=== PATIENT | male | born 1945 | race Caucasian/White ===

== ENCOUNTER 2023-08-12 12:16 | Inpatient (IN) | payer OTHER, MEDICARE, SELFPAY ==
[2023-08-12] VITALS (8 sets, daily range): BP systolic 108–136; BP diastolic 66–84; BMI 25.6
--- NOTE | 2023-08-12 10:32 | ED.GENMED ---
History of Present Illness
General
Chief Complaint: Skin Problem
Source: patient and family
Exam Limitations: none
Time Seen by Provider: 08/12/23 10:15
Nursing documentation reviewed up to this point in time: agreed with
Travel History
Have you had any contact with someone who has COVID-19?: No
Do you have any symptoms of coronavirus? Fever > 100 degrees, chills, cough, shortness of breath, sore throat, loss of taste or smell, muscle aches, or headache?: No
History of Present Illness
History of Present Illness:
78-year-old male with past medical history of hypertension, hyperlipidemia, CAD status post CABG, A-fib, MDS, PVD status post stent (follows with Dr. Zelaya for vascular surgery) who presents to the emergency department for evaluation of redness and
pain in the right lower extremity. Patient was admitted to this hospital last month for cellulitis of the right lower extremity and was treated with antibiotics. He says he was discharged on oral antibiotic and his symptoms improved but never
completely resolved. He has had slow steady worsening of pain and redness, swelling of the right lower extremity since that time. Pain becoming quite severe and patient called vascular surgeon who recommended he come to the emergency room to be
assessed. He denies any fevers or chills. Denies any chest pain or shortness of breath. He denies any falls or trauma. He denies any other complaints.
Review of Systems
Review of Systems
All Other Systems: ROS reviewed and negative except as documented in HPI and ROS
Constitutional: Denies fever or chills
Respiratory: Denies trouble breathing
Cardiac: Denies chest pain or palpitations
ABD/GI: Denies abdominal pain, nausea or vomiting
: Denies flank pain
Musculoskeletal: Reports muscle pain (Redness, swelling, pain in the right lower leg) and edema; Denies neck pain
Neurological: Denies headache
Phy Exam
Physical Exam
Physical Exam:
General: Awake, alert, oriented x3; no acute distress
Head: Normocephalic, atraumatic
Eyes: Conjunctiva normal, EOMI
Throat: Airway intact, handling secretions
Neck: Trachea midline, supple without meningismus
Lungs: Breathing comfortably no distress
Heart: Regular rate; he has palpable pulses bilateral radial; pulses in the distal lower extremities not palpable but are present by Doppler bilaterally
Neuro: Cranial nerves grossly intact, speech fluid
Skin: no rash
Extremities: Patient has asymmetric pitting edema +3 right lower extremity with significant erythema of the right lower leg; he has significant tenderness of the right calf and anterior lower leg and induration of the skin circumferentially; he has
2 wounds on the right heel/distal calf both with necrotic center, no drainage, no fluctuance but significant tenderness
Scores
Heart Failure Risk
Heart Failure Risk Score: Not Applicable
Heart Score for Chest Pain Patients
STEMI patient?: Not applicable
Withdrawal Assessment of Alcohol
Withdrawal Assessment Completed?: Not applicable
Course
Orders/Labs/Results
Orders:
Orders
08/12/23 10:28
Vascular Surgery Consult Urgent
Consulting Provider: Adam Zelaya III
Was physician already notified: Yes
Lower Ext Arterial & GENE US [US Periph Art LOWER Ext w GENE] Urgent
Comment:
Reason For Exam: RLE pain and redness
US Periph Venous LOWER Ext RT Urgent
Comment:
Reason For Exam: RLE pain and redness
08/12/23 10:29
Cefepime HCl [Maxipime] 1,000 mg IV NOW STA
08/12/23 10:30
Blood Culture Q30M
DAMION Source: Blood/Venous
Specimen Description:
08/12/23 10:40
Complete Blood Count/With Diff Urgent
Comprehensive Metabolic Panel Urgent
08/12/23 11:00
Blood Culture Q30M
DAMION Source: Blood/Venous
Specimen Description:
Abnormal Lab Results
08/12/23
10:40
WBC 4.3 L 10^3/uL
(4.8-10.8)
RBC 3.33 L 10^6/uL
(4.70-6.10)
Hgb 12.0 L g/dL
(13.0-18.0)
Hct 34.7 L %
(39.0-52.0)
MCV 104.2 H fL
(80.0-94.0)
MCH 36.0 H pg
(27.0-31.0)
RDW 14.9 H %
(11.5-14.5)
Plt Count 109 L 10^3/uL
(130-400)
Abs Immat Gran (auto) 0.1 H 10^3/uL
(0-0.05)
Immature Gran % 2.8 H %
(0-0.5)
BUN 32 H mg/dl
(9-20)
Glucose 107 H mg/dl
(70-99)
08/12/23 10:40
08/12/23 10:40
Vital Signs
Initial and Last Documented VS:
Initial Vital Signs
Temp Pulse Resp BP Pulse Ox
36.9 C 98 18 136/84 99
08/12/23 10:11 08/12/23 10:11 08/12/23 10:11 08/12/23 10:11 08/12/23 10:11
Last Documented Vital Signs
Temp Pulse Resp BP Pulse Ox
36.9 C 98 18 136/84 99
08/12/23 10:11 08/12/23 10:11 08/12/23 10:11 08/12/23 10:11 08/12/23 10:11
MDM/Problems Addressed
Differential Diagnosis Includes:
Cellulitis, DVT, arterial insufficiency
MDM/Problems Addressed:
78-year-old male presents for evaluation of steadily increasing redness, swelling, pain in the right lower extremity; he has a history of significant vascular disease. Similar admission 1 month ago for cellulitis. Vital signs here within normal
limits. Physical exam as above. Exam is concerning for cellulitis with wounds on the lower leg likely representing portal of entry for bacteria. Plan to place an IV check labs including a CBC and a CMP; will check arterial and venous ultrasound
right lower extremity. Will plan to treat with antibiotics. Case discussed with vascular surgery who will evaluate, agreed with ultrasound imaging start. Given extent of redness and swelling plan likely for admission pending initial workup here.
Labs reviewed: CBC shows no significant changes from baseline labs. CMP unremarkable. Vascular surgery evaluated bedside requesting admission to medicine service for treatment of acute cellulitis and management of other chronic medical issues,
from their perspective we will plan for likely arteriogram while admitted. Case discussed with hospitalist for admission.
Chronic conditions affecting care:
Peripheral vascular disease
*Radiology
Radiology exam reviewed: radiology read reviewed
*Pulse Oximetry
Patient hypoxic: no
*Critical Care Note
Total Time (30-74mins, 75-104mins- exclusive of procedures): Not Applicable
Data Reviewed
Review of Other/Old Records Reveals: Labs and Records
Source: patient, records and family
Patient Management
Discussion with other providers: Hospitalist (Discussed with hospitalist) and Instant Print Operator (Discussed with vascular surgery)
Escalation/DeEscalation of care consider admission/obs:
Admission indicated
ED Attending Note
-
Portions of this chart may have been created with voice recognition software.� Occasional wrong word or��sound alike� substitutions may have occurred due to the inherent limitations of voice recognition software.
Discharge Plan
Departure
Patient Disposition: Admit
Date of Disposition: 08/12/23
Time of Disposition: 11:12
Admit to doctor: Ramiro
Presentation/result/management discussed w/ accepting MD/DO: Hospitalist
Discharge Problem:
Cellulitis of right lower leg
Prescriptions:
No Action
rosuvastatin 40 mg Tablet
40 mg PO QPM
fenofibrate 160 mg Tablet
160 mg PO HS
glucosamine HCl 1,500 mg Tablet
3,000 mg PO DAILY
omega 5-ybl-qav-fish oil [Fish Oil] 1,000 mg (120 mg-180 mg) Capsule
2 cap PO DAILY
Eliquis 5 mg Tablet
5 mg PO BID
acetaminophen 325 mg Tablet
650 mg PO Q4HPRN PRN (Reason: CALIXTO/mild pain/temp > 100.4 F) Qty: 14 0RF
alprazolam 0.25 mg Tablet
0.25 mg PO TIDPRN PRN (Reason: anxiety) Qty: 10 0RF
prednisone 10 mg Tablet
15 mg PO DAILY
Entresto 24-26 mg Tablet
1 tab PO BID
cephalexin 500 mg capsule
500 mg PO QID Qty: 20 0RF
carvedilol 3.125 mg Tablet
3.125 mg PO BID Qty: 60 0RF
Jardiance 10 mg Tablet
10 mg PO DAILY Qty: 0 0RF
Interventions
Interventions:
*Risk Screen - Suicide Last Done: 08/12/23 10:11
*General Assessment Last Done: 08/12/23 10:11
*Neglect/Abuse Screening Last Done: 08/12/23 10:11
ED- Fall Risk Assessment Last Done: 08/12/23 10:18
*ED COVID-19 Vaccine History Last Done: 08/12/23 10:11
ED-Skin Assessment Last Done: 08/12/23 10:18
[2023-08-12 10:50] LABS: % Basophils 0.2 % (0-2); % Eosinophils 0.7 % (0-6); % Immature Granulocytes 2.8 % (0-0.5); % Lymphocytes 27.2 % (20.5-51.1); % Monocytes 2.8 % (1.7-9.3); % Neutrophils 66.3 % (42.2-75.2); Absolute Immature Granulocytes 0.1 10^3/uL (0-0.05); Absolute Lymphocytes 1.2 10^3/uL (1.2-3.4); Absolute Monocytes 0.1 10^3/uL (0.1-0.6); Absolute Neutrophils 2.8 10^3/uL (1.4-6.5); Hematocrit 34.7 % (39.0-52.0); Mean Corp Hgb Conc. 34.6 g/dL (33.0-37.0); Mean Corpuscular Volume 104.2 fL (80.0-94.0); Nucleated Red Blood Cells % 0 % (-); Platelet Count 109 10^3/uL (130-400); Red Blood Cell Count 3.33 10^6/uL (4.70-6.10); Red Cell Dist. Width 14.9 % (11.5-14.5); White Blood Cell Count 4.3 10^3/uL (4.8-10.8)
--- NOTE | 2023-08-12 10:59 | CON.VAS ---
Addendum entered and electronically signed by Adam Zelaya III, MD 08/13/23 08:36:
This patient was seen and examined with ROXY Mcclellan. I agree with the history and physical exam as well as the assessment and plan. I have the following additions:
Known to me from recent inpatient consultation at [facility]
Known peripheral arterial disease; prior vascular surgery/endovascular interventions at outside hospital
Recurrent admissions for cellulitis and nonhealing wounds of his right lower extremity
Nonpalpable pedal pulses on the right
I personally reviewed his lower extremity arterial studies from this admission and last. He has a right SFA occlusion. Multiphasic arterial duplex waveforms in the right common femoral artery are identified.
I am recommending a right lower extremity arteriogram with possible endovascular intervention. The technical aspects of this procedure were discussed with him, his daughter (bedside). The benefits and rationale for this approach were discussed
with them in detail. Operative risks were discussed with them in detail including but not limited to arterial access site injury, bleeding, infection, contrast nephropathy, distal embolization, failure to successfully perform endovascular
intervention, open revascularization and limb loss.
They expressed a clear understanding of our conversation and agreed to proceed with surgery as detailed above. I also discussed this plan with his son-in-law who is a hand surgeon at [facility]. He also agrees with this approach.
Signed:
Adam Zelaya III, MD
[facility] Vascular Surgery
[phone] (ozet)
Original Note:
Consultation
Consultation Request
Date/Time Consultation Performed: 08/12/23 1130
Requesting Provider: Victor Manuel Cohen Jr
Performing Provider: Nora Mims NP-Terese for Adam Zelaya III, MD
Reason for Consultation: Right lower extremity cellulitis and nonhealing superficial calf wounds
Medical History
-
Chief Complaint: Right lower extremity pain, erythema, edema, and nonhealing wounds
History of Present Illness:
This is a 78-year-old male patient with significant past medical history of hypertension, hyperlipidemia, CAD, permanent A-fib, MDS, PAD who presents to the emergency department for evaluation of continued erythema, edema, and pain to right lower
extremity. Patient was recently admitted from 07/17/23 to 07/20/23 for treatment of right lower extremity cellulitis he completed a course of IV antibiotics with transition to p.o. upon discharge. At time of last admission patient was seen by our
vascular surgery group for concerns of peripheral artery disease contributing to cellulitis/wound non-healing; however, at that time patient showed progression with conservative management of antibiotics and family desired to seek continued care
with the [facility] where he was previously treated by their vascular surgery team. Of note he did have an established outpatient office visit this week with Dr. Zelaya but was canceled by patient. Patient notes following discharge he had slow
steady improvement of erythema and pain but never complete resolution. He then notes roughly a week ago he noticed worsening in pain and erythema. He was seen by [facility] on Wednesday (08/09) and was restarted on oral antibiotic
doxycycline. He also underwent office debridement by wound care physician and notes this exponentially worsened his pain. He denies nausea, vomiting, fever, chills, SOB, chest pain, and trauma or falls. He and family report to ED today as they
are now agreeable to peripheral artery disease management by our vascular surgery team, and desire urgent evaluation given his continued discomfort and nonhealing wounds. Does endorse symptomatology concerning for claudication, denies rest pain. He
is on oral anticoagulation for atrial fibrillation, last dose this morning.
Past Medical History
Past Medical History: Arrhythmias (atrial fibrillation), CAD, CHF, Psychiatric (Anxiety) and Other (peripheral arterial disease, myelodysplastic syndrome, polymyalgia rheumatica, hyperlipidemia, diverticulosis, gallstones, enlarged prostate, gout,
right carotid stenosis, )
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 Callahan (right common iliac artery stent 9x37 mm & external iliac stent 8x38
mm icast covered stent), BL femoral endarterectomy by Dr. Callahan)
Social History
Tobacco: Former Smoker (quit 1992)
Personal:
Living: With Family
Allergies / Home Medications
Allergy/AdvReac Type Severity Reaction Status Date / Time
Penicillins Allergy Mild Hives Verified 08/12/23 10:13
Medication Instructions Recorded Confirmed Type
apixaban 5 mg tablet (Eliquis) 5 mg PO BID Blood Clot 11/28/22 07/17/23 History
Prevention/Tx
fenofibrate 160 mg tablet 160 mg PO HS High Cholesterol 11/28/22 07/17/23 History
glucosamine HCl 1,500 mg tablet 3,000 mg PO DAILY Supplement 11/28/22 07/17/23 History
omega 9-che-lrt-fish oil 1,000 mg 2 cap PO DAILY Supplement 11/28/22 07/17/23 History
(120 mg-180 mg) capsule (Fish Oil)
rosuvastatin 40 mg tablet 40 mg PO QPM High Cholesterol 11/28/22 07/17/23 History
acetaminophen 325 mg tablet 650 mg PO Q4HPRN PRN CALIXTO/mild 12/04/22 07/17/23 Rx
pain/temp > 100.4 F #14 tabs
alprazolam 0.25 mg tablet 0.25 mg PO TIDPRN PRN anxiety #10 12/04/22 07/17/23 Rx
tabs
prednisone 10 mg tablet 15 mg PO DAILY INFLAMMATION 07/17/23 07/17/23 History
sacubitril 24 mg-valsartan 26 mg 1 tab PO BID Heart Failure 07/17/23 07/17/23 History
tablet (Entresto)
carvedilol 3.125 mg tablet 3.125 mg PO BID Heart Failure #60 07/20/23 07/17/23 Rx
tabs
cephalexin 500 mg capsule 500 mg PO QID Infection #20 caps 07/20/23 Rx
empagliflozin 10 mg tablet 10 mg PO DAILY Heart Failure #0 07/20/23 07/17/23 Rx
(Jardiance) tabs
Review of Systems
-
History Source: Patient
Constitutional: Reports No Symptoms
EENT: Reports No Symptoms
Respiratory: Reports No Symptoms
Cardiac: Reports No Symptoms
Vascular: Reports Leg Pain / Claudication and Other (Pain at right lower extremity, mostly at posterior upper calf and location of superficial wounds )
Abdomen/GI: Reports No Symptoms
: Reports No Symptoms
Musculoskeletal: Reports Edema (BL LE right worse than left )
Skin: Reports Other (erythema, pain, and swelling to RLE )
Neurological: Reports No Symptoms
Endocrine: Reports No Symptoms
Physical Exam
Vital Signs
Temp Pulse Resp BP Pulse Ox
98.4 F 98 18 136/84 99
08/12/23 10:11 08/12/23 10:11 08/12/23 10:11 08/12/23 10:11 08/12/23 10:11
Physical Exam
General: No Apparent Distress and Comfortable
HEENT: Normocephalic and Anicteric
Respiratory: Non Labored Respirations
Cardiac: Negative JVD
GI: Soft, Non Tender and Non Distended
Musculoskeletal: Edema (Right lower extremity +2 pitting edema, left lower extremity +1 pitting edema)
Skin: Warm, Dry and Other (Erythema at right lower extremity calf to foot, with superficial wounds at medial calf and heel)
Neuro: AO x 3
Pulses: Left Femoral: +2, Right Femoral: +1 (Challenging to palpate with amount of scar tissue present, confirmed by Doppler), Bilateral Dorsalis Pedis: Doppler and Left Posterior Tibial: Doppler
Assessment / Plan
-
Assessment: 78-year-old male significant past medical history for peripheral artery disease, bilateral lower extremity edema, cellulitis, and nonhealing wounds
Plan:
Given failure of conservative management, abnormal GENE and toe pressure of 0 at right lower extremity would recommend right lower extremity arteriogram with possible intervention to further evaluate extent of peripheral artery disease and hopefully
optimize wound healing if arterial disease is amenable to endovascular intervention
N.p.o. at midnight
Hold oral anticoagulation in preparation for procedure tomorrow
Discussed at bedside with patient, spouse, and daughter
I performed this shared service with the attending. I evaluated the patient [id number] and have entered clinical documentation as shown in the encounter note. I performed the following component(s):�history and physical exam. Note that medical
decision making is not final until attested by vascular attending.
Data Reviewed
-
Ultrasound: Report Reviewed by me, Discussed with Physician and Discussed with Patient
Labs: Labs Reviewed by me, Discussed with Physician, Discussed with Patient and Discussed with Family
[2023-08-12 11:07] LABS: ALT (SGPT) 14 U/L (0-50); AST (SGOT) 20 U/L (17-59); Alkaline Phosphatase 51 U/L (38-126); Blood Urea Nitrogen 32 mg/dl (9-20); Calcium 9.6 mg/dl (8.4-10.2); Carbon Dioxide 25 mmol/L (22-30); Chloride 102 mmol/L (98-107); Estimated Creatinine Clearance 74 ml/min; Glucose 107 mg/dl (70-99); Potassium 3.8 mmol/L (3.5-5.1); Sodium 139 mmol/L (135-145); Total Bilirubin 1.2 mg/dl (0.2-1.3); Total Protein 7.2 g/dl (6.3-8.2); eGFR > 60.00
[2023-08-12 11:30] LABS: Albumin 3.9 g/dl (3.5-5.0)
--- NOTE | 2023-08-12 12:04 | HPS.HSE ---
Family Physician
-
Family Physician: Olman Fritz
Chief Complaint
-
Increasing pain and swelling of right lower extremity
History of Present Illness
78-year-old male with past medical history of hypertension, hyperlipidemia, CAD status post CABG, permanent A-fib, MDS, PVD status post stent (follows with Dr. Zelaya for vascular surgery) who presents to the emergency department for evaluation of
redness and pain in the right lower extremity.� Patient was admitted to this hospital last month for cellulitis of the right lower extremity and was treated with antibiotics. Completed course of cephalexin. he says he was discharged on oral
antibiotic and his symptoms improved but never completely resolved.� He has had slow steady worsening of pain and redness, swelling of the right lower extremity since that time.� Pain becoming quite severe and patient called vascular surgeon who
recommended he come to the emergency room to be assessed.� He denies any fevers or chills.� Denies any chest pain or shortness of breath.� He denies any falls or trauma.� He denies any other complaints. At that admission he was found to have
significant peripheral vascular disease. Was to try conservative management with antibiotic and have further follow-up with vascular either at near where they live up in [place] or locally here. They have decided to pursue any vascular
management locally while hospitalized. He follows with Dr. Amaya in [place] for his cardiology follow-up that has been stable.) His last dose of Eliquis was this morning.
Medical History
Past Medical History
Past Medical History: Reports Arrhythmia (Permanent atrial fibrillation), CAD (5 vessel bypass), Fibromyalgia (PMR) and Hypercholesterolemia
Additional Past Medical History:
MDS follows with hematology
Past Surgical History: Reports Cardiac
Social History
Tobacco: Former Smoker
Alcohol: None
Drug: None
Personal:
Living: With Family
Employment: Retired
Family History
Family History: Not pertinent
Allergies / Home Medications
Allergies reflects when Allergies were last updated in [facility].
Home Medications with original date entered in [facility]
Allergy/Medication List:
Allergies
Allergy/AdvReac Type Severity Reaction Status Date / Time
Penicillins Allergy Mild Hives Verified 08/12/23 10:13
Home Medications
apixaban 5 mg tablet (Eliquis) 5 mg PO BID Blood Clot Prevention/Tx 11/28/22
fenofibrate 160 mg tablet 160 mg PO HS High Cholesterol 11/28/22
glucosamine HCl 1,500 mg tablet 3,000 mg PO DAILY Supplement 11/28/22
omega 5-okp-qtz-fish oil 1,000 mg (120 mg-180 mg) capsule (Fish Oil) 2 cap PO DAILY Supplement 11/28/22
rosuvastatin 40 mg tablet 40 mg PO QPM High Cholesterol 11/28/22
acetaminophen 325 mg tablet 650 mg PO Q4HPRN PRN CALIXTO/mild pain/temp > 100.4 F #14 tabs 12/04/22
alprazolam 0.25 mg tablet 0.25 mg PO TIDPRN PRN anxiety #10 tabs 12/04/22
prednisone 10 mg tablet 15 mg PO DAILY INFLAMMATION 07/17/23
sacubitril 24 mg-valsartan 26 mg tablet (Entresto) 1 tab PO BID Heart Failure 07/17/23
carvedilol 3.125 mg tablet 3.125 mg PO BID Heart Failure #60 tabs 07/20/23
cephalexin 500 mg capsule 500 mg PO QID Infection #20 caps 07/20/23
empagliflozin 10 mg tablet (Jardiance) 10 mg PO DAILY Heart Failure #0 tabs 07/20/23
Review of Systems
-
History Source: Patient and Family
A 12 point ROS was completed and negative except as noted: Yes
Constitutional: Reports See HPI
EENT: Reports See HPI
Respiratory: Reports See HPI
Cardiac: Reports See HPI
Abdomen/GI: Reports See HPI
: Reports See HPI
Musculoskeletal: Reports See HPI
Skin: Reports See HPI
Neurological: Reports See HPI
Endocrine: Reports See HPI
Hematologic/Lymphatic: Reports See HPI
Psych: Reports See HPI
Physical Exam
Vital Signs
Vital Signs
Temp Pulse Resp BP Pulse Ox
98.4 F 98 18 136/84 99
08/12/23 10:11 08/12/23 10:11 08/12/23 10:11 08/12/23 10:11 08/12/23 10:11
Physical Exam
General: Well Developed and Comfortable
HEENT: NormoCephalic and Moist mucous membranes
Cardiac: Irregular Rhythm
GI: Soft, Non Tender and Non Distended
Musculoskeletal: Edema, Right Lower Extremity (Tender right calf with surrounding erythema and edema induration of the skin 2 wounds to the right heel and distal calf with necrotic center no apparent drainage no fluctuance)
Skin: Warm and Rash
Neuro: Awake, Alert, Oriented, AO x 3, No Motor Deficits and Nonfocal/grossly intact
Psych: Calm and Intact Judgment/Insight
Laboratory Results
-
08/12/23 10:40
08/12/23 10:40
Laboratory Results
Total Bilirubin 1.2 mg/dl (0.2-1.3) 08/12/23 10:40
AST 20 U/L (17-59) 08/12/23 10:40
ALT 14 U/L (0-50) 08/12/23 10:40
Alkaline Phosphatase 51 U/L (38-126) 08/12/23 10:40
Data Reviewed
-
Critical Care Time (in minutes): 56
Lab Data: Labs Reviewed by me (4.3 white count/hemoglobin 12.0/platelets 109/blood sugar 107 creatinine 0.8 BUN 32 out of proportion of previous levels/)
Impression/Plan
-
IMPRESSION:
78-year-old male with past medical history of hypertension, hyperlipidemia, CAD status post CABG, permanent A-fib, MDS, PVD status post stent (follows with Dr. Zelaya for vascular surgery) who presents to the emergency department for evaluation of
redness and pain in the right lower extremity.� Patient was admitted to this hospital last month for cellulitis of the right lower extremity and was treated with antibiotics. Completed course of cephalexin. he says he was discharged on oral
antibiotic and his symptoms improved but never completely resolved.� He has had slow steady worsening of pain and redness, swelling of the right lower extremity since that time.� Pain becoming quite severe and patient called vascular surgeon who
recommended he come to the emergency room to be assessed.� He denies any fevers or chills.� Denies any chest pain or shortness of breath.� He denies any falls or trauma.� He denies any other complaints. At that admission he was found to have
significant peripheral vascular disease. Was to try conservative management with antibiotic and have further follow-up with vascular either at near where they live up in [place] or locally here. They have decided to pursue any vascular
management locally while hospitalized. He follows with Dr. Amaya in [place] for his cardiology follow-up that has been stable.) His last dose of Eliquis was this morning.
Assessment and plan:
Right lower extremity cellulitis
-Ongoing nonhealing wound to medial calf with increasing suspected ischemic pain from known PAD
-Prior documented peripheral vascular disease seen on GENE in June
-Nonhealing wound after antibiotic treatment in late June
-Obtain repeat arterial Doppler and vascular consultation/will make n.p.o. after midnight in preparation for arteriography
-No prior culture results from wound infection in June/completed course of cephalexin
-Hold dose of Eliquis
-Will continue on course of antibiotics started in ED but consult infectious disease
Peripheral arterial disease
-Documented on previous GENE arterial Doppler pending today
-Prior history of endovascular intervention to right lower extremity at another facility
-Rule out ischemic burden as cause of recurrent wound
-For arteriogram in a.m./n.p.o. after midnight
-Hold anticoagulant last taken this morning
Coronary artery disease/prior CABG/ischemic cardiomyopathy?/Prior history of HFrEF
-Continue statin
- most recent echo reviewed showing an EF of 25% in November of last year with global hypokinesis moderate to severe tricuspid regurg and pulmonary artery pressures of 44 mmHg/moderate mitral regurg
-Continue Entresto
-Carvedilol
-Jardiance
-Stable functional status
-If vascular intervention entertained we will need to get cardiology clearance/update 2D echocardiogram
Permanent atrial fibrillation
-Rate control with carvedilol
-Hold anticoagulation in preparation for vascular intervention with arteriography
Other comorbidities:
Polymyalgia rheumatica/continue prednisone 50 mg
Myelodysplastic syndrome/presently stable
Hypercholesterolemia/continue fenofibrate and rosuvastatin/hold omega-3
DVT prophylaxis Eliquis will be held/Lovenox tonight subcu/not candidate for mechanical
Limited CODE STATUS /DNI
Plan of care discussed at length with patient's family and patient in ED and agreed upon
[2023-08-12] MEDS: MAXIPIME 1000 MG IV (12:20)
--- NOTE | 2023-08-12 12:51 | CM ---
Patient seen at bedside with and daughter present. Patient states that he lives with in a 2 story home. Patient has a walker and a cane at home. Patient states that he has 7 children and 17 grands. Patient stated that he has been having
[facility] Vn at home prior to admission since last admission recently. Patient uses [facility] at [place]. CM will continue to follow for discharge planing needs.
Plan; home with VN vs SNF pending medical treatment plan
--- NOTE | 2023-08-12 13:35 | PHA.VAN.IN ---
Assessment
- Assessment
Renal Function: Appears similar to baseline (SCR similar to baseline, BUN slightly elevated)
Concomitant Antimicrobials: cefepime
AUC Dosing Plan
- Dosing Variables
Dosing Weight (kg): 76
Dosing CrCl (ml/min): 74
Vd coefficient (L/kg): 0.7
- Empiric Dosing
Initial / Loading Dose: 2000mg - administration pending
Maintenance Regimen: Vanc 750mg Q12H starting at 08/13 0600
Estimated AUC (mcg*h/mL): 442
Estimated Peak (mcg*h/mL): 25.8
Estimated Trough (mcg/ml): 12.5
Estimated Half Life (H): 10.5
- Monitoring
No levels ordered at this time: consider levels in next few days
Pharmacokinetics Vancomycin I
- -
Patient Age: 78
Patient Sex: Male
Vancomycin Day #: 1
Indication: Skin And Soft Tissue
Requesting Provider: Dr. Ibarra
Pertinent Antimicrobial Allergies:
penicillins - hives
Height / Weight:
Height 5 ft 8 in
Actual Weight 75.5 kg
Pertinent Past Medical History: PAD, MDS
- Vital Signs / Lab Results
Temp Pulse Resp BP Pulse Ox
98.4 F 98 18 108/66 99
08/12/23 10:11 08/12/23 10:11 08/12/23 10:11 08/12/23 13:00 08/12/23 13:15
Lab Results - Hematology
08/12/23
10:40
WBC 4.3 L
Lab Results - Chemistry
08/12/23
10:40
BUN 32 H
Creatinine 0.8
Estimated Creat Clear 74
Albumin 3.9
[2023-08-12] MEDS: NSS 1000 IV (14:39)
[2023-08-12] MEDS: VANCOCIN 540 MG IV (14:39)
[2023-08-12] MEDS: FLUSH (NSS) 1 FLUSH IV (14:40)
--- NOTE | 2023-08-12 15:15 | WOUNDNOTE ---
[facility] RN note: Patient admitted with RLE cellulitis. For angiogram tomorrow. Patient being followed by vascular and ID.
See H&P for complete history.
PMH: HTN, CABG, a fib (Eliquis), myelodysplasia syndrome (prednisone), non healing RLE wounds, PAD, RLE vascular bypass with stent 2013, fibromyalgia, former smoker.
Wound Location and type/assessment: Patient admitted with: R medial posterior calf full thickness wound with moist eschar and dermal pink ulceration, R posterior upper heel/Achilles necrotic ulcers. +diffuse edema and erythema RLE. RLE venous
ultrasound negative for DVT. Arterial Doppler R toe pressure: 0. Toes slightly cool on R. Patient c/o intermittent pain RLE. L heel blanchable red, R elbow and LUE with small bruises, persistent blanchable red sacrum.
Appetite: fair-good.
Pressure redistribution devices in place: [employer] Accum[employer]. Patient is able to turn self in bed. Heels off bed with pillow and air chair cushion.
Plan: Wound culture taken RLE as ordered. BIRD Mcarthur to send to lab. Dressing changed R calf and R heel/Achilles. Heel elevation maintained. Instructed patient pressure injury prevention measures. Protective foam dressing applied to R heel.
Will confirm orders with hospitalist and discussed with BIRD Mcarthur.
Care plan to be updated and will follow as needed. Patient stated he will request VN again if goes home when discharged.
Recommend follow up at wound care center upon discharge.
--- NOTE | 2023-08-12 15:21 | WOUNDNOTE ---
R CALF (POSTERIOR MEDIAL)
--- NOTE | 2023-08-12 16:20 | CON.ID ---
Consultation
-
Date/Time Consultation Requested: 08/12/23 12:38
Date/Time Consultation Performed: 07/23/23 16:20
Requesting Provider: Dr Ibarra
Performing Provider: Dr Avila
Reason for Consultation: cellulitis
Chief Complaint / Past History
Chief Complaint
Increasing pain and swelling of right lower extremity
History of Present Illness
Mr Carson is a 78 year old male with history of PVD s/p stenting with a chronic lower extremity wound, MDS , penicillin allergy who presented here today for right lower extremity redness, swelling, + claudication. No rest pain. Of note had a similar
presentation 1 month ago discharged on keflex patient reports that symptoms improved but never fully resolved. Of note GENE at last visit 'Chronic long segment occlusion of the right SFA with reconstitution of monophasic continuous flow within the
popliteal artery. Posterior tibial artery not visualized, likely occluded,' US of stents showed patent right lower extremity veins without thrombosis, he completed 5 further days of keflex. Then about 1 week ago symptoms began progressing, saw
wound care started on doxycycline, also had debridement in the office and subsequently with markedly increased pain. No: nausea, vomiting, fever, chills, SOB, chest pain, and trauma or falls.
Since arrival here this visit he is afebrile, bp stable, wbc 4.3, pancytopenia noted and is chronic, no left shift, cr 0.8, a1c last month 5.7, MRSA screen negative last month, in progress this month, blood cultures x2 in progress, a wound culture
is also in progress. Patient is currently on vancomycin and cefepime, ID is consulted for assistance with management.
Past History
Additional Past Medical History:
Arrhythmias (atrial fibrillation), CAD, CHF, Psychiatric (Anxiety) and Other (peripheral arterial disease, myelodysplastic syndrome, polymyalgia rheumatica, hyperlipidemia, diverticulosis, gallstones, enlarged prostate, gout, right carotid stenosis,
Additional Past Surgical History:
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 Callahan (right common iliac artery stent 9x37 mm & external iliac stent 8x38 mm icast covered
stent), BL femoral endarterectomy by Dr. Callahan)
Allergy History:
Penicillins Allergy (Mild, Verified 08/12/23 10:13)
Hives
Medications Reviewed: Yes
Social History
Tobacco: Former Smoker
Personal:
Living: With Family
Family History
Family History: Not Pertinent
Review of Systems
Review of Systems
General: Negative Fever or Chills
All systems: All other systems were reviewed and were negative
Vital Signs
Temp Pulse Resp BP Pulse Ox
98.6 F 98 18 120/70 95
08/12/23 15:32 08/12/23 15:32 08/12/23 15:32 08/12/23 15:32 08/12/23 15:32
Physical Exam
Physical Exam
Constitutional: No Acute Distress
Cardiovascular: Regular Rate and S1/S2; Negative Murmur or Rub
Pulmonary: Clear and Symmetric; Negative Wheezes, Rales or Rhonchi
Gastrointestinal: Soft, Non Tender, Non Distended and Normal Bowel Sounds
Skin: Warm and Dry; Negative Rash or Jaundice
Lab / Diagnostic Study Results
08/12/23 10:40
08/12/23 10:40
Abs Immat Gran (auto) 0.1 10^3/uL (0-0.05) H 08/12/23 10:40
Absolute Neuts (auto) 2.8 10^3/uL (1.4-6.5) 08/12/23 10:40
Absolute Lymphs (auto) 1.2 10^3/uL (1.2-3.4) 08/12/23 10:40
Absolute Monos (auto) 0.1 10^3/uL (0.1-0.6) 08/12/23 10:40
Absolute Basos (auto) 0.0 10^3/uL (0-0.2) 08/12/23 10:40
Immature Gran % 2.8 % (0-0.5) H 08/12/23 10:40
Neutrophils % 66.3 % (42.2-75.2) 08/12/23 10:40
Lymphocytes % 27.2 % (20.5-51.1) 08/12/23 10:40
Monocytes % 2.8 % (1.7-9.3) 08/12/23 10:40
Eosinophils % 0.7 % (0-6) 08/12/23 10:40
Basophils % 0.2 % (0-2) 08/12/23 10:40
Microbiology Results
Micro:
08/12/23 14:56 Wound Culture - Pending
Leg - Right Gram Stain - Pending
08/12/23 14:56 MRSA Screen - Pending
Nose
08/12/23 10:40 Blood Culture - Pending
Blood/Venous
08/12/23 10:40 Blood Culture - Pending
Blood/Venous
Assessment / Plan
Nonpurulent Right lower extremity cellulitis
Lower extremity wounds
- Possible portal of entry of bacteria
Myelodysplastic syndrome
Immunosuppression
PAD/CAD
- poor tissue perfusion may have contributed to relapse, pleased to hear patient now agreeable to intervention (if feasible); MDS and immunosuppression also likely contributed
- without purulence most likely driven by streptococcus - will have faster response with targeted agents - switched to cefazolin
- too tender for compression, leg is elevated - managing edema also important to decrease risk of relapse
- not diabetic
- blood cultures x2 in progress
- wound culture in progress
- known to outpatient wound care center
- follow clinically
[2023-08-12 16:29] LABS: Vitamin B12 465 pg/ml (239-931)
[2023-08-12] MEDS: ANCEF 10 IV (17:48)
[2023-08-12] MEDS: CRESTOR 40 MG PO (17:49)
[2023-08-12] MEDS: LOVENOX 40 MG SC (17:49)
[2023-08-12] MEDS: MORPHINE SULFATE 2 MG IV (18:35)
[2023-08-12] MEDS: COREG 3.125 MG PO (20:13)
[2023-08-12] MEDS: ENTRESTO 24 MG/26 MG 1 TAB PO (20:13)
--- NOTE | 2023-08-12 22:52 | PTCARENOTE ---
At 22:52 pt became restless and confused oriented to only self. VS: 104.3 rectal temp, 144/112bp, 150-160's hr, 84% on room air, resp 26. RN put pt on 4L NC sating 96% and notified DIRECTOR ADVERTISING- ordered [employer].
@2300: pt AAOx3, VS: hr 110-120's, 99.6 temp, 113/69bp, 97% 4L NC, resp 20. Pt is resting comfortably with call rothman within reach.
[2023-08-12] MEDS: OFIRMEV 100 IV (23:03)
[2023-08-13] VITALS (51 sets, daily range): BP systolic 77–134; BP diastolic 44–80; BMI 26.0
[2023-08-13 00:26] LABS: Lactic Acid 2.6 mmol/L (0.7-2.0)
[2023-08-13 00:30] LABS: % Basophils 0.3 % (0-2); % Eosinophils 0.4 % (0-6); % Immature Granulocytes 1.9 % (0-0.5); % Lymphocytes 6.6 % (20.5-51.1); % Monocytes 1.8 % (1.7-9.3); Absolute Immature Granulocytes 0.1 10^3/uL (0-0.05); Absolute Lymphocytes 0.5 10^3/uL (1.2-3.4); Absolute Monocytes 0.1 10^3/uL (0.1-0.6); Hematocrit 30.7 % (39.0-52.0); Hemoglobin 10.7 g/dL (13.0-18.0); Mean Corp Hgb Conc. 34.9 g/dL (33.0-37.0); Mean Corpuscular Hgb 36.4 pg (27.0-31.0); Mean Corpuscular Volume 104.4 fL (80.0-94.0); Mean Platelet Volume 9.3 fL (7.4-10.4); Nucleated Red Blood Cells % 0 % (-); Platelet Count 98 10^3/uL (130-400); Red Blood Cell Count 2.94 10^6/uL (4.70-6.10); Red Cell Dist. Width 15.1 % (11.5-14.5); White Blood Cell Count 6.8 10^3/uL (4.8-10.8)
[2023-08-13 00:32] LABS: Blood Urea Nitrogen 20 mg/dl (9-20); Calcium 8.4 mg/dl (8.4-10.2); Carbon Dioxide 22 mmol/L (22-30); Chloride 106 mmol/L (98-107); Estimated Creatinine Clearance 74 ml/min; Glucose 148 mg/dl (70-99); Potassium 3.7 mmol/L (3.5-5.1); Sodium 134 mmol/L (135-145); eGFR > 60.00
[2023-08-13 00:42] LABS: COVID-19 Antigen Negative (Negative)
[2023-08-13] MEDS: XANAX 0.25 MG PO ×2 (00:43→07:34)
[2023-08-13] MEDS: TRICOR 145 MG PO ×2 (00:44→20:27)
[2023-08-13 00:52] LABS: Procalcitonin 0.58 ng/ml (0.0-0.25)
[2023-08-13] MEDS: ANCEF 10 IV (03:51)
[2023-08-13 07:37] LABS: Hematocrit 30.6 % (39.0-52.0); Hemoglobin 10.5 g/dL (13.0-18.0); Mean Corp Hgb Conc. 34.3 g/dL (33.0-37.0); Mean Corpuscular Hgb 36.3 pg (27.0-31.0); Mean Corpuscular Volume 105.9 fL (80.0-94.0); Mean Platelet Volume 9.2 fL (7.4-10.4); Platelet Count 91 10^3/uL (130-400); Red Blood Cell Count 2.89 10^6/uL (4.70-6.10); Red Cell Dist. Width 15.3 % (11.5-14.5); White Blood Cell Count 8.5 10^3/uL (4.8-10.8)
--- NOTE | 2023-08-13 08:15 | PTCARENOTE ---
Provided update to Nora Mims NP from vascular surgery from events overnight and that pt is febrile currently. Nora will update Dr. Zelaya.
[2023-08-13 08:20] LABS: Blood Urea Nitrogen 21 mg/dl (9-20); Calcium 8.9 mg/dl (8.4-10.2); Carbon Dioxide 23 mmol/L (22-30); Chloride 103 mmol/L (98-107); Estimated Creatinine Clearance 74 ml/min; Glucose 89 mg/dl (70-99); Potassium 3.9 mmol/L (3.5-5.1); Sodium 137 mmol/L (135-145); eGFR > 60.00
[2023-08-13] MEDS: TYLENOL 650 MG PO ×2 (08:23→13:39)
[2023-08-13] MEDS: COREG 3.125 MG PO (08:24)
[2023-08-13] MEDS: ENTRESTO 24 MG/26 MG 1 TAB PO (08:25)
[2023-08-13 08:50] LABS: Lactic Acid 1.4 mmol/L (0.7-2.0)
[2023-08-13] MEDS: NSS 1000 IV (09:56)
--- NOTE | 2023-08-13 09:58 | W.PN.HOSP.TC ---
Addendum entered and electronically signed by Campos Ibarra MD 08/13/23 11:08:
In preparation for arteriography the patient developed hypotension and did not respond to fluid bolus with BP still in the 70s and 80 and will be transferred to ICU for pressors/given his history of reduced EF heart failure and cardiomyopathy we
will consult cardiology. Arteriography will be postponed till further stabilization.
Original Note:
Today's Communication/Plan
-
For arteriography today
Continue IV cefazolin as per ID/monitor cultures including blood
Monitor renal status
Anticoagulation on hold and defer to vascular
Assessment / Plan
Assessment / Plan
78-year-old male with past medical history of hypertension, hyperlipidemia, CAD status post CABG, permanent A-fib, MDS, PVD status post stent (follows with Dr. Zelaya for vascular surgery) who presents to the emergency department for evaluation of
redness and pain in the right lower extremity.� Patient was admitted to this hospital last month for cellulitis of the right lower extremity and was treated with antibiotics.� Completed course of cephalexin. he says he was discharged on oral
antibiotic and his symptoms improved but never completely resolved.� He has had slow steady worsening of pain and redness, swelling of the right lower extremity since that time.� Pain becoming quite severe and patient called vascular surgeon who
recommended he come to the emergency room to be assessed.� He denies any fevers or chills.� Denies any chest pain or shortness of breath.� He denies any falls or trauma.� He denies any other complaints.� At that admission he was found to have
significant peripheral vascular disease.� Was to try conservative management with antibiotic and have further follow-up with vascular either at near where they live up in [place] or locally here.� They have decided to pursue any vascular
management locally while hospitalized.� He follows with Dr. Amaya in [place] for his cardiology follow-up that has been stable.)� His last dose of Eliquis was this morning.
Assessment and plan:
Right lower extremity cellulitis
-Ongoing nonhealing wound to medial calf with increasing suspected ischemic pain from known PAD
-Prior documented peripheral vascular disease seen on GENE in June
-Nonhealing wound after antibiotic treatment in late June
-Obtain repeat arterial Doppler / vascular consultation/will make n.p.o. after midnight in preparation for arteriography
-GENE was not able to be obtained absent TBI chronic long segment occlusion of the right SFA with reconstitution of within the popliteal. Posterior tibial artery not visualized
-No prior culture results from wound infection in June/completed course of cephalexin
-Hold dose of Eliquis
-ID consultation reviewed/placed on cefazolin 2 g every 8
Peripheral arterial disease
-Documented on previous GENE arterial Doppler pending today
-Prior history of endovascular intervention to right lower extremity at another facility
-Rule out ischemic burden as cause of recurrent wound
-For arteriogram in a.m./n.p.o. after midnight
-Hold anticoagulant last taken 08/12 AM
Coronary artery disease/prior CABG/ischemic cardiomyopathy?/Prior history of HFrEF
-Continue statin
- most recent echo reviewed showing an EF of 25% in November of last year with global hypokinesis moderate to severe tricuspid regurg and pulmonary artery pressures of 44 mmHg/moderate mitral regurg
-Continue Entresto
-Carvedilol
-Jardiance
-Stable functional status
-If vascular intervention entertained we will need to get cardiology clearance/update 2D echocardiogram
Permanent atrial fibrillation
-Rate control with carvedilol
-Hold anticoagulation in preparation for vascular intervention with arteriography
Other comorbidities:
Polymyalgia rheumatica/continue prednisone 50 mg
Myelodysplastic syndrome/presently stable
Hypercholesterolemia/continue fenofibrate and rosuvastatin/hold omega-3
DVT prophylaxis Eliquis will be held/Lovenox tonight subcu/not candidate for mechanical
Limited CODE STATUS /DNI
Plan of care discussed at length with patient's family and patient in ED and agreed upon
Anticipated Discharge: 24 - 48 hours
Subjective/Interval History
-
Date of Service: August 13, 2023
Patient presently awake and alert no acute distress had restless night and has had recurrent fever at that time rate was 160s presently 100 for arteriogram later today
Objective Data
-
Labs:
Laboratory Results
08/13/23 08/13/23
00:00 07:02
WBC 6.8 8.5
Hgb 10.7 L 10.5 L
Hct 30.7 L 30.6 L
Plt Count 98 L 91 L
Sodium 134 L 137
Potassium 3.7 3.9
Chloride 106 103
Carbon Dioxide 22 23
BUN 20 21 H
Creatinine 0.8 0.8
Glucose 148 H 89
Calcium 8.4 8.9
Vital Signs:
Vital Signs
Temp Pulse Resp BP Pulse Ox
103.1 F H 100 20 108/80 95
08/13/23 07:30 08/13/23 08:24 08/13/23 07:30 08/13/23 08:24 08/13/23 08:45
I&O
08/12/23 08/13/23 08/14/23
06:59 06:59 06:59
Intake Total 1320 / 1320
Output Total 950 / 950
Balance 370 / 370
Review of Systems
-
History Source: Patient
All other systems: Reviewed and negative
Constitutional: Reports Fever (103 last night)
EENT: Reports No Symptoms Reported
Respiratory: Reports No Symptoms
Cardiac: Reports No Symptoms
Abdomen/GI: Reports No Symptoms
Genitourinary: Reports No Symptoms
Skin: Reports Rash, Sores and Nail Changes
Neuro: Reports No Symptoms
Endocrine: Reports No Symptoms
Physical Exam
-
General: Well Developed
HEENT: Normocephalic
Respiratory: Clear to Auscultation
Cardiac: Irregular Rhythm and Tachycardic
GI: Soft, Nontender and Nondistended
Musculoskeletal: Edema, Right Lower Extrem (Ulcer medial calf/tender to palpation)
Skin: Rash and Ulcers
Psych: Calm
Data Reviewed
-
Diagnostic Radiology: Report Reviewed by me (Chest x-ray clear)
Labs: Labs Reviewed by me (White count remained stable at 8.5 hemoglobin 10.5/creatinine baseline of 0.8 prior to arteriogram/lactic acid was only 1.4)
--- NOTE | 2023-08-13 10:30 | PTCARENOTE ---
Provided report to paint laboratory technician and provided update from last night. Pt transported at this time to the [facility] for arteriogram.
[2023-08-13] MEDS: NSS 500 IV (11:16)
--- NOTE | 2023-08-13 11:27 | CON.CAR ---
Addendum entered and electronically signed by Humberto Sewell MD 08/13/23 12:13:
78-year-old man with history of CABG in 2008, ischemic cardiomyopathy with EF of 25% permanent atrial fibrillation, MDS and recent admission to [facility] for cellulitis in June 2023. He was discharged, potentially with follow-up for PAD
at [facility] but admitted to [place] yesterday with increasing right lower extremity pain. He presented to the vascular surgery lab for an arteriogram today, was confused, had a blood pressure in the mid 70s with atrial fibrillation and a
slightly rapid ventricular response. Procedure canceled and norepinephrine started. Cardiology consultation requested.
Allergies: Penicillin
Outpatient medications: Carvedilol 3.125 twice daily, doxycycline, Eliquis 5 mg twice daily, currently on hold, Entresto twice daily, fenofibrate, Jardiance 10 mg a day, prednisone 15 mg a day, rosuvastatin 40 mg daily
Current meds: Reviewed
PMH: CAD, ischemic cardiomyopathy, EF 25%, non-ST segment elevation [place] November 2022, permanent atrial fibrillation, hypertension, hypercholesterolemia, MDS on Procrit
PSH: CABG at [facility], ORTA to LAD, radial to PDA, sequential SVG to OM 2 and OM 3, traumatic amputation of right second finger
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
FH: Noncontributory
ROS: Not readily obtainable
88/52, pulse 90, febrile to 39.5, respirate 24, saturations 97%
Conversant at present having received IV fluid, offers no complaints
Head neck: Poor dentition
Lungs clear
Irregular rate and rhythm very soft systolic apical murmur, JVD okay, no bruits
Abdomen benign
Distal pulses not readily palpable, Elio dressing on right lower extremity
Hemoglobin 10.5, white count 8.5, platelets are 91, BUN and creatinine 21 and 0.8, lactic acid level 1.4, procalcitonin 0.58
Chest x-ray cardiomegaly, ECG pending
Primary Rn Charge: Dr. Preston
Assessment:
RLE cellulitis/sepsis with hypotension
TME
Recent admission for RLE cellulitis 06/2023 with abnormal GENE
PAD
Chronic HFrEF
Ischemic cardiomyopathy
History of abnormal stress test
NSTEMI 11/2022, managed conservatively as was confused and without cardiac symptoms
History of permanent A-fib on chronic Eliquis
CABG 2008 [facility] (ORTA to LAD, radial graft to RPDA, SVG from LCx-OM2 to OM3)
Hypertension
Hypercholesterolemia
stage III renal insufficiency, current GFR greater than 60
MDS/Chronic Anemia s/p Procrit shots
ECHO 11/30/22: EF 25%, global hypokinesis with anterior, anteroseptal, apical akinesis, MAC, at least mild to moderate MR, underestimated due to MAC, AAC, peak/mean gradients 23/30 mmHg, at least mild , moderate to severe TR, PAP 44 mmHg
Plan:
His hypotension and confusion likely related to sepsis and fever. There is no evidence of heart failure presents although he is tachypneic, could be a sign of sepsis.
Agree with IV fluid, though need to watch for acute HFrEF.
Check proBNP and troponin. Recheck echocardiogram.
Restart carvedilol, Entresto as blood pressure permits. Continue norepinephrine for now.
Resume Eliquis if okay with vascular surgery, and discontinue prior to arteriogram.
Original Note:
Consultation
Consultation Request
Date/Time Consultation Performed: 08/13/23
Requesting Provider: Marquita RAMSEY
Performing Provider: Kenzie Tavarez PA-C for Dr. BENEDICT Sewell
Reason for Consultation: hypotension
Medical History
-
Chief Complaint: RLE erythema/pain
History of Present Illness:
Patient is a 78-year-old male with past medical history of CABG x 4 in 2008 at outside hospital, permanent atrial fibrillation on chronic Eliquis, hypertension, hyperlipidemia, stage III renal insufficiency, MDS who had recent admission to
[facility] for right lower extremity cellulitis in June 2023. He had ABIs during that admission which were abnormal, however patient and family were attempting to decide if patient would have intervention at [place] versus at [place] where his son-in-law is a hand surgeon. He presented back to the emergency room yesterday due to increasing pain and redness of his right lower extremity. He is being treated with antibiotics. Plan was were for peripheral angiogram of
right lower extremity today, however when he got to [facility] Cutter Machine [employer], blood pressure was noted to be low in the 70s. Heart rates were noted to be in the 110s. Procedure was cancelled. Cardiology consulted for evaluation. When we had last seen patient in [facility] 11/2022, he had presented with sepsis and ruled in for NSTEMI. He has a known cardiomyopathy with EF 25%. Due to him being confused and not having any active cardiac complaints, cath was postponed, and he was to be reevaluated as an
outpatient. He is presently asymptomatic without chest discomfort, shortness of breath, lightheadedness dizziness.
PMH:
Recent admission for RLE cellulitis 06/2023 with abnormal GENE
Chronic HFrEF
Ischemic cardiomyopathy
History of abnormal stress test
NSTEMI 11/2022, managed conservatively as was confused and without cardiac symptoms
History of permanent A-fib on chronic Eliquis
CABG 2008 [facility] (ORTA to LAD, radial graft to RPDA, SVG from LCx-OM2 to OM3)
Hypertension
Hypercholesterolemia
stage III renal insufficiency
MDS/Chronic Anemia s/p Procrit shots
Past Medical History
Past Medical History: Other (in HPI)
Social History
Tobacco: Former Smoker
Personal:
Living: With Family
Employment: Retired
Allergies / Home Medications
Allergy/AdvReac Type Severity Reaction Status Date / Time
Penicillins Allergy Mild Hives Verified 08/12/23 10:13
Medication Instructions Recorded Confirmed Type
apixaban 5 mg tablet (Eliquis) 5 mg PO BID Blood Clot 11/28/22 08/12/23 History
Prevention/Tx
fenofibrate 160 mg tablet 160 mg PO DAILY@2100 High 11/28/22 08/12/23 History
Cholesterol
glucosamine HCl 1,500 mg tablet 3,000 mg PO DAILYPRN PRN supplement 11/28/22 08/12/23 History
omega 1-ohi-qxh-fish oil 1,000 mg 2 cap PO DAILY PRN Supplement 11/28/22 08/12/23 History
(120 mg-180 mg) capsule (Fish Oil)
rosuvastatin 40 mg tablet 40 mg PO DAILY@2100 High 11/28/22 08/12/23 History
Cholesterol
prednisone 10 mg tablet 15 mg PO DAILY INFLAMMATION 07/17/23 08/12/23 History
sacubitril 24 mg-valsartan 26 mg 1 tab PO BID Heart Failure 07/17/23 08/12/23 History
tablet (Entresto)
carvedilol 3.125 mg tablet 3.125 mg PO BID Heart Failure #60 07/20/23 08/12/23 Rx
tabs
empagliflozin 10 mg tablet 10 mg PO DAILY Heart Failure #0 07/20/23 08/12/23 Rx
(Jardiance) tabs
Medical Marijuana 2 drp sublingual HSPRN PRN mild 08/12/23 08/12/23 History
pain
acetaminophen 300 mg-codeine 30 mg 1 tab PO Q4HPRN PRN severe pain 08/12/23 08/12/23 History
tablet
acetaminophen 325 mg tablet 650 mg PO Q4HPRN PRN CALIXTO/mild 08/12/23 08/12/23 History
pain/temp>100.4 F
doxycycline monohydrate 100 mg 100 mg PO .SEE BELOW 08/12/23 08/12/23 History
capsule
Review of Systems
-
History Source: Patient
All other systems: Negative unless noted
Physical Exam
Vital Signs
Temp Pulse Resp BP Pulse Ox
103.1 F H 104 20 80/54 97
08/13/23 07:30 08/13/23 10:59 08/13/23 07:30 08/13/23 10:59 08/13/23 10:59
Lab Results
08/13/23 07:02
08/13/23 07:02
Physical Exam
General: No Apparent Distress, Comfortable and Other (on supp O2)
HEENT: Normocephalic, Anicteric and Moist Mucous Membranes
Respiratory: Clear and Non Labored Respirations
Cardiac: S1/S2 and Irregular Rhythm
GI: Soft, Non Tender, Non Distended and Normal Bowel Sounds
Musculoskeletal: No Clubbing, No Cyanosis and Edema (1+ of RLE. dressings in place)
Skin: Warm and Dry
Neuro: Awake and Alert
Impression / Plan
-
Primary Rn Charge: Dr. Preston
Assessment:
Presentation with RLE pain/erythema
RLE cellulitis/sepsis
Recent admission for RLE cellulitis 06/2023 with abnormal GENE
Hypotension
Chronic HFrEF
Ischemic cardiomyopathy
History of abnormal stress test
NSTEMI 11/2022, managed conservatively as was confused and without cardiac symptoms
History of permanent A-fib on chronic Eliquis
CABG 2008 [facility] (ORTA to LAD, radial graft to RPDA, SVG from LCx-OM2 to OM3)
Hypertension
Hypercholesterolemia
stage III renal insufficiency
MDS/Chronic Anemia s/p Procrit shots
ECHO 11/30/22: EF 25%, global hypokinesis with anterior, anteroseptal, apical akinesis, MAC, at least mild to moderate MR, underestimated due to MAC, AAC, peak/mean gradients 23/30 mmHg, at least mild , moderate to severe TR, PAP 44 mmHg
Plan:
-Patient presented to [place] hospital due to complaints of right lower extremity pain and erythema after being recently discharged for similar admission 06/2023. During prior admission he was noted to have abnormal right lower extremity GENE. He
was planned for peripheral angiogram today, however preprocedure and Corner Cutter Machine Operator was noted to have hypotension. Procedure was canceled until patient stable. He is receiving a fluid bolus at present. He will be transferred to ICU/IMU. May need
addition of pressor support (levophed ordered but not yet started). He continues with fevers. wound and blood cultures are pending. Continue antibiotics per primary service and infectious disease
-check EKG
-Will need to follow volume status closely in the setting of fluid administration with history of LV dysfunction and EF approximately 25%. Chest x-ray 08/13 without evidence of pneumonia or CHF.
-follow BPs. Hold outpatient cardiomyopathy medications including Coreg and Entresto
-Outpatient Eliquis remains on hold at this time. No history of stroke noted. Hopefully angiogram can be completed soon, and would resume postprocedure as soon as okay per vascular
-Could consider repeating echocardiogram
-Discussed with vascular, Corner Cutter Machine Operator nursing
Data Reviewed
-
EKG: Tracing Personally Visualized and interpreted
Radiology: Report Reviewed by me
Medical Tests (Nuc Med, Echo etc): Report Reviewed by me
Labs: Labs Reviewed by me
Old Records: Reviewed
--- NOTE | 2023-08-13 11:39 | PTCARENOTE ---
Received report from [employer]E BIRD Ruiz. Patient and interviewd at bedside. Patient noted to be lethargic but arousable, on telemetry and 3L nasal cannula. 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 Upon arrival to the holding area
patient found to be hypotensive of 77/51. Both right and left arms checked with noninvasive blood pressure cuff as well as left arm checked with manual blood pressure cuff. All sites correlate. Vascular SHOT LIGHTER Prasanna and MD Zelaya notified. Procedure
cancelled. 1L NSS bolus given. Cardiology consult placed and patient seen by MD Sewell. and daughter updated by MD Zelaya. Report called to STREET [facility] DRIVER[employer] Mcarthur. BP upon transfer to ICU is 88/52, afib 101 heart rate, 96% O2 sat on 3L NC, with RR 25. Pt
is comfortably resting in bed with no complaints of pain at this time. Patient transferred to ICU monitored and on oxygen.
--- NOTE | 2023-08-13 11:40 | W.PN.UPDATE ---
Addendum entered and electronically signed by Adam Zelaya III, MD 08/13/23 12:07:
This patient was seen and examined with ROXY Mcclellan and ROXY Barajas. I agree with the history and physical exam as well as the assessment and plan.
Angio cancelled
Updated patient's and daughter.
Signed:
Adam Zelaya III, MD
[facility] Vascular Surgery
[phone] (cell)
Original Note:
Update Note
Progress Note Update
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 1L NSS
bolus administered, with minimal response initiated on Levophed titratable infusion for MAP greater than 65. Notified hospitalist Dr. Ibarra who agrees with transfer to ICU, will initiate. HR and POX WNL. Permanent A-fib on monitor, HR 90s.
Remans on 3L NC. At request of hospitalist cardiology also consulted. Arteriogram case canceled, Dr. Zelaya aware of plan.
--- NOTE | 2023-08-13 11:45 | PTCARENOTE ---
Provided report to Lyubov in ICU. Pt's meds sent to ICU and belongings taken to rm [id number].
--- NOTE | 2023-08-13 12:07 | CON.INTV ---
Consultation
Consultation Request
Date/Time Consultation Requested: 08/13
Date/Time Consultation Performed: 08/13
Reason for Consultation: Critical care
Medical History
-
History of Present Illness:
History obtained from the patient, family members at bedside, reviewing medical records. 78-year-old male with history of peripheral vascular disease, prior right lower extremity stent, coronary disease with bypass surgery 2008 at [facility], who was recently discharged 07/20/2023 for right lower extremity cellulitis. Patient had improvement with IV antibiotics, abnormal vascular workup. Patient was discharged and plan to follow-up with vascular as outpatient, discharged on
cephalexin. Patient return to the ED because of worsening right lower extremity redness, increased pain and swelling. Patient gets around the house with a walker, has not been able to bear weight on the right leg consistently according to family.
He had a fall about 6 weeks ago but none recently. Upon arrival to [facility], afebrile, pulse 98, breathing 18, blood pressure 136/84, 99%. Blood cultures obtained, patient was given IV antibiotics, seen by vascular surgery. Hospital
course was reviewed and plan was for right lower extremity arteriogram with possible endovascular intervention for 08/13. However preoperatively he was found to be hypotensive with systolic pressure 70s to 80s. Case was canceled, patient was given
IV fluids and transferred to ICU requiring norepinephrine therapy.
Presently, he denies chest pain, nausea, abdominal pain, lightheadedness, dizziness, palpitations. He has some mild right leg pain. Family is present to corroborate
.
PMH: Atrial fibrillation on Eliquis, coronary disease with bypass surgery 2008 at [facility], recent catheterization at [facility] 2022 normal, prediabetes, recently diagnosed mild dysplastic syndrome 2022, polymyalgia rheumatica on steroids since
December 2022, hyperlipidemia, BPH, gout, history of peripheral arterial disease. History of bypass surgery 2008, left first digit amputation from saw injury, right common iliac started restent and bilateral femoral endarterectomy ([facility]).
Past Medical History
Past Medical History: None (See above)
Past Surgical History: None (See above)
Social History
Tobacco: Former Smoker ([id number], quit )
Alcohol: Occasional
Drug: None
Personal:
Living: With Family
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
Family History
Family History: Other (Negative for blood clots, lung cancer)
Allergies / Home Medications
Allergies
Allergy/AdvReac Type Severity Reaction Status Date / Time
Penicillins Allergy Mild Hives Verified 08/12/23 10:13
Home Medications
Medication Instructions Recorded Confirmed Last Taken Type
apixaban 5 mg tablet (Eliquis) 5 mg PO BID Blood Clot 11/28/22 08/12/23 08/12/23 History
Prevention/Tx
fenofibrate 160 mg tablet 160 mg PO DAILY@2100 High 11/28/22 08/12/23 08/11/23 History
Cholesterol
glucosamine HCl 1,500 mg tablet 3,000 mg PO DAILYPRN PRN supplement 11/28/22 08/12/23 4 Days Ago History
~08/08/23
omega 4-umo-tum-fish oil 1,000 mg 2 cap PO DAILY PRN Supplement 11/28/22 08/12/23 4 Days Ago History
(120 mg-180 mg) capsule (Fish Oil) ~08/08/23
rosuvastatin 40 mg tablet 40 mg PO DAILY@2100 High 11/28/22 08/12/23 08/11/23 History
Cholesterol
prednisone 10 mg tablet 15 mg PO DAILY INFLAMMATION 07/17/23 08/12/23 08/12/23 History
sacubitril 24 mg-valsartan 26 mg 1 tab PO BID Heart Failure 07/17/23 08/12/23 08/12/23 History
tablet (Entresto)
carvedilol 3.125 mg tablet 3.125 mg PO BID Heart Failure #60 07/20/23 08/12/23 08/12/23 Rx
tabs
empagliflozin 10 mg tablet 10 mg PO DAILY Heart Failure #0 07/20/23 08/12/23 08/12/23 Rx
(Jardiance) tabs
Medical Marijuana 2 drp sublingual HSPRN PRN mild 08/12/23 08/12/23 08/11/23 History
pain
acetaminophen 300 mg-codeine 30 mg 1 tab PO Q4HPRN PRN severe pain 08/12/23 08/12/23 08/12/23 History
tablet
acetaminophen 325 mg tablet 650 mg PO Q4HPRN PRN CALIXTO/mild 08/12/23 08/12/23 08/11/23 History
pain/temp>100.4 F
doxycycline monohydrate 100 mg 100 mg PO .SEE BELOW 08/12/23 08/12/23 08/12/23 History
capsule
Review of Systems
-
History Source: Family
All other systems: Negative unless noted
Vitals / Labs / Diagnostic Testing
Vital Signs
Temp Pulse Resp BP Pulse Ox
101.3 F H 90 24 88/52 97
08/13/23 09:30 08/13/23 11:45 08/13/23 11:45 08/13/23 11:44 08/13/23 11:45
Lab Data
08/13/23 07:02
08/13/23 07:02
Microbiology
08/12/23 14:56 Leg - Right Wound Culture - Preliminary
Pseudomonas aeruginosa
08/12/23 14:56 Leg - Right Gram Stain - Preliminary
Diagnostic Testing:
Physical Exam
-
HEENT: Normocephalic, Anicteric and Other (Narrow posterior oropharynx, missing teeth, poor dentition)
Cardiovascular: S1/S2, Irregular Rhythm, Murmur (n), Rub (n), Peripheral Edema (Trace), Other (Right lower extremity bandage, mild erythema, no warmth, missing first digit left hand) and Other (Cap refill > 3 sec)
Respiratory: Wheeze (n), Rales (n), Rhonchi (n) and Non-Labored Respirations
GI: Soft, Non Distended and Non Tender
Neurology: Awake, Alert, Oriented and No Motor Deficits (Generally weak, moves all extremities, nonfocal)
General: Comfortable
Assessment
-
78-year-old male with complex medical history including peripheral vascular disease with right lower extremity stent in the past, coronary disease with bypass surgery, MDS, PMR on chronic steroid therapy, recent hospital stay for right lower
extremity cellulitis discharged on cephalexin. Patient described worsening redness, swelling, pain, found to have right lower extremity cellulitis admitted 08/12. Planned arteriogram with possible vascular intervention canceled 08/13 due to
hypotension. Patient transferred to ICU for further management 08/13/2023
Hypotension, likely sepsis
Right lower extremity cellulitis
Lower extremity wounds
MDS
PMR on chronic steroids since December 2022
Ischemic cardiomyopathy, EF 25%
Per echo November 2022
Moderate mitral regurgitation/mild aortic stenosis
PA pressure 44
Reduced RV function, normal size
Coronary disease/bypass surgery 2008
Unremarkable catheterization 2022 ([facility])
Peripheral vascular disease
right lower extremity iliac artery stent/external iliac stent ([facility]: [place])
Right carotid disease
History of heart failure
Hypertension/hyperlipidemia
Atrial fibrillation on anticoagulation
BPH
Poor dentition
[id number] history of smoking quit 1980s limited DNR
Plan/recommendations
At this time, patient is critically ill but appears to be comfortable. Mild right lower extremity pain. Per family, erythema and swelling have improved significantly since prior 24 hours.
Presently systolic pressure 80s to 90s
Echocardiogram November 2022 noted
Patient apparently had cardiac catheterization 2022 and he was told coronaries were clear
Capillary refill greater than 3 seconds, extremities cool
No murmurs on exam
Moving forward
Hypotension likely multifactorial
Additional 500 cc bolus with LR, maintenance fluids
Stress dose steroids, 100 mg x 1 now. Hold prednisone
Norepinephrine, maintain maps greater than 65
Echocardiogram from November 2022 concerning with EF 25%, valvular disease, reduced RV function with normal size
Consider repeat echocardiogram if hypotension persists
Cardiology has been consulted, echocardiogram has been ordered
Capillary refill greater than 3 seconds. Follow clinically
Lactate is normal, encouraging that clinical cellulitis findings have improved
Troponin, BNP pending
Per my review, chest x-ray is unremarkable, no acute findings
EKG with atrial fibrillation, occasional PVCs
Follow electrolytes
Patient with history of prediabetes
Insulin sliding scale with stress dose steroids
Patient is sensitive to morphine. Family is concerned
Transition pain medication to Dilaudid
Reviewed at length with patient, family at bedside, critical care nursing
We will follow
TCCT 35 min
--- NOTE | 2023-08-13 12:40 | PTCARENOTE ---
Rec'd pt from [facility]-Pt was for angiography but procedure held off due to hypotension. Rec'd pt via bed. groggy but easily wakeful. Does c/o R lower leg pain when awake. Oriented to person/place and answers questions appropriately. MATHEUS- does have
pain when he moves his R leg. R lower leg dressing is D+I. Skin otherwise is pale wm and dry. Sacral foam dressing and L heel dressings are D+I. Rectal probe placed for temp - temp on arrival 100.8. Respirs are shallow but non-labored on 3l nc with
sats of 99%. BS are decreased about 1/3 up. Monitor Afib with PVC's rates 90-100's. Bp on arrival 79/54- Levophed initiated as ordered at 2 mcg via R forearm IV site- currently at 4 mcg and MAP's improving with goal MAP >65. + pulses. PT and DP
pulses with the doppler. Edema as noted. Denies chest pain. ECG done as ordered. Abd is soft with + BS. #30 condom cath placed on pt. Capped int intact L forearm site wnl. Complete CHG bath given. Repositioned. Family in to see pt. Updated. Plan of
care reviewed.
--- NOTE | 2023-08-13 12:40 | PTCARENOTE ---
Additional assessement. Skin overall is pale but R lower leg is warm and reddened
--- NOTE | 2023-08-13 13:08 | W.PN.ID1 ---
Date of Service
Date of Service: August 13, 2023
Today's Communication
- start meropenem, stopped cefazolin
Assessment / Plan
Shock, Fever
Nonpurulent Right lower extremity cellulitis
Lower extremity wounds
- Possible portal of entry of bacteria
Myelodysplastic syndrome
Immunosuppression
PAD/CAD
- repeat blood cultures x2
- covid ag neg, influenza pending, cxr no infiltrates
- wound culture moderate pseudomonas; markedly improved erythema on exam, still with edema
- start meropenem, stopped cefazolin
- known to outpatient wound care center
- follow clinically
Chief Complaint
-: Fever and Other
Subjective / Review of Systems
has become febrile
hypotensive
leukopenia resolved
cr stable
covid ag neg, influenza pending
CXR no infilrates
wound culture moderate pseudomonas
Vital Signs / Physical Exam
Vital Signs
Vital Signs
Temp Pulse Resp BP Pulse Ox
101.3 F H 90 24 88/52 97
08/13/23 09:30 08/13/23 11:45 08/13/23 11:45 08/13/23 11:44 08/13/23 11:45
Physical Exam
Constitutional: No Acute Distress
Cardiovascular: Regular Rate and S1/S2; Negative Murmur or Rub
Pulmonary: Clear and Symmetric; Negative Wheezes or Rales
Gastrointestinal: Soft, Non Tender, Non Distended and Normal Bowel Sounds
Extremities: Other (markedly improved erythema, 1+ edema)
Skin: Warm and Dry; Negative Rash or Jaundice
Objective Data
Lab Data
Lab Results
08/13/23 07:02
08/13/23 07:02
Estimated Creat Clear 74 ml/min 08/13/23 07:02
Lactic Acid 1.4 mmol/L (0.7-2.0) 08/13/23 08:25
Total Bilirubin 1.2 mg/dl (0.2-1.3) 08/12/23 10:40
AST 20 U/L (17-59) 08/12/23 10:40
ALT 14 U/L (0-50) 08/12/23 10:40
Alkaline Phosphatase 51 U/L (38-126) 08/12/23 10:40
Most recent labs reviewed.
Micro Results:
08/12/23 10:40 Blood Culture - Preliminary
Blood/Venous No Growth in 24 hours- Final report to follow
08/12/23 10:40 Blood Culture - Preliminary
Blood/Venous No Growth in 24 hours- Final report to follow
08/12/23 14:56 Wound Culture - Preliminary
Leg - Right Pseudomonas aeruginosa
Gram Stain - Preliminary
08/12/23 14:56 MRSA Screen - Pending
Nose
[2023-08-13 13:16] LABS: Magnesium 1.8 mg/dl (1.6-2.3)
[2023-08-13] MEDS: JARDIANCE PO (13:17)
[2023-08-13] MEDS: ANCEF IV (13:17)
[2023-08-13] MEDS: LR 500 IV (13:18)
[2023-08-13 13:35] LABS: INR 1.56; PT 18.5 Sec (11.4-14.6)
[2023-08-13 13:36] LABS: APTT 27.5 Sec (23.4-35.0)
[2023-08-13] MEDS: SOLU-CORTEF 100 MG IV (13:39)
[2023-08-13] MEDS: FLUSH (NSS) 1 FLUSH IV ×4 (13:39→18:30)
[2023-08-13] MEDS: DILAUDID 0.25 MG IV ×2 (13:40→17:18)
--- NOTE | 2023-08-13 13:45 | PTCARENOTE ---
Additional assessment- Solucortef 100 mg IV given per orders. LR 500 ml bolus hung per md order
--- NOTE | 2023-08-13 13:45 | PTCARENOTE ---
Labs sent as ordered. Temp climbing again - 101.4 Tylenol 650 mg Po given. Dilaudid 0.25 mg IV given for R leg pain then R leg dressing change done. Area of blackened tissue on the medial R calf and posterior calf near ankle/posterior ankle.
Dressing change to medial calf -cleansed with saline. Adaptic, alginate and 4x4's. Posterior ankle- cleansed with saline. 4x4's applied. All wrapped with Kerlex. + PT and DP pulses bilaterally with the doppler. Nailbeds are pale pink with refill <2
seconds. Feet are warm. Repositioned. Family at the bedside and updated.
[2023-08-13 13:49] LABS: NT-proBNP 8480 pg/ml; Troponin I 0.947 ng/ml
--- NOTE | 2023-08-13 14:15 | PTCARENOTE ---
Dozing post Dilaudid. First set of blood cultures obtained- only able to get the Aerobic culture- sent. Currently on Levophed at 4 mcg and MAP's >65. LR infusing as ordered.
--- NOTE | 2023-08-13 15:00 | PN.CDI ---
CDI
- -
CDI:
Physician Documentation Request
Admit Date: 08/12/23 12:16
Dear Doctor Stacey,
Please review the following and provide your response in the progress notes.
Clinical Indicators:
Pt admitted with RLE cellulitis/PVD/ Pt is immunocompromised with HX of MDS
Cardiology consult,' RLE cellulitis/sepsis with hypotension...'
Regulatory Compliance Director consult, ' Hypotension, likely sepsis Right lower extremity cellulitis...'
On admit Tmax 104.3,HR 138, RR 26, WBC 4.3
Please clarify the following:
_Sepsis __ was present on admission
_Sepsis __ was not present on admission
Unable to determine
Use of terms such as suspected, likely, concern for, or probable (associated with a specific diagnosis that is being evaluated, monitored, or treated as if it exists) are acceptable and can be coded in the inpatient setting, when documented at the
time of discharge.
Thank you,
Laurie Maldonado RN
CDI Specialist
[place] [facility]
Please use your independent medical judgment in providing your response.
--- NOTE | 2023-08-13 15:06 | PN.CDI ---
CDI
- -
CDI:
Physician Documentation Request
Admit Date: 08/12/23 12:16
Dear Doctor Stacey,
Please review the following and provide your response in the progress notes.
Current documentation includes a diagnosis of hypotension.
Clinical Indicators:
Pt admitted with RLE cellulitis/PVD/ Pt is immunocompromised with HX of MDS
Addendum to progress note 08/13 ,' In preparation for arteriography the patient developed hypotension and did not respond to fluid bolus with BP still in the 70s and 80 and will be transferred to ICU for pressors...'
Vascular consult,' His hypotension and confusion likely related to sepsis and fever....'
Ground Service Equipment Mechanic consult, ' Hypotension likely multifactorial Additional 500 cc bolus with LR, maintenance fluids...Norepinephrine, maintain maps greater than 65...'
Please clarify which of the following is the most likely etiology of the above symptoms and treatment rendered:
Septic shock
Hypotension - only
Other
Use of terms such as suspected, likely, concern for, or probable (associated with a specific diagnosis that is being evaluated, monitored, or treated as if it exists) are acceptable and can be coded in the inpatient setting, when documented at the
time of discharge.
Thank you,
Laurie Maldonado RN
CDI Specialist
[place] [facility]
Please use your independent medical judgment in providing your response.
--- NOTE | 2023-08-13 15:10 | PN.CDI ---
CDI
- -
CDI:
Physician Documentation Request
Admit Date: 08/12/23 12:16
Dear Doctor Stacey,
Please review the following and provide your response in the progress notes.
Clinical Indicators:
Pt admitted with RLE cellulitis/PVD/ Pt is immunocompromised with HX of MDS
Vascular consult,' RLE cellulitis/sepsis with hypotension...'
Planning Manager consult, ' Hypotension, likely sepsis Right lower extremity cellulitis...'
On admit Tmax 104.3,HR 138, RR 26, WBC 4.3
Please clarify the following:
_Sepsis __ was present on admission
_Sepsis __ was not present on admission
Unable to determine
Use of terms such as suspected, likely, concern for, or probable (associated with a specific diagnosis that is being evaluated, monitored, or treated as if it exists) are acceptable and can be coded in the inpatient setting, when documented at the
time of discharge.
Thank you,
Laurie Maldonado RN
CDI Specialist
[place] [facility]
Please use your independent medical judgment in providing your response.
[2023-08-13] MEDS: MERREM 500 MG IV ×2 (15:20→20:25)
[2023-08-13] MEDS: STERILE WATER FOR INJECTION 10 ML IV ×2 (15:21→20:24)
--- NOTE | 2023-08-13 15:30 | PTCARENOTE ---
LR bolus completed. 2nd set of blood cultures obtained. Merrem given. ECHO being done and then pt will be taken to CT scan. Dozing at intervals. When R leg is moved does c/o pain but seems to be able to doze in between. Temp 101.1 Rectal post tylenol
--- NOTE | 2023-08-13 16:20 | PTCARENOTE ---
ECHO completed. Awaiting CT scan. Pt has not voided. Bladder scanned for 283 mls. Repositioned.
--- NOTE | 2023-08-13 16:45 | PTCARENOTE ---
Taken to CT scan for CT angio abd aorta with run off. No other changes
--- NOTE | 2023-08-13 17:31 | PTCARENOTE ---
Returned from CT angio- VS as documented. C/o R lower leg discomfort. Remedicated with Dilaudid 0.25 mg IV. Family at the bedside. Currently remains on 2l nc. Call rothman in reach. Diet reordered. Taking sips of water without difficultly
[2023-08-13] MEDS: CRESTOR 40 MG PO (18:30)
[2023-08-13] MEDS: SOLU-CORTEF 50 MG IV (18:30)
--- NOTE | 2023-08-13 18:30 | PTCARENOTE ---
Dozed after Dilaudid but was able to wake up enough to eat dinner. No difficulty noted with swallowing. No other changes
[2023-08-13] MEDS: ELIQUIS 5 MG PO (20:25)
[2023-08-13 20:31] LABS: Troponin I 0.508 ng/ml
--- NOTE | 2023-08-13 21:36 | PTCARENOTE ---
Assumed care of pt at 1900. Pt is drowsy but arouses to tactile stimuli or loudly saying his name, seems to be INAJA when talking to him. Oriented x2-3, needs to be reoriented to time and situation at times. No c/o pain. AFib on monitor with HR mostly
in 70s. SpO2 97-98% on 2LNC. Has been afebrile so far this shift. Received pt on Levophed at 4mcg/min, now at 6mcg/min, goal MAP >65. Physical assessment completed, see nursing shift assessment flowsheet for full details. Call rothman and personal
items within reach, bed alarm activated.
[2023-08-13 22:01] LABS: Urine Albumin Trace (Neg - Trace); Urine Bilirubin Negative (Negative); Urine Character Clear (Clear); Urine Color Yellow; Urine Glucose 3+ (Negative); Urine Ketone Trace (Negative); Urine Leukocyte Negative (Negative); Urine Nitrite Negative (Negative); Urine Occult Blood 1+ (Negative); Urine Urobilinogen Negative (Neg - 1+)
[2023-08-13 22:10] LABS: Urine Red Blood Cell 0-2 /HPF (0-2); Urine Squamous Cell 0-2 /LPF (Few); Urine White Cell 0-2 /HPF (0-5)
[2023-08-13 22:11] LABS: Urine Bacteria Few (Negative)
[2023-08-13 22:12] LABS: Urine Granular Cast 0-2 /LPF (0)
[2023-08-14] VITALS (45 sets, daily range): BP systolic 86–132; BP diastolic 49–110; BMI 26.4
[2023-08-14] MEDS: DILAUDID 0.25 MG IV ×2 (00:21→20:07)
[2023-08-14] MEDS: SOLU-CORTEF 50 MG IV ×4 (00:21→17:08)
[2023-08-14] MEDS: LEVOPHED 250 IV (01:00)
--- NOTE | 2023-08-14 01:29 | PTCARENOTE ---
Addendum entered by Erica Wagner RN 08/14/23 01:31:
Remains on Levo, now back down to 4mcg/min (goal MAP >65).
Original Note:
Midnight assessment unchanged, has been asleep most of the shift but easily awakens. CHG cloth bath done around 0015 when pt c/o feeling wet. Condom cath was found to be loose/leaking. This was replaced (#25). Linens and gown changed. Afterwards pt
reporting 7/10 pain to RLE. Neurovascular assessment unchanged. Medicated with PRN Dilaudid, see EMAR. Remains AFib 70s on monitor, SpO2 98% on 2LNC.
[2023-08-14] MEDS: STERILE WATER FOR INJECTION 10 ML IV ×4 (01:50→20:07)
[2023-08-14] MEDS: MERREM 500 MG IV ×4 (01:50→20:07)
[2023-08-14 05:13] LABS: Hematocrit 28.7 % (39.0-52.0); Hemoglobin 10.1 g/dL (13.0-18.0); Mean Corp Hgb Conc. 35.2 g/dL (33.0-37.0); Mean Corpuscular Hgb 36.2 pg (27.0-31.0); Mean Corpuscular Volume 102.9 fL (80.0-94.0); Mean Platelet Volume 9.8 fL (7.4-10.4); Platelet Count 95 10^3/uL (130-400); Red Blood Cell Count 2.79 10^6/uL (4.70-6.10); White Blood Cell Count 6.1 10^3/uL (4.8-10.8)
--- NOTE | 2023-08-14 05:13 | PTCARENOTE ---
Assessment unchanged. Remains on Levo, now down to 2mcg/min. Pt requesting for condom cath to be removed and use the urinal instead--able to urinate 650mL in urinal. AFib 70s on monitor. Pt has slept most of the shift.
[2023-08-14 05:34] LABS: Blood Urea Nitrogen 18 mg/dl (9-20); Calcium 8.6 mg/dl (8.4-10.2); Carbon Dioxide 22 mmol/L (22-30); Chloride 111 mmol/L (98-107); Estimated Creatinine Clearance 98 ml/min; Glucose 132 mg/dl (70-99); Potassium 3.8 mmol/L (3.5-5.1); Sodium 138 mmol/L (135-145); eGFR > 60.00
--- NOTE | 2023-08-14 06:55 | W.PN.HOSP.TC ---
Today's Communication/Plan
-
Some stabilization of BP has been afebrile overnight
Hope to get off Levophed later today
Stress dose steroids
Wound growing Pseudomonas now on meropenem ID following
Appreciate cardiology input 2D echocardiogram reviewed/defer resumption of carvedilol and Entresto to them
Once BP stabilized and afebrile okay for angiography
Assessment / Plan
Assessment / Plan
78-year-old male with past medical history of hypertension, hyperlipidemia, CAD status post CABG, permanent A-fib, MDS, PVD status post stent (follows with Dr. Zelaya for vascular surgery) who presents to the emergency department for evaluation of
redness and pain in the right lower extremity.� Patient was admitted to this hospital last month for cellulitis of the right lower extremity and was treated with antibiotics.� Completed course of cephalexin. he says he was discharged on oral
antibiotic and his symptoms improved but never completely resolved.� He has had slow steady worsening of pain and redness, swelling of the right lower extremity since that time.� Pain becoming quite severe and patient called vascular surgeon who
recommended he come to the emergency room to be assessed.� He denies any fevers or chills.� Denies any chest pain or shortness of breath.� He denies any falls or trauma.� He denies any other complaints.� At that admission he was found to have
significant peripheral vascular disease.� Was to try conservative management with antibiotic and have further follow-up with vascular either at near where they live up in [place] or locally here.� They have decided to pursue any vascular
management locally while hospitalized.� He follows with Dr. Amaya in [place] for his cardiology follow-up that has been stable.)� His last dose of Eliquis was this morning.
Assessment and plan:
Prior to attempted arteriography yesterday patient developed protracted hypotension unresponsive to fluid boluses and had to be transferred to ICU for pressor support
-Levophed now. Tapered
-Presumed source of hypotension is presentation of sepsis
-Placed on stress dose steroids/on 15 mg prednisone maintenance for PMR
Right lower extremity cellulitis
-Ongoing nonhealing wound to medial calf with increasing suspected ischemic pain from known PAD
-Wound culture with growth of Pseudomonas/
-Prior documented peripheral vascular disease seen on GENE in June
-Nonhealing wound after antibiotic treatment in late June
-Obtain repeat arterial Doppler was abnormal/ vascular consultation/for eventual angiography once stabilization of BP
-GENE was not able to be obtained absent TBI chronic long segment occlusion of the right SFA with reconstitution of within the popliteal. Posterior tibial artery not visualized
-No prior culture results from wound infection in June/completed course of cephalexin
-ID consultation reviewed/cefazolin changed to meropenem
Peripheral arterial disease
-Documented on previous GENE arterial Doppler pending today
-Prior history of endovascular intervention to right lower extremity at another facility
-Rule out ischemic burden as cause of recurrent wound
-For arteriogram once further stabilized
-Hold anticoagulant last taken 08/12 AM
Coronary artery disease/prior CABG/ischemic cardiomyopathy?/Prior history of HFrEF
-Continue statin
- most recent echo reviewed showing an EF of 25% in November of last year with global hypokinesis moderate to severe tricuspid regurg and pulmonary artery pressures of 44 mmHg/moderate mitral regurg
-2D echocardiogram from August 13 now shows EF of 35 to 40% with global hypokinesis and moderate to severe TR and moderate MR
- Entresto on hold with hypotension
-Carvedilol on hold
-Jardiance
-Troponin peaked at 0.94 now trending down
-Stable functional status
-If vascular intervention entertained we will need to get cardiology clearance/update 2D echocardiogram
Permanent atrial fibrillation
-Rate control with carvedilol
-Hold anticoagulation in preparation for vascular intervention with arteriography
Other comorbidities:
Polymyalgia rheumatica/continue prednisone 50 mg
Myelodysplastic syndrome/presently stable
Hypercholesterolemia/continue fenofibrate and rosuvastatin/hold omega-3
DVT prophylaxis Eliquis will be held/Lovenox tonight subcu/not candidate for mechanical
Limited CODE STATUS /DNI
Plan of care discussed at length with patient's family and patient in ED and agreed upon
Anticipated Discharge: 24 - 48 hours
Subjective/Interval History
-
Date of Service: August 14, 2023
In good spirits and had restful night denies any shortness of breath denies any chest pain may have less pain in his right leg
Objective Data
-
Labs:
Laboratory Results
08/14/23
04:53
WBC 6.1
Hgb 10.1 L
Hct 28.7 L
Plt Count 95 L
Sodium 138
Potassium 3.8
Chloride 111 H
Carbon Dioxide 22
BUN 18
Creatinine 0.6 L
Glucose 132 H
Calcium 8.6
Vital Signs:
Vital Signs
Temp Pulse Resp BP Pulse Ox
97.4 F 72 21 97/58 96
08/14/23 03:28 08/14/23 06:00 08/14/23 06:00 08/14/23 06:00 08/14/23 06:00
I&O
08/12/23 08/13/23 08/14/23
06:59 06:59 06:59
Intake Total 1320 / 1320 1220.0 / 1220.0
Output Total 950 / 950 1000 / 1000
Balance 370 / 370 220.0 / 220.0
Review of Systems
-
History Source: Patient and Family
EENT: Reports No Symptoms Reported
Respiratory: Reports No Symptoms
Cardiac: Reports No Symptoms
Abdomen/GI: Reports No Symptoms
Musculoskeletal: Reports Edema and Myalgias
Physical Exam
-
General: Well Developed
HEENT: Normocephalic
Respiratory: Clear to Auscultation
Cardiac: Irregular Rhythm and Murmur
GI: Soft
Musculoskeletal: Edema, Right Lower Extrem (Gauze wrap seems to have less pain in the calf)
Neuro: Awake, Alert, Oriented, AO x 3 and No Motor Deficits
Data Reviewed
-
Total Time Spent with Patient (in minutes): 57
Medical Tests (Nuc Med, Echo etc): Report Reviewed by me (Wound culture now growing Pseudomonas/GV echocardiogram showed a 35-45 EF with moderate MR and moderate to severe TR and elevated pulmonary pressures)
Labs: Labs Reviewed by me (White count 6.1 hemoglobin 10.1 and stable/)
--- NOTE | 2023-08-14 07:10 | W.PN.INTV ---
Today's Communication / Plan
Recommendations
Continue antibiotics
Wean pressors
Continue stress dose steroids
Follow blood sugars
Assessment
-
78-year-old male with complex medical history including peripheral vascular disease with right lower extremity stent in the past, coronary disease with bypass surgery, MDS, PMR on chronic steroid therapy, recent hospital stay for right lower
extremity cellulitis discharged on cephalexin. Patient described worsening redness, swelling, pain, found to have right lower extremity cellulitis admitted 08/12. Planned arteriogram with possible vascular intervention canceled 08/13 due to
hypotension. Patient transferred to ICU for further management 08/13/2023
Hypotension, likely sepsis
Right lower extremity cellulitis
Lower extremity wounds
MDS
PMR on chronic steroids since December 2022
Ischemic cardiomyopathy, EF 25%
Per echo November 2022
Moderate mitral regurgitation/mild aortic stenosis
PA pressure 44
Reduced RV function, normal size
Coronary disease/bypass surgery 2008
Unremarkable catheterization 2022 ([facility])
Peripheral vascular disease
right lower extremity iliac artery stent/external iliac stent ([facility]: [facility])
Right carotid disease
History of heart failure
Hypertension/hyperlipidemia
Atrial fibrillation on anticoagulation
BPH
Poor dentition
[id number] history of smoking quit 1980s limited DNR
Plan/recommendations
At this time, patient is critically ill, but stable on low-dose norepinephrine
Right foot pain appears to be controlled with Dilaudid as needed
Positive culture noted, on meropenem
Echocardiogram November 2022 noted
Patient apparently had cardiac catheterization 2022 and he was told coronaries were clear
Capillary refill improved
No murmurs on exam
Moving forward
Hypotension likely multifactorial
Continue stress dose steroids, wean off pressors
Norepinephrine, maintain maps greater than 65
Echocardiogram from November 2022 concerning with EF 25%, valvular disease, reduced RV function with normal size
Repeat echocardiogram 08/13/2023 shows EF 35%, mild aortic stenosis, PA pressure 45.
Cardiology following
Troponin trending down, proBNP 8480
Per my review, chest x-ray is unremarkable, no acute findings
EKG with atrial fibrillation, occasional PVCs
Follow electrolytes
Patient with history of prediabetes
Insulin sliding scale with stress dose steroids
Patient is sensitive to morphine.
Transition pain medication to Dilaudid
Of note, has tolerated tramadol in the past
Reviewed at length with patient, family at bedside, critical care nursing
TCCT 31 min
Subjective Dataa
Subjective Data
Date of Service:
Date of Service: August 14, 2023
Subjective:
Patient is feeling well, denies chest pain, significant cough, abdominal pain. Primary complaint is right foot pain, improved with Dilaudid. Currently rated 5/10. Family at bedside. Remains on low-dose norepinephrine
Objective Data
Data Reviewed
Vital Signs / I&O / Oxygen:
Vital Signs
Temp Pulse Resp BP Pulse Ox
97.4 F 72 21 97/58 96
08/14/23 03:28 08/14/23 06:00 08/14/23 06:00 08/14/23 06:00 08/14/23 06:00
Intake and Output
08/13/23 08/14/23 08/15/23
06:59 06:59 06:59
Intake Total 1320 / 1320 1220.0 / 1220.0
Output Total 950 / 950 1000 / 1000
Balance 370 / 370 220.0 / 220.0
SaO2 96
Nasal Cannula flow liters per 2
minute
Physical Exam
General: Comfortable
HEENT: Normocephalic, Anicteric and Other (Poor dentition)
Cardiovascular: S1-S2, Irregular Rhythm, Murmur (n), Rub (n), Peripheral Edema (n), Calf Tenderness (n), Other (Right lower extremity dressing, minimal erythema, no warmth) and Other (Missing first digit left hand)
Respiratory: Wheeze (n), Crackles (n), Rhonchi (n) and Non-Labored Respirations
GI: Soft, Non Distended and Non Tender
Neurology: Awake, Alert and No Motor Deficits
Skin: Cyanosis (n), Jaundice (n) and Rash (Mild lower extremity erythema)
Labs/Micro/Reports
Lab Data
08/14/23 04:53
08/14/23 04:53
Laboratory Results
08/13/23
13:10
PT 18.5 H
INR 1.56
APTT 27.5
Microbiology
08/12/23 14:56 Leg - Right Wound Culture - Preliminary
Pseudomonas aeruginosa
08/12/23 14:56 Leg - Right Gram Stain - Preliminary
08/13/23 13:10 Nasal Swab Influenza Types A & B (SUZANNA) - Final
Negative for Influenza A & B, NAAT
Negative results must be combined with clinical observations
and patient history.
Nucleic Acid Amplification test (NAAT)performed on the
[employer] platform.
08/12/23 14:56 Nose MRSA Screen - Final
No Methicillin Resistant Staphylococcus aureus isolated.
08/12/23 10:40 Blood/Venous Blood Culture - Preliminary
No Growth in 24 hours- Final report to follow
08/12/23 10:40 Blood/Venous Blood Culture - Preliminary
No Growth in 24 hours- Final report to follow
--- NOTE | 2023-08-14 07:41 | W.PN.CARDCBS ---
Today's Communication / Plan
-
Continue to wean IV pressor as able.
Resume carvedilol then Entresto as BP will allow. Would not resumed yet until off pressors.
He appears euvolemic.
Watch volume status closely given cardiomyopathy.
His echo was reviewed and his EF is improved to 35 to 40% from 25% last year. He appears euvolemic.
Troponin is improving likely non-AZ troponin, medical therapy with initial and peak 0.9.
Pt on Eliquis and this would need to be held likely prior to arteriogram.
Wound culture Pseudomonas, moderate Enterococcus, remains on meropenem and ID added levofloxacin. Monitor QTc
Impression / Plan
-
Primary Character Actress: Dr. Preston
Impression:
Presentation with RLE pain/erythema
RLE cellulitis/sepsis
Septic shock with hypotension
recent admission for RLE cellulitis 06/2023 with abnormal GENE
Chronic HFrEF
Ischemic cardiomyopathy
History of abnormal stress test
NSTEMI 11/2022, managed conservatively as was confused and without cardiac symptoms
History of permanent A-fib on chronic Eliquis
CABG 2008 [facility] (ORTA to LAD, radial graft to RPDA, SVG from LCx-OM2 to OM3)
Hypertension
Hypercholesterolemia
stage III renal insufficiency
MDS/Chronic Anemia s/p Procrit shots
ECHO 11/30/22: EF 25%, global hypokinesis with anterior, anteroseptal, apical akinesis, MAC, at least mild to moderate MR, underestimated due to MAC, AAC, peak/mean gradients 23/30 mmHg, at least mild , moderate to severe TR, PAP 44 mmHg
�
Echo Aug 13 2023: EF 35 to 40%, global hypokinesis, mild to moderate MR, mild aortic stenosis, peak/mean gradients 21/13 mmHg respectively, aortic valve area 1.3 cm2, moderate severe tricuspid regurgitation, pulmonary artery systolic pressure 45
mmHg. IVC is dilated and does not collapse. No evidence of vegetation. Compared to prior echo EF is improved.
Plan:
HPI: Patient presented to [facility] due to complaints of right lower extremity pain and erythema after being recently discharged for similar admission 06/2023. During prior admission he was noted to have abnormal right lower extremity GENE.
He was planned for peripheral angiogram today, however preprocedure and [employer] Delivery Driver was noted to have hypotension. Procedure was canceled until patient stable. He is receiving a fluid bolus at present. He will be transferred to ICU/IMU. May need
addition of pressor support (levophed ordered but not yet started). He continues with fevers. wound and blood cultures are pending. Continue antibiotics per primary service and infectious disease
Continue to wean IV pressor as able.
Resume carvedilol then Entresto as BP will allow. Would not resumed yet until off pressors.
He appears euvolemic.
Watch volume status closely given cardiomyopathy.
His echo was reviewed and his EF is improved to 35 to 40% from 25% last year. He appears euvolemic.
Troponin is improving likely non-AZ troponin, medical therapy with initial and peak 0.9.
Pt on Eliquis and this would need to be held likely prior to a reattempt at arteriogram.
Wound culture Pseudomonas, moderate Enterococcus, remains on meropenem and ID added levofloxacin. Monitor QTc
Discussed with nursing.
Critical care time 31 minutes
Progress Note - Character Actress
Subjective
Date of Service: August 14, 2023
Patient seen and examined. No chest pain or shortness of breath.
Objective
Labs:
08/14/23 04:53
08/14/23 04:53
Labs
Hgb 10.1 g/dL (13.0-18.0) L 08/14/23 04:53
Hct 28.7 % (39.0-52.0) L 08/14/23 04:53
Plt Count 95 10^3/uL (130-400) L 08/14/23 04:53
PT 18.5 Sec (11.4-14.6) H 08/13/23 13:10
INR 1.56 08/13/23 13:10
APTT 27.5 Sec (23.4-35.0) 08/13/23 13:10
Sodium 138 mmol/L (135-145) 08/14/23 04:53
Potassium 3.8 mmol/L (3.5-5.1) 08/14/23 04:53
BUN 18 mg/dl (9-20) 08/14/23 04:53
Creatinine 0.6 mg/dL (0.7-1.3) L 08/14/23 04:53
Glucose 132 mg/dl (70-99) H 08/14/23 04:53
Troponins
08/13/23 08/13/23
13:10 19:56
Troponin I 0.947 H* 0.508 H* D
Vital Signs and I&O:
Vital Signs
Temp Pulse Resp BP Pulse Ox
97.8 F 72 21 97/58 96
08/14/23 07:35 08/14/23 06:00 08/14/23 06:00 08/14/23 06:00 08/14/23 06:00
Vital Signs
Temp Pulse Resp BP Pulse Ox
97.8 F 72 21 97/58 96
08/14/23 07:35 08/14/23 06:00 08/14/23 06:00 08/14/23 06:00 08/14/23 06:00
Intake & Output
08/12/23 08/13/23 08/14/23 08/15/23
06:59 06:59 06:59 06:59
Intake Total 1320 / 1320 1220.0 / 1220.0
Output Total 950 / 950 1000 / 1000
Balance 370 / 370 220.0 / 220.0
Physical Exam
Physical Exam
General: No acute distress, AAOX3
Neck: Negative JVD
Heart: Irregular irregular, Negative S3 positive S1/S2, Negative S4, No murmur
Lungs: CTA b/l, negative wheezes/rales/rhonchi
Abd: Positive BS, NT/ND, neg rebound/rigidity/guarding
Ext: Right lower extremity erythema. Negative cyanosis/clubbing/edema
Neuro: nonfocal
[2023-08-14] MEDS: ELIQUIS 5 MG PO ×2 (08:51→20:07)
[2023-08-14] MEDS: JARDIANCE 10 MG PO (08:52)
--- NOTE | 2023-08-14 09:07 | W.PN.ID1 ---
Date of Service
Date of Service: August 14, 2023
Today's Communication
- continue meropenem, add levofloxacin (enterococcus typically sensitive to levofloxacin at this institution, meropenem also with coverage)
Assessment / Plan
Shock -resolving, Fever - resolved
Nonpurulent Right lower extremity cellulitis
Lower extremity wounds
Myelodysplastic syndrome
Immunosuppression
PAD/CAD
- repeat blood cultures x2 no growth to date
- wound culture many pseudomonas; moderate enterococcus
- QTc acceptable
- continue meropenem, add levofloxacin (enterococcus typically sensitive to levofloxacin at this institution, meropenem also with coverage)
- follow repeat QTc
- known to outpatient wound care center
- follow clinically
Chief Complaint
-: Fever and Other
Subjective / Review of Systems
No further fevers
now on 2 mcg/min norepi down from peak of 6 mcg/min
wbc 6.1
hgb 10.1
plt 95
cr 0.6
lactic acid normalized
CXR: no pneumonia - my read no infiltrates
CTA: no collections, severe PAD noted
blood cultures no growth to date
on stress dose steroids
Vital Signs / Physical Exam
Vital Signs
Vital Signs
Temp Pulse Resp BP Pulse Ox
97.8 F 72 21 97/58 96
08/14/23 07:35 08/14/23 06:00 08/14/23 06:00 08/14/23 06:00 08/14/23 06:00
Physical Exam
Constitutional: No Acute Distress
Cardiovascular: Regular Rate and S1/S2; Negative Murmur or Rub
Pulmonary: Clear and Symmetric; Negative Wheezes or Rales
Gastrointestinal: Soft, Non Tender, Non Distended and Normal Bowel Sounds
Skin: Warm and Dry; Negative Rash or Jaundice
Wound: Other (resolution of erythema, eschar now a bit loose with some slough surrounding - remains adherent at this time)
Objective Data
Lab Data
Lab Results
08/14/23 04:53
08/14/23 04:53
PT 18.5 Sec (11.4-14.6) H 08/13/23 13:10
INR 1.56 08/13/23 13:10
APTT 27.5 Sec (23.4-35.0) 08/13/23 13:10
Estimated Creat Clear 98 ml/min 08/14/23 04:53
Lactic Acid 1.4 mmol/L (0.7-2.0) 08/13/23 08:25
Total Bilirubin 1.2 mg/dl (0.2-1.3) 08/12/23 10:40
AST 20 U/L (17-59) 08/12/23 10:40
ALT 14 U/L (0-50) 08/12/23 10:40
Alkaline Phosphatase 51 U/L (38-126) 08/12/23 10:40
Most recent labs reviewed.
Micro Results:
08/12/23 14:56 Wound Culture - Preliminary
Leg - Right Pseudomonas aeruginosa
Enterococcus species
Gram Stain - Preliminary
08/13/23 15:17 Blood Culture - Pending
Blood/Venous
08/13/23 14:16 Blood Culture - Pending
Blood/Venous
08/13/23 13:10 Influenza Types A & B (SUZANNA) - Final
Nasal Swab Negative for Influenza A & B, NAAT
Negative results must be combined with clinical observations
and patient history.
Nucleic Acid Amplification test (NAAT)performed on the
[employer] platform.
08/12/23 14:56 MRSA Screen - Final
Nose No Methicillin Resistant Staphylococcus aureus isolated.
08/12/23 10:40 Blood Culture - Preliminary
Blood/Venous No Growth in 24 hours- Final report to follow
02/22/24 10:40 Blood Culture - Preliminary
Blood/Venous No Growth in 24 hours- Final report to follow
[2023-08-14] MEDS: TYLENOL 650 MG PO ×2 (11:50→22:27)
[2023-08-14] MEDS: LEVAQUIN 750 MG PO (11:52)
--- NOTE | 2023-08-14 13:08 | PTCARENOTE ---
pt awake and alert, forgetful at times , Afib on monitor, BP 105/63 , map goal 65 , he was on Levophed at 2mcg in am and weaned off by 0930 , 2L NC with sats of 97% , labs noted, pt afebrile , R lower leg redness, R Leg wound with black eschar ,
redressed as ordered, lower ext pulses by Doppler signal , tolerating diet , CO pain with movement of R leg burning sensation
--- NOTE | 2023-08-14 15:10 | PTCARENOTE ---
no changes in assessments , off vasopressor since 929
[2023-08-14] MEDS: CRESTOR 40 MG PO (17:08)
[2023-08-14] MEDS: TRICOR 145 MG PO (20:07)
--- NOTE | 2023-08-14 20:49 | PTCARENOTE ---
Assumed care of pt at 1900. Pt OOB to chair at start of shift, assisted back to bed with x2 assist and rolling walker, chair moved very close to bed, pt did not bear weight to RLE and was hopping on left foot to get back to bed. Reporting 8/10 pain
to RLE despite repositioning leg on pillows/air cushion. Medicated with PRN Dilaudid along with 2000 meds. Pt is A/O x4, pleasant and cooperative with care. Physical assessment completed, see nursing shift assessment flowsheet for full details. AFib
on monitor, HR in 80s, occasional PVCs. SpO2 99% on 2LNC. Pt sitting up in bed watching TV, call rothman and personal belongings within reach.
[2023-08-15] VITALS (18 sets, daily range): BP systolic 104–149; BP diastolic 63–93; BMI 26.2
[2023-08-15] MEDS: DILAUDID 0.25 MG IV (00:08)
[2023-08-15] MEDS: SOLU-CORTEF 50 MG IV ×5 (00:08→23:45)
--- NOTE | 2023-08-15 00:24 | PTCARENOTE ---
Assessment unchanged. Pt experiencing more pain this evening to his RLE, especially the right foot/heel. Continuing to reposition leg and offload heel. Medicated with PRN Tylenol and Dilaudid, see EMAR. Neurovascular assessment unchanged. Remains
AFib on monitor, with HR in 80s.
[2023-08-15] MEDS: STERILE WATER FOR INJECTION 10 ML IV ×2 (01:48→07:55)
[2023-08-15] MEDS: MERREM 500 MG IV ×2 (01:48→07:56)
[2023-08-15 05:13] LABS: Hematocrit 25.3 % (39.0-52.0); Hemoglobin 8.7 g/dL (13.0-18.0); Mean Corp Hgb Conc. 34.4 g/dL (33.0-37.0); Mean Corpuscular Volume 104.5 fL (80.0-94.0); Mean Platelet Volume 9.9 fL (7.4-10.4); Platelet Count 71 10^3/uL (130-400); Red Blood Cell Count 2.42 10^6/uL (4.70-6.10); Red Cell Dist. Width 14.7 % (11.5-14.5)
[2023-08-15 05:17] LABS: White Blood Cell Count 2.3 10^3/uL (4.8-10.8)
[2023-08-15 05:36] LABS: Blood Urea Nitrogen 33 mg/dl (9-20); Calcium 9.4 mg/dl (8.4-10.2); Carbon Dioxide 24 mmol/L (22-30); Chloride 109 mmol/L (98-107); Estimated Creatinine Clearance 84 ml/min; Glucose 138 mg/dl (70-99); Potassium 4.2 mmol/L (3.5-5.1); Sodium 141 mmol/L (135-145); eGFR > 60.00
--- NOTE | 2023-08-15 06:50 | W.PN.HOSP.TC ---
Today's Communication/Plan
-
Continue present course of meropenem and Levaquin as started by ID
BP is stabilized
Need to monitor leukopenia
Okay for transfer to telemetry but would need private room
Assessment / Plan
Assessment / Plan
78-year-old male with past medical history of hypertension, hyperlipidemia, CAD status post CABG, permanent A-fib, MDS, PVD status post stent (follows with Dr. Zelaya for vascular surgery) who presents to the emergency department for evaluation of
redness and pain in the right lower extremity.� Patient was admitted to this hospital last month for cellulitis of the right lower extremity and was treated with antibiotics.� Completed course of cephalexin. he says he was discharged on oral
antibiotic and his symptoms improved but never completely resolved.� He has had slow steady worsening of pain and redness, swelling of the right lower extremity since that time.� Pain becoming quite severe and patient called vascular surgeon who
recommended he come to the emergency room to be assessed.� He denies any fevers or chills.� Denies any chest pain or shortness of breath.� He denies any falls or trauma.� He denies any other complaints.� At that admission he was found to have
significant peripheral vascular disease.� Was to try conservative management with antibiotic and have further follow-up with vascular either at near where they live up in [place] or locally here.� They have decided to pursue any vascular
management locally while hospitalized.� He follows with Dr. Amaya in [place] for his cardiology follow-up that has been stable.)� His last dose of Eliquis was this morning.
Assessment and plan:
Sepsis present on admission developed septic shock following day
Prior to attempted arteriography y patient developed protracted hypotension unresponsive to fluid boluses and had to be transferred to ICU for pressor support
-Levophed now. Tapered off
-Presumed source of hypotension is presentation of sepsis
-Placed on stress dose steroids/on 15 mg prednisone maintenance for PMR
Right lower extremity cellulitis
-Ongoing nonhealing wound to medial calf with increasing suspected ischemic pain from known PAD
-Wound culture with growth of Pseudomonas/Enterococcus
-Prior documented peripheral vascular disease seen on GENE in June
-Nonhealing wound after antibiotic treatment in late June
-Obtain repeat arterial Doppler was abnormal/ vascular consultation/for eventual angiography once stabilization of BP
-GENE was not able to be obtained absent TBI chronic long segment occlusion of the right SFA with reconstitution of within the popliteal. Posterior tibial artery not visualized
-No prior culture results from wound infection in June/completed course of cephalexin
-ID consultation reviewed/cefazolin changed to meropenem/added Levaquin
Leukopenia
-Dropped from 6.1-2 0.3-9
-Possibly in relation to combination of MDS and antibiotic course
-Continue to monitor
-Platelets and hemoglobin relatively stable
Peripheral arterial disease
-Documented on previous GENE arterial Doppler pending today
-Prior history of endovascular intervention to right lower extremity at another facility
-Rule out ischemic burden as cause of recurrent wound
-For arteriogram once further stabilized
-Hold anticoagulant last taken 08/12 AM in preparation for angiography
Coronary artery disease/prior CABG/ischemic cardiomyopathy?/Prior history of HFrEF
-Continue statin
- most recent echo reviewed showing an EF of 25% in November of last year with global hypokinesis moderate to severe tricuspid regurg and pulmonary artery pressures of 44 mmHg/moderate mitral regurg
-2D echocardiogram from August 13 now shows EF of 35 to 40% with global hypokinesis and moderate to severe TR and moderate MR
- Entresto on hold with hypotension
-Carvedilol on hold
-Jardiance
-Troponin peaked at 0.94 now trending down
-Stable functional status
-If vascular intervention entertained we will need to get cardiology clearance/updated 2D echocardiogram noted
Permanent atrial fibrillation
-Rate control with carvedilol
-Hold anticoagulation in preparation for vascular intervention with arteriography
Other comorbidities:
Polymyalgia rheumatica/continue prednisone 50 mg
Myelodysplastic syndrome/presently stable
Hypercholesterolemia/continue fenofibrate and rosuvastatin/hold omega-3
DVT prophylaxis Eliquis will be held/Lovenox tonight subcu/not candidate for mechanical
Limited CODE STATUS /DNI
Plan of care discussed at length with patient's family and patient in ED and agreed upon
Anticipated Discharge: > 48 hours
Subjective/Interval History
-
Date of Service: August 15, 2023
'Once I got the sleep I had a very good night.' Off pressors since yesterday morning good urine output BP improved main complaint continues to be right leg and calf pain.
Objective Data
-
Labs:
Laboratory Results
08/15/23
04:44
WBC 2.3 L*
Hgb 8.7 L
Hct 25.3 L
Plt Count 71 L D
Sodium 141
Potassium 4.2
Chloride 109 H
Carbon Dioxide 24
BUN 33 H
Creatinine 0.7
Glucose 138 H
Calcium 9.4
Vital Signs:
Vital Signs
Temp Pulse Resp BP Pulse Ox
97.8 F 100 25 130/63 92
08/15/23 03:19 08/15/23 06:00 08/15/23 06:00 08/15/23 05:00 08/15/23 05:00
I&O
08/13/23 08/14/23 08/15/23
06:59 06:59 06:59
Intake Total 1320 / 1320 1220.0 / 1227.5 1252.5 / 1252.5
Output Total 950 / 950 1000 / 1000 1275 / 1275
Balance 370 / 370 220.0 / 227.5 -22.5 / -22.5
Review of Systems
-
History Source: Patient
Constitutional: Reports No Symptoms
EENT: Reports No Symptoms Reported
Respiratory: Reports No Symptoms
Cardiac: Reports No Symptoms
Abdomen/GI: Reports No Symptoms
Musculoskeletal: Reports Myalgias
Skin: Reports Sores
Physical Exam
-
General: Well Developed
HEENT: Normocephalic
Respiratory: Clear to Auscultation
Cardiac: Irregular Rhythm
GI: Soft
Musculoskeletal: Edema, Right Lower Extrem (Calf remains tender gauze dressing over wound)
Neuro: Awake, Alert and Oriented
Psych: Calm
Data Reviewed
-
Total Time Spent with Patient (in minutes): 56
Labs: Labs Reviewed by me (White count 2.3 had been 6.1 yesterday/hemoglobin and platelets stable)
--- NOTE | 2023-08-15 07:17 | W.PN.INTV ---
Today's Communication / Plan
Recommendations
Continue pain control
Bowel regimen
Antibiotics per ID
Follow leukopenia, MDS history noted
For transfer out of ICU. We will sign off. Please call with questions
Assessment
-
78-year-old male with complex medical history including peripheral vascular disease with right lower extremity stent in the past, coronary disease with bypass surgery, MDS, PMR on chronic steroid therapy, recent hospital stay for right lower
extremity cellulitis discharged on cephalexin. Patient described worsening redness, swelling, pain, found to have right lower extremity cellulitis admitted 08/12. Planned arteriogram with possible vascular intervention canceled 08/13 due to
hypotension. Patient transferred to ICU for further management 08/13/2023
Hypotension, likely sepsis
Right lower extremity cellulitis
Lower extremity wounds
MDS
Leukopenia, anemia
PMR on chronic steroids since December 2022
Ischemic cardiomyopathy, EF 25%
Per echo November 2022
Moderate mitral regurgitation/mild aortic stenosis
PA pressure 44
Reduced RV function, normal size
Coronary disease/bypass surgery 2008
Unremarkable catheterization 2022 ([facility])
Peripheral vascular disease
right lower extremity iliac artery stent/external iliac stent (V: [facility])
Right carotid disease
History of heart failure
Hypertension/hyperlipidemia
Atrial fibrillation on anticoagulation
BPH
Poor dentition
[id number] history of smoking quit 1980s limited DNR
Plan/recommendations
At this time, patient appears to be improved clinically. Afebrile for 24 hours, now off pressors
Right foot pain appears to be controlled with Dilaudid as needed, currently rates 5/10
Positive culture noted, on meropenem
Patient apparently had cardiac catheterization 2022 and he was told coronaries were clear
No murmurs on exam
Moving forward
Hypotension likely multifactorial, improved
Will decrease stress dose steroids, currently normotensive
Echocardiogram from November 2022 concerning with EF 25%, valvular disease, reduced RV function with normal size
Repeat echocardiogram 08/13/2023 shows EF 35%, mild aortic stenosis, PA pressure 45.
Cardiology following
Antibiotics continue, currently on Levaquin therapy. Ampicillin being added, penicillin rash noted/hives
ID following closely
Follow-up leukopenia
History of MDS noted
Troponin trending down, proBNP 8480
Per my review, chest x-ray is unremarkable, no acute findings
EKG with atrial fibrillation, occasional PVCs
Follow electrolytes
Patient with history of prediabetes
Insulin sliding scale with stress dose steroids
Patient is sensitive to morphine.
Transition pain medication to Dilaudid
Of note, has tolerated tramadol in the past
Reviewed at length with patient, critical care nursing
Patient being transferred out of ICU. We will sign off. Please call with questions
Subjective Dataa
Subjective Data
Date of Service:
Date of Service: August 15, 2023
Subjective:
Primary complaint continues to be right foot pain otherwise denies shortness of breath, chest pain, nausea, abdominal pain. Passing gas. Appears comfortable
Objective Data
Data Reviewed
Vital Signs / I&O / Oxygen:
Vital Signs
Temp Pulse Resp BP Pulse Ox
97.8 F 100 25 130/63 92
08/15/23 03:19 08/15/23 06:00 08/15/23 06:00 08/15/23 05:00 08/15/23 05:00
Intake and Output
08/14/23 08/15/23 08/16/23
06:59 06:59 06:59
Intake Total 1220.0 / 1227.5 1252.5 / 1252.5
Output Total 1000 / 1000 1275 / 1275
Balance 220.0 / 227.5 -22.5 / -22.5
SaO2 92
Nasal Cannula flow liters per 2
minute
Physical Exam
General: Comfortable
HEENT: Normocephalic, Anicteric and Other (Poor dentition)
Cardiovascular: S1-S2, Irregular Rhythm, Murmur (n), Rub (n), Peripheral Edema (n), Calf Tenderness (n), Other (Right lower extremity dressing, minimal erythema, no warmth) and Other (Missing first digit left hand)
Respiratory: Wheeze (n), Crackles (n), Rhonchi (n) and Non-Labored Respirations
GI: Soft, Non Distended and Non Tender
Neurology: Awake, Alert and No Motor Deficits
Skin: Cyanosis (n), Jaundice (n) and Rash (Mild lower extremity erythema)
Labs/Micro/Reports
Lab Data
08/15/23 04:44
08/15/23 04:44
Microbiology
08/13/23 15:17 Blood/Venous Blood Culture - Preliminary
No Growth in 24 hours- Final report to follow
08/13/23 14:16 Blood/Venous Blood Culture - Preliminary
No Growth in 24 hours- Final report to follow
08/12/23 10:40 Blood/Venous Blood Culture - Preliminary
No Growth in 48 hours- Final report to follow
08/12/23 10:40 Blood/Venous Blood Culture - Preliminary
No Growth in 48 hours- Final report to follow
08/12/23 14:56 Leg - Right Wound Culture - Preliminary
Pseudomonas aeruginosa
Enterococcus species
08/12/23 14:56 Leg - Right Gram Stain - Preliminary
08/13/23 13:10 Nasal Swab Influenza Types A & B (SUZANNA) - Final
Negative for Influenza A & B, NAAT
Negative results must be combined with clinical observations
and patient history.
Nucleic Acid Amplification test (NAAT)performed on the
[employer] platform.
08/12/23 14:56 Nose MRSA Screen - Final
No Methicillin Resistant Staphylococcus aureus isolated.
[2023-08-15] MEDS: JARDIANCE 10 MG PO (07:55)
[2023-08-15] MEDS: ELIQUIS 5 MG PO (07:55)
[2023-08-15] MEDS: TYLENOL 650 MG PO ×2 (08:02→18:00)
[2023-08-15] MEDS: LEVAQUIN 750 MG PO (08:03)
--- NOTE | 2023-08-15 08:27 | W.PN.ID1 ---
Addendum entered and electronically signed by Kanchan Avila MD 08/15/23 12:56:
enterococcus amp sensitive, lab to release quinolone sensi as well
Original Note:
Date of Service
Date of Service: August 15, 2023
Today's Communication
- continue levofloxacin
- await enterococcus ID/sensi (discussed with lab) - add amoxicillin for now - note steroids, would not fully remove allergy yet even if no reaction
Assessment / Plan
Shock -resolving, Fever - resolved
Nonpurulent Right lower extremity cellulitis
Lower extremity wounds
Myelodysplastic syndrome
Immunosuppression
PAD/CAD
- repeat blood cultures x2 no growth to date
- wound culture many pseudomonas; moderate enterococcus
- QTc remains acceptable
- continue levofloxacin
- await enterococcus ID/sensi (discussed with lab) - add amoxicillin for now - note steroids, would not fully remove allergy yet even if no reaction
- known to outpatient wound care center
- follow clinically
Chief Complaint
-: Fever and Other (wound infection)
Subjective / Review of Systems
afebrile
bp stable off of norepi almost 24 hrs
leukopenia
cr stable
blood cultures no growth to date
EF is improved to 35 to 40% from 25% last year.�
Report penicillin allergy was decades ago, never tried again, open to trial while in hospital of amoxicillin given enterococcus
Vital Signs / Physical Exam
Vital Signs
Vital Signs
Temp Pulse Resp BP Pulse Ox
97.8 F 100 25 130/63 92
08/15/23 07:54 08/15/23 06:00 08/15/23 06:00 08/15/23 05:00 08/15/23 05:00
Physical Exam
Constitutional: No Acute Distress
Cardiovascular: Regular Rate and S1/S2; Negative Murmur or Rub
Pulmonary: Clear and Symmetric; Negative Wheezes or Rales
Gastrointestinal: Soft, Non Tender, Non Distended and Normal Bowel Sounds
Skin: Warm and Dry; Negative Rash or Jaundice
Wound: Other (small with eschar - no drainage, minimal erythema of the leg)
Objective Data
Lab Data
Lab Results
08/15/23 04:44
08/15/23 04:44
PT 18.5 Sec (11.4-14.6) H 08/13/23 13:10
INR 1.56 08/13/23 13:10
APTT 27.5 Sec (23.4-35.0) 08/13/23 13:10
Estimated Creat Clear 84 ml/min 08/15/23 04:44
Lactic Acid 1.4 mmol/L (0.7-2.0) 08/13/23 08:25
Total Bilirubin 1.2 mg/dl (0.2-1.3) 08/12/23 10:40
AST 20 U/L (17-59) 08/12/23 10:40
ALT 14 U/L (0-50) 08/12/23 10:40
Alkaline Phosphatase 51 U/L (38-126) 08/12/23 10:40
Most recent labs reviewed.
Micro Results:
08/13/23 15:17 Blood Culture - Preliminary
Blood/Venous No Growth in 24 hours- Final report to follow
08/13/23 14:16 Blood Culture - Preliminary
Blood/Venous No Growth in 24 hours- Final report to follow
08/12/23 10:40 Blood Culture - Preliminary
Blood/Venous No Growth in 48 hours- Final report to follow
08/12/23 10:40 Blood Culture - Preliminary
Blood/Venous No Growth in 48 hours- Final report to follow
08/12/23 14:56 Wound Culture - Preliminary
Leg - Right Pseudomonas aeruginosa
Enterococcus species
Gram Stain - Preliminary
08/13/23 13:10 Influenza Types A & B (SUZANNA) - Final
Nasal Swab Negative for Influenza A & B, NAAT
Negative results must be combined with clinical observations
and patient history.
Nucleic Acid Amplification test (NAAT)performed on the
[employer] platform.
08/12/23 14:56 MRSA Screen - Final
Nose No Methicillin Resistant Staphylococcus aureus isolated.
--- NOTE | 2023-08-15 09:00 | W.PN.CARDCBS ---
Today's Communication / Plan
-
HR and bp stable off IV pressor which has been off over 24 hrs
Given prior hypotension was refractory canceling his last procedure we will hold off on resuming carvedilol then Entresto for now.
Would start with resuming carvedilol after the procedure.
Tentative vascular procedure August 16, 2023.
He remains euvolemic.
Watch volume status closely given cardiomyopathy.
His echo showed his EF is improved to 35 to 40% from 25% last year.
Continue medical therapy non-MD troponin, with initial and peak 0.9.
Pt on Eliquis and this will be held likely prior to a reattempt at arteriogram. Order for future hold later today August 15, 2023
Wound culture Pseudomonas, moderate Enterococcus, remains on meropenem and ID added levofloxacin. Monitor QTc. QTc stable by EKG August 15, 2023.
Impression / Plan
-
Primary Quality Assurance Group Leader: Dr. Preston
Impression:
Presentation with RLE pain/erythema
RLE cellulitis/sepsis
Septic shock with hypotension
recent admission for RLE cellulitis 06/2023 with abnormal GENE
Chronic HFrEF
Ischemic cardiomyopathy
History of abnormal stress test
NSTEMI 11/2022, managed conservatively as was confused and without cardiac symptoms
History of permanent A-fib on chronic Eliquis
CABG 2008 [facility] (ORTA to LAD, radial graft to RPDA, SVG from LCx-OM2 to OM3)
Hypertension
Hypercholesterolemia
stage III renal insufficiency
MDS/Chronic Anemia s/p Procrit shots
ECHO 11/30/22: EF 25%, global hypokinesis with anterior, anteroseptal, apical akinesis, MAC, at least mild to moderate MR, underestimated due to MAC, AAC, peak/mean gradients 23/30 mmHg, at least mild , moderate to severe TR, PAP 44 mmHg
�
Echo Aug 13 2023: EF 35 to 40%, global hypokinesis, mild to moderate MR, mild aortic stenosis, peak/mean gradients 21/13 mmHg respectively, aortic valve area 1.3 cm2, moderate severe tricuspid regurgitation, pulmonary artery systolic pressure 45
mmHg. IVC is dilated and does not collapse. No evidence of vegetation. Compared to prior echo EF is improved.
Plan:
HPI: Patient presented to [facility] due to complaints of right lower extremity pain and erythema after being recently discharged for similar admission 06/2023. During prior admission he was noted to have abnormal right lower extremity GENE.
He was planned for peripheral angiogram today, however preprocedure and Retail Center Receptionist was noted to have hypotension. Procedure was canceled until patient stable. He is receiving a fluid bolus at present. He will be transferred to ICU/IMU. May need
addition of pressor support (levophed ordered but not yet started). He continues with fevers. wound and blood cultures are pending. Continue antibiotics per primary service and infectious disease
HR and bp stable off IV pressor which has been off over 24 hrs
Given prior hypotension was refractory canceling his last procedure we will hold off on resuming carvedilol then Entresto for now.
Would start with resuming carvedilol after the procedure.
Tentative vascular procedure August 16, 2023.
He remains euvolemic.
Watch volume status closely given cardiomyopathy.
His echo showed his EF is improved to 35 to 40% from 25% last year.
Continue medical therapy non-MD troponin, with initial and peak 0.9.
Pt on Eliquis and this will be held likely prior to a reattempt at arteriogram. Order for future hold later today August 15, 2023
Wound culture Pseudomonas, moderate Enterococcus, remains on meropenem and ID added levofloxacin. Monitor QTc. QTc stable by EKG August 15, 2023.
Discussed with nursing.
Progress Note - Quality Assurance Group Leader
Subjective
Date of Service: August 15, 2023
Pt seen and examined. No complaints. No chest pain or shortness of breath.
Objective
Labs:
08/15/23 04:44
08/15/23 04:44
Labs
Hgb 8.7 g/dL (13.0-18.0) L 08/15/23 04:44
Hct 25.3 % (39.0-52.0) L 08/15/23 04:44
Plt Count 71 10^3/uL (130-400) L D 08/15/23 04:44
PT 18.5 Sec (11.4-14.6) H 08/13/23 13:10
INR 1.56 08/13/23 13:10
APTT 27.5 Sec (23.4-35.0) 08/13/23 13:10
Sodium 141 mmol/L (135-145) 08/15/23 04:44
Potassium 4.2 mmol/L (3.5-5.1) 08/15/23 04:44
BUN 33 mg/dl (9-20) H 08/15/23 04:44
Creatinine 0.7 mg/dL (0.7-1.3) 08/15/23 04:44
Glucose 138 mg/dl (70-99) H 08/15/23 04:44
Troponins
08/13/23 08/13/23
13:10 19:56
Troponin I 0.947 H* 0.508 H* D
Vital Signs and I&O:
Vital Signs
Temp Pulse Resp BP Pulse Ox
97.8 F 92 26 119/93 95
08/15/23 07:54 08/15/23 08:00 08/15/23 08:00 08/15/23 08:00 08/15/23 08:00
Vital Signs
Temp Pulse Resp BP Pulse Ox
97.8 F 92 26 119/93 95
08/15/23 07:54 08/15/23 08:00 08/15/23 08:00 08/15/23 08:00 08/15/23 08:00
Intake & Output
02/23/08/14/23 08/15/23 08/16/23
06:59 06:59 06:59 06:59
Intake Total 1320 / 1320 1220.0 / 1227.5 1252.5 / 1252.5 250 / 250
Output Total 950 / 950 1000 / 1000 1275 / 1275
Balance 370 / 370 220.0 / 227.5 -22.5 / -22.5 250 / 250
Physical Exam
Physical Exam
General: No acute distress, AAOX3
Neck: Negative JVD
Heart: Irregularly irregular, Negative S3 positive S1/S2, Negative S4, No murmur
Lungs: CTA b/l, negative wheezes/rales/rhonchi
Abd: Positive BS, NT/ND, neg rebound/rigidity/guarding
Ext: Negative cyanosis/clubbing/edema
Neuro: nonfocal
[2023-08-15] MEDS: ZYVOX 600 MG PO ×2 (09:24→19:59)
--- NOTE | 2023-08-15 09:29 | PTCARENOTE ---
pt awake and alert , oriented, off of Norepinephrine since 0900 yesterday , Afib on monitor , BP 134/77 , tolerating diet , co pain in R foot Tylenol given , labs noted
[2023-08-15] MEDS: AMOXIL 500 MG PO ×2 (10:08→18:00)
--- NOTE | 2023-08-15 15:07 | PTCARENOTE ---
pt is written for telemetry status , pt oob in chair for 6 hours tolerating well , using a walker to pivot , pt aware of transfer
--- NOTE | 2023-08-15 15:37 | CHAP ---
Asked by the nurse to visit Mr. Carson. He said things were getting better; he and his family were in good spirits. They welcomed prayer - we said Yazdanism prayers together, and I asked blessings for Mr. Carson, his family and the med staff.
[2023-08-15] MEDS: CRESTOR 40 MG PO (18:00)
--- NOTE | 2023-08-15 21:00 | PTCARENOTE ---
Report received from previous shift RN [id number]. Pt in bed, AAO3, no complaints offered. Lung sounds clear throughout, decre b/l base, pox 98% on room air, denies cough/SOB. Telemetry rhythm reveals A-fib w oc PVCs, HR 80's, trace edema noted RLE,
peripheral pulses present via doppler. +BS, abdomen soft nontender, tolerating cholesterol lowering diet, aware of being NPO after midnight for vascular procedure Wednesday. Urinal at bedside. Skin as documented. Complete CHG bath provided, denture
care performed. Call rothman within reach, safe environment maintained. Will monitor closely.
[2023-08-15] MEDS: TRICOR 145 MG PO (21:51)
[2023-08-15] MEDS: FLUSH (NSS) 2 FLUSH IV (23:45)
[2023-08-16] VITALS (20 sets, daily range): BP systolic 103–167; BP diastolic 53–107; BMI 25.9
[2023-08-16] MEDS: AMOXIL 500 MG PO (02:14)
[2023-08-16] MEDS: XANAX 0.25 MG PO (04:31)
[2023-08-16 04:38] LABS: Hematocrit 26.6 % (39.0-52.0); Hemoglobin 9.2 g/dL (13.0-18.0); Mean Corp Hgb Conc. 34.6 g/dL (33.0-37.0); Mean Corpuscular Hgb 36.2 pg (27.0-31.0); Mean Corpuscular Volume 104.7 fL (80.0-94.0); Mean Platelet Volume 10.1 fL (7.4-10.4); Platelet Count 75 10^3/uL (130-400); Red Blood Cell Count 2.54 10^6/uL (4.70-6.10); Red Cell Dist. Width 14.6 % (11.5-14.5)
[2023-08-16 04:49] LABS: White Blood Cell Count 2.4 10^3/uL (4.8-10.8)
[2023-08-16 04:55] LABS: Blood Urea Nitrogen 32 mg/dl (9-20); Calcium 9.4 mg/dl (8.4-10.2); Carbon Dioxide 24 mmol/L (22-30); Chloride 108 mmol/L (98-107); Estimated Creatinine Clearance 84 ml/min; Glucose 132 mg/dl (70-99); Potassium 3.9 mmol/L (3.5-5.1); Sodium 140 mmol/L (135-145); eGFR > 60.00
[2023-08-16] MEDS: SOLU-CORTEF 50 MG IV ×3 (05:36→20:49)
[2023-08-16] MEDS: FLUSH (NSS) 2 FLUSH IV (05:37)
[2023-08-16] MEDS: JARDIANCE PO (07:25)
[2023-08-16] MEDS: LEVAQUIN 750 MG PO (07:39)
[2023-08-16] MEDS: ZYVOX 600 MG PO (07:39)
--- NOTE | 2023-08-16 08:00 | PTCARENOTE ---
Pt AAOx3, A fib with PVCs on monitor, on RA saturation 98%. RLE cellulitis with dressing CDI, extremity elevated on pillow with air cushion. see worklist
--- NOTE | 2023-08-16 08:12 | W.PN.HOSP.TC ---
Today's Communication/Plan
-
x-rays today
angiography today
will need PT/OT post surgery
cont abx
d/c planning
Assessment / Plan
Assessment / Plan
pt is a 78 year old male
Sepsis present on admission developed septic shock following day due to right lower extremity cellulitis compounded by PAD--was unresponsive to fluid boluses, moved to ICU and now off pressors--significant vascular disease--going for angiography
with vascular surgery this AM--(pt c/o pain and can't bear weight, s/p fall, check x-ray to r/o fracture)--on stress dose steroids (still on 50 mg IV Q6H)--outpt prednisone 15mg--ongoing nonhealing wound--culture positive for
Pseudomonas/Enterococcus--apprec ID--on amoxicillin, levaquin, zyvox--repeat arterial Doppler was abnormal--apprec vascular--GENE shows absent TBI chronic long segment occlusion of the right SFA with reconstitution of within the popliteal. Posterior
tibial artery not visualized
Leukopenia--Dropped from 6.1 to 2.4--likely from MDS and possible antibiotic--Platelets and hemoglobin relatively stable
Peripheral arterial disease--Prior history of endovascular intervention to right lower extremity at another facility--angiogram today--Hold anticoagulant last taken 08/12 AM in preparation for angiography
Coronary artery disease/prior CABG/ischemic cardiomyopathy?/Prior history of HFrEF--Continue statin--2D echocardiogram from August 13 now shows EF of 35 to 40% with global hypokinesis and moderate to severe TR and moderate MR=- Entresto on hold
with hypotension--Carvedilol on hold--cont Jardiance--Troponin peaked at 0.94 now trending down--Stable functional status--apprec cards
Permanent atrial fibrillation--Rate control with carvedilol--Hold anticoagulation in preparation for vascular intervention with arteriography
Polymyalgia rheumatica/continue hydrocortisone 50 mg--on stress dose steroids
Myelodysplastic syndrome--WBC counts dropped
Hypercholesterolemia/continue fenofibrate and rosuvastatin/hold omega-3
DVT prophylaxis Eliquis will be held/Lovenox tonight subcu/not candidate for mechanical
Limited CODE STATUS /DNI
Anticipated Discharge: > 48 hours
Subjective/Interval History
-
Date of Service: August 16, 2023
pt c/o of inability to bear weight on right leg/foot
Objective Data
-
Labs:
Laboratory Results
08/16/23
04:28
WBC 2.4 L*
Hgb 9.2 L
Hct 26.6 L
Plt Count 75 L
Sodium 140
Potassium 3.9
Chloride 108 H
Carbon Dioxide 24
BUN 32 H
Creatinine 0.7
Glucose 132 H
Calcium 9.4
Vital Signs:
max temp for 24 hours
08/15/23
19:35
Temp 98.2 F
Vital Signs
Temp Pulse Resp BP Pulse Ox
97.9 F 64 20 148/75 98
08/16/23 07:20 08/16/23 07:00 08/15/23 15:11 08/16/23 06:00 08/15/23 20:00
I&O
08/15/23 08/16/23 08/17/23
06:59 06:59 06:59
Intake Total 1252.5 / 1252.5 740 / 740
Output Total 1275 / 1275 650 / 650
Balance -22.5 / -22.5 90 / 90
Review of Systems
-
All other systems: Reviewed and negative
Musculoskeletal: Reports Other (right leg/foot pain)
Physical Exam
-
General: Well Developed, Well Nourished and No Apparent Distress
HEENT: Normocephalic and Atraumatic
Respiratory: Clear to Auscultation; Negative Wheezes or Rhonchi
Cardiac: Irregular Rhythm and Murmur
GI: Soft, Nontender, Nondistended and Normal Bowel Sounds
Musculoskeletal: No Clubbing, No Cyanosis, No Edema and Other (right leg wrapped--leg warm to touch)
Neuro: Awake and Alert
Psych: Calm
--- NOTE | 2023-08-16 08:16 | CM ---
Patient seen at bedside. Patient states that since I last saw him on 08/12 things have worsened. Patient has fallen with 3 fractured ribs. Patient family had stepped up and is cleaning and caring for . Patient states plan for discharge
remains the same, home with [facility]. CM will continue to follow for discharge planning needs.
Plan; home with [facility]; will need [facility] referral
--- NOTE | 2023-08-16 09:04 | W.PN.ID1 ---
Date of Service
Date of Service: August 16, 2023
Today's Communication
- continue levofloxacin x 14 days total - through 08/25
Assessment / Plan
Shock -resolving, Fever - resolved
Nonpurulent Right lower extremity cellulitis
Lower extremity wounds
Myelodysplastic syndrome
Immunosuppression
PAD/CAD
- repeat blood cultures x2 no growth to date
- wound culture many pseudomonas; moderate enterococcus
- QTc remains acceptable
- continue levofloxacin x 14 days total - through 08/25
- agree with angiogram
- known to outpatient wound care center
- follow clinically
Chief Complaint
-: Fever and Other (wound infection)
Subjective / Review of Systems
afebrile
bp stable
improved leukopenia
cr stable
sensi back on the e faecalis
tolerated amoxicillin but was on steroids
scheduled for angiogram
no rash
Vital Signs / Physical Exam
Vital Signs
Vital Signs
Temp Pulse Resp BP Pulse Ox
97.9 F 64 20 148/75 98
08/16/23 07:20 08/16/23 07:00 08/15/23 15:11 08/16/23 06:00 08/15/23 20:00
Physical Exam
Constitutional: No Acute Distress
Cardiovascular: Regular Rate and S1/S2; Negative Murmur or Rub
Pulmonary: Clear and Symmetric; Negative Wheezes or Rales
Gastrointestinal: Soft, Non Tender, Non Distended and Normal Bowel Sounds
Skin: Warm and Dry; Negative Rash or Jaundice
Wound: Other (dressing clean, dry, intact)
Objective Data
Lab Data
Lab Results
08/16/23 04:28
08/16/23 04:28
PT 18.5 Sec (11.4-14.6) H 08/13/23 13:10
INR 1.56 08/13/23 13:10
APTT 27.5 Sec (23.4-35.0) 08/13/23 13:10
Estimated Creat Clear 84 ml/min 08/16/23 04:28
Lactic Acid 1.4 mmol/L (0.7-2.0) 08/13/23 08:25
Total Bilirubin 1.2 mg/dl (0.2-1.3) 08/12/23 10:40
AST 20 U/L (17-59) 08/12/23 10:40
ALT 14 U/L (0-50) 08/12/23 10:40
Alkaline Phosphatase 51 U/L (38-126) 08/12/23 10:40
Most recent labs reviewed.
Micro Results:
08/13/23 15:17 Blood Culture - Preliminary
Blood/Venous No Growth in 48 hours- Final report to follow
08/13/23 14:16 Blood Culture - Preliminary
Blood/Venous No Growth in 48 hours- Final report to follow
08/12/23 14:56 Wound Culture - Final
Leg - Right Pseudomonas aeruginosa
Enterococcus faecalis
Gram Stain - Final
08/12/23 10:40 Blood Culture - Preliminary
Blood/Venous No Growth in 72 hours- Final report to follow
08/12/23 10:40 Blood Culture - Preliminary
Blood/Venous No Growth in 72 hours- Final report to follow
08/13/23 13:10 Influenza Types A & B (SUZANNA) - Final
Nasal Swab Negative for Influenza A & B, NAAT
Negative results must be combined with clinical observations
and patient history.
Nucleic Acid Amplification test (NAAT)performed on the
[email or web address] platform.
08/12/23 14:56 MRSA Screen - Final
Nose No Methicillin Resistant Staphylococcus aureus isolated.
--- NOTE | 2023-08-16 09:34 | W.PN.CARDCBS ---
Addendum entered and electronically signed by Jose Francisco Hill DO 08/16/23 10:13:
I saw and examined the patient.
The Cable Tool Driller's note was reviewed and I agree with the note.
Comment:
Plan:
Resume Coreg after angiogram today LE
Permissive hypertension currently given recent attempt at procedure was aborted due to hypotension
Eliquis on hold for procedure.
Cont abx and wound care
monitor QTc.
Original Note:
Today's Communication / Plan
-
LE Angiography today
Resume Coreg today after vascular procedure
Eliquis on hold, resume once no additional vascular procedures schedule
Continue antibiotics and monitoring of QTc on tele
Impression / Plan
-
Primary Investigation Specialist: Dr. Preston
Impression:
Presentation 08/12/2023 with RLE pain/erythema
RLE cellulitis/sepsis
Septic shock with hypotension
recent admission for RLE cellulitis 06/2023 with abnormal GENE
non-ischemic myocardial injury, peak trop 0.9
Chronic HFrEF
Ischemic cardiomyopathy
History of abnormal stress test
NSTEMI 11/2022, managed conservatively as was confused and without cardiac symptoms
History of permanent A-fib on chronic Eliquis
CABG 2008 [facility] (ORTA to LAD, radial graft to RPDA, SVG from LCx-OM2 to OM3)
Hypertension
Hypercholesterolemia
stage III renal insufficiency
MDS/Chronic Anemia s/p Procrit shots
ECHO 11/30/22: EF 25%, global hypokinesis with anterior, anteroseptal, apical akinesis, MAC, at least mild to moderate MR, underestimated due to MAC, AAC, peak/mean gradients 23/30 mmHg, at least mild , moderate to severe TR, PAP 44 mmHg
�
Echo Aug 13 2023: EF 35 to 40%, global hypokinesis, mild to moderate MR, mild aortic stenosis, peak/mean gradients 21/13 mmHg respectively, aortic valve area 1.3 cm2, moderate severe tricuspid regurgitation, pulmonary artery systolic pressure 45
mmHg. IVC is dilated and does not collapse. No evidence of vegetation. Compared to prior echo EF is improved.
Plan:
HPI 08/12/2023: Patient presented to [facility] due to complaints of right lower extremity pain and erythema after being recently discharged for similar admission 06/2023. During prior admission he was noted to have abnormal right lower
extremity GENE. He was planned for peripheral angiogram today, however preprocedure and Miner Helper was noted to have hypotension. Procedure was canceled until patient stable. He is receiving a fluid bolus at present. He will be transferred to
ICU/IMU. May need addition of pressor support (levophed ordered but not yet started). He continues with fevers. wound and blood cultures are pending. Continue antibiotics per primary service and infectious disease
HR and bp stable off IV pressor
Remains off Coreg and Entresto
Will restart carvedilol later today after vascular procedure.
RLE cellulitis, for angiography this am August 16, 2023.
Known cardiomyopathy. He remains euvolemic.
Watch volume status closely
Continue Jardiance
Resume Coreg following vascular procedure 08/16/2023. If he tolerates Coreg then consider resuming Entresto thereafter
His echo this admission showed his EF is improved to 35 to 40% from 25% last year. Goal is to resume GDMT following vascular procedure
Continue medical therapy non-ischemic myocardial injury, with initial and peak 0.9. Chest pain free. Continue to monitor on tele
Permanent Afib. Pt on Eliquis currently on hold pending non-ischemic angiogram 08/16/2023. Will need resumed after vascular procedure
Wound culture Pseudomonas, moderate Enterococcus, remains on meropenem and ID added levofloxacin. Monitor QTc. QTc stable by EKG August 15, 2023.
Discussed with patient and daughter whom is at bedside.
Progress Note - Investigation Specialist
Subjective
Date of Service: August 16, 2023
Patient seen and examined. Resting comfortably in bed.
Objective
Labs:
08/16/23 04:28
08/16/23 04:28
Labs
Hgb 9.2 g/dL (13.0-18.0) L 08/16/23 04:28
Hct 26.6 % (39.0-52.0) L 08/16/23 04:28
Plt Count 75 10^3/uL (130-400) L 08/16/23 04:28
PT 18.5 Sec (11.4-14.6) H 08/13/23 13:10
INR 1.56 08/13/23 13:10
APTT 27.5 Sec (23.4-35.0) 08/13/23 13:10
Sodium 140 mmol/L (135-145) 08/16/23 04:28
Potassium 3.9 mmol/L (3.5-5.1) 08/16/23 04:28
BUN 32 mg/dl (9-20) H 08/16/23 04:28
Creatinine 0.7 mg/dL (0.7-1.3) 08/16/23 04:28
Glucose 132 mg/dl (70-99) H 08/16/23 04:28
Troponins
08/13/23 08/13/23
13:10 19:56
Troponin I 0.947 H* 0.508 H* D
Vital Signs and I&O:
Vital Signs
Temp Pulse Resp BP Pulse Ox
97.9 F 64 20 148/75 98
08/16/23 07:20 08/16/23 07:00 08/15/23 15:11 08/16/23 06:00 08/15/23 20:00
Vital Signs
Temp Pulse Resp BP Pulse Ox
97.9 F 64 20 148/75 98
08/16/23 07:20 08/16/23 07:00 08/15/23 15:11 08/16/23 06:00 08/15/23 20:00
Intake & Output
08/14/23 08/15/23 08/16/23 08/17/23
06:59 06:59 06:59 06:59
Intake Total 1220.0 / 1227.5 1252.5 / 1252.5 740 / 740
Output Total 1000 / 1000 1275 / 1275 650 / 650
Balance 220.0 / 227.5 -22.5 / -22.5 90 / 90
Physical Exam
Physical Exam
GEN: No distress, awake, Ox3, lying in bed
HEENT: supple, anicteric, mmm
LUNGS: CTA bilaterally, no wheezes/rales
CV: Reg, S1/S2, 1/6 syst LSB, no murmur
ABD: soft, BS+, NT/ND
EXT: No edema, clubbing or cyanosis; right leg wrapped
NEURO: Gross non-focal
SKIN: No rash, warm, dry
--- NOTE | 2023-08-16 12:25 | W.SUR.PREOP ---
Pre-Operative Surgical Note
-
I have examined this patient prior to the performance of the scheduled procedure.
The patient's condition is unchanged from the time of the current History and
Physical and the patient is able to undergo the scheduled procedure.
--- NOTE | 2023-08-16 13:00 | PTCARENOTE ---
Pt transported to labor economics professor ~1200. pt currently off unit. RLE wound care performed and dressing changed prior to pt transport
--- NOTE | 2023-08-16 13:36 | PTCARENOTE ---
Report given to BIRD Tilley. Pt still in laborer pullet farm for angiogram
[2023-08-16 14:23] LABS: Glucose - Point of Care 134 mg/dl (70-99)
--- NOTE | 2023-08-16 14:58 | OR.RPT ---
Operative Report
Operative Report
Date of Operation: 08/16/2023
Pre Op Diagnosis: Critical limb threatening ischemia, right lower extremity
Post Op Diagnosis: Critical limb threatening ischemia, right lower extremity
Procedure:
1.) Intravascular lithotripsy to right common femoral artery stenosis (8 mm x 60 mm M5+ Shockwave balloon)
2.) Intravascular lithotripsy to right external iliac artery stenosis (8 mm x 60 mm M5+ Shockwave balloon)
3.) Intravascular lithotripsy to right distal common iliac artery and iliac bifurcation stenosis (8 mm x 60 mm M5+ Shockwave balloon)
4.) Balloon angioplasty and stenting of right external iliac artery stenosis (7 mm x 39 mm [place] VBX stent)
5.) Balloon angioplasty and stenting of right distal common iliac artery and iliac bifurcation stenosis (8 mm x 37 mm Express LD stent)
6.) Diagnostic aortobiiliac arteriogram
7.) Diagnostic right lower extremity arteriogram
8.) Ultrasound-guided percutaneous access to the left common femoral artery
Surgeon: Adam Zelaya III, MD
Cloth Roll Winder: Regan Kebede MD PGY-1
Anesthesia: Sedation with local
Fluoroscopy:
24.5 min
692 mGy
113.12 Gy.cm2
Complications: None
Estimated Blood Loss: Minimal
History and Indications for Procedure: 78-year-old male with critical limb threatening ischemia of his right lower extremity.
Procedure in Detail: Chucho Carson was correctly identified and placed supine on the operating table. After adequate induction of anesthesia the bilateral groins were prepped and draped in the usual sterile fashion. A timeout was performed with the
nursing and anesthesia staff confirming the patient's identity as well as the nature and laterality of the procedure.
The left common femoral artery was identified under ultrasound guidance. The artery was patent. The superior and inferior aspects of the femoral head were identified with radiographic guidance and marked at the skin level. The proposed puncture site
was infiltrated with local anesthesia. We saved a copy of the ultrasound image to the medical record. Under ultrasound guidance we accessed the left common femoral artery with a micropuncture needle and upsized to a 5 Fr sheath over a Bentson wire.
The wire and a Shepherds hook flush catheter were advanced into the distal abdominal aorta and a diagnostic aorto-biiliac arteriogram was performed:
AORTO-ILIAC ARTERIOGRAM:
Aorta: Diffusely and heavily calcified. Luminal calcified plaque identified in the infrarenal abdominal aorta. No significant stenosis was identified
Right common iliac artery: Patent stent. Heavily calcified plaque identified at the distal aspect of the common iliac artery extending across the iliac bifurcation contributing to moderate to high-grade stenosis
Right external iliac artery: Patent stent proximally. Bulky calcified plaque identified in the mid to distal external iliac artery contributing to high-grade stenosis
Left common iliac artery: Patent. Heavily calcified. Moderate degree of stenosis identified
Left external iliac artery: Patent. Calcified. No significant stenosis identified.
Under roadmap guidance using a Glidewire and the Shepherds hook catheter we selected the right common iliac artery and then the external iliac artery. A catheter was tracked up and over the aortic bifurcation and placed in the distal external iliac
artery. A diagnostic right lower extremity arteriogram was then performed which demonstrated the following:
RIGHT LOWER EXTREMITY:
Common femoral artery: Patent. Stenosis identified distally near the femoral bifurcation
Profunda femoral artery: Widely patent. Scattered focal areas of calcified plaque identified distally. No significant stenosis identified. Robust collateral network in the thigh and around the knee.
Superficial femoral artery: Patent proximally. High-grade stenosis proximally with sluggish flow. Diffusely heavily calcified. Occluded in the midsegment.
Popliteal artery: Heavily calcified. Focal segmental reconstitution of the above-knee popliteal artery and behind the knee. Below the knee popliteal artery occluded entirely.
Anterior tibial artery: Reconstituted through profunda femoral collaterals in the proximal aspect. Diffusely diseased throughout its length with areas of high-grade stenosis seen in the mid and distal AT.
Tibioperoneal trunk: Reconstitutes via collaterals but is heavily calcified with diffuse high-grade stenosis
Peroneal artery: Patent but diffusely small along its entire length
Posterior tibial artery: Occluded proximally. Limited reconstitution behind the ankle. Heavily diseased. Very limited plantar branch flow identified
In addition to the extensive tibial artery disease, significant small vessel disease is identified in the foot.
ENDOVASCULAR INTERVENTION: Systemic heparin was administered. Exchanged out for a 7 Fr 45 cm sheath over a Storq wire. Selected the profunda femoral artery under roadmap guidance with [place] catheter and glidewire. The wire and catheter were
advanced into the distal profunda femoral artery. Exchanged out for a 0.014 wire. Due to the heavily calcified nature of the arterial disease and in an effort to modify the calcium to achieve maximum luminal gain with endovascular intervention I
elected to proceed with intravascular lithotripsy. A 8 mm x 60 mm M5+ Shockwave balloon was placed across the areas of stenosis under roadmap guidance. The balloon was first positioned with the tip in the proximal profunda femoral artery, extending
proximally across the common femoral. Alternating rounds of lithotripsy pulse delivery at sub-nominal pressure and angioplasty at nominal pressure was performed across the length of the stenoses which involved the common femoral artery, external
iliac artery, iliac bifurcation and distal common iliac artery. In between rounds of pulse delivery and angioplasty the balloon was deflated and repositioned under roadmap guidance. All 300 pulses were delivered. Subsequent arteriogram demonstrated
an improved but suboptimal result. Significant improvement was identified in the distal common femoral artery and distalmost external iliac artery at the inguinal ligament with no residual stenosis or dissection. Residual stenosis was identified
in the mid segment of the barrow external iliac artery as well as the distal right common iliac artery and iliac bifurcation. Under roadmap guidance a 7 mm x 39 mm [place] VBX stent was positioned and deployed in the mid/external iliac artery distal,
overlapping slightly with the distal end of the existing stent. Under roadmap guidance a 8 mm x 37 mm Express LD stent was positioned and deployed across the iliac bifurcation, bridging the length between the 2 existing stents in the common iliac
artery and proximal external iliac artery.
COMPLETION ARTERIOGRAM: Excellent technical result. Widely patent right iliac artery stents with no significant residual stenosis identified. Brisk flow through the right iliac system. Brisk outflow through the common femoral artery and profunda
femoral artery.
Satisfied with this result we concluded the procedure. The sheath tip was pulled back into the left external iliac artery. Protamine was administered. The sheath was pulled and direct manual pressure was held over the puncture site. Hemostasis
was achieved. A sterile dressing was applied.
The patient tolerated the procedure well and was taken to the recovery area in stable condition.
Attestation: I was present and responsible for the entire procedure.
Signed:
Adam Zelaya III, MD
[facility]
[phone] (cell)
[2023-08-16] MEDS: NSS 1000 IV (15:12)
--- NOTE | 2023-08-16 16:00 | PTCARENOTE ---
Pt received from the PACU via bed. Transport was w/o incident. Pt is AAOx3, HR irreg (Pt w/afib hx). Pt is Afib on the Shampoo Person. Lungs are clear, resp. easy. Pulse ox 100%RA. Unable to palpate pedal pulses consistent w/ previous RN report. DP
pulses on Both left and right feet keenly audible with Doppler. Posterior Tibial pulses positive b/l feet as well. Pt reports normal sensation to b/l feet. Pt instructed on plan of care. Pt and Pt's daughters verbalized understanding of
instructions. Call rothman is within reach.
--- NOTE | 2023-08-16 16:27 | W.IMMPOSTOP ---
Surgical Immed Post Op Note
-
Primary Surgeon: Adam Zelaya III, MD
Assisting Surgeon: Regan Kebede MD
Pre-op Diagnosis: RLE Cellulitis
Post-op Diagnosis: RLE Cellulitis
Procedure Performed: Diagnostic RLE A-gram, IV Lithotripsy, Stenting, Balloon Angioplasty
Anesthesia Type: Light Sedation
Specimen / Cultures: None
Estimated Blood Loss: 2cc
Complications: None
Operative Findings: Diffuse iliac disease noted surrounding region of previous stenting. Profunda patent but diffuse SFA and tibial disease. No good targets for possible bypass. Decision was made to maximize inflow to region by treating existing
iliac disease. Shock wave lithotripsy and balloon angioplasty of the RAG CUTTING MACHINE TENDER, external iliac, iliac bifurcation, and distal common iliac was performed. A [place] CBX stent was placed in the mid-external iliac. An additional LD stent was deployed at the
iliac bifurcation.
[2023-08-16] MEDS: CRESTOR 40 MG PO (18:08)
[2023-08-16] MEDS: COREG 3.125 MG PO (20:48)
[2023-08-16] MEDS: TRICOR 145 MG PO (23:48)
[2023-08-17] MEDS: SOLU-CORTEF 50 MG IV ×3 (01:35→13:46)
[2023-08-17 03:50] VITALS: BP 144/92
[2023-08-17 06:00] VITALS: BMI 26.1
[2023-08-17 06:45] LABS: Hematocrit 27.5 % (39.0-52.0); Hemoglobin 9.3 g/dL (13.0-18.0); INR 1.32; Mean Corp Hgb Conc. 33.8 g/dL (33.0-37.0); Mean Corpuscular Hgb 35.4 pg (27.0-31.0); Mean Corpuscular Volume 104.6 fL (80.0-94.0); Mean Platelet Volume 10.3 fL (7.4-10.4); PT 16.2 Sec (11.4-14.6); Platelet Count 85 10^3/uL (130-400); Red Blood Cell Count 2.63 10^6/uL (4.70-6.10); Red Cell Dist. Width 14.6 % (11.5-14.5)
[2023-08-17 06:46] LABS: APTT 30.6 Sec (23.4-35.0); White Blood Cell Count 1.8 10^3/uL (4.8-10.8)
[2023-08-17 07:12] LABS: Blood Urea Nitrogen 31 mg/dl (9-20); Carbon Dioxide 24 mmol/L (22-30); Chloride 107 mmol/L (98-107); Estimated Creatinine Clearance 74 ml/min; Glucose 130 mg/dl (70-99); Magnesium 2.2 mg/dl (1.6-2.3); Potassium 3.8 mmol/L (3.5-5.1); Sodium 140 mmol/L (135-145); eGFR > 60.00
[2023-08-17 07:33] VITALS: BP 143/68
--- NOTE | 2023-08-17 07:37 | W.PN.VS ---
Addendum entered and electronically signed by Adam Zelaya III, MD 08/17/23 08:18:
This patient was seen and examined with ROXY Barajas. I agree with the history and physical exam as well as the assessment and plan.
Robust Doppler signal in the right DP
Right foot is warm
Left groin access site soft, no hematoma
Continue antibiotics and aggressive local wound care
Follow-up with me in the office after discharge
Signed:
Adam Zelaya III, MD
[facility] Surgery
[phone] (uxrz)
Original Note:
Today's Communication / Plan
-
Seen and assessed with Dr Zelaya
Assessment/Plan
-
POD 1 Angiogram, IVL/DIRECTOR GEOPHYSICAL LABORATORY/stenting
Plan:
-Looks great from vascular standpoint
-ok to follow up in office, will put f/u in chart
-Cont ASA and eliquis at home
Subjective Data
-
Date of Service: August 17, 2023
Pt seen at bedside this am with Dr Zelaya. Pt offers no complaints at this time. No events overnight.
Objective Data
-
Vital Signs
Temp Pulse Resp BP Pulse Ox
97.5 F 72 16 143/68 98
08/17/23 07:33 08/17/23 07:33 08/17/23 07:33 08/17/23 07:33 08/17/23 07:33
Intake and Output
08/16/23 08/17/23 08/18/23
06:59 06:59 06:59
Intake Total 740 / 740 1420 / 1420 240 / 240
Output Total 650 / 650 675 / 675
Balance 90 / 90 1420 / 1420 -435 / -435
Intake:
Oral fluids 740 / 740 600 / 600 240 / 240
IV fluids (Total) 820 / 820
NSS 100 / 100
Output:
Urine, Voided 650 / 650 675 / 675
Other:
Number of approximated MODERATE 1 1
amounts of urine
Number of approximated LARGE 1
amounts of urine
Lab Results
08/17/23 05:18
08/17/23 05:18
Calcium 9.0 mg/dl (8.4-10.2) 08/17/23 05:18
Magnesium 2.2 mg/dl (1.6-2.3) 08/17/23 05:18
Total Bilirubin 1.2 mg/dl (0.2-1.3) 08/12/23 10:40
AST 20 U/L (17-59) 08/12/23 10:40
ALT 14 U/L (0-50) 08/12/23 10:40
Alkaline Phosphatase 51 U/L (38-126) 08/12/23 10:40
Total Protein 7.2 g/dl (6.3-8.2) 08/12/23 10:40
Albumin 3.9 g/dl (3.5-5.0) 08/12/23 10:40
Physical Exam
-
AAOx3
No tachypnea
No tachycardia
Abd soft
groin site c/d/i, no hematoma or drainage, soft
BL feet warm
Doppler signals present
--- NOTE | 2023-08-17 07:57 | W.PV.INTER ---
VPI Note
Pre Admission Note
Functional Status: Light Work
Ambulation: Ambulate Independently
Pre Op Medications
Pre Op ASA: No
Pre Op Statin: Yes
Pre Op MARCO Inhibitor/ARB: No
Pre Op P2y12 Antagonist: None
Pre Op Beta Blockers: Chronic > 30 Days
Pre Op Chronic Anticoagulant: Apixaban
Pre Op Cilostazol: No
Post Op Medications
Post Op ASA: Yes
Post Op Statin: Yes
Post Op MARCO Inhibitor/ARB: No
Post Op P2y12 Antagonist: None
Post Op Beta Blockers: Chronic > 30 Days
Post Op Chronic Anticoagulant: Apixaban
Post Op Cilostazol: No
[2023-08-17] MEDS: JARDIANCE 10 MG PO (09:47)
[2023-08-17] MEDS: COREG 3.125 MG PO ×2 (09:47→20:41)
[2023-08-17] MEDS: LOW STRENGTH ASPIRIN 81 MG PO (09:47)
[2023-08-17] MEDS: LEVAQUIN 750 MG PO (09:47)
[2023-08-17] MEDS: ELIQUIS 5 MG PO ×2 (09:47→20:41)
[2023-08-17 10:56] VITALS: BP 115/61
--- NOTE | 2023-08-17 11:27 | W.PN.ID1 ---
Date of Service
Date of Service: August 17, 2023
Today's Communication
continue levofloxacin x 14 days total - through 08/25
- known to outpatient wound care center
Assessment / Plan
Right lower extremity cellulitis
Lower extremity wound
Myelodysplastic syndrome
Immunosuppression
PAD/CAD
- repeat blood cultures x2 no growth to date
- continue levofloxacin x 14 days total - through 08/25
- known to outpatient wound care center
- follow up with pcp
Chief Complaint
-: Fever and Other (wound infection)
Subjective / Review of Systems
afebrile
bp stable
more leukopenic today
cr stable
blood cultures remain no growth
s/p shock wave lithotripsy and balloon angioplasty, mid external iliac stent, iliac bifurcation stent
Vital Signs / Physical Exam
Vital Signs
Vital Signs
Temp Pulse Resp BP Pulse Ox
97.4 F 63 16 115/61 99
08/17/23 10:56 08/17/23 10:56 08/17/23 10:56 08/17/23 10:56 08/17/23 10:56
Physical Exam
Constitutional: No Acute Distress
Cardiovascular: Regular Rate and S1/S2; Negative Murmur or Rub
Pulmonary: Clear and Symmetric; Negative Wheezes or Rales
Gastrointestinal: Soft, Non Tender, Non Distended and Normal Bowel Sounds
Skin: Warm and Dry; Negative Rash or Jaundice
Wound: Other (right lower extremity with minimal erythema, no warmth, no tenderness)
Objective Data
Lab Data
Lab Results
08/17/23 05:18
08/17/23 05:18
PT 16.2 Sec (11.4-14.6) H 08/17/23 05:18
INR 1.32 08/17/23 05:18
APTT 30.6 Sec (23.4-35.0) 08/17/23 05:18
Estimated Creat Clear 74 ml/min 08/17/23 05:18
Lactic Acid 1.4 mmol/L (0.7-2.0) 08/13/23 08:25
Total Bilirubin 1.2 mg/dl (0.2-1.3) 08/12/23 10:40
AST 20 U/L (17-59) 08/12/23 10:40
ALT 14 U/L (0-50) 08/12/23 10:40
Alkaline Phosphatase 51 U/L (38-126) 08/12/23 10:40
Most recent labs reviewed.
Micro Results:
08/13/23 15:17 Blood Culture - Preliminary
Blood/Venous No Growth in 72 hours- Final report to follow
08/13/23 14:16 Blood Culture - Preliminary
Blood/Venous No Growth in 72 hours- Final report to follow
08/12/23 10:40 Blood Culture - Preliminary
Blood/Venous No Growth in 4 days- Final report to follow
08/12/23 10:40 Blood Culture - Preliminary
Blood/Venous No Growth in 4 days- Final report to follow
08/12/23 14:56 Wound Culture - Final
Leg - Right Pseudomonas aeruginosa
Enterococcus faecalis
Gram Stain - Final
08/13/23 13:10 Influenza Types A & B (SUZANNA) - Final
Nasal Swab Negative for Influenza A & B, NAAT
Negative results must be combined with clinical observations
and patient history.
Nucleic Acid Amplification test (NAAT)performed on the
DoubleBeam platform.
08/12/23 14:56 MRSA Screen - Final
Nose No Methicillin Resistant Staphylococcus aureus isolated.
--- NOTE | 2023-08-17 13:41 | W.PN.CARDCBS ---
Addendum entered and electronically signed by Jeison Zapata MD 08/17/23 14:09:
I saw and examined the patient.
The Oil Burner Mechanic's note was reviewed and I agree with the note.
Comment: Briefly, 78-year-old male with PMHx ICM and PAD who presents for right lower extremity angiogram and subsequent intervention
Cardiology was consulted for hypotension
Transthoracic echocardiogram here with moderately reduced LV function somewhat improved from prior
Cardiomyopathy meds were held and are being added back stepwise -continues on beta-abdon and SGLT2
Consider adding back Entresto as an outpatient
We will sign off, please recall as needed�patient should follow-up with his primary auto design checker Dr. Preston
Original Note:
Today's Communication / Plan
-
continue asa, coreg, eliquis
given hypotension preprocedure, continue to hold entresto, consider resuming as OP
EF improving by echo
repeat EKG to assess QTc on abx for cellulitis
OP follow up with Dr. Preston
Impression / Plan
-
Primary Beehive Kiln Supervisor: Dr. Preston
Impression:
Presentation 08/12/2023 with RLE pain/erythema
RLE cellulitis/sepsis
Septic shock with hypotension
recent admission for RLE cellulitis 06/2023 with abnormal GENE
non-ischemic myocardial injury, peak trop 0.9
Chronic HFrEF
Ischemic cardiomyopathy
History of abnormal stress test
NSTEMI 11/2022, managed conservatively as was confused and without cardiac symptoms
History of permanent A-fib on chronic Eliquis
CABG 2008 [facility] (ORTA to LAD, radial graft to RPDA, SVG from LCx-OM2 to OM3)
Hypertension
Hypercholesterolemia
stage III renal insufficiency
MDS/Chronic Anemia s/p Procrit shots
ECHO 11/30/22: EF 25%, global hypokinesis with anterior, anteroseptal, apical akinesis, MAC, at least mild to moderate MR, underestimated due to MAC, AAC, peak/mean gradients 23/30 mmHg, at least mild , moderate to severe TR, PAP 44 mmHg
�
Echo Aug 13 2023: EF 35 to 40%, global hypokinesis, mild to moderate MR, mild aortic stenosis, peak/mean gradients 21/13 mmHg respectively, aortic valve area 1.3 cm2, moderate severe tricuspid regurgitation, pulmonary artery systolic pressure 45
mmHg. IVC is dilated and does not collapse. No evidence of vegetation. Compared to prior echo EF is improved.
Plan:
-patient feeling well s/p RLE intervention/stenting 08/16.
-no CP/SOB. trop peaked at 0.9, felt to be nonMI trop elevation
-EF improved from 20% 11/2022 to 35-40% this admission.
-BP/HRs stable. OP coreg has been resumed. entresto remains on hold, consider resuming as OP pending BP trends.
-continue jardiance
-volume status appears stable
-in permanent afib. eliquis has been resumed post procedure. continue asa
-continue PT/OT/wound care
-continue treatment of cellulitis. follow QTc on abx
-OP follow up with Dr. Preston
-d/w patient and daughter at bedside
HPI 08/12/2023: Patient presented to [facility] due to complaints of right lower extremity pain and erythema after being recently discharged for similar admission 06/2023. During prior admission he was noted to have abnormal right lower
extremity GENE. He was planned for peripheral angiogram today, however preprocedure and Wreath Inspector was noted to have hypotension. Procedure was canceled until patient stable. He is receiving a fluid bolus at present. He will be transferred to
ICU/IMU. May need addition of pressor support (levophed ordered but not yet started). He continues with fevers. wound and blood cultures are pending. Continue antibiotics per primary service and infectious disease
Progress Note - Beehive Kiln Supervisor
Subjective
Date of Service: August 17, 2023
Patient reports feeling well. Denies chest pain, shortness of breath, palpitations, lightheadedness
Objective
Labs:
08/17/23 05:18
08/17/23 05:18
Labs
Hgb 9.3 g/dL (13.0-18.0) L 08/17/23 05:18
Hct 27.5 % (39.0-52.0) L 08/17/23 05:18
Plt Count 85 10^3/uL (130-400) L 08/17/23 05:18
PT 16.2 Sec (11.4-14.6) H 08/17/23 05:18
INR 1.32 08/17/23 05:18
APTT 30.6 Sec (23.4-35.0) 08/17/23 05:18
Sodium 140 mmol/L (135-145) 08/17/23 05:18
Potassium 3.8 mmol/L (3.5-5.1) 08/17/23 05:18
BUN 31 mg/dl (9-20) H 08/17/23 05:18
Creatinine 0.8 mg/dL (0.7-1.3) 08/17/23 05:18
Glucose 130 mg/dl (70-99) H 08/17/23 05:18
Vital Signs and I&O:
Vital Signs
Temp Pulse Resp BP Pulse Ox
97.4 F 63 16 115/61 99
08/17/23 10:56 08/17/23 10:56 08/17/23 10:56 08/17/23 10:56 08/17/23 10:56
Vital Signs
Temp Pulse Resp BP Pulse Ox
97.4 F 63 16 115/61 99
08/17/23 10:56 08/17/23 10:56 08/17/23 10:56 08/17/23 10:56 08/17/23 10:56
Intake & Output
08/15/23 08/16/23 08/17/23 08/18/23
07:59 07:59 07:59 07:59
Intake Total 1245.0 / 1495.0 740 / 740 1660 / 1660
Output Total 1275 / 1275 650 / 650 675 / 675
Balance -30.0 / 220.0 90 / 90 985 / 985
Physical Exam
Physical Exam
GEN: No distress, awake, alert, oriented x3
HEENT: supple, anicteric, mmm, eomi
LUNGS: CTA B/L, no wheezes/rales
CV: Irreg, S1/S2, 1/6 syst LSB
ABD: soft, BS+, NT/ND
EXT: No cyanosis, clubbing. Trace edema of RLE
NEURO: Gross non-focal
SKIN: Warm, pink, dry. No rash. RLE dressing c/d/i
--- NOTE | 2023-08-17 15:39 | W.PN.HOSP.TC ---
Today's Communication/Plan
-
PT/OT
wean stress dose steroids
d/c planning
Assessment / Plan
Assessment / Plan
pt is a 78 year old male
Sepsis (present on admission) developed septic shock following day due to right lower extremity cellulitis compounded by PAD--was unresponsive to fluid boluses, moved to ICU and now off pressors--significant vascular disease--s/p angiography with
vascular surgery (pt c/o pain and can't bear weight, s/p fall, x-ray neg for fracture)--on stress dose steroids (still on 50 mg IV Q6H) wean--outpt prednisone is 15mg--ongoing nonhealing wound--culture positive for Pseudomonas/Enterococcus--apprec
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 Posterior tibial artery not visualized
Leukopenia--Dropped from 6.1 to 2.4 to 1.8--likely from MDS and possible antibiotic--Platelets and hemoglobin relatively stable
Peripheral arterial disease--Prior history of endovascular intervention to right lower extremity at another facility--s/p angiogram--restarted anticoagulant
Coronary artery disease/prior CABG/ischemic cardiomyopathy?/Prior history of HFrEF--Continue statin--2D echocardiogram from August 13 now shows EF of 35 to 40% with global hypokinesis and moderate to severe TR and moderate MR=- Entresto on hold
with hypotension--Carvedilol on hold--cont Jardiance--Troponin peaked at 0.94 now trending down--Stable functional status--apprec cards
Permanent atrial fibrillation--Rate control with carvedilol--restarted Eliquis
Polymyalgia rheumatica/continue hydrocortisone 50 mg--on stress dose steroids--wean
Myelodysplastic syndrome--WBC counts dropped
Hypercholesterolemia/continue fenofibrate and rosuvastatin/hold omega-3
DVT prophylaxis Eliquis will be held/Lovenox tonight subcu/not candidate for mechanical
Limited CODE STATUS /DNI
Anticipated Discharge: 24 - 48 hours
Subjective/Interval History
-
Date of Service: August 17, 2023
pt without c/o--discussing d/c options
Objective Data
-
Labs:
Laboratory Results
08/17/23
05:18
WBC 1.8 L*
Hgb 9.3 L
Hct 27.5 L
Plt Count 85 L
PT 16.2 H
INR 1.32
APTT 30.6
Sodium 140
Potassium 3.8
Chloride 107
Carbon Dioxide 24
BUN 31 H
Creatinine 0.8
Glucose 130 H
Calcium 9.0
Vital Signs:
max temp for 24 hours
08/17/23
03:50
Temp 98 F
Vital Signs
Temp Pulse Resp BP Pulse Ox
97.4 F 63 16 115/61 99
08/17/23 10:56 08/17/23 10:56 08/17/23 10:56 08/17/23 10:56 08/17/23 10:56
I&O
08/16/23 08/17/23 08/18/23
06:59 06:59 06:59
Intake Total 740 / 740 1420 / 1420 240 / 240
Output Total 650 / 650 675 / 675
Balance 90 / 90 1420 / 1420 -435 / -435
Review of Systems
-
All other systems: Reviewed and negative
Physical Exam
-
General: Well Developed, Well Nourished and No Apparent Distress
HEENT: Normocephalic and Atraumatic; Negative Oxygen
Respiratory: Clear to Auscultation; Negative Wheezes or Rhonchi
Cardiac: Regular Rhythm and S1/S2; Negative Murmur
GI: Soft, Nontender, Nondistended and Normal Bowel Sounds
Musculoskeletal: No Clubbing, No Cyanosis and No Edema
Neuro: Awake and Alert
[2023-08-17 15:52] VITALS: BP 130/73
[2023-08-17] MEDS: CRESTOR 40 MG PO (17:02)
[2023-08-17] MEDS: SOLU-CORTEF 25 MG IV ×2 (17:03→23:20)
[2023-08-17 19:15] VITALS: BP 145/72
[2023-08-17] MEDS: TRICOR 145 MG PO (21:10)
[2023-08-17] MEDS: XANAX 0.25 MG PO (23:21)
[2023-08-17 23:52] VITALS: BP 149/87
[2023-08-18] VITALS (7 sets, daily range): BP systolic 125–149; BP diastolic 79–85; PULSE 79; O2SAT 100; BMI 25.9
[2023-08-18 05:02] LABS: Hematocrit 25.5 % (39.0-52.0); Hemoglobin 8.9 g/dL (13.0-18.0); Mean Corp Hgb Conc. 34.9 g/dL (33.0-37.0); Mean Corpuscular Hgb 35.7 pg (27.0-31.0); Mean Corpuscular Volume 102.4 fL (80.0-94.0); Mean Platelet Volume 9.7 fL (7.4-10.4); Platelet Count 82 10^3/uL (130-400); Red Blood Cell Count 2.49 10^6/uL (4.70-6.10); Red Cell Dist. Width 14.3 % (11.5-14.5)
[2023-08-18 05:06] LABS: White Blood Cell Count 1.9 10^3/uL (4.8-10.8)
[2023-08-18 05:26] LABS: Blood Urea Nitrogen 28 mg/dl (9-20); Calcium 8.7 mg/dl (8.4-10.2); Carbon Dioxide 27 mmol/L (22-30); Chloride 110 mmol/L (98-107); Estimated Creatinine Clearance 84 ml/min; Glucose 105 mg/dl (70-99); Magnesium 2.2 mg/dl (1.6-2.3); Potassium 3.6 mmol/L (3.5-5.1); Sodium 139 mmol/L (135-145); eGFR > 60.00
[2023-08-18] MEDS: TYLENOL 650 MG PO ×2 (10:18→19:37)
[2023-08-18] MEDS: LOW STRENGTH ASPIRIN 81 MG PO (10:19)
[2023-08-18] MEDS: ELIQUIS 5 MG PO ×2 (10:19→19:36)
[2023-08-18] MEDS: LEVAQUIN 750 MG PO (10:19)
[2023-08-18] MEDS: JARDIANCE 10 MG PO (10:19)
[2023-08-18] MEDS: COREG 3.125 MG PO ×2 (10:19→19:36)
[2023-08-18] MEDS: SOLU-CORTEF 25 MG IV ×2 (10:20→18:04)
--- NOTE | 2023-08-18 12:14 | WOUNDNOTE ---
[facility] RN note: Patient for possible transfer to SNF rehab today. R heel eschar stable, R calf small black necrotic area detached medially with small pink/yellow fibrin at wound edge, scant serous drainage. RLE and R heel dressing maintained which were
just changed by ID. Skin on L heel intact, L Achilles blanchable red. Foam dressing applied to L heel/Achilles area. Coccyx/buttocks red and intact. Patient transfers from chair to commode with walker and assist. BIRD Kyle with patient. Air chair
cushion placed in patient's recliner chair and at foot of bed. BIRD Kyle plans to obtain an air bed if patient not discharged today. t/c Spoke with Nora Mims vascular PA with RLE, R heel wound update. Nora stated they did all they could to RLE
endovascularly however, they do not expect run off to pedal area. Patient to follow up at [facility].
--- NOTE | 2023-08-18 13:02 | W.PN.ID1 ---
Date of Service
Date of Service: August 18, 2023
Today's Communication
- WBC chronically in the 2-3 range, it was in the 'normal' range 6s last week while he was septic, which I would interpret as elevated for him. Current wbc count slightly improved. Alternatives would be stopping or conversion to IV therapy
outpatient. Would observe at this time
- repeat blood cultures x2 no growth to date
- continue levofloxacin x 14 days total - through 08/25
- known to outpatient wound care center
- follow up with pcp
Assessment / Plan
Right lower extremity cellulitis
Lower extremity wound
Myelodysplastic syndrome
Immunosuppression
PAD/CAD
- WBC chronically in the 2-3 range, it was in the 'normal' range 6s last week while he was septic, which I would interpret as elevated for him. Current wbc count slightly improved. Alternatives would be stopping or conversion to IV therapy
outpatient. Would observe at this time
- repeat blood cultures x2 no growth to date
- continue levofloxacin x 14 days total - through 08/25
- known to outpatient wound care center
- follow up with pcp
Chief Complaint
-: Fever and Other (wound infection)
Subjective / Review of Systems
afebrile
bp stable
WBC chronically in the 2-3 range, it was in the 'normal' range 6s last week while he was septic, which I would interpret as elevated for him. Current wbc count slightly improved. Alternatives would be stopping or conversion to IV therapy
outpatient. Would observe at this time
Vital Signs / Physical Exam
Vital Signs
Vital Signs
Temp Pulse Resp BP Pulse Ox
98.0 F 73 18 144/80 96
08/18/23 11:10 08/18/23 11:10 08/18/23 11:10 08/18/23 11:10 08/18/23 11:10
Physical Exam
Constitutional: No Acute Distress
Cardiovascular: Regular Rate and S1/S2; Negative Murmur or Rub
Pulmonary: Clear and Symmetric; Negative Wheezes or Rales
Gastrointestinal: Soft, Non Tender, Non Distended and Normal Bowel Sounds
Skin: Warm and Dry; Negative Rash or Jaundice
Wound: Other (no surrounding erythema, warmth, tenderness or drainage)
Objective Data
Lab Data
Lab Results
08/18/23 04:47
08/18/23 04:47
PT 16.2 Sec (11.4-14.6) H 08/17/23 05:18
INR 1.32 08/17/23 05:18
APTT 30.6 Sec (23.4-35.0) 08/17/23 05:18
Estimated Creat Clear 84 ml/min 08/18/23 04:47
Lactic Acid 1.4 mmol/L (0.7-2.0) 08/13/23 08:25
Total Bilirubin 1.2 mg/dl (0.2-1.3) 08/12/23 10:40
AST 20 U/L (17-59) 08/12/23 10:40
ALT 14 U/L (0-50) 08/12/23 10:40
Alkaline Phosphatase 51 U/L (38-126) 08/12/23 10:40
Most recent labs reviewed.
Micro Results:
08/13/23 15:17 Blood Culture - Preliminary
Blood/Venous No Growth in 4 days- Final report to follow
08/13/23 14:16 Blood Culture - Preliminary
Blood/Venous No Growth in 4 days- Final report to follow
08/12/23 10:40 Blood Culture - Final
Blood/Venous No Growth - Final Report
08/12/23 10:40 Blood Culture - Final
Blood/Venous No Growth - Final Report
08/12/23 14:56 Wound Culture - Final
Leg - Right Pseudomonas aeruginosa
Enterococcus faecalis
Gram Stain - Final
08/13/23 13:10 Influenza Types A & B (SUZANNA) - Final
Nasal Swab Negative for Influenza A & B, NAAT
Negative results must be combined with clinical observations
and patient history.
Nucleic Acid Amplification test (NAAT)performed on the
[employer] platform.
08/12/23 14:56 MRSA Screen - Final
Nose No Methicillin Resistant Staphylococcus aureus isolated.
--- NOTE | 2023-08-18 16:20 | CM ---
Patient seen at bedside with daughters and . Patient now asking for SNF referral for [facility]. CM will sent referrals to [facility]. CM will continue to follow for discharge planning needs.
Plan: SNF
[2023-08-18] MEDS: CRESTOR 40 MG PO (18:03)
--- NOTE | 2023-08-18 18:13 | W.PN.HOSP.TC ---
Today's Communication/Plan
-
wean steroids
d/c planning
Assessment / Plan
Assessment / Plan
pt is a 78 year old male
Sepsis (present on admission) developed septic shock following day due to right lower extremity cellulitis compounded by PAD--was unresponsive to fluid boluses, moved to ICU and now off pressors--significant vascular disease--s/p angiography with
vascular surgery (pt c/o pain and can't bear weight, s/p fall, x-ray neg for fracture)--on stress dose steroids (still on 25 mg IV Q8H) wean--outpt prednisone is 15mg--ongoing nonhealing wound--culture positive for Pseudomonas/Enterococcus--apprec
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 Posterior tibial artery not visualized
Leukopenia--Dropped from 6.1 to 2.4 to 1.8--likely from MDS and possible antibiotic--Platelets and hemoglobin relatively stable
Peripheral arterial disease--Prior history of endovascular intervention to right lower extremity at another facility--s/p angiogram--restarted anticoagulant
Coronary artery disease/prior CABG/ischemic cardiomyopathy?/Prior history of HFrEF--Continue statin--2D echocardiogram from August 13 now shows EF of 35 to 40% with global hypokinesis and moderate to severe TR and moderate MR=- Entresto on hold
with hypotension--Carvedilol on hold--cont Jardiance--Troponin peaked at 0.94 now trending down--Stable functional status--apprec cards
Permanent atrial fibrillation--Rate control with carvedilol--restarted Eliquis
Polymyalgia rheumatica/continue hydrocortisone 50 mg--on stress dose steroids--wean
Myelodysplastic syndrome--WBC counts dropped
Hypercholesterolemia/continue fenofibrate and rosuvastatin/hold omega-3
DVT prophylaxis Eliquis will be held/Lovenox tonight subcu/not candidate for mechanical
Limited CODE STATUS /DNI
Anticipated Discharge: 24 - 48 hours
Subjective/Interval History
-
Date of Service: August 18, 2023
had long discussion with pt, and 3 daughters re: d/c plan
Objective Data
-
Vital Signs:
max temp for 24 hours
08/18/23
11:10
Temp 98.0 F
Vital Signs
Temp Pulse Resp BP Pulse Ox
97.9 F 76 18 142/82 96
08/18/23 15:50 08/18/23 15:50 08/18/23 15:50 08/18/23 15:50 08/18/23 15:50
I&O
08/17/23 08/18/23 08/19/23
06:59 06:59 06:59
Intake Total 1420 / 1420 960 / 960
Output Total 2250 / 2250
Balance 1420 / 1420 -1290 / -1290
Review of Systems
-
All other systems: Reviewed and negative
Musculoskeletal: Reports Other (leg pains)
Physical Exam
-
General: Well Developed, Well Nourished and No Apparent Distress
HEENT: Normocephalic and Atraumatic
Respiratory: Clear to Auscultation; Negative Wheezes or Rhonchi
Cardiac: Regular Rhythm and S1/S2; Negative Murmur
GI: Soft, Nontender, Nondistended and Normal Bowel Sounds
Musculoskeletal: No Clubbing, No Cyanosis and No Edema
Skin: Ulcers (chronic wounds on right leg--reviewed pictures in chart)
Neuro: Awake
Psych: Calm
[2023-08-18] MEDS: TRICOR 145 MG PO (21:09)
[2023-08-18] MEDS: XANAX 0.25 MG PO (23:05)
[2023-08-19] MEDS: SOLU-CORTEF 12.5 MG IV ×2 (05:14→18:01)
[2023-08-19 06:00] VITALS: BMI 25.9
[2023-08-19 06:10] LABS: Hematocrit 25.9 % (39.0-52.0); Hemoglobin 8.8 g/dL (13.0-18.0); Mean Corpuscular Hgb 35.5 pg (27.0-31.0); Mean Corpuscular Volume 104.4 fL (80.0-94.0); Mean Platelet Volume 10.2 fL (7.4-10.4); Platelet Count 95 10^3/uL (130-400); Red Blood Cell Count 2.48 10^6/uL (4.70-6.10); Red Cell Dist. Width 14.1 % (11.5-14.5)
[2023-08-19 06:37] LABS: Blood Urea Nitrogen 25 mg/dl (9-20); Calcium 8.7 mg/dl (8.4-10.2); Carbon Dioxide 29 mmol/L (22-30); Chloride 104 mmol/L (98-107); Estimated Creatinine Clearance 84 ml/min; Glucose 84 mg/dl (70-99); Potassium 3.3 mmol/L (3.5-5.1); Sodium 138 mmol/L (135-145); eGFR > 60.00
[2023-08-19 07:20] VITALS: BP 138/73
[2023-08-19] MEDS: KCL 40 MEQ PO (07:46)
[2023-08-19] MEDS: COREG 3.125 MG PO ×2 (07:59→20:51)
[2023-08-19] MEDS: ELIQUIS 5 MG PO ×2 (07:59→20:52)
[2023-08-19] MEDS: LOW STRENGTH ASPIRIN 81 MG PO (08:00)
[2023-08-19] MEDS: LEVAQUIN 750 MG PO (08:00)
[2023-08-19] MEDS: JARDIANCE 10 MG PO (08:00)
[2023-08-19 08:11] VITALS: BP 138/73
--- NOTE | 2023-08-19 10:28 | W.PN.HOSP.TC ---
Today's Communication/Plan
-
consult podiatry and wound care request
d/c planning to SNF
Had long talk with patient and his and 3 daughters on August 18, 2023. Talking about discharge planning and they have agreed that the patient will go to a senior care facility to attempt to get stronger. Also explained that the vascular
surgery that he had to improve blood flow to the leg was limited and that vascular stated that this is as good as it is going to get. Family was asking whether or not amputation is in his future if pain not controlled. I did explain that there is
a vascular surgery discussion; however, if he has continued pain, nonhealing wounds and/or worsening wounds then amputation would be an option.
Assessment / Plan
Assessment / Plan
pt is a 78 year old male
Sepsis (present on admission) developed septic shock following day due to right lower extremity cellulitis compounded by PAD--was unresponsive to fluid boluses, moved to ICU and now off pressors--significant vascular disease--on stress dose steroids
(still on 25 mg IV Q8H) weaning--outpt prednisone is 15mg--ongoing nonhealing wound--culture positive for Pseudomonas/Enterococcus--apprec ID--on levaquin--repeat arterial Doppler was abnormal--apprec vascular--GENE shows absent TBI chronic long
segment occlusion of the right SFA with reconstitution of within the popliteal. Posterior tibial artery not visualized--s/p angiography with vascular surgery (best it is going to get)--consult podiatry at wound care's request
Leukopenia--Dropped from 6.1 (thought 'high for him' from sepsis, baseline WBC mid 2s--likely from MDS and possible antibiotic--Platelets and hemoglobin relatively stable
Peripheral arterial disease--Prior history of endovascular intervention to right lower extremity at another facility--s/p angiogram--restarted anticoagulant
Coronary artery disease/prior CABG/ischemic cardiomyopathy?/Prior history of HFrEF--Continue statin--2D echocardiogram from August 13 now shows EF of 35 to 40% with global hypokinesis and moderate to severe TR and moderate MR=- Entresto on hold
with hypotension--Carvedilol on hold--cont Jardiance--Troponin peaked at 0.94 now trending down--Stable functional status--apprec cards
Permanent atrial fibrillation--Rate control with carvedilol--restarted Eliquis
Polymyalgia rheumatica/continue hydrocortisone 50 mg--on stress dose steroids--wean
Myelodysplastic syndrome--WBC counts dropped
Hypercholesterolemia/continue fenofibrate and rosuvastatin/hold omega-3
DVT prophylaxis Eliquis will be held/Lovenox tonight subcu/not candidate for mechanical
Limited CODE STATUS /DNI
Had long talk with patient and his and 3 daughters on August 18, 2023. Talking about discharge planning and they have agreed that the patient will go to a senior care facility to attempt to get stronger. Also explained that the vascular
surgery that he had to improve blood flow to the leg was limited and that vascular stated that this is as good as it is going to get. Family was asking whether or not amputation is in his future if pain not controlled. I did explain that there is
a vascular surgery discussion; however, if he has continued pain, nonhealing wounds and/or worsening wounds then amputation would be an option.
Anticipated Discharge: 24 - 48 hours
Subjective/Interval History
-
Date of Service: August 19, 2023
pt without c/o
Objective Data
-
Labs:
Laboratory Results
08/19/23
04:30
WBC 2.0 L*
Hgb 8.8 L
Hct 25.9 L
Plt Count 95 L
Sodium 138
Potassium 3.3 L
Chloride 104
Carbon Dioxide 29
BUN 25 H
Creatinine 0.7
Glucose 84
Calcium 8.7
Vital Signs:
max temp for 24 hours
08/18/23
23:05
Temp 98.1 F
Vital Signs
Temp Pulse Resp BP Pulse Ox
97.8 F 85 18 138/73 99
08/19/23 07:20 08/19/23 07:59 08/19/23 07:20 08/19/23 07:59 08/19/23 08:00
I&O
08/18/23 08/19/23 08/20/23
06:59 06:59 06:59
Intake Total 960 / 960 480 / 480
Output Total 2250 / 2250 975 / 975
Balance -1290 / -1290 -495 / -495
Review of Systems
-
All other systems: Reviewed and negative
Physical Exam
-
General: Well Developed, Well Nourished and No Apparent Distress
HEENT: Normocephalic and Atraumatic
Respiratory: Clear to Auscultation; Negative Wheezes or Rhonchi
Cardiac: Regular Rhythm and S1/S2; Negative Murmur
GI: Soft, Nontender, Nondistended and Normal Bowel Sounds
Musculoskeletal: No Clubbing, No Cyanosis and No Edema
Skin: Ulcers (on medial right lower leg--right heel with eschar)
Neuro: Awake and Alert
Psych: Calm
--- NOTE | 2023-08-19 11:03 | W.PN.ID1 ---
Date of Service
Date of Service: August 19, 2023
Today's Communication
- continue levofloxacin x 14 days total - through 08/25
Assessment / Plan
Right lower extremity cellulitis - resolving
Chronic Right lower extremity calf wound, new eschar on right heel
Lower extremity wound
Myelodysplastic syndrome
Immunosuppression
PAD/CAD
- Current wbc count slightly improved - would continue levaquin as planned particularly given poor blood flow
- repeat blood cultures x2 no growth to date
- continue levofloxacin x 14 days total - through 08/25
- known to outpatient wound care center; for podiatry evaluation
- agree with comments that if claudication cannot be controlled or progression of wound that eventually amputation could be considered
- follow up with pcp, wound care center
anemia
- management per IM service
Chief Complaint
-: Fever and Other (wound infection)
Subjective / Review of Systems
afebrile
bp stable
wbc improving slowly
cr stable
podiatry to evaluate the heel
claudication ongoing - not too bad per patient at this time
Vital Signs / Physical Exam
Vital Signs
Vital Signs
Temp Pulse Resp BP Pulse Ox
97.8 F 85 18 138/73 99
08/19/23 07:20 08/19/23 07:59 08/19/23 07:20 08/19/23 07:59 08/19/23 08:00
Physical Exam
Constitutional: No Acute Distress
Cardiovascular: Regular Rate and S1/S2; Negative Murmur or Rub
Pulmonary: Clear and Symmetric; Negative Wheezes or Rales
Gastrointestinal: Soft, Non Tender, Non Distended and Normal Bowel Sounds
Skin: Warm and Dry; Negative Rash or Jaundice
Wound: Other (wounds on the RLE improving - some slough in the calf wound, superficial ulceration with eschar on the heel - no surounding erythema)
Objective Data
Lab Data
Lab Results
08/19/23 04:30
08/19/23 04:30
PT 16.2 Sec (11.4-14.6) H 08/17/23 05:18
INR 1.32 08/17/23 05:18
APTT 30.6 Sec (23.4-35.0) 08/17/23 05:18
Estimated Creat Clear 84 ml/min 08/19/23 04:30
Lactic Acid 1.4 mmol/L (0.7-2.0) 08/13/23 08:25
Total Bilirubin 1.2 mg/dl (0.2-1.3) 08/12/23 10:40
AST 20 U/L (17-59) 08/12/23 10:40
ALT 14 U/L (0-50) 08/12/23 10:40
Alkaline Phosphatase 51 U/L (38-126) 08/12/23 10:40
Most recent labs reviewed.
Micro Results:
08/13/23 15:17 Blood Culture - Final
Blood/Venous No Growth - Final Report
08/13/23 14:16 Blood Culture - Final
Blood/Venous No Growth - Final Report
08/12/23 10:40 Blood Culture - Final
Blood/Venous No Growth - Final Report
08/12/23 10:40 Blood Culture - Final
Blood/Venous No Growth - Final Report
08/12/23 14:56 Wound Culture - Final
Leg - Right Pseudomonas aeruginosa
Enterococcus faecalis
Gram Stain - Final
08/13/23 13:10 Influenza Types A & B (SUZANNA) - Final
Nasal Swab Negative for Influenza A & B, NAAT
Negative results must be combined with clinical observations
and patient history.
Nucleic Acid Amplification test (NAAT)performed on the
[employer] platform.
08/12/23 14:56 MRSA Screen - Final
Nose No Methicillin Resistant Staphylococcus aureus isolated.
Care Review
Plan reviewed with: Physician (Dr Antony - heel wound)
[2023-08-19 15:50] VITALS: BP 113/59
--- NOTE | 2023-08-19 16:30 | CM ---
CM spoke with daughter who indicated that they wanted to look at other options as well and would email CM requested options before applying for authorization. CM will continue to follow for discharge planning needs.
Plan; SNF
[2023-08-19] MEDS: XANAX 0.25 MG PO (18:00)
[2023-08-19] MEDS: CRESTOR 40 MG PO (18:00)
[2023-08-19] MEDS: FLUSH (NSS) 2 FLUSH IV (18:01)
[2023-08-19] MEDS: TRICOR 145 MG PO (20:51)
[2023-08-19 23:30] VITALS: BP 123/71
[2023-08-20] MEDS: SOLU-CORTEF 12.5 MG IV (05:44)
[2023-08-20 06:00] VITALS: BMI 25.3
[2023-08-20 07:10] VITALS: BP 137/76
--- NOTE | 2023-08-20 08:04 | CON.MD ---
Consultation - Medical
-
Podiatry Consulted for right heel eschar.
History of Present Illness:
Mr Carson is a 78 year old male admitted for Right LE cellulitis and claudication. He has a history of PVD s/p stenting with a chronic lower extremity wound, MDS , No rest pain.� He was previously treated outpatient with oral antibiotics prior to
admission. Following this admission, he developed septic shock due to right lower extremity cellulitis compounded by PAD. He is also -s/p angiography, IV Lithotripsy, Stenting, Balloon Angioplasty with vascular surgery. He has a chronic wound on
the right posterior calf and a right heel eschar.
Past History:
Additional Past Medical History:
Arrhythmias (atrial fibrillation), CAD, CHF, Psychiatric (Anxiety) and Other (peripheral arterial disease, myelodysplastic syndrome, polymyalgia rheumatica, hyperlipidemia, diverticulosis, gallstones, enlarged prostate, gout, right carotid stenosis,
Additional Past Surgical History:
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 Callahan (right common iliac artery stent 9x37 mm & external iliac stent 8x38 mm icast covered
stent), BL femoral endarterectomy by Dr. Callahan)
Allergy:
Penicillins Allergy (Mild, Verified 08/12/23 10:13)
Hives
Medications:
Reviewed in chart
Social History:
Tobacco: Former Smoker
Personal:
Living: With Family
Family History:
Family History: Not Pertinent
Review of Systems:
General: Negative Fever or Chills
All systems: All other systems were reviewed and were negative
Skin: Right heel ad leg wounds, resolving cellulitis
Vital Signs & Labs:
reviewed
Physical Exam:
Right lower extremity warm to touch, ojhn appearance to skin but no calor or ascending cellulitis, skin is dry and atrophic, pulses non palpable. The posterior calf has a wound measuring approximately 1 cm in diameter - superficial fibrogranular
wound bed, serous drainage, no undermining, probing, tunneling or sinus tract formation. The right heel has a dry stable eschar presents measuring approximately 2.8 cm x 1 cm, it does no probe and there is no fluctuance. There is s some erythema
secondary to pressure on the right lateral 5th met styloid process, no break in the skin
Assessment:
PAD
Resolved Right LE cellulitis
Stable right heel eschar - unstageable
Right posterior calf wound - stage 1
Plan:
I recommend strict offloading in padded heel boots.
Recommend alginate to posterior calf wound with bordered foam
continue Levaquin as per ID through 08/25
Recommend foam heel pads.
No need for heel debridement - eschar is stable
[2023-08-20 08:25] LABS: Hematocrit 28.7 % (39.0-52.0); Mean Corp Hgb Conc. 34.8 g/dL (33.0-37.0); Mean Corpuscular Hgb 35.2 pg (27.0-31.0); Mean Corpuscular Volume 101.1 fL (80.0-94.0); Mean Platelet Volume 9.1 fL (7.4-10.4); Platelet Count 112 10^3/uL (130-400); Red Blood Cell Count 2.84 10^6/uL (4.70-6.10); Red Cell Dist. Width 14.2 % (11.5-14.5); White Blood Cell Count 3.2 10^3/uL (4.8-10.8)
[2023-08-20 08:51] LABS: Blood Urea Nitrogen 18 mg/dl (9-20); Calcium 8.7 mg/dl (8.4-10.2); Carbon Dioxide 28 mmol/L (22-30); Chloride 105 mmol/L (98-107); Estimated Creatinine Clearance 98 ml/min; Glucose 76 mg/dl (70-99); Potassium 3.4 mmol/L (3.5-5.1); Sodium 139 mmol/L (135-145); eGFR > 60.00
[2023-08-20] MEDS: ELIQUIS 5 MG PO ×2 (08:56→20:54)
[2023-08-20] MEDS: LEVAQUIN 750 MG PO (08:57)
[2023-08-20] MEDS: COREG 3.125 MG PO ×2 (08:57→20:54)
[2023-08-20] MEDS: JARDIANCE 10 MG PO (08:57)
[2023-08-20] MEDS: LOW STRENGTH ASPIRIN 81 MG PO (08:57)
--- NOTE | 2023-08-20 08:59 | W.PN.ID1 ---
Date of Service
Date of Service: August 20, 2023
Today's Communication
- continue levofloxacin x 14 days total - through 08/25
ID service will no longer actively follow this patient please recall for further questions
Assessment / Plan
Right lower extremity cellulitis - resolving
Chronic Right lower extremity calf wound, new eschar on right heel
Lower extremity wound
Myelodysplastic syndrome
Immunosuppression
PAD/CAD
- leukopenia further improved
- repeat blood cultures x2 no growth to date
- continue levofloxacin x 14 days total - through 08/25
- known to outpatient wound care center; for podiatry evaluation
- agree with comments that if claudication cannot be controlled or progression of wound that eventually amputation could be considered
- follow up with pcp, wound care center
ID service will no longer actively follow this patient please recall for further questions
Chief Complaint
-: Fever and Other (wound infection)
Subjective / Review of Systems
afebrile
bp stable
leukopenia continues to resolve
cr stable
seen by podiatry
no complaints
Vital Signs / Physical Exam
Vital Signs
Vital Signs
Temp Pulse Resp BP Pulse Ox
97.9 F 74 18 137/76 96
08/20/23 07:10 08/20/23 07:10 08/20/23 07:10 08/20/23 07:10 08/20/23 07:10
Physical Exam
Constitutional: No Acute Distress
Cardiovascular: Regular Rate and S1/S2; Negative Murmur or Rub
Pulmonary: Clear and Symmetric; Negative Wheezes or Rales
Gastrointestinal: Soft, Non Tender, Non Distended and Normal Bowel Sounds
Skin: Warm and Dry; Negative Rash or Jaundice
Wound: Other (dressings clean, dry, intact - deferred take down)
Objective Data
Lab Data
Lab Results
08/20/23 08:00
08/20/23 08:00
PT 16.2 Sec (11.4-14.6) H 08/17/23 05:18
INR 1.32 08/17/23 05:18
APTT 30.6 Sec (23.4-35.0) 08/17/23 05:18
Estimated Creat Clear 98 ml/min 08/20/23 08:00
Lactic Acid 1.4 mmol/L (0.7-2.0) 08/13/23 08:25
Total Bilirubin 1.2 mg/dl (0.2-1.3) 08/12/23 10:40
AST 20 U/L (17-59) 08/12/23 10:40
ALT 14 U/L (0-50) 08/12/23 10:40
Alkaline Phosphatase 51 U/L (38-126) 08/12/23 10:40
Most recent labs reviewed.
Micro Results:
08/13/23 15:17 Blood Culture - Final
Blood/Venous No Growth - Final Report
08/13/23 14:16 Blood Culture - Final
Blood/Venous No Growth - Final Report
08/12/23 10:40 Blood Culture - Final
Blood/Venous No Growth - Final Report
08/12/23 10:40 Blood Culture - Final
Blood/Venous No Growth - Final Report
08/12/23 14:56 Wound Culture - Final
Leg - Right Pseudomonas aeruginosa
Enterococcus faecalis
Gram Stain - Final
08/13/23 13:10 Influenza Types A & B (SUZANNA) - Final
Nasal Swab Negative for Influenza A & B, NAAT
Negative results must be combined with clinical observations
and patient history.
Nucleic Acid Amplification test (NAAT)performed on the
[employer] platform.
08/12/23 14:56 MRSA Screen - Final
Nose No Methicillin Resistant Staphylococcus aureus isolated.
Care Review
Plan reviewed with: Physician (Dr Cassia shaw)
--- NOTE | 2023-08-20 09:33 | CM ---
Addendum entered by Eula Al RN 08/23/23 12:33:
Contacted [facility] again as directed from main [facility] line. Number is ([phone]). CM updated the patient and his daughter at the bedside. CM updated Vanessa at [place] [facility] regarding approval per virtual attendant, but unable to confirm dates of
coverage or when NRD would be. CM to call center back at a later time due to their system being down.
Addendum entered by Soledad Tidwell 08/20/23 13:29:
transportation forms on chart
Addendum entered by Soledad Tidwell 08/20/23 12:29:
Patient family decided on [facility] and signed paperwork with Radha. Radha is available over the weekend, her cell phone is [phone]. CM sent clinical information to [facility] Pending reference number is:[id number]. Fax number is
[phone]
Original Note:
Patient seen at bedside, CM spoke with daughter Ana and await responses to SNF referrals. [facility] accepted, [facility] and [facility] is reviewing currently. CM will continue to follow for SNF placement/auth.
--- NOTE | 2023-08-20 09:47 | W.PN.HOSP.TC ---
Today's Communication/Plan
-
d/c planning
Assessment / Plan
Assessment / Plan
pt is a 78 year old male
Sepsis (present on admission) developed septic shock following day due to right lower extremity cellulitis compounded by PAD--was unresponsive to fluid boluses, moved to ICU and now off pressors--significant vascular disease--on stress dose steroids
(down to 40 mg prednisone) weaning--outpt prednisone is 15mg--ongoing nonhealing wound--culture positive for Pseudomonas/Enterococcus--apprec ID--on levaquin--repeat arterial Doppler was abnormal--apprec vascular--GENE shows absent TBI chronic long
segment occlusion of the right SFA with reconstitution of within the popliteal. Posterior tibial artery not visualized--s/p angiography with vascular surgery (best it is going to get)--apprec podiatry no surgical intervention
Leukopenia--Dropped from 6.1 (thought 'high for him' from sepsis, baseline WBC mid 2s--likely from MDS and possible antibiotic--Platelets and hemoglobin relatively stable
Peripheral arterial disease--Prior history of endovascular intervention to right lower extremity at another facility--s/p angiogram--restarted anticoagulant
Coronary artery disease/prior CABG/ischemic cardiomyopathy?/Prior history of HFrEF--Continue statin--2D echocardiogram from August 13 now shows EF of 35 to 40% with global hypokinesis and moderate to severe TR and moderate MR=- Entresto on hold
with hypotension--Carvedilol on hold--cont Jardiance--Troponin peaked at 0.94 now trending down--Stable functional status--apprec cards
Permanent atrial fibrillation--Rate control with carvedilol--restarted Eliquis
Polymyalgia rheumatica/continue hydrocortisone 50 mg--on stress dose steroids--wean
Myelodysplastic syndrome--WBC counts dropped
Hypercholesterolemia/continue fenofibrate and rosuvastatin/hold omega-3
DVT prophylaxis Eliquis will be held/Lovenox tonight subcu/not candidate for mechanical
Limited CODE STATUS /DNI
Had long talk with patient and his and 3 daughters on August 18, 2023. Talking about discharge planning and they have agreed that the patient will go to a [facility] facility to attempt to get stronger. Also explained that the vascular
surgery that he had to improve blood flow to the leg was limited and that vascular stated that this is as good as it is going to get. Family was asking whether or not amputation is in his future if pain not controlled. I did explain that there is
a vascular surgery discussion; however, if he has continued pain, nonhealing wounds and/or worsening wounds then amputation would be an option.
Anticipated Discharge: Within 24 hours
Subjective/Interval History
-
Date of Service: August 20, 2023
pt c/o scratch in back of throat
Objective Data
-
Labs:
Laboratory Results
08/20/23
08:00
WBC 3.2 L
Hgb 10.0 L
Hct 28.7 L
Plt Count 112 L
Sodium 139
Potassium 3.4 L
Chloride 105
Carbon Dioxide 28
BUN 18
Creatinine 0.6 L
Glucose 76
Calcium 8.7
Vital Signs:
max temp for 24 hours
08/19/23
23:30
Temp 97.9 F
Vital Signs
Temp Pulse Resp BP Pulse Ox
97.9 F 74 18 137/76 96
08/20/23 07:10 08/20/23 07:10 08/20/23 07:10 08/20/23 07:10 08/20/23 07:10
I&O
08/19/23 08/20/23 08/21/23
06:59 06:59 06:59
Intake Total 480 / 480 420 / 420
Output Total 975 / 975 1625 / 1625
Balance -495 / -495 -1205 / -1205
Review of Systems
-
All other systems: Reviewed and negative
Physical Exam
-
General: Well Developed, Well Nourished and No Apparent Distress
HEENT: Normocephalic and Atraumatic
Respiratory: Clear to Auscultation; Negative Wheezes or Rhonchi
Cardiac: Regular Rhythm and S1/S2; Negative Murmur
GI: Soft, Nontender, Nondistended and Normal Bowel Sounds
Musculoskeletal: No Clubbing, No Cyanosis, No Edema and Other (right LE wound and heel eschar)
Neuro: Awake
Psych: Calm
[2023-08-20] MEDS: DELTASONE 40 MG PO (12:14)
[2023-08-20 12:43] VITALS: BP 106/66; PULSE 105; O2SAT 94
[2023-08-20 12:46] VITALS: BP 106/66; PULSE 105; O2SAT 94
[2023-08-20 16:00] VITALS: BP 118/64
[2023-08-20] MEDS: CRESTOR 40 MG PO (17:54)
[2023-08-20] MEDS: TRICOR 145 MG PO (20:55)
[2023-08-20 23:05] VITALS: BP 111/65
[2023-08-21] MEDS: XANAX 0.25 MG PO ×2 (01:31→11:53)
[2023-08-21 06:00] VITALS: BMI 25.2
[2023-08-21 07:42] LABS: Hematocrit 27.1 % (39.0-52.0); Hemoglobin 9.2 g/dL (13.0-18.0); Mean Corp Hgb Conc. 33.9 g/dL (33.0-37.0); Mean Corpuscular Hgb 35.8 pg (27.0-31.0); Mean Corpuscular Volume 105.4 fL (80.0-94.0); Mean Platelet Volume 9.6 fL (7.4-10.4); Platelet Count 126 10^3/uL (130-400); Red Blood Cell Count 2.57 10^6/uL (4.70-6.10); Red Cell Dist. Width 14.4 % (11.5-14.5); White Blood Cell Count 2.8 10^3/uL (4.8-10.8)
[2023-08-21 07:54] LABS: Blood Urea Nitrogen 19 mg/dl (9-20); Calcium 8.7 mg/dl (8.4-10.2); Carbon Dioxide 30 mmol/L (22-30); Chloride 104 mmol/L (98-107); Estimated Creatinine Clearance 98 ml/min; Glucose 93 mg/dl (70-99); Magnesium 2.3 mg/dl (1.6-2.3); Potassium 3.8 mmol/L (3.5-5.1); Sodium 138 mmol/L (135-145); eGFR > 60.00
[2023-08-21 08:00] VITALS: BP 129/76
[2023-08-21] MEDS: COREG 3.125 MG PO ×2 (08:27→20:27)
[2023-08-21] MEDS: LEVAQUIN 750 MG PO (08:27)
[2023-08-21] MEDS: ELIQUIS 5 MG PO ×2 (08:27→20:27)
[2023-08-21] MEDS: LOW STRENGTH ASPIRIN 81 MG PO (08:28)
[2023-08-21] MEDS: JARDIANCE 10 MG PO (08:28)
[2023-08-21] MEDS: DELTASONE 40 MG PO (09:00)
--- NOTE | 2023-08-21 10:00 | W.PN.HOSP.TC ---
Today's Communication/Plan
-
d/c when insurance auth obtained
Assessment / Plan
Assessment / Plan
pt is a 78 year old male
Sepsis (present on admission) developed septic shock following day due to right lower extremity cellulitis compounded by PAD--was unresponsive to fluid boluses, moved to ICU and now off pressors--significant vascular disease--on stress dose steroids
(down to 40 mg prednisone) weaning--outpt prednisone is 15mg--ongoing nonhealing wound--culture positive for Pseudomonas/Enterococcus--apprec ID--on levaquin--repeat arterial Doppler was abnormal--apprec vascular--GEEN shows absent TBI chronic long
segment occlusion of the right SFA with reconstitution of within the popliteal. Posterior tibial artery not visualized--s/p angiography with vascular surgery (best it is going to get)--apprec podiatry no surgical intervention
Leukopenia--Dropped from 6.1 (thought 'high for him' from sepsis, baseline WBC mid 2s--likely from MDS and possible antibiotic--Platelets and hemoglobin relatively stable
Peripheral arterial disease--Prior history of endovascular intervention to right lower extremity at another facility--s/p angiogram--restarted anticoagulant
Coronary artery disease/prior CABG/ischemic cardiomyopathy?/Prior history of HFrEF--Continue statin--2D echocardiogram from August 13 now shows EF of 35 to 40% with global hypokinesis and moderate to severe TR and moderate MR=- Entresto on hold
with hypotension--Carvedilol on hold--cont Jardiance--Troponin peaked at 0.94 now trending down--Stable functional status--apprec cards
Permanent atrial fibrillation--Rate control with carvedilol--restarted Eliquis
Polymyalgia rheumatica/continue hydrocortisone 50 mg--on stress dose steroids--wean
Myelodysplastic syndrome--WBC counts dropped
Hypercholesterolemia/continue fenofibrate and rosuvastatin/hold omega-3
DVT prophylaxis Eliquis will be held/Lovenox tonight subcu/not candidate for mechanical
Limited CODE STATUS /DNI
Had long talk with patient and his and 3 daughters on August 18, 2023. Talking about discharge planning and they have agreed that the patient will go to a alf facility to attempt to get stronger. Also explained that the vascular
surgery that he had to improve blood flow to the leg was limited and that vascular stated that this is as good as it is going to get. Family was asking whether or not amputation is in his future if pain not controlled. I did explain that there is
a vascular surgery discussion; however, if he has continued pain, nonhealing wounds and/or worsening wounds then amputation would be an option.
waiting for d/c
Anticipated Discharge: Within 24 hours
Subjective/Interval History
-
Date of Service: August 21, 2023
pt having steak!
Objective Data
-
Labs:
Laboratory Results
08/21/23
06:31
WBC 2.8 L
Hgb 9.2 L
Hct 27.1 L
Plt Count 126 L
Sodium 138
Potassium 3.8
Chloride 104
Carbon Dioxide 30
BUN 19
Creatinine 0.6 L
Glucose 93
Calcium 8.7
Vital Signs:
max temp for 24 hours
08/20/23
16:00
Temp 98.4 F
Vital Signs
Temp Pulse Resp BP Pulse Ox
97.6 F 82 20 132/71 100
08/21/23 08:00 08/21/23 08:27 08/21/23 08:00 08/21/23 08:27 08/21/23 08:00
I&O
08/20/23 08/21/23 08/22/23
06:59 06:59 06:59
Intake Total 420 / 420 1110 / 1110
Output Total 1625 / 1625 550 / 550
Balance -1205 / -1205 560 / 560
Review of Systems
-
All other systems: Reviewed and negative
Physical Exam
-
General: Well Developed, Well Nourished and No Apparent Distress
HEENT: Normocephalic and Atraumatic; Negative Oxygen
Respiratory: Clear to Auscultation; Negative Wheezes or Rhonchi
Cardiac: Regular Rhythm and S1/S2; Negative Murmur
GI: Soft, Nontender, Nondistended and Normal Bowel Sounds
Musculoskeletal: No Clubbing, No Cyanosis and Other (no changes to right leg--still with wounds)
Neuro: Awake
Psych: Calm
[2023-08-21 16:40] VITALS: BP 121/63
[2023-08-21] MEDS: CRESTOR 40 MG PO (17:24)
[2023-08-21 20:32] VITALS: BP 102/57
[2023-08-21] MEDS: TRICOR 145 MG PO (21:59)
[2023-08-21 23:46] VITALS: BP 119/71
[2023-08-22 06:00] VITALS: BMI 26.0
[2023-08-22 07:00] VITALS: BP 135/70
[2023-08-22 07:19] LABS: Hemoglobin 9.5 g/dL (13.0-18.0); Mean Corp Hgb Conc. 33.9 g/dL (33.0-37.0); Mean Corpuscular Hgb 36.4 pg (27.0-31.0); Mean Corpuscular Volume 107.3 fL (80.0-94.0); Mean Platelet Volume 9.7 fL (7.4-10.4); Platelet Count 122 10^3/uL (130-400); Red Blood Cell Count 2.61 10^6/uL (4.70-6.10); Red Cell Dist. Width 14.6 % (11.5-14.5)
[2023-08-22 07:34] LABS: White Blood Cell Count 2.3 10^3/uL (4.8-10.8)
[2023-08-22 08:04] LABS: Blood Urea Nitrogen 20 mg/dl (9-20); Calcium 8.4 mg/dl (8.4-10.2); Carbon Dioxide 27 mmol/L (22-30); Chloride 112 mmol/L (98-107); Estimated Creatinine Clearance 84 ml/min; Glucose 89 mg/dl (70-99); Potassium 3.8 mmol/L (3.5-5.1); Sodium 142 mmol/L (135-145); eGFR > 60.00
[2023-08-22] MEDS: LEVAQUIN 750 MG PO (09:03)
[2023-08-22] MEDS: ELIQUIS 5 MG PO ×2 (09:03→20:19)
[2023-08-22] MEDS: JARDIANCE 10 MG PO (09:04)
[2023-08-22] MEDS: DELTASONE 40 MG PO (09:04)
[2023-08-22] MEDS: COREG 3.125 MG PO ×2 (09:04→20:20)
[2023-08-22] MEDS: LOW STRENGTH ASPIRIN 81 MG PO (09:04)
--- NOTE | 2023-08-22 09:25 | W.PN.HOSP.TC ---
Today's Communication/Plan
-
waiting for insurance auth--clear for d/c
Assessment / Plan
Assessment / Plan
pt is a 78 year old male
waiting for insurance auth
Sepsis (present on admission) developed septic shock following day due to right lower extremity cellulitis compounded by PAD--was unresponsive to fluid boluses, moved to ICU and now off pressors--significant vascular disease--on stress dose steroids
(down to 40 mg prednisone) weaning--outpt prednisone is 15mg--ongoing nonhealing wound--culture positive for Pseudomonas/Enterococcus--apprec ID--on levaquin--repeat arterial Doppler was abnormal--apprec vascular--GENE shows absent TBI chronic long
segment occlusion of the right SFA with reconstitution of within the popliteal. Posterior tibial artery not visualized--s/p angiography with vascular surgery (best it is going to get)--apprec podiatry no surgical intervention
Leukopenia--Dropped from 6.1 (thought 'high for him' from sepsis, baseline WBC mid 2s--likely from MDS and possible antibiotic--Platelets and hemoglobin relatively stable
Peripheral arterial disease--Prior history of endovascular intervention to right lower extremity at another facility--s/p angiogram--restarted anticoagulant
Coronary artery disease/prior CABG/ischemic cardiomyopathy?/Prior history of HFrEF--Continue statin--2D echocardiogram from August 13 now shows EF of 35 to 40% with global hypokinesis and moderate to severe TR and moderate MR=- Entresto on hold
with hypotension--Carvedilol on hold--cont Jardiance--Troponin peaked at 0.94 now trending down--Stable functional status--apprec cards
Permanent atrial fibrillation--Rate control with carvedilol--restarted Eliquis
Polymyalgia rheumatica/continue hydrocortisone 50 mg--on stress dose steroids--wean
Myelodysplastic syndrome--WBC counts dropped
Hypercholesterolemia/continue fenofibrate and rosuvastatin/hold omega-3
DVT prophylaxis Eliquis will be held/Lovenox tonight subcu/not candidate for mechanical
Limited CODE STATUS /DNI
Had long talk with patient and his and 3 daughters on August 18, 2023. Talking about discharge planning and they have agreed that the patient [place] go [place] [facility] to attempt to get stronger. Also explained that the vascular
surgery that he had to improve blood flow to the leg was limited and that vascular stated that this is as good as it is going to get. Family was asking whether or not amputation is in his future if pain not controlled. I did explain that there is
a vascular surgery discussion; however, if he has continued pain, nonhealing wounds and/or worsening wounds then amputation would be an option.
Anticipated Discharge: Within 24 hours
Subjective/Interval History
-
Date of Service: August 22, 2023
no c/o
Objective Data
-
Labs:
Laboratory Results
08/22/23
05:54
WBC 2.3 L*
Hgb 9.5 L
Hct 28.0 L
Plt Count 122 L
Sodium 142
Potassium 3.8
Chloride 112 H
Carbon Dioxide 27
BUN 20
Creatinine 0.7
Glucose 89
Calcium 8.4
Vital Signs:
max temp for 24 hours
08/21/23
20:32
Temp 98.5 F
Vital Signs
Temp Pulse Resp BP Pulse Ox
98.4 F 65 14 135/70 98
08/22/23 07:00 08/22/23 07:00 08/22/23 07:00 08/22/23 07:00 08/22/23 07:00
I&O
08/21/23 08/22/23 08/23/23
06:59 06:59 06:59
Intake Total 1110 / 1110 720 / 720
Output Total 550 / 550 1650 / 1650
Balance 560 / 560 -930 / -930
Review of Systems
-
All other systems: Reviewed and negative
Physical Exam
-
General: Well Developed, Well Nourished and No Apparent Distress
HEENT: Normocephalic and Atraumatic
Respiratory: Clear to Auscultation; Negative Wheezes or Rhonchi
Cardiac: Regular Rhythm and S1/S2; Negative Murmur
[2023-08-22] MEDS: TYLENOL 650 MG PO (11:38)
--- NOTE | 2023-08-22 13:19 | W.DCSUMMARY ---
Discharge Summary
Discharge Data
Date of Admission: 08/12/23
Date of Discharge: 08/22/23
-
Pending Results: No
Hospital Course
Primary care physician : Olman Fritz
Principal Discharge diagnosis : Sepsis followed by developed septic shock for right lower extremity cellulitis compounded by peripheral arterial disease, leukopenia
Chronic Discharge diagnosis : Coronary artery disease/prior CABG/ischemic cardiomyopathy, permanent atrial fibrillation, polymyalgia rheumatica, myelodysplastic syndrome, hyperlipidemia
Hospital Course : Patient is a 78-year-old male with a history of essential hypertension, hyperlipidemia among others including permanent atrial fibrillation and peripheral arterial disease who presented for redness and pain in the right lower
extremity. Patient had hospital admission the month prior to this admission for cellulitis of the right lower extremity and was treated with antibiotics. He finished his course of cephalexin. He stated that the symptoms never completely resolved.
He continued with worsening pain and redness, swelling of the right lower extremity since that time. His pain became quite severe and the patient called the vascular surgeon who recommended coming to the emergency department. He denied fevers,
chills, chest pain, or shortness of breath. He denied falls or trauma. He was found to have significant peripheral vascular disease and was admitted.
Problem #1: Sepsis followed by developed septic shock for right lower extremity cellulitis compounded by peripheral arterial disease. Patient was admitted and then transferred to the intensive care unit for developing septic shock as mentioned.
Patient was seen in consultation by infectious disease, manager energy. He was actually in the vascular surgery lab waiting for an arteriogram when he was found to be confused with a blood pressure in the mid 70s along with atrial fibrillation with
rapid ventricular response. Cardiology was also consulted. Patient was started on pressors. Echocardiogram was done which showed left ventricular ejection fraction of 35 to 40% but diastolic function was indeterminate due to atrial fibrillation.
Infectious disease was managing antibiotics. He was started on broad spectrum and eventually transitioned to oral Levaquin which will be continued through August 26, 2023. He was also placed on stress dose steroids and they are being weaned to his
outpatient dose of 15 mg of prednisone daily along with coming off of the pressors. Wound cultures were positive for Pseudomonas and Enterococcus. The angiography with vascular surgery as mentioned is the best outcome that is going to happen. If
the patient continues have pain and nonhealing wounds, the patient will be in for an amputation moving forward. Podiatry was also consulted to discuss the eschar on his right heel. They felt that no surgical intervention is needed at this time.
Problem #2: Leukopenia. Due to the patient's myelodysplastic syndrome the patient's white count is normally in the mid twos. He had been upwards of 6 but that was felt to be due to his 'sepsis' and was high for him. His white count did drop to
1.6 and 1.8 but has settled back in his normal range.
Problem #3: All other medical issues. These include Coronary artery disease/prior CABG/ischemic cardiomyopathy, permanent atrial fibrillation, polymyalgia rheumatica, myelodysplastic syndrome, hyperlipidemia. These medical issues were stable
during his hospitalization. Medications were continued as able.
Patient was seen in consultation by physical therapy and Occupational Therapy who are recommending skilled therapy prior to discharge home. He and his family are in agreement with this plan. Patient has been accepted to [facility]. Patient
is stable for discharge to his [facility] facility at this time. If there are any questions regarding his hospital course or this dictation, please not hesitate to call. Our office number is [phone].
Time for discharge 34 minutes.
Procedure findings :
ECHOCARDIOGRAM CONCLUSIONS:
�Normal left ventricular chamber size.
�Normal left ventricular wall thickness.
�Moderately reduced left ventricular systolic function.
�Global hypokinesis.
�Left ventricular ejection fraction is 35-40%.
�Diastolic function indeterminate due to atrial fibrillation.
�Normal right ventricular size and function.
�Moderately dilated left atrium.
�Thickened mitral valve leaflets.
�Mild to moderate mitral regurgitation.
�Thickened aortic valve with restricted leaflet motion.
�Peak/mean gradients across the valve ae 21/13 mmHg.
�Using an LVOT of 2.0 cm the calculated valve area is 1.3 cm2.
�Mild aortic stenosis.
�Moderate to severe tricuspid regurgitation.
�Estimated pulmonary artery pressure of 45 mmHg, assuming a right atrial
�pressure of 15 mmHg.
�Pulmonic valve is grossly normal but poorly visualized.
�Normal pericardium and pleura without evidence of effusion.
�The IVC is dilated and does not collapse.
�NO evidence for valvular endocarditis and compared to prior echocardiogram
�ejection fraction appears slightly improved
ARTERIOGRAM Primary Surgeon:��Adam Zelaya III, MD
Assisting Surgeon:� Regan Kebede MD
Pre-op Diagnosis:� RLE Cellulitis
Post-op Diagnosis: � RLE Cellulitis
Procedure Performed:� Diagnostic RLE A-gram, IV Lithotripsy, Stenting, Balloon Angioplasty
Anesthesia Type:� Light Sedation
Specimen / Cultures:� None
Estimated Blood Loss:� 2cc
Complications:� None
Operative Findings:� Diffuse iliac disease noted surrounding region of previous stenting. Profunda patent but diffuse SFA and tibial disease. No good targets for possible bypass. Decision was made to maximize inflow to region by treating existing
iliac disease. Shock wave lithotripsy and balloon angioplasty of the COMPUT[employer] SECUR[employer]NA[employer], external iliac, iliac bifurcation, and distal common iliac was performed. A Fallentimber CBX stent was placed in the mid-external iliac. An additional LD stent was deployed at the
iliac bifurcation.
�
Discharge Plan
-
Patient Disposition: Correction/SNF
Discharge Diagnosis/Procedures: Sepsis on admission followed by septic shock due to right lower extremity cellulitis, acute on chronic leukopenia, peripheral arterial disease, coronary artery disease with prior CABG and ischemic cardiomyopathy,
permanent atrial fibrillation, polymyalgia rheumatica, mild dysplastic syndrome, hyperlipidemia
Condition: Good
Diet: As tolerated
Activity: No strenuous activity
Driving Restrictions: As prior to admission
Bathing Restrictions: OK to Shower
Others Tests: Ultrasound: 09/19 at 2pm and 3pm
Activity Restrictions/Additional Instructions:
Wound Care Instructions
R medial calf wound-clean with saline or Vashe wound cleanser, honey gel, adaptic, alginate, cover with silicone border foam, change daily and prn drainage.
R Achilles/heel ulcer-clean with saline or Vashe wound cleanser, adaptic, alginate, silicone border foam, change daily and prn drainage.
Elevate heels off bed with pillow/s with air chair cushion on top
Pressure redistributing chair cushion (i.e. air chair cushion).
Follow up with Dr. Zelaya.
Follow up at wound care center call for an appointment.
Stand Alone Forms: DC Instr - Vascular OR
Referrals:
Justina Bridges PA-C [Specified Professional Personl] - 09/22/23 9:30 am (Vascular follow up)
Olman Fritz DO [Family Provider] - in less than 1 week
Adam Preston MD [Non-Admitting Privileges] - in two to three weeks
Prescriptions:
New
levofloxacin 750 mg Tablet
750 mg PO DAILY Qty: 20 0RF
Rx Instructions:
take through 08/26/23
alprazolam 0.25 mg Tablet
0.25 mg PO TIDPRN PRN (Reason: anxiety) Qty: 7 0RF
prednisone 20 mg Tablet
40 mg PO DAILY Qty: 20 0RF
Rx Instructions:
wean by 10 mg every 2 days until outpt dose of 15mg daily
aspirin [Children's Aspirin] 81 mg Tablet,Chewable
81 mg PO DAILY Qty: 0 0RF
Continued
rosuvastatin 40 mg Tablet
40 mg PO DAILY@2099
fenofibrate 160 mg Tablet
160 mg PO DAILY@2099
glucosamine HCl 1,500 mg Tablet
3,000 mg PO DAILYPRN PRN (Reason: supplement)
omega 4-fle-xqc-fish oil [Fish Oil] 1,000 mg (120 mg-180 mg) Capsule
2 cap PO DAILY PRN (Reason: Supplement)
Eliquis 5 mg Tablet
5 mg PO BID
Entresto 24-26 mg Tablet
1 tab PO BID
carvedilol 3.125 mg Tablet
3.125 mg PO BID Qty: 60 0RF
Jardiance 10 mg Tablet
10 mg PO DAILY Qty: 0 0RF
acetaminophen 325 mg tablet
650 mg PO Q4HPRN PRN (Reason: [place]/mild pain/temp>100.4 F)
Held
acetaminophen-codeine 300-30 mg Tablet
1 tab PO Q4HPRN PRN (Reason: severe pain)
Hold Instructions: resume if needed
Patient Comments:
08/12/2023, pt. filled this med. on 08/10/2023 for 12 tablets according to PDMP.
Medical Marijuana
2 drp sublingual HSPRN PRN (Reason: mild pain)
Hold Instructions: resume after rehab
Patient Comments:
08/12/2023, pt. uses a tincture and applies 2 drops sublingually HSPRN for mild pain.
Discontinued
prednisone 10 mg Tablet
15 mg PO DAILY
doxycycline monohydrate 100 mg Capsule
100 mg PO .SEE BELOW
Patient Comments:
08/12/2023, pt. filled this med. on 08/09/2023 and is instructed to take one capsule Q12H for 10 days. Per family, pt. has been taking one capsule daily in the morning.
[2023-08-22 15:00] VITALS: BP 112/62
[2023-08-22 17:44] VITALS: BP 106/66; PULSE 105; O2SAT 94
[2023-08-22] MEDS: CRESTOR 40 MG PO (18:01)
[2023-08-22] MEDS: XANAX 0.25 MG PO ×2 (18:02→23:34)
[2023-08-22] MEDS: TRICOR 145 MG PO (20:19)
[2023-08-22 23:39] VITALS: BP 121/64
[2023-08-23 06:00] VITALS: BMI 25.9
[2023-08-23 08:00] VITALS: BP 127/70
[2023-08-23] MEDS: DELTASONE 40 MG PO (08:11)
[2023-08-23] MEDS: LOW STRENGTH ASPIRIN 81 MG PO (08:12)
[2023-08-23] MEDS: COREG 3.125 MG PO ×2 (08:12→20:02)
[2023-08-23] MEDS: ELIQUIS 5 MG PO ×2 (08:12→20:02)
[2023-08-23] MEDS: JARDIANCE 10 MG PO (08:12)
[2023-08-23] MEDS: LEVAQUIN 750 MG PO (08:12)
--- NOTE | 2023-08-23 08:40 | W.PN.UPDATE ---
Update Note
Progress Note Update
Patient seen and examined/discharge was postponed yesterday due to insurance issues apparently.
Uneventful night
No complaints
Stable vitals
General: Well Developed, Well Nourished and No Apparent Distress
HEENT: Normocephalic and Atraumatic
Respiratory: Clear to Auscultation; Negative Wheezes or Rhonchi
Cardiac: Regular Rhythm and S1/S2; Negative Murmur
Stable for discharge after diagnosis of sepsis and septic shock now weaning on a prednisone taper back to his maintenance prednisone to 15 mg treating wound infection with of Pseudomonas and Enterococcus with Levaquin to completion
Will need further vascular surgery follow-up as outpatient and family aware should he continue with nonhealing wounds may need further vascular intervention
--- NOTE | 2023-08-23 11:27 | CM ---
Addendum entered by Eula Al RN 08/23/23 16:16:
CM called [employer] to obtain authorization information. Per health and safety representative Asiya, system is down and they are unable to assist. Recommended to call back at a later time. Patient, family, RN and attending updated.
Addendum entered by Eula Al RN 08/23/23 15:00:
Have attempted a total of four times to obtain Auth information. Per health and safety representative, system is down and they are the only ones who can provide that information. Per health and safety representative, the migrated one system into another and it is a company wide
problem. Call placed to Admissions Direction of [facility] Nishant. She is unable to accept the patient without the complete auth information. Family updated.
Addendum entered by Eula Al RN 08/23/23 12:15:
IMM signed and placed on the chart.
Original Note:
Reviewed the chart notes. Call placed to t. The system is down and health and safety representative recommends calling back in an hour.
[2023-08-23 11:46] VITALS: BP 108/56
[2023-08-23 15:55] VITALS: BP 110/54
[2023-08-23] MEDS: CRESTOR 40 MG PO (17:35)
[2023-08-23] MEDS: TRICOR 145 MG PO (20:01)
[2023-08-23 23:00] VITALS: BP 118/63
[2023-08-23] MEDS: XANAX 0.25 MG PO (23:50)
[2023-08-23] MEDS: TYLENOL 650 MG PO (23:50)
[2023-08-24 05:48] VITALS: BMI 26.0
[2023-08-24 07:26] VITALS: BP 126/75
--- NOTE | 2023-08-24 07:53 | W.PN.HOSP.TC ---
Today's Communication/Plan
-
Has been stable for discharge last 3 days
Case management will again call at now who is not answering phone yesterday
Assessment / Plan
Assessment / Plan
pt is a 78 year old male
waiting for insurance auth/several calls to at night yesterday went unanswered and system was down per case management
Sepsis (present on admission) developed septic shock following day due to right lower extremity cellulitis compounded by PAD--was unresponsive to fluid boluses, moved to ICU and now off pressors--significant vascular disease--on stress dose steroids
(down to 40 mg prednisone) weaning--outpt prednisone is 15mg--ongoing nonhealing wound--culture positive for Pseudomonas/Enterococcus--apprec ID--on levaquin--repeat arterial Doppler was abnormal--apprec vascular--GENE shows absent TBI chronic long
segment occlusion of the right SFA with reconstitution of within the popliteal. Posterior tibial artery not visualized--s/p angiography with vascular surgery (best it is going to get)--apprec podiatry no surgical intervention/still has read some
retained sutures in his left groin call into vascular
Leukopenia--Dropped from 6.1 (thought 'high for him' from sepsis, baseline WBC mid 2s--likely from MDS and possible antibiotic--Platelets and hemoglobin relatively stable
Peripheral arterial disease--Prior history of endovascular intervention to right lower extremity at another facility--s/p angiogram--restarted anticoagulant
Coronary artery disease/prior CABG/ischemic cardiomyopathy?/Prior history of HFrEF--Continue statin--2D echocardiogram from August 13 now shows EF of 35 to 40% with global hypokinesis and moderate to severe TR and moderate MR=- Entresto on hold
with hypotension--Carvedilol on hold--cont Jardiance--Troponin peaked at 0.94 now trending down--Stable functional status--apprec cards
Permanent atrial fibrillation--Rate control with carvedilol--restarted Eliquis
Polymyalgia rheumatica/continue hydrocortisone 50 mg--on stress dose steroids--wean
Myelodysplastic syndrome--WBC counts dropped
Hypercholesterolemia/continue fenofibrate and rosuvastatin/hold omega-3
DVT prophylaxis Eliquis will be held/Lovenox tonight subcu/not candidate for mechanical
Limited CODE STATUS /DNI
Had long talk with patient and his and 3 daughters on August 18, 2023. Talking about discharge planning and they have agreed that the patient will go to a snf facility to attempt to get stronger. Also explained that the vascular
surgery that he had to improve blood flow to the leg was limited and that vascular stated that this is as good as it is going to get. Family was asking whether or not amputation is in his future if pain not controlled. I did explain that there is
a vascular surgery discussion; however, if he has continued pain, nonhealing wounds and/or worsening wounds then amputation would be an option.
Anticipated Discharge: Today
Subjective/Interval History
-
Date of Service: August 24, 2023
I complaint is that he has some retained sutures in his left groin and wonders if these have come out more swelling in his right foot than his left.
Objective Data
-
Vital Signs:
Vital Signs
Temp Pulse Resp BP Pulse Ox
97.5 F 77 16 126/75 97
08/24/23 07:26 08/24/23 07:26 08/24/23 07:26 08/24/23 07:26 08/24/23 07:26
I&O
08/23/23 08/24/23 08/25/23
06:59 06:59 06:59
Intake Total 780 / 780 540 / 540
Output Total 1350 / 1350 250 / 250
Balance -570 / -570 290 / 290
Review of Systems
-
All other systems: Not reviewed unless documented
Physical Exam
-
General: Well Developed
HEENT: Normocephalic
Respiratory: Clear to Auscultation
Cardiac: Regular Rhythm
GI: Soft and Other (Left groin site with some sutures)
Musculoskeletal: Edema, Right Lower Extrem (Wounds dressed swollen)
Psych: Calm
Data Reviewed
-
Total Time Spent with Patient (in minutes): 45
Labs: Labs Reviewed by me
[2023-08-24] MEDS: LEVAQUIN 750 MG PO (08:02)
[2023-08-24] MEDS: LOW STRENGTH ASPIRIN 81 MG PO (08:02)
[2023-08-24] MEDS: JARDIANCE 10 MG PO (08:02)
[2023-08-24] MEDS: DELTASONE 40 MG PO (08:02)
[2023-08-24] MEDS: ELIQUIS 5 MG PO (08:02)
[2023-08-24] MEDS: COREG 3.125 MG PO (08:03)
--- NOTE | 2023-08-24 09:01 | CM ---
Addendum entered by Eula Al RN 08/24/23 11:27:
Call report to: [phone] ext [phone]
Fax report to: [phone]
Addendum entered by Eula Al RN 08/24/23 11:25:
Received call from [facility], [facility] has approved patient for 08/23-08/26; NRD 08/26; Auth [id number]; [place] ([phone]). Patient's family to transport. RN and attending updated.
Original Note:
Reviewed the chart notes and placed call to [facility] ([phone]). After 35 minutes on phone received information regarding requested auth. Sujatha Pending reference number [id number]. Fax for clinical number is [phone]. Auth was approved
for 08/19-08/21; NRD 08/22. Explained to [employer] Tr[employer] Jeffrey that [employer]'s system was down all day yesterday and I need to see if this auth can be updated or does it need to be restarted. Per Jeffrey, he will forward to [facility] CM this CM information and they
will reach out to discuss. Message left on Vanessa Plant Culture Manager at [facility]. CM continues to be available to patient/family and is monitoring medical plan for needs at discharge.
Plan: Discharge to SNF once auth obtained. May need to restart auth. PT evaluation will be required, last seen 08/22/23.
== END 2023-08-24 13:34 | DRG 853 ==
LOC: 2 SOUTH 12:16
PROVIDERS: Internal Medicine; Nurse Practitioner; Nurse Practitioner Family; ADMITTING PHYSICIAN Internal Medicine; CONSULT PHYSICIAN Internal Medicine Cardiovascular Disease; CONSULT PHYSICIAN Internal Medicine Critical Care Medicine; CONSULT PHYSICIAN Podiatrist; CONSULT PHYSICIAN Surgery Vascular Surgery; EMERGENCY PHYSICIAN Emergency Medicine; FAMILY PHYSICIAN Family Medicine; OTHER PHYSICIAN Student in an Organized Health Care Education/Training Program
PROC: 04FH3ZZ Fragmentation of Right External Iliac Artery, Percutaneous Approach (ICD-10-PCS; 2023-08-16)
PROC: B4101ZZ Fluoroscopy of Abdominal Aorta using Low Osmolar Contrast (ICD-10-PCS; 2023-08-16)
PROC: 047C3DZ Dilation of Right Common Iliac Artery with Intraluminal Device, Percutaneous Approach (ICD-10-PCS; 2023-08-16)
PROC: B41F1ZZ Fluoroscopy of Right Lower Extremity Arteries using Low Osmolar Contrast (ICD-10-PCS; 2023-08-16)
PROC: 047H34Z Dilation of Right External Iliac Artery with Drug-eluting Intraluminal Device, Percutaneous Approach (ICD-10-PCS; 2023-08-16)
PROC: 04FC3ZZ Fragmentation of Right Common Iliac Artery, Percutaneous Approach (ICD-10-PCS; 2023-08-16)
PROC: 04FK3ZZ Fragmentation of Right Femoral Artery, Percutaneous Approach (ICD-10-PCS; 2023-08-16)
PROC: B41C1ZZ Fluoroscopy of Pelvic Arteries using Low Osmolar Contrast (ICD-10-PCS; 2023-08-16)
DX: A41.9 Sepsis, unspecified organism (principal); G92.8 Other toxic encephalopathy; R65.21 Severe sepsis with septic shock; L03.115 Cellulitis of right lower limb; I50.22 Chronic systolic (congestive) heart failure; I48.21 Permanent atrial fibrillation; D84.9 Immunodeficiency, unspecified; I5A Non-ischemic myocardial injury (non-traumatic); I13.0 Hypertensive heart and chronic kidney disease with heart failure and stage 1 through stage 4 chronic kidney disease, or unspecified chronic kidney disease; I25.10 Atherosclerotic heart disease of native coronary artery without angina pectoris; I70.221 Atherosclerosis of native arteries of extremities with rest pain, right leg; E78.00 Pure hypercholesterolemia, unspecified; M79.7 Fibromyalgia; I25.5 Ischemic cardiomyopathy; M35.3 Polymyalgia rheumatica; F41.9 Anxiety disorder, unspecified; B96.5 Pseudomonas (aeruginosa) (mallei) (pseudomallei) as the cause of diseases classified elsewhere; M10.9 Gout, unspecified; I08.3 Combined rheumatic disorders of mitral, aortic and tricuspid valves; D64.9 Anemia, unspecified; D72.819 Decreased white blood cell count, unspecified; N18.30 Chronic kidney disease, stage 3 unspecified; B95.2 Enterococcus as the cause of diseases classified elsewhere; R73.03 Prediabetes; D46.9 Myelodysplastic syndrome, unspecified; N40.0 Benign prostatic hyperplasia without lower urinary tract symptoms; Z95.1 Presence of aortocoronary bypass graft; Z79.01 Long term (current) use of anticoagulants; Z79.52 Long term (current) use of systemic steroids; Z79.84 Long term (current) use of oral hypoglycemic drugs; Z87.891 Personal history of nicotine dependence; Z88.0 Allergy status to penicillin; Z11.52 Encounter for screening for COVID-19; I25.2 Old myocardial infarction
CPT/HCPCS: 71045; 73610; 73620; 75625; 75635; 75716; 76937; 80048; 80053; 81003; 81015; 82607; 82962; 83605; 83735; 83880; 84145; 84484; 85025; 85027; 85610; 85730; 86850; 86900; 86901; 87040; 87070; 87077; 87186; 87205; 87502; 87811; 93005; 93306; 93922; 93925; 93971; 97116; 97163; 97167; 97530; 97535; 99285; C1769; C1874; C1876; C1894; C9765; Q9967

== ENCOUNTER 2023-09-17 08:00 | Emergency (ER) | payer OTHER, SELFPAY ==
[2023-09-17 08:02] VITALS: BP 115/76
--- NOTE | 2023-09-17 08:28 | ED.SKININJ ---
HPI-Injury
General
Chief Complaint: Skin Surface Trauma
Source: patient and spouse
Exam Limitations: none
Time Seen by Provider: 09/17/23 08:18
Nursing documentation reviewed up to this point in time: agreed with
Travel History
Have you had any contact with someone who has COVID-19?: No
Do you have any symptoms of coronavirus? Fever > 100 degrees, chills, cough, shortness of breath, sore throat, loss of taste or smell, muscle aches, or headache?: No
History of Present Illness-Injury
Initial Injury comments:
78-year-old male with history of A-fib on Eliquis, CHF, CAD, HTN, HLD, [place], cardiac bypass, vascular bypass with stent 2013, chronic wound right lower extremity with poor circulation history, presents stating his walker toppled over at 6:15 PM today
fell backwards and landed on his buttocks. He denies spinal pain, was able to get up and ambulate to the couch. He did not hit his head. The only injury he has is a laceration to the anterior surface of his left ankle which his daughter and
wrapped to control the bleeding.
Past History
Past History
ED Past Medical History: Arrthythmia (A-fib on Eliquis), CHF, GERD, HTN, Hypercholesterolemia, [place] and Other (Myelodysplastic syndrome)
ED Past Surgical History: Appendectomy, Cardiac and Orthopedic
Social History
Tobacco: Non-smoker
Personal:
Living: with family
Employment: Retired
Review of Systems
Review of Systems
Allergies reviewed?: Yes
All Other Systems: ROS reviewed and negative except as documented in HPI and ROS
Respiratory: Denies trouble breathing
Cardiac: Denies chest pain
ABD/GI: Denies abdominal pain
Musculoskeletal: Reports edema (chronic)
Skin: Reports other (Laceration anterior aspect of left ankle. Chronic wound right foot followed by wound care and vascular)
Neurological: Reports no symptoms
Skin Exam
Laceration
left anterior ankle:
Length in cm: 1.5
Orientation: horizontal
Type of Laceration: simple
Any active bleeding?: no active bleeding
Distal skin color and temperature: normal-warm & good color
Normal distal neurovascular exam: Yes
Range of motion: full
Phy Exam
Physical Exam
Physical Exam:
GENERAL: No acute distress. A&Ox3.
CONSTITUTIONAL: Afebrile.
EYES: PERRL, conjunctivae normal
ENMT: moist mucus membranes, Pharynx nl
RESPIRATORY: Regular respirations, nonlabored, lungs clear.
CARDIOVASCULAR: Regular rate and rhythm, no murmurs, no rubs.
GI: Soft, nontender, normal BS
MUSCULOSKELETAL: No spinal bony tenderness. Moves with ease. Well perfused.
SKIN: Warm, dry, pink
PSYCH: Normal mood and affect. Well kept, interactive and appropriate
NEUROLOGIC: Awake, alert and oriented. No focal neurological deficits
Course
Orders/Labs/Results
Orders:
Orders
09/17/23 08:24
Lidocaine/Epinephrine/Tetracai [Let Topical Anesthetic Gel] 3 ml TOPICAL NOW STA
Vital Signs
Initial and Last Documented VS:
Initial Vital Signs
Temp Pulse Resp BP Pulse Ox
97.6 F 77 18 115/76 100
09/17/23 08:02 09/17/23 08:02 09/17/23 08:02 09/17/23 08:02 09/17/23 08:02
Last Documented Vital Signs
Temp Pulse Resp BP Pulse Ox
97.6 F 77 18 115/76 100
09/17/23 08:02 09/17/23 08:02 09/17/23 08:02 09/17/23 08:02 09/17/23 08:02
Procedures
Laceration Closure
left anterior ankle:
Status of Wound: clean
Size of Wound in cm: 1.5
Description of Wound Edges: sharp
Preparation: cleaned with saline
Anesthesia: Topical-LET
Revision/Debridement: routine- no revision
Type of Closure: Dermabond-skin glue (reinforced with sin adhesive and steri strips)
MDM/Problems Addressed
MDM/Problems Addressed:
78-year-old male with history of A-fib on Eliquis, CHF, CAD, HTN, HLD, [place], cardiac bypass, vascular bypass with stent 2013, chronic wound right lower extremity with poor circulation history, presents stating his walker toppled over at 6:15 PM today
fell backwards and landed on his buttocks. He denies spinal pain, was able to get up and ambulate to the couch. He did not hit his head. The only injury he has is a laceration to the anterior surface of his left ankle which his daughter and
wrapped to control the bleeding.
He states his tetanus immunization is up-to-date.
Dressing removed, there is no active bleeding, there is a 1-1/2 cm horizontal skin tear with edges 5 mm apart.
Wound edges well approximated with wound glue
Steri strips and Dressing applied
*Critical Care Note
Total Time (30-74mins, 75-104mins- exclusive of procedures): Not Applicable
ED Attending Note
-
Portions of this chart may have been created with voice recognition software.� Occasional wrong word or��sound alike� substitutions may have occurred due to the inherent limitations of voice recognition software.
Discharge Plan
Departure
Patient Disposition: Home (Routine Discharge)
Date of Disposition: 09/17/23
Time of Disposition: 09:13
Patient with high blood pressure during this ER visit?: No
Condition: Good
Discharge Problem:
Laceration of left ankle
Instructions: Laceration Repair With Glue (DC)
Prescriptions:
No Action
rosuvastatin 40 mg Tablet
40 mg PO DAILY@2100
fenofibrate 160 mg Tablet
160 mg PO DAILY@2100
glucosamine HCl 1,500 mg Tablet
3,000 mg PO DAILYPRN PRN (Reason: supplement)
omega 2-oxo-zxm-fish oil [Fish Oil] 1,000 mg (120 mg-180 mg) Capsule
2 cap PO DAILY PRN (Reason: Supplement)
Eliquis 5 mg Tablet
5 mg PO BID
Entresto 24-26 mg Tablet
1 tab PO BID
carvedilol 3.125 mg Tablet
3.125 mg PO BID Qty: 60 0RF
Jardiance 10 mg Tablet
10 mg PO DAILY Qty: 0 0RF
acetaminophen-codeine 300-30 mg Tablet
1 tab PO Q4HPRN PRN (Reason: severe pain)
Hold Instructions: resume if needed
Patient Comments:
08/12/2023, pt. filled this med. on 08/10/2023 for 12 tablets according to PDMP.
Medical Marijuana
2 drp sublingual HSPRN PRN (Reason: mild pain)
Hold Instructions: resume after rehab
Patient Comments:
08/12/2023, pt. uses a tincture and applies 2 drops sublingually HSPRN for mild pain.
acetaminophen 325 mg tablet
650 mg PO Q4HPRN PRN (Reason: CALIXTO/mild pain/temp>100.4 F)
levofloxacin 750 mg Tablet
750 mg PO DAILY Qty: 20 0RF
Rx Instructions:
take through 08/26/23
alprazolam 0.25 mg Tablet
0.25 mg PO TIDPRN PRN (Reason: anxiety) Qty: 7 0RF
prednisone 20 mg Tablet
40 mg PO DAILY Qty: 20 0RF
Rx Instructions:
wean by 10 mg every 2 days until outpt dose of 15mg daily
aspirin [Children's Aspirin] 81 mg Tablet,Chewable
81 mg PO DAILY Qty: 0 0RF
Referrals:
Olman Fritz, DO [Family Provider] - As needed
Activity Restrictions/Additional Instructions:
As we discussed, it takes about 2 weeks for this area to heal
You may wet the area briefly in the shower, pat dry or air dry strips and replace dressing
If the strips fall off before 2 weeks, it's ok, simply keep the area clean, dry and covered until well healed
Seek medica care immediately for increasing redness, swelling, pain, fever, pus drainage.
Interventions
Interventions:
*Risk Screen - Suicide Last Done: 09/17/23 08:02
*General Assessment Last Done: 09/17/23 08:02
*Neglect/Abuse Screening Last Done: 09/17/23 08:02
ED- Fall Risk Assessment Last Done: 09/17/23 09:33
*ED COVID-19 Vaccine History Last Done: 09/17/23 09:33
*Nursing Disposition Last Done: 09/17/23 09:33
ED-Skin Assessment Last Done: 09/17/23 09:33
Discharge Date and Time
Discharge Date/Time: 09/17/23 09:34
Print Language: WOLOF
[2023-09-17] MEDS: LET TOPICAL ANESTHETIC GEL 3 ML TOPICAL (08:59)
== END 2023-09-17 09:34 | disposition home or self-care (01) ==
LOC: EMR 08:00
PROVIDERS: EMERGENCY PHYSICIAN Emergency Medicine; FAMILY PHYSICIAN Family Medicine
DX: S91.012A Laceration without foreign body, left ankle, initial encounter (principal); W19.XXXA Unspecified fall, initial encounter; I48.91 Unspecified atrial fibrillation; I50.9 Heart failure, unspecified; I11.0 Hypertensive heart disease with heart failure; E78.5 Hyperlipidemia, unspecified; Z79.01 Long term (current) use of anticoagulants
CPT/HCPCS: 99282; 12001

== ENCOUNTER 2023-09-21 10:34 | Emergency (ER) | payer OTHER, SELFPAY ==
[2023-09-21 10:35] VITALS: BP 121/64
--- NOTE | 2023-09-21 10:54 | ED.GENMED ---
History of Present Illness
General
Chief Complaint: Fever
Time Seen by Provider: 09/21/23 10:54
Travel History
Have you had any contact with someone who has COVID-19?: No
Do you have any symptoms of coronavirus? Fever > 100 degrees, chills, cough, shortness of breath, sore throat, loss of taste or smell, muscle aches, or headache?: No
History of Present Illness
History of Present Illness:
HPI: Daughter was concerned because patient was somewhat agitated and confused today. He was here with septic shock related to right lower extremity infection about a month ago. He was walking while in rehab but over the last couple days at home
he has not been able to walk. He reports some ongoing pain to the right lower extremity. Daughter felt that he has been having fevers but there was no definite temperature elevation at home. He has been seen by wound care.
EXAM:
GENERAL: The patient appears generally weak
HEENT: Moist oral mucosa, poor dentition
CARDIOVASCULAR: No murmurs, tachycardia heart rate, irregular rhythm, No chest wall tenderness
PULMONARY: No respiratory distress, breath sounds are clear and equal
ABDOMEN: Soft with no peritoneal signs, no tenderness
NEUROLOGIC: Excellent strength all extremities, no coordination deficits
PSYCHIATRIC: The patient has fair insight and judgment but there does appear to be some cognitive deficits, there was delay with answering month and place
EXTREMITIES: Distal lower extremities are cool to touch, there is tenderness to the right lower extremity
SKIN: Ulcerative lesion noted to the right lower extremity which is chronic.
TIME OF INITIAL ENCOUNTER: 11:10 AM
NUMBER AND COMPLEXITY OF PROBLEMS ADDRESSED AT THE ENCOUNTER
� Chronic conditions affecting care: A-fib, CHF, CAD status post coronary bypass and stent, high blood pressure, hyperlipidemia, diverticulitis, myelodysplastic syndrome, polymyalgia rheumatica on 15 mg of prednisone
� Acute Exacerbation and/or Progression of Chronic Illness: This is an acute problem
� Differential Diagnosis includes: Sepsis, progression of myelodysplastic syndrome, cellulitis, UTI
AMOUNT AND/OR COMPLEXITY OF DATA TO BE REVIEWED AND ANALYZED
� I performed an independent evaluation of and my interpretation is:
EKG:
CT:
X-rays: Chest x-ray shows no sign of infection
Laboratory Studies: White count 2.7, hemoglobin 9.5, platelets normal, sodium slightly low at 130, lactic acid is 1.5 COVID and influenza are both negative, 3+ glucose in urine but no sign of UTI
Other:
� Review of other/old records: The patient was admitted here with sepsis/septic shock related to right lower extremity cellulitis compounded by peripheral artery disease, leukopenia. When the patient was admitted here last time
his lactic was elevated.
� Clinical information was obtained by an independent historian: I spoke to the daughter at bedside
� Prescriptions/Medications Considered but not given:
� Further testing considered but not performed:
RISK OF COMPLICATIONS AND/OR MORBIDITY OR MORTALITY OF PATIENT MANAGEMENT
� Social determinants of health affecting care: Lives at home
� Discussion with other providers:
� Escalation of care including admission/observation vs risk of discharge considered: The patient appears somewhat chronically ill. He is borderline tachycardic here but afebrile. Daughter was concerned of feeling warm at home
with some increased agitation but currently he is at his baseline mental status. No clear concerning abnormality from an infectious standpoint found on ED workup. Although he was borderline tachycardic, his heart rate has improved with IV fluids.
Blood cultures pending.
Past History
Past History
ED Past Medical History: Arrthythmia (A-fib on Eliquis), CHF, GERD, HTN, Hypercholesterolemia, [place] and Other (Myelodysplastic syndrome)
ED Past Surgical History: Appendectomy, Cardiac and Orthopedic
Social History
Tobacco: Non-smoker
Personal:
Living: with family
Employment: Retired
Phy Exam
Physical Exam
Physical Exam:
See HPI
Course
Orders/Labs/Results
Orders:
Orders
09/21/23 10:59
0.9% Sodium Chloride 500 ml [Nss] 500 ml IV BOLUS
09/21/23 11:09
CR Chest - 2 Views Urgent
Comment:
Reason For Exam: fever
09/21/23 11:16
Tramadol HCl [Ultram] 25 mg PO NOW STA
09/21/23 11:26
Complete Blood Count/With Diff Urgent
Comprehensive Metabolic Panel Urgent
Lactic Acid Q4H
Comment: CANCEL 2nd LACTIC ACID IF 1st LACTIC ACID IS LESS THAN 2
Blood Culture Q30M
DAMION Source: Blood/Venous
Specimen Description:
09/21/23 11:33
COVID-19 Antigen Urgent
Source: Nasal Swab
Influenza A+B Rapid Molecular Urgent
DAMION Source: Nasal Swab
Specimen Description:
09/21/23 11:46
Urinalysis Reflex To Culture Urgent
Date Specimen was Collected: 09/21/23
Time Specimen was Collected: 11:46
09/21/23 12:01
Blood Culture Q30M
DAMION Source: Blood/Venous
Specimen Description:
09/21/23 15:00
Lactic Acid Q4H
Comment: CANCEL 2nd LACTIC ACID IF 1st LACTIC ACID IS LESS THAN 2
Abnormal Lab Results
09/21/23 09/21/23
11:26 11:46
WBC 2.7 L 10^3/uL
(4.8-10.8)
RBC 2.66 L 10^6/uL
(4.70-6.10)
Hgb 9.5 L g/dL
(13.0-18.0)
Hct 28.2 L %
(39.0-52.0)
MCV 106.0 H fL
(80.0-94.0)
MCH 35.7 H pg
(27.0-31.0)
RDW 15.4 H %
(11.5-14.5)
Abs Immat Gran (auto) 0.2 H 10^3/uL
(0-0.05)
Absolute Lymphs (auto) 0.6 L 10^3/uL
(1.2-3.4)
Immature Gran % 8.2 H %
(0-0.5)
Sodium 130 L mmol/L
(135-145)
BUN 28 H mg/dl
(9-20)
Glucose 106 H mg/dl
(70-99)
Urine Glucose 3+ A
(Negative)
09/21/23 11:26
09/21/23 11:26
Vital Signs
Initial and Last Documented VS:
Initial Vital Signs
Temp Pulse Resp BP Pulse Ox
98.9 F 104 16 121/64 97
09/21/23 10:35 09/21/23 10:35 09/21/23 10:35 09/21/23 10:35 09/21/23 10:35
Last Documented Vital Signs
Temp Pulse Resp BP Pulse Ox
98.9 F 95 24 98/60 98
09/21/23 10:35 09/21/23 12:37 09/21/23 12:37 09/21/23 12:00 09/21/23 12:15
*Critical Care Note
Total Time (30-74mins, 75-104mins- exclusive of procedures): Not Applicable
ED Attending Note
-
Portions of this chart may have been created with voice recognition software.� Occasional wrong word or��sound alike� substitutions may have occurred due to the inherent limitations of voice recognition software.
Discharge Plan
Departure
Patient Disposition: Home (Routine Discharge)
Date of Disposition: 09/21/23
Time of Disposition: 12:56
Patient with high blood pressure during this ER visit?: Yes
Discharge Problem:
Fever
Instructions: Fever, Adult (DC), Viral Syndrome (DC)
Prescriptions:
No Action
rosuvastatin 40 mg Tablet
40 mg PO DAILY@1999
fenofibrate 160 mg Tablet
160 mg PO DAILY@1999
Eliquis 5 mg Tablet
5 mg PO BID
Entresto 24-26 mg Tablet
1 tab PO BID
carvedilol 3.125 mg Tablet
3.125 mg PO BID Qty: 60 0RF
Jardiance 10 mg Tablet
10 mg PO DAILY Qty: 0 0RF
acetaminophen 325 mg tablet
650 mg PO Q4HPRN PRN (Reason: CALIXTO/mild pain/temp>100.4 F)
prednisone 10 mg Tablet
15 mg PO DAILY
tramadol 50 mg Tablet
25 mg PO DAILY@1999
tramadol 50 mg Tablet
25 mg PO DAILYPRN PRN (Reason: severe pain)
acetaminophen [Tylenol Extra Strength] 500 mg Tablet
500 mg PO BIDPRN PRN (Reason: mild pain)
furosemide 20 mg Tablet
20 mg PO DAILY
gabapentin 100 mg Capsule
100 mg PO BID
Dakin's Solution 0.125 % Solution
1 applic TOPICAL DAILY
alprazolam 0.25 mg tablet
0.25 mg PO DAILYPRN PRN (Reason: anxiety)
Referrals:
Olman Fritz DO [Family Provider] -
Activity Restrictions/Additional Instructions:
Symptoms may be related to a viral illness. The white blood cell count is similar to prior 2.7. The hemoglobin is 9.5 and was 9.5 one month ago. Last time he was here his lactic acid was elevated but today it is normal at 1.5. Urinalysis shows
no sign of infection. Kidney function is normal. Blood cultures are pending. Chest x-ray showed no sign of infection. Flu testing and COVID testing are both negative. Return here if worse.
Interventions
Interventions:
*General Assessment Last Done: 09/21/23 10:42
*Neglect/Abuse Screening Last Done: 09/21/23 10:42
ED- Fall Risk Assessment Last Done: 09/21/23 11:49
*ED COVID-19 Vaccine History Last Done: 09/21/23 11:48
ED- Neurological Assessment Last Done: 09/21/23 11:49
ED-Skin Assessment Last Done: 09/21/23 11:49
Discharge Date and Time
Print Language: SLOVAK
[2023-09-21 11:15] VITALS: BP 94/60
[2023-09-21] MEDS: ULTRAM 25 MG PO (11:22)
[2023-09-21] MEDS: NSS 500 IV (11:24)
[2023-09-21 11:34] LABS: % Basophils 0.7 % (0-2); % Eosinophils 0.7 % (0-6); % Immature Granulocytes 8.2 % (0-0.5); % Lymphocytes 21.6 % (20.5-51.1); % Monocytes 4.8 % (1.7-9.3); Absolute Immature Granulocytes 0.2 10^3/uL (0-0.05); Absolute Lymphocytes 0.6 10^3/uL (1.2-3.4); Absolute Monocytes 0.1 10^3/uL (0.1-0.6); Absolute Neutrophils 1.7 10^3/uL (1.4-6.5); Hematocrit 28.2 % (39.0-52.0); Hemoglobin 9.5 g/dL (13.0-18.0); Mean Corp Hgb Conc. 33.7 g/dL (33.0-37.0); Mean Corpuscular Hgb 35.7 pg (27.0-31.0); Mean Platelet Volume 9.3 fL (7.4-10.4); Nucleated Red Blood Cells % 0 % (-); Platelet Count 147 10^3/uL (130-400); Red Blood Cell Count 2.66 10^6/uL (4.70-6.10); Red Cell Dist. Width 15.4 % (11.5-14.5); White Blood Cell Count 2.7 10^3/uL (4.8-10.8)
[2023-09-21 11:48] VITALS: BMI 26.9
[2023-09-21 11:54] LABS: Lactic Acid 1.5 mmol/L (0.7-2.0)
[2023-09-21 11:54] LABS: Urine Albumin Negative (Neg - Trace); Urine Bilirubin Negative (Negative); Urine Character Clear (Clear); Urine Color Yellow; Urine Glucose 3+ (Negative); Urine Ketone Negative (Negative); Urine Leukocyte Negative (Negative); Urine Nitrite Negative (Negative); Urine Occult Blood Negative (Negative); Urine Urobilinogen Negative (Neg - 1+)
[2023-09-21 11:58] LABS: COVID-19 Antigen Negative (Negative)
[2023-09-21 12:00] VITALS: BP 98/60
[2023-09-21 12:05] LABS: ALT (SGPT) 41 U/L (0-50); AST (SGOT) 57 U/L (17-59); Albumin 3.5 g/dl (3.5-5.0); Alkaline Phosphatase 52 U/L (38-126); Blood Urea Nitrogen 28 mg/dl (9-20); Calcium 8.7 mg/dl (8.4-10.2); Carbon Dioxide 23 mmol/L (22-30); Chloride 101 mmol/L (98-107); Estimated Creatinine Clearance 74 ml/min; Glucose 106 mg/dl (70-99); Potassium 4.2 mmol/L (3.5-5.1); Sodium 130 mmol/L (135-145); Total Bilirubin 0.7 mg/dl (0.2-1.3); Total Protein 6.4 g/dl (6.3-8.2); eGFR > 60.00
[2023-09-21 13:11] VITALS: BP 96/58
== END 2023-09-21 13:30 | disposition home or self-care (01) ==
LOC: EMR 10:34
PROVIDERS: EMERGENCY PHYSICIAN Emergency Medicine; FAMILY PHYSICIAN Family Medicine
DX: R50.9 Fever, unspecified (principal); R45.1 Restlessness and agitation; D46.9 Myelodysplastic syndrome, unspecified; E78.00 Pure hypercholesterolemia, unspecified; I11.0 Hypertensive heart disease with heart failure; I50.9 Heart failure, unspecified; I48.91 Unspecified atrial fibrillation; K21.9 Gastro-esophageal reflux disease without esophagitis; Z79.01 Long term (current) use of anticoagulants; Z90.49 Acquired absence of other specified parts of digestive tract
CPT/HCPCS: 99283; 96360; 71046; 80053; 81003; 83605; 85025; 87040; 87502; 87811

== ENCOUNTER 2023-09-27 13:19 | Inpatient (IN) | payer OTHER, SELFPAY ==
[2023-09-27] VITALS (27 sets, daily range): BP systolic 77–130; BP diastolic 45–89; BMI 27.5
--- NOTE | 2023-09-27 09:22 | ED.GENMED ---
History of Present Illness
General
Chief Complaint: Change in Mental Status
Source: patient
Exam Limitations: none
Time Seen by Provider: 09/27/23 08:53
Nursing documentation reviewed up to this point in time: agreed with
Travel History
Have you had any contact with someone who has COVID-19?: No
Do you have any symptoms of coronavirus? Fever > 100 degrees, chills, cough, shortness of breath, sore throat, loss of taste or smell, muscle aches, or headache?: No
History of Present Illness
History of Present Illness:
Patient with history of peripheral vascular disease and nonhealing wounds on his right lower leg, presents to ED secondary to increased confusion along with chills, as well as continual leg pain over the past 24 hours. Patient has had history of
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 Denies vomiting or diarrhea. Denies chest pain. Denies coughing. Denies headache. Denies
dizziness. Denies recent change in medications or diet. Patient does have an appointment with his vascular surgeon, Dr. Zelaya, in 2 days, to discuss potential amputation of his right lower leg, secondary to nonhealing wound as well as ongoing pain.
Past History
Past History
ED Past Medical History: Arrthythmia (A-fib on Eliquis), CHF, GERD, HTN, Hypercholesterolemia, SD and Other (Myelodysplastic syndrome)
ED Past Surgical History: Appendectomy, Cardiac and Orthopedic
Social History
Tobacco: Non-smoker
Personal:
Living: with family
Employment: Retired
Review of Systems
Review of Systems
Allergies reviewed?: Yes
All Other Systems: ROS reviewed and negative except as documented in HPI and ROS
Constitutional: Reports chills
EENT: Reports no symptoms
Respiratory: Reports no symptoms
Cardiac: Reports no symptoms
ABD/GI: Reports no symptoms
: Reports no symptoms
Musculoskeletal: Reports other (leg pain)
Skin: Reports other (nonhealing ulcer)
Neurological: Reports no symptoms; Denies dizzy or headache
Phy Exam
Physical Exam
Physical Exam:
Physical Exam
General: mild painful distress, not acutely ill. afebrile
Head: nc/at. eomi
Neck: supple. no meningeal signs.
Heart: irregularly irregular, tachycardic, no murmur. equal radial pulses.
Lungs: no acute respiratory distress. clear bilaterally
Abdomen: normal bowel sounds. not tender.
Neuro: alert and oriented. no focal neurological deficits
Skin: no rash. RLE: ulcer x 2 (wilson/below medial malleolus), an approx 1mm in diameter with minimal purulent drainage.
Psychiatric: well kept. interactive and cooperative
Extremities: b/l LE edema, pitting.
Course
Orders/Labs/Results
Orders:
Orders
09/27/23 09:22
Acetaminophen [Tylenol] 1,000 mg PO NOW STA
Morphine Sulfate 2 mg IV NOW STA
09/27/23 09:39
Diltiazem HCl [Cardizem] 10 mg IV NOW STA
09/27/23 09:45
Diltiazem 125 mg/125 ml Nss [Cardizem] 125 mg in 125 ml IV PER PROTOCOL
Initial dose in mg/hr, then titrate:: 5
Titrate to keep:: Heart rate 80-100 bpm
Titrate by mg/hr:: 5 mg/hr
Frequency of titrations (minutes):: 15
Maximum dose in mg/hr:: 15
09/27/23 10:17
0.9% Sodium Chloride 250 ml [Nss] 250 ml IV BOLUS
09/27/23 10:21
CBC/With Reticulocyte Count Urgent
Comprehensive Metabolic Panel Urgent
Ferritin Urgent
Lactic Acid Q4H
Comment: CANCEL 2nd LACTIC ACID IF 1st LACTIC ACID IS LESS THAN 2
Magnesium Urgent
TSH Urgent
Blood Culture Q30M
DAMION Source: Blood/Venous
Specimen Description:
09/27/23 10:48
Blood Culture Q30M
DAMION Source: Blood/Venous
Specimen Description:
09/27/23 11:02
Vancomycin [Vancocin] 1,500 mg 0.9% Sodium Chloride [Nss] 20 ml 0.9% Sodium Chloride 250 ml [Nss] 250 ml IV NOW
09/27/23 12:17
ECG [Electrocardiogram (*1)] Urgent
Reason for Study: Tachycardia
09/27/23 12:50
CR Chest Portable - 1 View Urgent
Comment:
Reason For Exam: confusion
Reason Study Needs to be Portable: Patient Unstable
09/27/23 12:52
Admit/Transfer Patient As Directed
Co-Sign Provider:
Level of Care: Inpatient admission
Assign to:: IMU- Intermediate Care
Physician / Group: Jarrett
Diagnosis: Sepsis, A-fib
Reason for Hospitalization: IV abx, Cardizem drip
Expected length of stay greater than two midnights?: Yes
ELOS- Estimated Length of Stay in days: 3
I certify the patient meets the requirements for IP care: Yes
09/27/23 12:53
CT Head W/o Iv Contrast Urgent
Comment:
Reason For Exam: confusion
09/27/23 12:55
0.9% Sodium Chloride 250 ml [Nss] 250 ml IV BOLUS
09/27/23 13:00
Code Status As Directed
Resuscitation Status: Full Code
09/27/23 13:10
INFECTIOUS DISEASE CONSULT Routine
Consulting Provider: Kanchan Avila
Was physician already notified: Yes
Vascular Surgery Consult Routine
Consulting Provider: Adam Zelaya III
Was physician already notified: Yes
09/27/23 Dinner
Sodium, 2 Gram
At Your Request: Limited, Meat Hostess Required
09/27/23 15:26
COVID-19 Antigen Urgent
Source: Nasal Swab
PTT Urgent
Troponin I Urgent
Urinalysis Reflex To Culture Urgent
Date Specimen was Collected: 09/27/23
Time Specimen was Collected: 14:23
Influenza A+B Rapid Molecular Urgent
DAMION Source: Nasal Swab
Specimen Description:
09/27/23 17:05
Acetaminophen [Tylenol] 650 mg PO Q4HPRN PRN
VANCOMYCIN Pharmacy to Dose [VANCOCIN Pharmacy to Dose] 1 each Pharmacy To Prepare [Call Pharmacy To Prepare] 0 ml IV PER PROTOCOL
09/27/23 17:05
WOUND/OSTOMY CONSULT Routine
Reason for Consult: RLE Wound
Heparin Protocol- PTT Orders As Directed
PTT per Heparin protocol: -Obtain CBC and baseline PTT - if not already collected.
-Obtain PTT 6 hours from start of infusion. Then, every 6 hours until 2 consecutive
PTT's are therapeutic. Then, PTT Daily.
-With each rate change, obtain PTT every 6 hours until 2 consecutive PTT's are
therapeutic. Then, PTT Daily.
Activity As Directed
Activity Level: Out of Bed- Chair
I&O [Intake/ Output] As Directed
Frequency: q12h
Notify MD As Directed
Notify physician if: PTT is greater than or equal to 200.
Vital Signs As Directed
Frequency: Per unit guidelines
Weight As Directed
Frequency: Daily
09/27/23 20:00
Carvedilol [Coreg] 3.125 mg PO BID
09/27/23 22:00
Fenofibrate 145 [Tricor] 145 mg PO HS
Rosuvastatin Calcium [Crestor] 40 mg PO HS
09/28/23 05:54
Basic Metabolic Panel IN AM
Complete Blood Count/No Diff IN AM
Troponin I Q6H
09/28/23 08:00
Prednisone [Deltasone] 15 mg PO DAILY
09/29/23 06:00
Complete Blood Count/No Diff Q2D
Comment: Notify MD if platelet count is <130,000 or decreases by 50% from baseline
10/01/23 06:00
Complete Blood Count/No Diff Q2D
Comment: Notify MD if platelet count is <130,000 or decreases by 50% from baseline
10/03/23 06:00
Complete Blood Count/No Diff Q2D
Comment: Notify MD if platelet count is <130,000 or decreases by 50% from baseline
10/05/23 06:00
Complete Blood Count/No Diff Q2D
Comment: Notify MD if platelet count is <130,000 or decreases by 50% from baseline
10/07/23 06:00
Complete Blood Count/No Diff Q2D
Comment: Notify MD if platelet count is <130,000 or decreases by 50% from baseline
10/09/23 06:00
Complete Blood Count/No Diff Q2D
Comment: Notify MD if platelet count is <130,000 or decreases by 50% from baseline
10/11/23 06:00
Complete Blood Count/No Diff Q2D
Comment: Notify MD if platelet count is <130,000 or decreases by 50% from baseline
10/13/23 06:00
Complete Blood Count/No Diff Q2D
Comment: Notify MD if platelet count is <130,000 or decreases by 50% from baseline
Abnormal Lab Results
09/27/23
10:21
RBC 2.90 L 10^6/uL
(4.70-6.10)
Hgb 10.3 L g/dL
(13.0-18.0)
Hct 31.1 L %
(39.0-52.0)
MCV 107.2 H fL
(80.0-94.0)
MCH 35.5 H pg
(27.0-31.0)
RDW 15.6 H %
(11.5-14.5)
Plt Count 127 L 10^3/uL
(130-400)
Abs Immat Gran (auto) 0.5 H 10^3/uL
(0-0.05)
Absolute Lymphs (auto) 0.6 L 10^3/uL
(1.2-3.4)
Immature Gran % 6.6 H %
(0-0.5)
Neutrophils % 83.6 H %
(42.2-75.2)
Lymphocytes % 7.9 L %
(20.5-51.1)
Sodium 133 L mmol/L
(135-145)
BUN 25 H mg/dl
(9-20)
Ferritin 773.0 H ng/ml
(17.9-464.0)
09/27/23 10:21
09/27/23 10:21
Vital Signs
Initial and Last Documented VS:
Initial Vital Signs
Temp Pulse Resp BP Pulse Ox
98.2 F 124 20 96/62 100
09/27/23 08:45 09/27/23 08:45 09/27/23 08:45 09/27/23 08:45 09/27/23 08:45
Last Documented Vital Signs
Temp Pulse Resp BP Pulse Ox
100.9 F H 101 26 121/72 100
09/28/23 07:00 09/28/23 07:46 09/28/23 06:00 09/28/23 07:46 09/28/23 05:14
MDM/Problems Addressed
MDM/Problems Addressed:
Patient found to be in rapid atrial fibrillation, likely multifactorial, with chronic history of atrial fibrillation. Patient is on Eliquis, including AM dose taken prior to arrival. Patient started on Cardizem infusion with improvement in heart
rate.
Patient with nonhealing leg ulcer, with mild purulent drainage. As such, patient will be started on IV vancomycin along with blood culture pending.
Dr. Zelaya, vascular surgery, notified, who will come and evaluate patient in ED.
Critical care statement: A total of 40 minutes of critical care time was provided for this patient. This includes management of unstable vital signs, evaluation of the patient at bedside, reviewing the patient's pertinent medical records, discussion
with consultants, review of old EKGs and review of pertinent medical records. This time with separate from time utilized to perform the aforementioned documented procedures
*Critical Care Note
Total Time (30-74mins, 75-104mins- exclusive of procedures): 40 min
ED Attending Note
-
Portions of this chart may have been created with voice recognition software.� Occasional wrong word or��sound alike� substitutions may have occurred due to the inherent limitations of voice recognition software.
Discharge Plan
Departure
Patient Disposition: Admit
Date of Disposition: 09/27/23
Time of Disposition: 11:37
Admit to: Telemetry
Presentation/result/management discussed w/ accepting MD/DO: Hospitalist
Discharge Problem:
Atrial fibrillation, rapid, Peripheral vascular disease, Non-healing ulcer
Interventions
Interventions:
*Risk Screen - Suicide Last Done: 09/27/23 16:29
*Neglect/Abuse Screening Last Done: 09/27/23 16:29
ED- Fall Risk Assessment Last Done: 09/27/23 15:00
*ED COVID-19 Vaccine History Last Done: 09/27/23 08:45
*Nursing Disposition Last Done: 09/27/23 17:16
ED- Pulmonary Assessment Last Done: 09/27/23 15:00
ED- Neurological Assessment Last Done: 09/27/23 15:00
ED- Cardiac Assessment Last Done: 09/27/23 15:00
ED Swallowing Screen Last Done: 09/27/23 15:00
Discharge Date and Time
Discharge Date/Time: 09/27/23 17:16
[2023-09-27] MEDS: TYLENOL 1000 MG PO ×2 (10:26→15:23)
[2023-09-27] MEDS: MORPHINE SULFATE 2 MG IV ×2 (10:27→23:42)
[2023-09-27] MEDS: CARDIZEM 10 MG IV (10:28)
[2023-09-27] MEDS: NSS 250 IV ×3 (10:37→15:25)
[2023-09-27] MEDS: CARDIZEM 125 IV (10:38)
[2023-09-27 10:45] LABS: % Basophils 0.1 % (0-2); % Immature Granulocytes 6.6 % (0-0.5); % Lymphocytes 7.9 % (20.5-51.1); % Monocytes 1.8 % (1.7-9.3); % Neutrophils 83.6 % (42.2-75.2); Absolute Immature Granulocytes 0.5 10^3/uL (0-0.05); Absolute Lymphocytes 0.6 10^3/uL (1.2-3.4); Absolute Monocytes 0.1 10^3/uL (0.1-0.6); Absolute Neutrophils 6.3 10^3/uL (1.4-6.5); Hematocrit 31.1 % (39.0-52.0); Hemoglobin 10.3 g/dL (13.0-18.0); Mean Corp Hgb Conc. 33.1 g/dL (33.0-37.0); Mean Corpuscular Hgb 35.5 pg (27.0-31.0); Mean Corpuscular Volume 107.2 fL (80.0-94.0); Mean Platelet Volume 9.2 fL (7.4-10.4); Nucleated Red Blood Cells % 0 % (-); Platelet Count 127 10^3/uL (130-400); Red Cell Dist. Width 15.6 % (11.5-14.5); Reticulocyte Count 2.3 % (0.4-2.8); White Blood Cell Count 7.6 10^3/uL (4.8-10.8)
[2023-09-27 10:58] LABS: ALT (SGPT) 44 U/L (0-50); AST (SGOT) 31 U/L (17-59); Alkaline Phosphatase 71 U/L (38-126); Blood Urea Nitrogen 25 mg/dl (9-20); Calcium 9.3 mg/dl (8.4-10.2); Carbon Dioxide 23 mmol/L (22-30); Chloride 98 mmol/L (98-107); Glucose 97 mg/dl (70-99); Magnesium 1.9 mg/dl (1.6-2.3); Potassium 4.4 mmol/L (3.5-5.1); Sodium 133 mmol/L (135-145); Total Bilirubin 1.2 mg/dl (0.2-1.3); Total Protein 7.3 g/dl (6.3-8.2); eGFR > 60.00
[2023-09-27] MEDS: VANCOCIN 300 MG IV (11:12)
[2023-09-27] MEDS: VANCOCIN 300 ML IV (11:12)
[2023-09-27 11:32] LABS: TSH 0.81 uIU/ml (0.47-4.68)
--- NOTE | 2023-09-27 11:59 | CON.VAS ---
Consultation
Consultation Request
Date/Time Consultation Performed: 09/27/2023 1300
Requesting Provider: Hospitalist
Performing Provider: Nora Mims NP-C for Adam Zelaya III, MD
Reason for Consultation: RLE ongoing chronic wound/cellulitis
Medical History
-
Chief Complaint: Altered mental status
History of Present Illness:
This is a 78-year-old male patient with significant past medical history of hypertension, hyperlipidemia, CAD, permanent A-fib, MDS, and PAD who presents to the emergency department for altered mental status, and continued
erythema, edema, and pain to right lower extremity. Patient was recently admitted from 08/12/23 to 08/22/23 for ongoing/chronic right lower extremity cellulitis. Of note he was admitted from 07/17/23 to 07/20/23 for same ongoing problem of right lower
extremity cellulitis and nonhealing wound. Patient is known to our service as during prior admission he underwent diagnostic right lower extremity arteriogram with Intravascular lithotripsy to right common femoral, external iliac, and common iliac
artery and iliac bifurcation stenosis with balloon angioplasty and stenting of right external iliac artery stenosis and balloon angioplasty and stenting of right distal common iliac artery and iliac bifurcation stenosis. He is currently arousable
but lethargic, he does note continued rest pain at right foot/leg.
Past Medical History
Past Medical History: Arrhythmias (Atrial fibrillation), CAD, CHF, Psychiatric (Anxiety) and Other (peripheral arterial disease, myelodysplastic syndrome, polymyalgia rheumatica, hyperlipidemia, diverticulosis, gallstones, enlarged prostate, gout,
right carotid stenosis)
Past Surgical History: Appendectomy, Cardiac (CABG x4 left GSV and radial artery ), Orthopedic (left hand 2nd digit amputation) and Other (RLE endo procedure in [address] Callahan (right common iliac artery stent 9x37 mm & external iliac stent 8x38
mm icast covered stent), BL femoral endarterectomy by Dr. Callahan)
Social History
Tobacco: Former Smoker (Quit 1982)
Allergies / Home Medications
Allergy/AdvReac Type Severity Reaction Status Date / Time
Penicillins Allergy Hives Verified 09/27/23 08:46
�Medication �Instructions �Recorded �Confirmed �Type
apixaban 5 mg tablet (Eliquis) 5 mg PO BID Blood Clot 11/28/22 09/27/23 History
Prevention/Tx
fenofibrate 160 mg tablet 160 mg PO HS High Cholesterol 11/28/22 09/27/23 History
rosuvastatin 40 mg tablet 40 mg PO HS High Cholesterol 11/28/22 09/27/23 History
sacubitril 24 mg-valsartan 26 mg 1 tab PO BID Heart Failure 07/17/23 09/27/23 History
tablet (Entresto)
carvedilol 3.125 mg tablet 3.125 mg PO BID Heart Failure #60 07/20/23 09/27/23 Rx
tabs
empagliflozin 10 mg tablet 10 mg PO DAILY Heart Failure #0 07/20/23 09/27/23 Rx
(Jardiance) tabs
alprazolam 0.25 mg tablet 0.25 mg PO DAILYPRN PRN anxiety 09/21/23 09/27/23 History
furosemide 20 mg tablet 20 mg PO DAILY 09/21/23 09/27/23 History
prednisone 10 mg tablet 15 mg PO DAILY 09/21/23 09/27/23 History
sodium hypochlorite 0.125 % 1 applic topical DAILY apply to 09/21/23 09/27/23 History
solution (Dakin's Solution) right foot
tramadol 50 mg tablet 25 mg PO BID@0200,2000 09/21/23 09/27/23 History
tramadol 50 mg tablet 25 mg PO DAILYPRN PRN moderate 09/21/23 09/27/23 History
pains
acetaminophen 650 mg 1,300 mg PO [id number] PRN mild pain 09/27/23 09/27/23 History
tablet,extended release
docusate sodium 100 mg capsule 100 mg PO DAILYPRN PRN constipation 09/27/23 09/27/23 History
(Colace)
gabapentin 300 mg capsule 300 mg PO BID 09/27/23 09/27/23 History
Review of Systems
-
History Source: Patient
Constitutional: Reports Chills
EENT: Reports No Symptoms
Respiratory: Reports No Symptoms
Cardiac: Reports No Symptoms
Vascular: Reports Leg Pain / Claudication and Other (Right foot rest pain)
Abdomen/GI: Reports No Symptoms
: Reports No Symptoms
Musculoskeletal: Reports Edema and Other (Right lower extremity pain)
Skin: Reports Other (Ongoing chronic nonhealing right medial calf and heel wound)
Neurological: Reports Other (Lethargic)
Physical Exam
Vital Signs
Temp Pulse Resp BP Pulse Ox
98.2 F 111 24 95/69 97
09/27/23 08:45 09/27/23 11:45 09/27/23 11:45 09/27/23 11:30 09/27/23 11:45
Lab Results
09/27/23 10:21
09/27/23 10:21
Physical Exam
General: Comfortable
HEENT: Normocephalic, Anicteric and Atraumatic
Respiratory: Non Labored Respirations
Cardiac: Negative JVD
GI: Soft, Non Tender and Non Distended
Musculoskeletal: Edema (+1 right lower extremity edema)
Skin: Other (Ongoing chronic right calf medial and heel wound)
Neuro: Awake
Pulses: Left Dorsalis Pedis: Doppler (Nonpalpable) and Bilateral Posterior Tibial: Doppler (Nonpalpable)
Assessment / Plan
-
Assessment: 78-year-old male with severe peripheral arterial occlusive disease along with multiple medical comorbidities and no options for revascularization.
Plan:
Recommend [id number] amputation as patient continues with severe ischemic rest pain and ischemic right distal calf and heel wounds
Will plan for [id number] amputation, can proceed with the OR tomorrow if medically optimized
Dr. Zelaya reviewed plan with daughter Ana via phone
--- NOTE | 2023-09-27 13:10 | HPS.HSE ---
Family Physician
-
Family Physician: Olman Fritz
Chief Complaint
-
Confusion and Chills
History of Present Illness
Patient is a 78 y/o male past medical history of ASCVD, CHF, A-Fib, and non-healing wound RLE who presents with confusion and chills. At this time patient is unable to provide any additional history and no family is present at the bedside. Patient
was brought it in by family due to increasing confusion. Patient has been complaining of chills and increased pain in his right leg. There are no reports of fevers.
Medical History
Past Medical History
Past Medical History: Reports Other
Additional Past Medical History:
Coronary Artery Disease
Peripheral Artery Disease
Chronic HFrEF
Permanent Atrial Fibrillation
Essential Hypertension
Hyperlipidemia
Myelodysplastic Syndrome
Polymyalgia Rheumatica
Past Surgical History: Reports Other
Additional Past Surgical History:
CABG
RLE Stents (External Iliac, Distal Common Iliac, Iliac Bifurcation)
Appendectomy
Left Index Finger Amputation
Social History
Tobacco: Former Smoker
Alcohol: None
Drug: None
Personal:
Living: With Family
Employment: Retired
Family History
Family History: Not pertinent
Allergies / Home Medications
Allergies reflects when Allergies were last updated in [facility].
Home Medications with original date entered in [facility]
Allergy/Medication List:
Allergies
Allergy/AdvReac Type Severity Reaction Status Date / Time
Penicillins Allergy Hives Verified 09/27/23 08:46
Home Medications
apixaban 5 mg tablet (Eliquis) 5 mg PO BID Blood Clot Prevention/Tx 11/28/22
fenofibrate 160 mg tablet 160 mg PO HS High Cholesterol 11/28/22
rosuvastatin 40 mg tablet 40 mg PO HS High Cholesterol 11/28/22
sacubitril 24 mg-valsartan 26 mg tablet (Entresto) 1 tab PO BID Heart Failure 07/17/23
carvedilol 3.125 mg tablet 3.125 mg PO BID Heart Failure #60 tabs 07/20/23
empagliflozin 10 mg tablet (Jardiance) 10 mg PO DAILY Heart Failure #0 tabs 07/20/23
alprazolam 0.25 mg tablet 0.25 mg PO DAILYPRN PRN anxiety 09/21/23
furosemide 20 mg tablet 20 mg PO DAILY 09/21/23
prednisone 10 mg tablet 15 mg PO DAILY 09/21/23
sodium hypochlorite 0.125 % solution (Dakin's Solution) 1 applic topical DAILY apply to right foot 09/21/23
tramadol 50 mg tablet 25 mg PO BID@0200,2000 09/21/23
tramadol 50 mg tablet 25 mg PO DAILYPRN PRN moderate pains 09/21/23
acetaminophen 650 mg tablet,extended release 1,300 mg PO [id number] PRN mild pain 09/27/23
docusate sodium 100 mg capsule (Colace) 100 mg PO DAILYPRN PRN constipation 09/27/23
gabapentin 300 mg capsule 300 mg PO BID 09/27/23
Review of Systems
-
Unable to obtain full review of systems at this time due to: Other (Confusion)
Physical Exam
Vital Signs
Vital Signs
Temp Pulse Resp BP Pulse Ox
98.2 F 111 24 95/69 97
09/27/23 08:45 09/27/23 11:45 09/27/23 11:45 09/27/23 11:30 09/27/23 11:45
Physical Exam
General: Well Developed, Well Nourished and Other (Opens eyes to name)
HEENT: Anicteric and Moist mucous membranes
Respiratory: Clear and Non Labored Respirations
Cardiac: S1/S2, Irregular Rhythm and Tachycardia
GI: Soft, Non Tender and Non Distended
Rectal: Deferred by Provider
Musculoskeletal: No Clubbing, No Cyanosis and Other (+2 pitting edema RLE, +1 pitting edema LLE)
Skin: Warm, Dry and Ulcers (Wound RLE with slough, no surrounding area of erythema )
Neuro: Other (Arouses to name, but quickly falls back to sleep; Follows some commands)
Laboratory Results
-
09/27/23 10:21
09/27/23 10:21
Laboratory Results
Lactic Acid 2.0 mmol/L (0.7-2.0) 09/27/23 10:21
Total Bilirubin 1.2 mg/dl (0.2-1.3) 09/27/23 10:21
AST 31 U/L (17-59) 09/27/23 10:21
ALT 44 U/L (0-50) 09/27/23 10:21
Alkaline Phosphatase 71 U/L (38-126) 09/27/23 10:21
Data Reviewed
-
Lab Data: Labs Reviewed by me
Old Records: Reviewed
Impression/Plan
-
Sepsis possibly secondary to Non-Healing RLE Wound
-Consult Vascular Surgery and Wound Care
-Consult Infectious Disease
-Check COVID, Influenza, CXR and Urinalysis
-Continue Vancomycin and Cefepime
-Await blood cultures
Atrial Fibrillation with Rapid Ventricular Response in setting of Sepsis
-Continue Cardizem drip
-Hold Eliquis pending Vascular Eval - Start heparin drip
Chronic HFrEF
-Hold Lasix, Jardiance and Entresto
-Monitor Is&Os and Daily Weights
Hyperlipidemia
-Continue fenofibrate
Myelodysplastic Syndrome
-Monitor counts closely
Polymyalgia Rheumatica
-Continue Prednisone
Coronary Artery Disease s/p CABG
Peripheral Arterty Disease s/p RLE Stents
DVT proph: Heparin drip until able to resume Eliquis
Code Status: Full Code
--- NOTE | 2023-09-27 13:27 | W.PN.UPDATE ---
Update Note
Progress Note Update
This patient was seen and examined with ROXY Mcclellan and ROXY Barajas in the emergency department. I agree with the history and physical exam as well as the assessment and plan. I have the following additions:
Well-known to me
Severe peripheral arterial occlusive disease along with multiple medical comorbidities
No options for revascularization
Returns to the ED with mental status changes, pain
Severe ischemic rest pain
Ischemic right distal calf and heel wounds
Plan will be for amputation above the knee
Discussed with patient.
Discussed with daughter Ana via telephone
Admit to medicine
Hold anticoagulation
IV ABX
Rate control
Attempt to medically optimize for OR September 28, 2023
Signed:
Adam Zelaya III, MD
[facility] Vascular Surgery
[phone] (syjb)
--- NOTE | 2023-09-27 15:00 | W.PN.UPDATE ---
Update Note
Progress Note Update
This note serves as conjunction to history and physical written by Milli Clements PA-C On 09/27/23
I saw and examined the patient.
The KILN OPERATOR HELPER or PA's note was reviewed and I agree with the note.
Comment:
78-year-old male with past medical history of ASCVD, CHF, A-Fib, and non-healing wound RLE who presents with confusion and chills. Patient is poor historian, alert and oriented x 1-2. Brought in by family for increasing confusion. Blood pressure
is 90/75 although EF is noted to be 30 to 35%, respiratory rate 23, pulse 110 and in A-fib. Labs noted to be having hyponatremia at 133. Still pending infectious workup. Remained afebrile. Chest x-ray with no obvious acute findings. Patient
does have severe peripheral arterial occlusive disease with Wound RLE with slough, no surrounding area of erythema - non healing.
Plan�unclear source for infection. Follow-up full infectious workup, although this possibly secondary to the right lower extremity nonhealing ulcer. Plan for amputation as per vascular. Infectious disease consulted. Continue IV antibiotics.
Hold anticoagulation. trial LR bolus to assess if will improve heart rate. Hold Lasix, Jardiance, Entresto for lower blood pressures. Can continue Coreg for heart rate control. Can cont cardizem ggt for now and can trial weaning off. Continue
vancomycin, cefepime
--- NOTE | 2023-09-27 15:22 | CON.ID ---
Consultation
-
Date/Time Consultation Requested: 09/27/23 13:10
Date/Time Consultation Performed: 09/27/23 5:22
Requesting Provider: Tyree
Performing Provider: Dr Avila
Reason for Consultation: RLE wound infection, on immunosuppression
Chief Complaint / Past History
Chief Complaint
Confusion and Chills
History of Present Illness
Mr Carson is a 78 year old male with history of MDS, ASCVD, CHF, A-Fib, and non-healing wound RLE who presents with increasing right lower extremity pain, chills and confusion; history limited by the condition of the patient - patient confused. Has
history of PMR for which he is on: prednisone 15 mg pO qday.
Patients family report that his leg has been stably red and painful for the last month and that he is planned for amputation with vascular surgery tomorrow.
Since arrival here he has been afebrile, bp now 80/50, normally he is leukopenia but today wbc is normal, hgb 10, plt 127, L shift is noted, eos are not currently present, cr 0.9, t bili 1.2, ast 31, alt 44, alk phos 71, ua pending, CT head: no
acute change, CXR: clear lungs, blood cultures x2 are in progress, two months ago L leg with moderate e faecalis and many pseudomonas - both sensitive to quinolones, has been given vancomycin
Past History
Additional Past Medical History:
Coronary Artery Disease
Peripheral Artery Disease
Chronic HFrEF
Permanent Atrial Fibrillation
Essential Hypertension
Hyperlipidemia
Myelodysplastic Syndrome
Polymyalgia Rheumatica
Additional Past Surgical History:
CABG
RLE Stents (External Iliac, Distal Common Iliac, Iliac Bifurcation)
Appendectomy
Left Index Finger Amputation
Allergy History:
Penicillins Allergy (Verified 09/27/23 08:46)
Hives
Medications Reviewed: Yes
Social History
Tobacco: Former Smoker
Alcohol: None
Drug: None
Family History
Family History: Not Pertinent
Review of Systems
Review of Systems
General: Chills; Negative Fever
All systems: All other systems were reviewed and were negative
Vital Signs
Temp Pulse Resp BP Pulse Ox
98.2 F 107 22 80/52 94
09/27/23 08:45 09/27/23 15:01 09/27/23 15:01 09/27/23 15:01 09/27/23 15:01
Physical Exam
Physical Exam
Constitutional: No Acute Distress and Chronically Ill
Cardiovascular: Regular Rate and S1/S2; Negative Murmur or Rub
Pulmonary: Clear and Symmetric; Negative Wheezes, Rales or Rhonchi
Gastrointestinal: Soft, Non Tender, Non Distended and Normal Bowel Sounds
Extremities: Other (right lower extremity red, tender, wound on the mid calf - slough in the base, no probe to bone, no odor, minimal serous drainage, eschar on the heel)
Skin: Warm and Dry; Negative Rash or Jaundice
Neurological: Awake; Negative Oriented
Lab / Diagnostic Study Results
09/27/23 10:21
09/27/23 10:21
Abs Immat Gran (auto) 0.5 10^3/uL (0-0.05) H 09/27/23 10:21
Absolute Neuts (auto) 6.3 10^3/uL (1.4-6.5) 09/27/23 10:21
Absolute Lymphs (auto) 0.6 10^3/uL (1.2-3.4) L 09/27/23 10:21
Absolute Monos (auto) 0.1 10^3/uL (0.1-0.6) 09/27/23 10:21
Absolute Basos (auto) 0.0 10^3/uL (0-0.2) 09/27/23 10:21
Immature Gran % 6.6 % (0-0.5) H 09/27/23 10:21
Neutrophils % 83.6 % (42.2-75.2) H 09/27/23 10:21
Lymphocytes % 7.9 % (20.5-51.1) L 09/27/23 10:21
Monocytes % 1.8 % (1.7-9.3) 09/27/23 10:21
Eosinophils % 0.0 % (0-6) 09/27/23 10:21
Basophils % 0.1 % (0-2) 09/27/23 10:21
Lactic Acid Cancelled 09/27/23 13:30
Microbiology Results
Micro:
09/27/23 10:21 Blood Culture - Pending
Blood/Venous
09/27/23 10:48 Blood Culture - Pending
Blood/Venous
Assessment / Plan
Claudication, severe PAD
Chronic lower extremity wounds
Immunosuppression - on chronic steroids
- erythema could be due to PAD or cellulitis
- agree with amputation
- has had doses of vancomycin; and getting vancomycin perioperatively
- added cefazolin/ciprofloxacin x24 hours
- follow clinincally
- follow up ua which is pending
- covid ag pending
[2023-09-27] MEDS: ULTRAM 25 MG PO ×2 (15:24→21:46)
[2023-09-27 15:48] LABS: Urine Albumin Negative (Neg - Trace); Urine Bilirubin Negative (Negative); Urine Character Clear (Clear); Urine Color Yellow; Urine Glucose 3+ (Negative); Urine Ketone Trace (Negative); Urine Leukocyte Negative (Negative); Urine Nitrite Negative (Negative); Urine Occult Blood 1+ (Negative); Urine Urobilinogen Negative (Neg - 1+)
[2023-09-27 16:01] LABS: Urine Red Blood Cell 0-2 /HPF (0-2); Urine White Cell 0-2 /HPF (0-5)
[2023-09-27 16:03] LABS: APTT 37.6 Sec (23.4-35.0)
[2023-09-27 16:13] LABS: Troponin I 0.442 ng/ml
[2023-09-27 16:22] LABS: COVID-19 Antigen Negative (Negative)
[2023-09-27] MEDS: ANCEF 10 IV (18:10)
[2023-09-27] MEDS: CIPRO 500 MG PO (20:17)
[2023-09-27] MEDS: TYLENOL 650 MG PO (20:18)
[2023-09-27] MEDS: COREG PO (20:22)
[2023-09-27] MEDS: COREG 3.125 MG PO (21:46)
[2023-09-27] MEDS: TRICOR 145 MG PO (21:47)
[2023-09-27] MEDS: CRESTOR 40 MG PO (21:47)
[2023-09-27 21:58] LABS: Troponin I 0.324 ng/ml
[2023-09-27] MEDS: LOPRESSOR 5 MG IV (22:55)
[2023-09-28] VITALS (48 sets, daily range): BP systolic 92–130; BP diastolic 56–108; BMI 25.3
--- NOTE | 2023-09-28 01:05 | PTCARENOTE ---
Addendum entered by Rosetta Diaz RN 09/28/23 06:05:
Cooling blanket turned back on for temp of 102.5
Addendum entered by Rosetta Diaz RN 09/28/23 03:05:
Pt reaching goal temp, cooling blanket turned off. Pt appears comfortable, respiration even and unlabored.
Original Note:
Pt having pain, Tylenol and Ultram given when ordered (see MAR). Pt HR in the 130's-150's, Pt shivering, Temp taken 102.8. Night REGULATORY AFFAIRS DIRECTOR made aware, Lopressor and cooling blanket ordered. Rectal temp showing 104.1. Pt having complaints of pain 03/30,
night REGULATORY AFFAIRS DIRECTOR order one time morphine ordered with Pt acceptable results. Assessment care and vitals as charted.
[2023-09-28] MEDS: ANCEF 10 IV ×3 (02:09→21:15)
[2023-09-28] MEDS: PERIDEX 0.12% ORAL RINSE 15 ML PO (05:29)
[2023-09-28] MEDS: VANCOCIN 300 ML IV (05:29)
[2023-09-28] MEDS: BACTROBAN 2% OINTMENT 1 APPLIC NASAL (05:29)
[2023-09-28] MEDS: VANCOCIN 300 MG IV (05:29)
[2023-09-28] MEDS: TYLENOL 650 MG PO (05:35)
[2023-09-28 06:02] LABS: Hematocrit 28.3 % (39.0-52.0); Hemoglobin 9.6 g/dL (13.0-18.0); Mean Corp Hgb Conc. 33.9 g/dL (33.0-37.0); Platelet Count 84 10^3/uL (130-400); Red Blood Cell Count 2.67 10^6/uL (4.70-6.10); Red Cell Dist. Width 15.6 % (11.5-14.5); White Blood Cell Count 5.8 10^3/uL (4.8-10.8)
[2023-09-28 06:17] LABS: Blood Urea Nitrogen 29 mg/dl (9-20); Carbon Dioxide 20 mmol/L (22-30); Chloride 103 mmol/L (98-107); Estimated Creatinine Clearance 74 ml/min; Glucose 84 mg/dl (70-99); Potassium 5.1 mmol/L (3.5-5.1); Sodium 134 mmol/L (135-145); eGFR > 60.00
[2023-09-28 06:31] LABS: Troponin I 0.787 ng/ml
--- NOTE | 2023-09-28 06:41 | PTCARENOTE ---
Pt morning labs came back with Troponin up at 0.787, night WELDER GAS made aware.
[2023-09-28] MEDS: CIPRO 500 MG PO (07:45)
[2023-09-28] MEDS: COREG 3.125 MG PO (07:46)
[2023-09-28] MEDS: DELTASONE 15 MG PO (07:46)
--- NOTE | 2023-09-28 08:25 | PHA.VAN.IN ---
Assessment
- Assessment
Renal Function: Appears similar to baseline (BUN slightly elevated)
Concomitant Antimicrobials: cefazolin, ciprofloxacin
Plan
- Plan
Initial / Loading Dose: 1500mg - 09/26 11:12 PLUS 1500mg 09/27 05:29
Maintenance Regimen: dosing by level - give 750mg x1 at 1800
Monitoring: random 09/28 06
Will start dose by level for now to ensure clearing appropriately
Pharmacokinetics Vancomycin I
- -
Patient Age: 78
Patient Sex: Male
Vancomycin Day #: 1
Indication: Skin And Soft Tissue
Requesting Provider: Oc Clements / Margarita
Pertinent Antimicrobial Allergies:
penicillins - hives, tolerates cefepime
Height / Weight:
Height 5 ft 8 in
Actual Weight 75.4 kg
Pertinent Past Medical History: MDS, PAD
- Vital Signs / Lab Results
Temp Pulse Resp BP Pulse Ox
100.9 F H 101 26 121/72 100
09/28/23 07:00 09/28/23 07:46 09/28/23 06:00 09/28/23 07:46 09/28/23 05:14
Lab Results - Hematology
09/27/23 09/28/23
10:21 05:54
WBC 7.6 5.8
Lab Results - Chemistry
09/27/23 09/28/23
10:21 05:54
BUN 25 H 29 H
Creatinine 0.9 0.8
Estimated Creat Clear 74
Albumin 4.0
09/27/23 09/27/23
10:21 13:30
Lactic Acid 2.0 Cancelled
Lab Results - Urine
09/27/23
15:26
Urine Nitrite (Reflex) Negative
Leukocyte Esterase Rfl Negative
Urine WBC (Reflex) 0-2
Microbiology Results
09/27/23 15:26 Influenza Types A & B (SUZANNA) - Final
Nasal Swab Negative for Influenza A & B, NAAT
Negative results must be combined with clinical observations
and patient history.
Nucleic Acid Amplification test (NAAT)performed on the
SHAPE platform.
--- NOTE | 2023-09-28 10:18 | W.PN.ID1 ---
Date of Service
Date of Service: September 28, 2023
Today's Communication
agree with amputation
continue antibiotics for today - anticipate stopping tomorrow
Assessment / Plan
Claudication, severe PAD
Chronic lower extremity wounds
Immunosuppression - on chronic steroids
- intermittent fevers by core T; note that a fever via core route is defined as over 101.0;
- no need for rectal T or cooling blanket - canelled - patient expressed appreciation at it was notably uncomfortable
- erythema fully resolved on my exam with leg in elevated position
- agree with amputation
- vancomycin was inadvertently given this AM rather than perioperatively - unlikely to have clinical consequences, will continue cefazolin today as perioperative antibiotics
- continue cefazolin/ciprofloxacin - continue antibiotics for today - anticipate stopping tomorrow
- follow clinically
- ua was negative
- covid ag negative
Chief Complaint
-: Other (cellulitis, wound infection)
Subjective / Review of Systems
intermittent fevers by core T - overall improved from Tmax of 104 to spikes to 102.9 and now euthermic
bp stable
hr normal
without leukocytosis (note patient is typically leukopenic)
declining plt today
erythema fully resolved on my exam with leg in elevated position
vancomycin was inadvertently given this AM rather than perioperatively - unlikely to have clinical consequences, will continue cefazolin today as perioperative antibiotics
Vital Signs / Physical Exam
Vital Signs
Vital Signs
Temp Pulse Resp BP Pulse Ox
98.8 F 88 15 105/66 100
09/28/23 08:44 09/28/23 09:00 09/28/23 09:00 09/28/23 09:00 09/28/23 09:45
Physical Exam
Constitutional: No Acute Distress
Cardiovascular: Regular Rate and S1/S2; Negative Murmur or Rub
Pulmonary: Clear and Symmetric; Negative Wheezes or Rales
Gastrointestinal: Soft, Non Tender, Non Distended and Normal Bowel Sounds
Skin: Warm and Dry; Negative Rash or Jaundice
Wound: Other (tibial wound wound slough - no surrounding erythema or odor, minimal serosanguinous drainage; stable eschar over the heel; no erythema of the leg)
Objective Data
Lab Data
Lab Results
09/28/23 05:54
09/28/23 05:54
APTT 37.6 Sec (23.4-35.0) H 09/27/23 15:26
Estimated Creat Clear 74 ml/min 09/28/23 05:54
Lactic Acid Cancelled 09/27/23 13:30
Total Bilirubin 1.2 mg/dl (0.2-1.3) 09/27/23 10:21
AST 31 U/L (17-59) 09/27/23 10:21
ALT 44 U/L (0-50) 09/27/23 10:21
Alkaline Phosphatase 71 U/L (38-126) 09/27/23 10:21
Most recent labs reviewed.
Micro Results:
09/27/23 18:14 MRSA Screen - Pending
Nose
09/27/23 15:26 Influenza Types A & B (SUZANNA) - Final
Nasal Swab Negative for Influenza A & B, NAAT
Negative results must be combined with clinical observations
and patient history.
Nucleic Acid Amplification test (NAAT)performed on the
[employer] NOW platform.
09/27/23 10:21 Blood Culture - Pending
Blood/Venous
09/27/23 10:48 Blood Culture - Pending
Blood/Venous
Care Review
Plan reviewed with: Other Provider (clinical pharm Estela davis)
--- NOTE | 2023-09-28 12:21 | PTCARENOTE ---
Patient taken to laborer bituminous paving by OR nurse with chart.
--- NOTE | 2023-09-28 12:25 | CM ---
CM met with pt, spouse and two daughters bedside (Ana/shawanda and Rosita/JHONATAN)
Pt and spouse reside in a 2SH with 3 ZEE
Pt is typically ambulatory with use of a SPC or WW
Spouse is currently assisting with personal care tasks
Pt has 13 steps up to 2nd floor full bath- he is in process of installing a stair glide
Pt recently discharged from [facility] and current with [facility]
Pt has been confined to 1st floor since SNF discharge as he has been unable to negotiate steps
Has been sponge bathing at sink with assistance of spouse
Pt has an old transport chair of his mother's
He is not on home oxygen
PCP- Olman Fritz
Rx- [facility] [place]
Pt planned for OR today for R. AKA
Will benefit from post-op PT/OT
Anticipate need for rehab on dc- acute vs SNF discussed
Educated on different levels of care and role of [employer] in prior auth process
Pt has [employer] HMO plan with Rx coverage and Medicare A only
Discharge Disposition- acute vs SNF
--- NOTE | 2023-09-28 13:14 | PTCARENOTE ---
Pt seen in mobile home laborer holding bay #7 by Anesthesia.
--- NOTE | 2023-09-28 13:15 | W.PN.ID1 ---
Date of Service
Date of Service: September 28, 2023
Assessment / Plan
Claudication, severe PAD
Chronic lower extremity wounds
Immunosuppression - on chronic steroids
- intermittent fevers by core T; note that a fever via core route is defined as over 101.0;
- no need for rectal T or cooling blanket - canelled - patient expressed appreciation at it was notably uncomfortable
- erythema fully resolved on my exam with leg in elevated position
- agree with amputation
- vancomycin was inadvertently given this AM rather than perioperatively - unlikely to have clinical consequences, will continue cefazolin today as perioperative antibiotics
- continue cefazolin/ciprofloxacin - continue antibiotics for today - anticipate stopping tomorrow
- follow clinically
- ua was negative
- covid ag negative
Chief Complaint
-: Other (cellulitis, wound infection)
Subjective / Review of Systems
was placed on cooling blanket and continual core Ts by another service
- complains that the sensation was very uncomfortable overnight
- reassurance given - orders to dc cooling blanket given
erythema has resolved
tolerating current therapies
Vital Signs / Physical Exam
Vital Signs
Vital Signs
Temp Pulse Resp BP Pulse Ox
98.0 F 91 14 113/67 100
09/28/23 12:34 09/28/23 12:55 09/28/23 12:55 09/28/23 12:55 09/28/23 12:55
Objective Data
Lab Data
Lab Results
09/28/23 05:54
09/28/23 05:54
APTT 37.6 Sec (23.4-35.0) H 09/27/23 15:26
Estimated Creat Clear 74 ml/min 09/28/23 05:54
Lactic Acid Cancelled 09/27/23 13:30
Total Bilirubin 1.2 mg/dl (0.2-1.3) 09/27/23 10:21
AST 31 U/L (17-59) 09/27/23 10:21
ALT 44 U/L (0-50) 09/27/23 10:21
Alkaline Phosphatase 71 U/L (38-126) 09/27/23 10:21
Most recent labs reviewed.
Micro Results:
09/27/23 10:48 Blood Culture - Preliminary
Blood/Venous No Growth in 24 hours- Final report to follow
09/27/23 10:21 Blood Culture - Preliminary
Blood/Venous No Growth in 24 hours- Final report to follow
09/27/23 18:14 MRSA Screen - Pending
Nose
09/27/23 15:26 Influenza Types A & B (SUZANNA) - Final
Nasal Swab Negative for Influenza A & B, NAAT
Negative results must be combined with clinical observations
and patient history.
Nucleic Acid Amplification test (NAAT)performed on the
[employer] NOW platform.
--- NOTE | 2023-09-28 14:32 | OR.RPT ---
Operative Report
Operative Report
Date of Operation: 09/28/2023
Pre Op Diagnosis: Critical limb threatening ischemia, right lower extremity with nonhealing wounds and ischemic rest pain
Post Op Diagnosis: Critical limb threatening ischemia, right lower extremity with nonhealing wounds and ischemic rest pain
Procedure: RIGHT lower extremity amputation, [id number]
Surgeon: Adam Zelaya III, MD
Stone Layout Marker: Jatin Perez MD PhD, PGY1
Anesthesia: General
Complications: None
Estimated Blood Loss: 300 cc
History and Indications for Procedure: 78-year-old male with critical limb threatening ischemia of his right lower extremity. There were no meaningful options for revascularization. Amputation was recommended.
Procedure in Detail: Chucho Carson was correctly identified and placed supine on the operating table. After adequate induction of anesthesia the right leg was prepped and draped in the usual sterile fashion. A timeout procedure was performed with the
nursing and anesthesia staff confirming the patients identity as well as the nature and laterality of the procedure.
A fish-mouth incision was made approximately 1 hands-breadth proximal to the patella on the right thigh. Electrocautery was used to dissect through the subcutaneous tissue and muscle down to the femur. The femur was exposed circumferentially. The
periosteum was elevated circumferentially. The superficial femoral artery and femoral vein were exposed with sharp dissection. They were then ligated and divided between silk suture ligatures. The femur was divided with an oscillating saw and the
anterior surface was beveled. All edges were smoothed. The posterior dissection was completed with electrocautery and the leg was passed off to the back table to be sent to pathology. Hemostasis was then achieved in the wound bed with a combination
of electrocautery and interrupted silk suture ligatures.
Once hemostasis was achieved I then irrigated the wound with warm saline solution. The wound was then closed in multiple layers. Sterile dressings were applied.
The patient tolerated the procedure well and was taken to the PACU in stable condition.
Signed:
Adam Zelaya III, MD
[facility] Surgery
[phone] (awfk)
--- NOTE | 2023-09-28 14:33 | W.PN.HOSP.TC ---
Addendum entered and electronically signed by Dash Farias MD 09/28/23 14:55:
#Atrial fibrillation
� Has been off of Cardizem drip since yesterday evening
� Lopressor IV as needed
� Most likely resolved after improvement with antibiotics, sepsis treatment
Original Note:
Today's Communication/Plan
-
Holding anticoagulation
AKA today
Continue antibiotics
Follow cultures
Assessment / Plan
Assessment / Plan
Constitutional: No Acute Distress
Cardiovascular: Regular Rate and S1/S2; Negative Murmur or Rub
Pulmonary: Clear and Symmetric; Negative Wheezes or Rales
Gastrointestinal: Soft, Non Tender, Non Distended and Normal Bowel Sounds
Skin: Warm and Dry; Negative Rash or Jaundice
Wound: Other (tibial wound wound slough - no surrounding erythema or odor, minimal serosanguinous drainage; stable eschar over the heel; no erythema of the leg)
Sepsis possibly secondary to Non-Healing RLE Wound
-Consult Vascular Surgery and Wound Care
-Consult Infectious Disease
-Continue Vancomycin, Cefazolin, Cipro
-Await blood cultures
#PAD, Severe
-AKA today
-holding anticoag
Atrial Fibrillation with Rapid Ventricular Response in setting of Sepsis
-Continue Cardizem drip
-Hold Eliquis for surgery - restart once OK by vascular
#Elevated Troponin
-most likely due to sepsis
-ctm
-cards consulted as has had sig CAD hx
#Acute metabolic encephalopathy
� Secondary sepsis
� Improving with antibiotics, interventions
� Continue monitor
Chronic HFrEF
-Hold Lasix, Jardiance and Entresto
-Monitor Is&Os and Daily Weights
Hyperlipidemia
-Continue fenofibrate
Myelodysplastic Syndrome
-Monitor counts closely
Polymyalgia Rheumatica
-Continue Prednisone
Coronary Artery Disease s/p CABG - see plan above
Peripheral Artery Disease s/p RLE Stents - see plan above
DVT proph: SCDs
Code Status: Full Code
Total time spent on today's encounter was 50 minutes which included time spent in counseling the patient/family regarding diagnosis and treatment plan as listed above, goals of care, and symptom management. Case was discussed with nursing staff,
specialists, and care coordinators/case management. All labs and imaging personally reviewed by me. Remainder the time spent in detailed review of previous records, lab data, imaging, and other medical provider documentation.
Anticipated Discharge: > 48 hours
Subjective/Interval History
-
Date of Service: September 28, 2023
Mental status greatly improved today
Objective Data
-
Labs:
Laboratory Results
09/28/23
05:54
WBC 5.8
Hgb 9.6 L
Hct 28.3 L
Plt Count 84 L D
Sodium 134 L
Potassium 5.1
Chloride 103
Carbon Dioxide 20 L
BUN 29 H
Creatinine 0.8
Glucose 84
Calcium 9.0
Vital Signs:
Vital Signs
Temp Pulse Resp BP Pulse Ox
98.0 F 100 17 116/65 100
09/28/23 12:34 09/28/23 14:09 09/28/23 14:09 09/28/23 14:09 09/28/23 14:09
I&O
09/27/23 09/28/23 09/29/23
06:59 06:59 06:59
Intake Total 960 / 960
Output Total 1025 / 1025 200 / 200
Balance -65 / -65 -200 / -200
Review of Systems
-
History Source: Patient
All other systems: Not reviewed unless documented
Physical Exam
-
General: Well Developed
HEENT: Normocephalic
Respiratory: Clear to Auscultation
Cardiac: Regular Rhythm
GI: Soft and Other (Left groin site with some sutures)
Musculoskeletal: Edema, Right Lower Extrem (Wounds dressed swollen)
Psych: Calm
Data Reviewed
-
Total Time Spent with Patient (in minutes): 45
CT Scan: Image personally visualized and interpreted and Report Reviewed by me
Labs: Labs Reviewed by me
--- NOTE | 2023-09-28 14:34 | WOUNDNOTE ---
WOC RN NOTE: WOC RN consulted for RLE wound. Vascular is following and patient is planned for amputation today. Contacted hospitalist and WOC RN consult cancelled.
--- NOTE | 2023-09-28 16:44 | W.IMMPOSTOP ---
Surgical Immed Post Op Note
-
Primary Surgeon: Dr. Adam Zelaya MD
Assisting Surgeon: Dr. Jatin Perez MD, PhD
Pre-op Diagnosis: Severe occlusive disease of the right lower extremity not amenable to revascularization
Post-op Diagnosis: Severe occlusive disease of the right lower extremity not amenable to revascularization
Procedure Performed: Right lower extremity above knee amputation
Anesthesia Type: General
Specimen / Cultures: None
Estimated Blood Loss: 300cc
Complications: None
Operative Findings: Incision was made above the knee of the right lower extremity. Soft tissues were divided by electrocautery. Silk ligation and division of major structures was performed. The femur was divided and hemostasis was ensured. The
incision was closed with two layers of interrupted sutures, followed by mohit. Vaseline gauze, 4x4, and abd pads were placed. The stump was wrapped with a roll of gauze and MARCO wrap.
[2023-09-28] MEDS: DILAUDID 0.25 MG IV ×2 (17:00→17:29)
[2023-09-28 17:40] LABS: Hemoglobin 7.2 g/dL (13.0-18.0); Mean Corp Hgb Conc. 34.3 g/dL (33.0-37.0); Mean Corpuscular Hgb 35.5 pg (27.0-31.0); Mean Corpuscular Volume 103.4 fL (80.0-94.0); Mean Platelet Volume 9.2 fL (7.4-10.4); Platelet Count 81 10^3/uL (130-400); Red Blood Cell Count 2.03 10^6/uL (4.70-6.10); Red Cell Dist. Width 15.4 % (11.5-14.5); White Blood Cell Count 5.6 10^3/uL (4.8-10.8)
[2023-09-28] MEDS: LOPRESSOR 5 MG IV (18:06)
[2023-09-28 18:10] LABS: Troponin I 0.522 ng/ml
[2023-09-28] MEDS: DILAUDID PCA 30 IV (18:21)
[2023-09-28] MEDS: D5/0.45%NACL 1000 IV (18:30)
[2023-09-28 19:45] LABS: Glucose - Point of Care 113 mg/dl (70-99)
--- NOTE | 2023-09-28 19:55 | PTCARENOTE ---
Pt arrived from OR with soap slabber's at change of shift. EXHIBITION SPECIALIST already running and used. hand off assessment done. Work list interventions added by IMU RN. Pt arousable and education given on EXHIBITION SPECIALIST button.
[2023-09-28] MEDS: COREG PO ×2 (21:23→21:52)
[2023-09-28] MEDS: CIPRO PO ×2 (21:25→21:54)
[2023-09-28] MEDS: ANCEF IV (21:58)
[2023-09-28] MEDS: CRESTOR PO (23:36)
[2023-09-28] MEDS: TRICOR PO (23:37)
[2023-09-29] VITALS (44 sets, daily range): BP systolic 83–125; BP diastolic 48–85; BMI 24.4
[2023-09-29] MEDS: XANAX 0.25 MG PO ×2 (00:48→15:26)
[2023-09-29 02:56] LABS: INR 1.62; PT 19.3 Sec (11.4-14.6)
[2023-09-29 03:14] LABS: ALT (SGPT) 26 U/L (0-50); AST (SGOT) 43 U/L (17-59); Albumin 2.9 g/dl (3.5-5.0); Alkaline Phosphatase 39 U/L (38-126); Blood Urea Nitrogen 24 mg/dl (9-20); Calcium 8.4 mg/dl (8.4-10.2); Carbon Dioxide 17 mmol/L (22-30); Chloride 104 mmol/L (98-107); Estimated Creatinine Clearance 98 ml/min; Glucose 113 mg/dl (70-99); Potassium 4.8 mmol/L (3.5-5.1); Sodium 135 mmol/L (135-145); Total Bilirubin 0.8 mg/dl (0.2-1.3); Total Protein 5.9 g/dl (6.3-8.2); eGFR > 60.00
[2023-09-29 03:30] LABS: Hematocrit 21.2 % (39.0-52.0); Hemoglobin 7.2 g/dL (13.0-18.0); Mean Corpuscular Volume 102.9 fL (80.0-94.0); Platelet Count 82 10^3/uL (130-400); Red Blood Cell Count 2.06 10^6/uL (4.70-6.10); Red Cell Dist. Width 15.3 % (11.5-14.5); White Blood Cell Count 4.1 10^3/uL (4.8-10.8)
[2023-09-29] MEDS: ANCEF 10 IV (03:33)
[2023-09-29] MEDS: OFIRMEV 100 IV (04:13)
--- NOTE | 2023-09-29 06:45 | PTCARENOTE ---
Earlier in fast food shift supervisor Pt having small amount of blood on dressing and lower RR, argon tester vascular (Dr Reyez) made aware DISABILITY INSURANCE CLAIM EXAMINER button placed away at this time and will continue to assess pain. Short time later Pt found with new right AKA dressing off,
mohit intact, small amount of blood dripping, argon tester vascular made aware. New dressing applied. Redirection attempted. Night FUNCTIONAL DIRECTOR made aware of need for restraints, order placed. Later Pt showing signs of discomfort, Pt pushing DISABILITY INSURANCE CLAIM EXAMINER. Continued
agitation/discomfort, Voice Pathologist made aware, prn Xanax given. later Pt having low BP's night Voice Pathologist made aware. morning labs done for assessment. Conversation for pain management, acetaminophen given, with out relief of pain, FUNCTIONAL DIRECTOR made aware. Pt does not have
the cognitive ability to push DISABILITY INSURANCE CLAIM EXAMINER when in pain unless prompted multiple times, night Voice Pathologist made aware. DISABILITY INSURANCE CLAIM EXAMINER bolus by this RN per clinician stated in protocol. Pt appearing to get mild relief from DISABILITY INSURANCE CLAIM EXAMINER. Assessment care and vitals as documented.
--- NOTE | 2023-09-29 07:38 | CON.CAR ---
Addendum entered and electronically signed by Keegan Delcid MD 09/29/23 13:05:
I saw and examined the patient.
The Secondary Social Studies Teacher's note was reviewed and I agree with the note.
Comment:
GEN: No distress, awake, Ox1 in soft limb restraints
HEENT: supple, anicteric, mmm
LUNGS: CTA, no wheezes/rales
CV: irreg, S1/S2, 1/6 syst LSB, no gallop
ABD: soft, BS+, NT/ND
EXT: No edema
NEURO: confused
SKIN: No rash
Plan:
He has a complex past medical history including permanent atrial fibrillation, mild dysplastic syndrome, CABG, recent non-STEMI in 2012 treated medically, ischemic cardiomyopathy with EF 35%, severe peripheral vascular disease, and multiple recent
admissions for leg wounds and vascular complications. Patient subsequently had a right [id number]-[id number]-[id number] amputation 09/28/2023. We are asked to help manage and postoperatively.
His A-fib is relatively well rate controlled. Will continue IV Lopressor 5 mg IV every 6.
He does have an abnormal troponin of 0.78. We will continue to trend. He denies any chest pains EKG is overall stable with nonspecific ST-T wave abnormalities.
At this point I will continue conservative therapy for his postoperative care. We will trend his troponins and check an echocardiogram.
Hopefully resume his Coreg and Entresto with Jardiance over the next 24 to 48 hours. His previous non-STEMI was also treated conservatively 1 year ago because of his mental status.
Continue Crestor and add ASA.
Original Note:
Consultation
Consultation Request
Date/Time Consultation Performed: 09/29/23
Requesting Provider: Dr. Farias
Performing Provider: Kenzie Tavarez PA-C for Dr. Delcid
Reason for Consultation: afib
Medical History
-
Chief Complaint: nonhealing wounds
History of Present Illness:
Patient is a 78-year-old male with past medical history of permanent afib on eliquis, MDS, CAD status post CABG in 2008 and more recently NSTEMI 11/2022. This was managed conservatively as patient was asymptomatic and and confused at that time. Trop
peaked at 1.55. He was diagnosed with ischemic cardiomyopathy at that time, EF was 25%. He was initiated on medications. He has been admitted multiple times with nonhealing lower extremity wounds 06/2023, 07/2023, and 2 ER visits 08/2023 for leg
pain. He was for LE angiogram 08/13/23 however had hypotension preop and procedure was cancelled and cardiology consulted. During admission, had elevated troponin again, peak 0.9 and trended down. Repeat echo was with improvement in EF to 35 to 40%.
He presented back to ER 09/26 with chills, confusion, and RLE wound/pain. Trop peaked at 0.787. Vascular saw patient and recommended R AKA due to nonhealing wounds, which he underwent yesterday, 09/27. He was also noted to have elevated HRs in permanent
afib, which were improved with addition of IV cardizem gtt. Cardiology consulted for evaluation, attempted to see patient multiple times yesterday however was with other providers or off the floor. He is presently confused, in soft wrist restraints.
PMH:
Nonhealing RLE wounds
admissions 06/2023, 07/2023
2 ER visits 08/2023
Chronic HFrEF
Ischemic cardiomyopathy
History of abnormal stress test
NSTEMI 11/2022, managed conservatively as was confused and without cardiac symptoms
History of permanent A-fib on chronic Eliquis
CABG 2009 [facility] (ORTA to LAD, radial graft to RPDA, SVG from LCx-OM2 to OM3)
Hypertension
Hypercholesterolemia
stage III renal insufficiency
MDS/Chronic Anemia s/p Procrit shots
Past Medical History
Past Medical History: Other (in HPI)
Social History
Tobacco: Former Smoker
Personal:
Employment: Retired
Allergies / Home Medications
Allergy/AdvReac Type Severity Reaction Status Date / Time
Penicillins Allergy Hives; Verified 09/28/23 08:26
tolerates
cefepime
�Medication �Instructions �Recorded �Confirmed �Type
apixaban 5 mg tablet (Eliquis) 5 mg PO BID Blood Clot 11/28/22 09/27/23 History
Prevention/Tx
fenofibrate 160 mg tablet 160 mg PO HS High Cholesterol 11/28/22 09/27/23 History
rosuvastatin 40 mg tablet 40 mg PO HS High Cholesterol 11/28/22 09/27/23 History
sacubitril 24 mg-valsartan 26 mg 1 tab PO BID Heart Failure 07/17/23 09/27/23 History
tablet (Entresto)
carvedilol 3.125 mg tablet 3.125 mg PO BID Heart Failure #60 07/20/23 09/27/23 Rx
tabs
empagliflozin 10 mg tablet 10 mg PO DAILY Heart Failure #0 07/20/23 09/27/23 Rx
(Jardiance) tabs
alprazolam 0.25 mg tablet 0.25 mg PO DAILYPRN PRN anxiety 09/21/23 09/27/23 History
furosemide 20 mg tablet 20 mg PO DAILY Fluid 09/21/23 09/27/23 History
Retention/Swelling
prednisone 10 mg tablet 15 mg PO DAILY INFLAMMATION 09/21/23 09/27/23 History
sodium hypochlorite 0.125 % 1 applic topical DAILY apply to 09/21/23 09/27/23 History
solution (Dakin's Solution) right foot
tramadol 50 mg tablet 25 mg PO BID@0200,2000 Pain 09/21/23 09/27/23 History
tramadol 50 mg tablet 25 mg PO DAILYPRN PRN moderate 09/21/23 09/27/23 History
pains
acetaminophen 650 mg 1,300 mg PO [id number] PRN mild pain 09/27/23 09/27/23 History
tablet,extended release
docusate sodium 100 mg capsule 100 mg PO DAILYPRN PRN constipation 09/27/23 09/27/23 History
(Colace)
gabapentin 300 mg capsule 300 mg PO BID Pain 09/27/23 09/27/23 History
Review of Systems
-
Unable to obtain full review of systems at this time due to: Other (patient confused)
Physical Exam
Vital Signs
Temp Pulse Resp BP Pulse Ox
97.9 F 106 27 98/70 100
09/28/23 23:30 09/29/23 06:00 09/29/23 06:00 09/29/23 06:00 09/29/23 06:00
Lab Results
09/29/23 02:59
09/29/23 02:31
Troponin I 0.522 ng/ml H* 09/28/23 17:34
Physical Exam
General: Other (confused. restless. wearing B/L UE soft wrist restraints )
HEENT: Normocephalic, Anicteric and Moist Mucous Membranes
Respiratory: Clear and Non Labored Respirations
Cardiac: S1/S2 and Irregular Rhythm
GI: Soft, Non Tender, Non Distended and Normal Bowel Sounds
Musculoskeletal: No Clubbing, No Cyanosis and No Edema (of LLE)
Skin: Warm and Dry
Neuro: Other (confused. oriented to self)
Impression / Plan
-
Primary Pattern Maker: Dr. Preston
Assessment:
Presentation with confusion, chills
Sepsis
Elevated troponin, suspected nonMI trop elevation
Nonhealing RLE wounds
admissions 06/2023, 07/2023
2 ER visits 08/2023
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
CAD
-History of abnormal stress test
-CABG 2008 [facility] (ORTA to LAD, radial graft to RPDA, SVG from LCx-OM2 to OM3)
-NSTEMI 11/2022, managed conservatively as was confused and without cardiac symptoms
Chronic HFrEF
Ischemic cardiomyopathy, EF 35-40% by echo 07/2023
Permanent A-fib on chronic Eliquis
Hypertension
Hypercholesterolemia
stage III renal insufficiency
MDS/Chronic Anemia s/p Procrit shots
ECHO 11/30/22: EF 25%, global hypokinesis with anterior, anteroseptal, apical akinesis, MAC, at least mild to moderate MR, underestimated due to MAC, AAC, peak/mean gradients 23/30 mmHg, at least mild , moderate to severe TR, PAP 44 mmHg
Echo Aug 13 2023: EF 35 to 40%, global hypokinesis, mild to moderate MR, mild aortic stenosis, peak/mean gradients 21/13 mmHg respectively, aortic valve area 1.3 cm2, moderate severe tricuspid regurgitation, pulmonary artery systolic pressure 45
mmHg. IVC is dilated and does not collapse. No evidence of vegetation. Compared to prior echo EF is improved.
Plan:
-Patient presented back to [facility] 09/27/2023 due to confusion, chills, and continued right lower extremity pain.
-He is being treated for sepsis per primary service and infectious disease
-He underwent right AKA on 09/28/2023 by vascular
-Postoperatively he is more confused than baseline per nursing. Discussed with vascular and hospitalist via [place] text 4/10 AM. May require further workup, however not with evidence of focal deficit on my exam. ? anesthesia related
-Heart rates appear overall improved in permanent atrial fibrillation. OP coreg on hold with current mental status. for now, will continue IV Lopressor
-Resume anticoagulation when okay per vascular in postoperative setting. Was on Eliquis 5 mg twice daily prior to admission
-Patient presently not good historian. Unclear if having chest discomfort. Will repeat EKG. Troponin peaked at 0.787, consistent with troponin values from prior admissions. [place] to be non[place] troponin elevation
-Last echo with improvement in EF to 35 to 40% compared to that from 11/2022. Will repeat echo to reassess EF
-As an outpatient is on regimen of Coreg, Jardiance, Entresto. Resume as able
-Discussed with nursing
Data Reviewed
-
EKG: Tracing Personally Visualized and interpreted
Medical Tests (Nuc Med, Echo etc): Report Reviewed by me
Labs: Labs Reviewed by me
Old Records: Reviewed
--- NOTE | 2023-09-29 08:11 | W.PN.VS ---
Addendum entered and electronically signed by Jhon Andrade MD 09/29/23 08:15:
Seen and examined with CRUDE TESTER. Agree with findings as noted below. Confusion/restlessness overnight noted. Right above-knee amputation dressing clean dry and intact. No evidence of bleeding or hematoma. Hemoglobin 7.2.
Plan/as discussed and noted below.
Original Note:
Today's Communication / Plan
-
Seen and discussed with Dr. Andrade
Assessment/Plan
-
POD 1 right AKA
Plan:
-Hemoglobin 7.2, 2 units packed red blood cells this a.m.
-Change TRANSPORTATION SECURITY OFFICER to scheduled oxy and as needed morphine, Tylenol when needed
-Keep Zelaya this a.m.
-Discussed with RN at bedside
Subjective Data
-
Date of Service: September 29, 2023
Patient seen at bedside this a.m. with Dr. Andrade. Patient somewhat confused this morning, in restraints. Patient removed dressing in the night, was redressed by CRUDE TESTER.
Objective Data
-
Vital Signs
Temp Pulse Resp BP Pulse Ox
97.9 F 106 25 98/70 100
09/28/23 23:30 09/29/23 06:00 09/29/23 07:00 09/29/23 06:00 09/29/23 07:00
Intake and Output
09/28/23 09/29/23 09/30/23
06:59 06:59 06:59
Intake Total 960 / 960 401.6 / 401.6
Output Total 1025 / 1025 1120 / 1120
Balance -65 / -65 -718.4 / -718.4
Intake:
Oral fluids 360 / 360
IV fluids (Total) 280 / 280 400 / 400
NSS 250 / 250
IV piggybacks 320 / 320 1.6 / 1.6
Output:
Urine, Zelaya 920 / 920
Urine, Voided 1025 / 1025 200 / 200
Lab Results
09/29/23 02:59
09/29/23 02:31
Calcium 8.4 mg/dl (8.4-10.2) 09/29/23 02:
Magnesium 2.0 mg/dl (1.6-2.3) 09/29/23:
Total Bilirubin 0.8 mg/dl (0.2-1.3) 09/29/23 02:
AST 43 U/L (17-59) 09/29/23 02:
ALT 26 U/L (0-50) 09/29/23 02:31
Alkaline Phosphatase 39 U/L (38-126) 09/29/23 02:31
Total Protein 5.9 g/dl (6.3-8.2) L 09/29/23 02:31
Albumin 2.9 g/dl (3.5-5.0) L 09/29/23 02:31
Physical Exam
-
Alert, awake, oriented to self
No tachypnea
Mild tachycardia 106
Abdomen soft
Right stump site dressing clean dry and intact
[2023-09-29] MEDS: ROXICODONE 5 MG PO ×3 (08:45→17:34)
[2023-09-29] MEDS: DELTASONE 15 MG PO (08:45)
[2023-09-29] MEDS: COREG PO (08:52)
--- NOTE | 2023-09-29 10:38 | W.PN.ID1 ---
Date of Service
Date of Service: September 29, 2023
Today's Communication
- no further antibiotics indicated at this time - stopped
- follow up with vascular surgery/PCP
Assessment / Plan
S/p R AKA for Limb threatening Ischemia
MDS - Immunosuppression
PMR
- blood cultures remain negative
- no further antibiotics indicated at this time - stopped
- follow up with vascular surgery/PCP
Chief Complaint
-: Other (cellulitis, wound infection)
Subjective / Review of Systems
no further fevers recorded
mildly hypotensive this am
mild leukopenia this am
cr delined post operatively
minimal troponin leak overnight
blood cultures remain negative
Vital Signs / Physical Exam
Vital Signs
Vital Signs
Temp Pulse Resp BP Pulse Ox
97.8 F 108 27 99/73 99
09/29/23 07:06 09/29/23 08:52 09/29/23 08:30 09/29/23 08:52 09/29/23 08:30
Physical Exam
Constitutional: No Acute Distress
Cardiovascular: Regular Rate and S1/S2; Negative Murmur or Rub
Pulmonary: Clear and Symmetric; Negative Wheezes or Rales
Gastrointestinal: Soft, Non Tender, Non Distended and Normal Bowel Sounds
Skin: Warm and Dry; Negative Rash or Jaundice
Wound: Other (right AKA; dressing with small amount of bright red blood)
Objective Data
Lab Data
Lab Results
09/29/23 02:59
09/29/23 02:31
PT 19.3 Sec (11.4-14.6) H 09/29/23 02:31
INR 1.62 09/29/23 02:31
APTT 30.0 Sec (23.4-35.0) 09/29/23 02:31
Estimated Creat Clear 98 ml/min 09/29/23 02:31
Lactic Acid Cancelled 09/27/23 13:30
Total Bilirubin 0.8 mg/dl (0.2-1.3) 09/29/23 02:31
AST 43 U/L (17-59) 09/29/23 02:31
ALT 26 U/L (0-50) 09/29/23 02:31
Alkaline Phosphatase 39 U/L (38-126) 09/29/23 02:31
Most recent labs reviewed.
Micro Results:
09/27/23 18:14 MRSA Screen - Final
Nose No Methicillin Resistant Staphylococcus aureus isolated.
09/27/23 10:48 Blood Culture - Preliminary
Blood/Venous No Growth in 24 hours- Final report to follow
09/27/23 10:21 Blood Culture - Preliminary
Blood/Venous No Growth in 24 hours- Final report to follow
09/27/23 15:26 Influenza Types A & B (SUZANNA) - Final
Nasal Swab Negative for Influenza A & B, NAAT
Negative results must be combined with clinical observations
and patient history.
Nucleic Acid Amplification test (NAAT)performed on the
[employer] platform.
Care Review
Plan reviewed with: Physician (Dr Jarrett bhakta)
--- NOTE | 2023-09-29 11:56 | PTCARENOTE ---
First blood transfusion started, no reactions noted. Pt's daughters are at the bedside, therefore attempting to remove restraints. Pt did eat breakfast. He occasionally complains of pain when moving his RLE. Dilaudid CHILD CARE LEAD TEACHER discontinued. Pain
medications administered per MAR. Assessment, care and VS as charted.
[2023-09-29] MEDS: LOPRESSOR 5 MG IV (12:45)
--- NOTE | 2023-09-29 14:05 | W.PN.HOSP.TC ---
Today's Communication/Plan
-
switch off autocad detailer; add on opiates prn
dc abx
pt/ot
resume coreg
Assessment / Plan
Assessment / Plan
Constitutional: No Acute Distress
Cardiovascular: Regular Rate and S1/S2; Negative Murmur or Rub
Pulmonary: Clear and Symmetric; Negative Wheezes or Rales
Gastrointestinal: Soft, Non Tender, Non Distended and Normal Bowel Sounds
Skin: Warm and Dry; Negative Rash or Jaundice
Wound: Other (tibial wound wound slough - no surrounding erythema or odor, minimal serosanguinous drainage; stable eschar over the heel; no erythema of the leg)
Sepsis possibly secondary to Non-Healing RLE Wound
-Consult Vascular Surgery and Wound Care
-Consult Infectious Disease
-s/p amputation - can dc abx
-blood cultures neg
#PAD, Severe
-AKA 09/27
-holding anticoag due to acute blood loss
#acute blood loss anemia
-2/2 to intervention
-s/p 2u prbc today
-ctm
-hold anticoag
Atrial Fibrillation with Rapid Ventricular Response in setting of Sepsis
-Continue Cardizem drip
-Hold Eliquis for surgery - restart once OK by vascular
#Elevated Troponin
-most likely due to sepsis
-ctm
-cards consulted as has had sig CAD hx
-ECHO f/u
-resume coreg
-add asa
#Acute metabolic encephalopathy
� Secondary to ACCOUNT OFFICER/opiates today
-improving off ACCOUNT OFFICER
-Continue monitor
Chronic HFrEF
-Hold Lasix, hold Jardiance and Entresto
-Monitor Is&Os and Daily Weights
Hyperlipidemia
-Continue fenofibrate
Myelodysplastic Syndrome
-Monitor counts closely
Polymyalgia Rheumatica
-Continue Prednisone
Coronary Artery Disease s/p CABG - see plan above
Peripheral Artery Disease s/p RLE Stents - see plan above
DVT proph: SCDs
Code Status: Full Code
Total time spent on today's encounter was 55 minutes which included time spent in counseling the patient/family regarding diagnosis and treatment plan as listed above, goals of care, and symptom management. Case was discussed with nursing staff,
specialists, and care coordinators/case management. All labs and imaging personally reviewed by me. Remainder the time spent in detailed review of previous records, lab data, imaging, and other medical provider documentation.
Anticipated Discharge: 24 - 48 hours
Subjective/Interval History
-
Date of Service: September 29, 2023
altered this am on autocad detailer, improved off ggt
Objective Data
-
Labs:
Laboratory Results
09/29/23 09/29/23
02:31 02:59
WBC Cancelled 4.1 L
Hgb Cancelled 7.2 L
Hct Cancelled 21.2 L
Plt Count Cancelled 82 L
PT 19.3 H
INR 1.62
APTT 30.0
Sodium 135
Potassium 4.8
Chloride 104
Carbon Dioxide 17 L
BUN 24 H
Creatinine 0.5 L
Glucose 113 H
Calcium 8.4
Total Bilirubin 0.8
AST 43
ALT 26
Alkaline Phosphatase 39
Vital Signs:
Vital Signs
Temp Pulse Resp BP Pulse Ox
97.5 F 93 11 109/62 98
09/29/23 13:59 09/29/23 13:59 09/29/23 13:59 09/29/23 13:59 09/29/23 13:59
I&O
09/28/23 09/29/23 09/30/23
06:59 06:59 06:59
Intake Total 960 / 960 402.6 / 402.6 250 / 250
Output Total 1025 / 1025 1120 / 1120
Balance -65 / -65 -717.4 / -717.4 250 / 250
Review of Systems
-
History Source: Patient
All other systems: Not reviewed unless documented
Data Reviewed
-
Total Time Spent with Patient (in minutes): 45
CT Scan: Image personally visualized and interpreted and Report Reviewed by me
Labs: Labs Reviewed by me
[2023-09-29] MEDS: MORPHINE SULFATE 2 MG IV ×2 (14:53→20:32)
--- NOTE | 2023-09-29 15:32 | CHAP ---
Mr. Carson's family requested a dessert cup machine feeder visit and Monsignor Seth provided Sacrament of the Sick and Holy Communion.
--- NOTE | 2023-09-29 16:59 | PTCARENOTE ---
Patient very restless throughout the day. Pt attempting to 'sit up' and 'get out of here' during shift. Pt's family at bedside able to keep patient distracted. Pt oriented to person only. He answers occasionally answers questions appropriately. Pt
able to voice he is in pain but unable to rate. Pt has been medicated for pain per AUG. Pt still very restless regardless of pain medication and states at times 'I need to get out.' PRN Xanax ordered by not able to be given yet per AUG even though
dose is DAILY. TT to about Xanax, which he advised was okay to give for today's dose. Pt now resting comfortably and sleeping but easily arousable.
--- NOTE | 2023-09-29 21:16 | W.PN.UPDATE ---
Addendum entered and electronically signed by ROXY Alonso 09/30/23 03:32:
great results with ativan. pt was calm and able to sleep.
033 pt restless, pulling at dressing. will repeat ativan iv
Original Note:
Update Note
Progress Note Update
pt becoming more restless and agitated since start of shirft
unable to state if he's in pain or not. Attempting to climb oob constantly (pt s/p Right BKA)
hospital deliur vs narcs vs anesthesia related still (confusion worse since surgery)
Needing restraints bUE and LLE
Longer qt on EKG so will try small dose iv ativan
[2023-09-29] MEDS: ATIVAN 0.25 MG IV (21:31)
[2023-09-29] MEDS: NSS (PRESERVATIVE FREE) 0.125 ML IV (21:32)
[2023-09-29] MEDS: COREG 3.125 MG PO (22:04)
--- NOTE | 2023-09-29 22:30 | PTCARENOTE ---
Pt had no complaints of pain at this time. Pt ileostomy passing audible gas sounds along with output. assessment care and vitals as charted.
[2023-09-29] MEDS: TRICOR PO (23:59)
[2023-09-29] MEDS: CRESTOR PO (23:59)
[2023-09-30] VITALS (15 sets, daily range): BP systolic 112–141; BP diastolic 57–100; BMI 24.1
[2023-09-30] MEDS: ROXICODONE PO ×2 (01:41→05:32)
[2023-09-30] MEDS: MORPHINE SULFATE 2 MG IV ×2 (03:03→09:33)
[2023-09-30] MEDS: NSS (PRESERVATIVE FREE) 0.125 ML IV (03:44)
[2023-09-30] MEDS: ATIVAN 0.25 MG IV (03:44)
[2023-09-30 04:17] LABS: Hematocrit 28.7 % (39.0-52.0); Mean Corp Hgb Conc. 34.8 g/dL (33.0-37.0); Mean Corpuscular Hgb 33.6 pg (27.0-31.0); Mean Corpuscular Volume 96.3 fL (80.0-94.0); Mean Platelet Volume 9.9 fL (7.4-10.4); Platelet Count 124 10^3/uL (130-400); Red Blood Cell Count 2.98 10^6/uL (4.70-6.10); Red Cell Dist. Width 19.3 % (11.5-14.5); White Blood Cell Count 4.4 10^3/uL (4.8-10.8)
--- NOTE | 2023-09-30 04:20 | PTCARENOTE ---
Addendum entered by Rosetta Diaz RN 09/30/23 04:26:
* beginning of shift
Original Note:
Assumed care of Pt from Day RN. In begging of shift Pt was agitated pulling cords off trying to get out of bed, HR in the 130-140, unable to reorient Pt. Pt unable to rate pain, Night LOAN ASSISTANT made aware. order for restraints and one time Ativan. Family
receptive to education given about restraints. Pt had great results with Ativan. Pt appeared to be resting comfortable respirations even and unlabored, Pt responsive to voice. treater helper Pt began to become agitated pulling new AKA dressing off,
Hr in 140's. Redirection attempted with out success. Night Automation Qa Analyst made aware, order for Ativan placed. Reassessment Pt appears to be resting comfortably again, vitals stable, respirations even and unlabored.
[2023-09-30 04:43] LABS: ALT (SGPT) 29 U/L (0-50); AST (SGOT) 45 U/L (17-59); Albumin 3.1 g/dl (3.5-5.0); Alkaline Phosphatase 54 U/L (38-126); Blood Urea Nitrogen 25 mg/dl (9-20); Calcium 8.9 mg/dl (8.4-10.2); Carbon Dioxide 21 mmol/L (22-30); Chloride 109 mmol/L (98-107); Estimated Creatinine Clearance 84 ml/min; Glucose 98 mg/dl (70-99); Potassium 4.9 mmol/L (3.5-5.1); Sodium 137 mmol/L (135-145); Total Bilirubin 0.8 mg/dl (0.2-1.3); eGFR > 60.00
[2023-09-30] MEDS: COREG 3.125 MG PO (09:23)
[2023-09-30] MEDS: DELTASONE 15 MG PO (09:23)
[2023-09-30] MEDS: LOPRESSOR 5 MG IV ×3 (09:34→23:38)
--- NOTE | 2023-09-30 10:01 | PN.CDI ---
CDI
- -
CDI:
Physician Documentation Request
Admit Date: 09/27/23 13:19
Dear Doctor Jarrett,
Patient admitted with sepsis possibly secondary to non-healing RLE wound
Hospitalist progress note states 'Elevated troponin, most likely due to sepsis'
Could you please further clarify regarding the elevated troponin:
Non Ischemic myocardial injury
abnormal lab value clinically insignificant
Other
Use of terms such as suspected, likely, concern for, or probable (associated with a specific diagnosis that is being evaluated, monitored, or treated as if it exists) are acceptable and can be coded in the inpatient setting, when documented at the
time of discharge.
Thank you,
Caitlyn Esquivel RN, BSN
CDI Specialist
tiger text
Please use your independent medical judgment in providing your response.
--- NOTE | 2023-09-30 10:24 | W.PN.ID1 ---
Date of Service
Date of Service: September 30, 2023
Today's Communication
follow up with pcp
Assessment / Plan
S/p R AKA for Limb threatening Ischemia
MDS - Immunosuppression
PMR
- blood cultures remain negative
- no further antibiotics indicated at this time - stopped
- follow up with vascular surgery/PCP
Chief Complaint
-: Other (cellulitis, wound infection)
Subjective / Review of Systems
afebrile
bp stable
pancytopenia improving
blood cultures no growth
delirious - redirectable
Vital Signs / Physical Exam
Vital Signs
Vital Signs
Temp Pulse Resp BP Pulse Ox
97.8 F 134 28 135/78 100
09/30/23 07:00 09/30/23 09:34 09/30/23 08:00 09/30/23 09:34 09/30/23 08:00
Physical Exam
Constitutional: No Acute Distress
Cardiovascular: Regular Rate and S1/S2; Negative Murmur or Rub
Pulmonary: Clear and Symmetric; Negative Wheezes or Rales
Gastrointestinal: Soft, Non Tender, Non Distended and Normal Bowel Sounds
Skin: Warm and Dry; Negative Rash or Jaundice
Wound: Other (partial surgical site visible where dressing slipped down - clean no erythema, warmth tenderness or draingae)
Objective Data
Lab Data
Lab Results
09/30/23 03:53
09/30/23 03:53
PT 19.3 Sec (11.4-14.6) H 09/29/23 02:31
INR 1.62 09/29/23 02:31
APTT 30.0 Sec (23.4-35.0) 09/29/23 02:31
Estimated Creat Clear 84 ml/min 09/30/23 03:53
Lactic Acid Cancelled 09/27/23 13:30
Total Bilirubin 0.8 mg/dl (0.2-1.3) 09/30/23 03:53
AST 45 U/L (17-59) 09/30/23 03:53
ALT 29 U/L (0-50) 09/30/23 03:53
Alkaline Phosphatase 54 U/L (38-126) 09/30/23 03:53
Most recent labs reviewed.
Micro Results:
09/27/23 10:48 Blood Culture - Preliminary
Blood/Venous No Growth in 48 hours- Final report to follow
09/27/23 10:21 Blood Culture - Preliminary
Blood/Venous No Growth in 48 hours- Final report to follow
09/27/23 18:14 MRSA Screen - Final
Nose No Methicillin Resistant Staphylococcus aureus isolated.
09/27/23 15:26 Influenza Types A & B (SUZANNA) - Final
Nasal Swab Negative for Influenza A & B, NAAT
Negative results must be combined with clinical observations
and patient history.
Nucleic Acid Amplification test (NAAT)performed on the
[employer] platform.
--- NOTE | 2023-09-30 11:37 | W.PN.CARDCBS ---
Addendum entered and electronically signed by Keegan Delcid MD 09/30/23 13:33:
I saw and examined the patient.
The [employer] Turret Lathe Operator's note was reviewed and I agree with the note.
Comment:
GEN: No distress, awake
HEENT: supple, anicteric, mmm
LUNGS: CTA, no wheezes/rales
CV: irreg, S1/S2, 06/26 syst LSB, no gallop
ABD: soft, BS+, NT/ND
EXT: + R AKA
NEURO: Gross non-focal
SKIN: No rash
Plan:
Had more confusion overnight but seems more stable this morning. Remains in A-fib with elevated rates. Increase Coreg to 6.25 mg twice daily.
Hopefully resume Eliquis over the next 24 to 48 hours.
Eventually restart Entresto and Jardiance. Blood pressure seems better.
Abnormal troponin is likely nonischemic myocardial injury.
Original Note:
Today's Communication / Plan
-
increase coreg
management of agitation
continue post op care
resume OAC when ok from surgical standpoint
Impression / Plan
-
Primary String Top Sealer: Dr. Preston
Assessment:
Presentation with confusion, chills
Sepsis
Elevated troponin, suspected nonMI trop elevation
Nonhealing RLE wounds
admissions 06/2023, 07/2023
2 ER visits 08/2023
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
CAD
-History of abnormal stress test
-CABG 2008 [facility] (ORTA to LAD, radial graft to RPDA, SVG from LCx-OM2 to OM3)
-NSTEMI 11/2022, managed conservatively as was confused and without cardiac symptoms
Chronic HFrEF
Ischemic cardiomyopathy, EF 35-40% by echo 07/2023
Permanent A-fib on chronic Eliquis
Hypertension
Hypercholesterolemia
stage III renal insufficiency
MDS/Chronic Anemia s/p Procrit shots
ECHO 11/30/22: EF 25%, global hypokinesis with anterior, anteroseptal, apical akinesis, MAC, at least mild to moderate MR, underestimated due to MAC, AAC, peak/mean gradients 23/30 mmHg, at least mild , moderate to severe TR, PAP 44 mmHg
Echo Aug 13 2023: EF 35 to 40%, global hypokinesis, mild to moderate MR, mild aortic stenosis, peak/mean gradients 21/13 mmHg respectively, aortic valve area 1.3 cm2, moderate severe tricuspid regurgitation, pulmonary artery systolic pressure 45
mmHg. IVC is dilated and does not collapse. No evidence of vegetation. Compared to prior echo EF is improved.
ECHO 09/29/23: EF 30 to 35%, moderate global hypokinesis, mildly dilated right ventricle with mild RV hypokinesis, moderate MR, mild , moderate to severe TR, PAP 40 to 45 mmHg
Plan:
-Patient presented back to [facility] [place] 09/27/2023 due to confusion, chills, and continued right lower extremity pain.
-He is being treated for sepsis per primary service and infectious disease
-He underwent right AKA on 09/28/2023 by vascular
-he remains confused. with soft wrist restraints in place
-HRs intermittently elevated to 130-140s, likely in part due to agitation. restlessness improved with ativan overnight, continue per primary service. will increase coreg dose to 6.25mg BID and follow
-Resume anticoagulation when okay per vascular in postoperative setting. Was on Eliquis 5 mg twice daily prior to admission
-trop peaked at 0.787. [place] to be nonischemic myocardial injury. echo 09/28 with stable EF 30-35%, no significant change compared to prior noted. will manage conservatively
-resume OP Jardiance, Entresto as BP allows
Progress Note - String Top Sealer
Subjective
Date of Service: September 30, 2023
remains with intermittent agitation/restlessness.
Objective
Labs:
09/30/23 03:53
09/30/23 03:53
Labs
Hgb 10.0 g/dL (13.0-18.0) L D 09/30/23 03:53
Hct 28.7 % (39.0-52.0) L 09/30/23 03:53
Plt Count 124 10^3/uL (130-400) L D 09/30/23 03:53
PT 19.3 Sec (11.4-14.6) H 09/29/23 02:31
INR 1.62 09/29/23 02:31
APTT 30.0 Sec (23.4-35.0) 09/29/23 02:31
Sodium 137 mmol/L (135-145) 09/30/23 03:53
Potassium 4.9 mmol/L (3.5-5.1) 09/30/23 03:53
BUN 25 mg/dl (9-20) H 09/30/23 03:53
Creatinine 0.7 mg/dL (0.7-1.3) 09/30/23 03:53
Glucose 98 mg/dl (70-99) 09/30/23 03:53
Troponins
09/27/23 09/27/23 09/27/23
15:26 19:00 21:28
Troponin I 0.442 H* Cancelled 0.324 H* D
09/28/23 09/28/23
05:54 17:34
Troponin I 0.787 H* 0.522 H*
Vital Signs and I&O:
Vital Signs
Temp Pulse Resp BP Pulse Ox
97.8 F 134 28 135/78 100
09/30/23 07:00 09/30/23 09:34 09/30/23 08:00 09/30/23 09:34 09/30/23 08:00
Vital Signs
Temp Pulse Resp BP Pulse Ox
97.8 F 134 28 135/78 100
09/30/23 07:00 09/30/23 09:34 09/30/23 08:00 09/30/23 09:34 09/30/23 08:00
Intake & Output
09/28/23 09/29/23 09/30/23 10/01/23
07:59 07:59 07:59 07:59
Intake Total 960 / 960 402.6 / 402.6 1160 / 1160
Output Total 1025 / 1025 1120 / 1120 850 / 850
Balance -65 / -65 -717.4 / -717.4 310 / 310
[2023-09-30] MEDS: ROXICODONE 5 MG PO (11:55)
[2023-09-30] MEDS: HALDOL 2 MG IV ×3 (11:55→20:31)
--- NOTE | 2023-09-30 14:41 | PTCARENOTE ---
Assumed care of patient at beginning of this shift from previous RN with b/l wrist and L ankle restraints in place, as well as all 4 siderails. Patient confused, restless, uncooperative. Morphine was administered this morning for pain. Afterwards
daughter arrived and said she was concerned that may be making patient worse. Patient pulled off his stump dressing and telemetry leads multiple times despite have wrist restraint on and placed appropriately. Reviewed all with Dr Farias who then
ordered haldol. Patient responded well to first dose and was able to sleep for awhile. When patient awoke he was again restless; currently calm with daughters sitting at bedside. See worklist for full assessment, interventions and vital signs; see
MAR for med administration.
--- NOTE | 2023-09-30 14:52 | W.PN.HOSP.TC ---
Addendum entered and electronically signed by Dash Farias MD 09/30/23 15:49:
Non Ischemic myocardial injury
Original Note:
Today's Communication/Plan
-
increase coreg
Avoid benzodiazepines, opiates
Haldol as needed
Seroquel initiated for tonight
Assessment / Plan
Assessment / Plan
Constitutional: No Acute Distress
Cardiovascular: Regular Rate and S1/S2; Negative Murmur or Rub
Pulmonary: Clear and Symmetric; Negative Wheezes or Rales
Gastrointestinal: Soft, Non Tender, Non Distended and Normal Bowel Sounds
Skin: Warm and Dry; Negative Rash or Jaundice
Wound: Other (partial surgical site visible where dressing slipped down - clean no erythema, warmth tenderness or draingae)
#Acute toxic metabolic encephalopathy
� Worsening with delirium
� Avoid benzodiazepines, opiates
� Haldol as needed
� Will initiate Seroquel tonight
Sepsis possibly secondary to Non-Healing RLE Wound
-Consult Vascular Surgery and Wound Care
-Consult Infectious Disease
-s/p amputation - can dc abx
-blood cultures neg
#PAD, Severe
-AKA 09/27
-holding anticoag due to acute blood loss�hopeful to resume in 24 to 48 hours
#acute blood loss anemia
-2/2 to intervention
-s/p 2u prbc on 02/28
-ctm
-hold anticoag�hopeful to resume in 24 to 48 hours
Atrial Fibrillation with Rapid Ventricular Response in setting of Sepsis
-Stop Cardizem drip
-Hold Eliquis for surgery - restart once OK by vascular
�Increase Coreg to 6.2 mg twice daily
#Elevated Troponin
-most likely due to sepsis
-ctm
-cards consulted as has had sig CAD hx
-ECHO f/u
-resume coreg
-add asa
Chronic HFrEF
-Hold Lasix, hold Jardiance and Entresto
-Monitor Is&Os and Daily Weights
Hyperlipidemia
-Continue fenofibrate
Myelodysplastic Syndrome
-Monitor counts closely
Polymyalgia Rheumatica
-Continue Prednisone
Coronary Artery Disease s/p CABG - see plan above
Peripheral Artery Disease s/p RLE Stents - see plan above
DVT proph: SCDs
Code Status: Full Code
Total time spent on today's encounter was 50 minutes which included time spent in counseling the patient/family regarding diagnosis and treatment plan as listed above, goals of care, and symptom management. Case was discussed with nursing staff,
specialists, and care coordinators/case management. All labs and imaging personally reviewed by me. Remainder the time spent in detailed review of previous records, lab data, imaging, and other medical provider documentation.
Anticipated Discharge: 24 - 48 hours
Subjective/Interval History
-
Date of Service: September 30, 2023
Altered with benzodiazepines/opiates. Hold off
Objective Data
-
Labs:
Laboratory Results
09/30/23
03:53
WBC 4.4 L
Hgb 10.0 L D
Hct 28.7 L
Plt Count 124 L D
Sodium 137
Potassium 4.9
Chloride 109 H
Carbon Dioxide 21 L
BUN 25 H
Creatinine 0.7
Glucose 98
Calcium 8.9
Total Bilirubin 0.8
AST 45
ALT 29
Alkaline Phosphatase 54
Vital Signs:
Vital Signs
Temp Pulse Resp BP Pulse Ox
98.2 F 128 29 119/77 95
09/30/23 11:00 09/30/23 14:00 09/30/23 14:00 09/30/23 14:00 09/30/23 12:00
I&O
04/10/24 04/11/24 04/12/24
06:59 06:59 06:59
Intake Total 402.6 / 402.6 1160 / 1160
Output Total 1120 / 1120 850 / 850
Balance -717.4 / -717.4 310 / 310
Review of Systems
-
History Source: Patient
All other systems: Not reviewed unless documented
Data Reviewed
-
Total Time Spent with Patient (in minutes): 45
CT Scan: Image personally visualized and interpreted and Report Reviewed by me
Labs: Labs Reviewed by me
--- NOTE | 2023-09-30 15:16 | W.PN.VS ---
Today's Communication / Plan
-
See plan below for today 09/30/2023.
Assessment/Plan
-
POD# 2 right AKA
Plan:
-Hemoglobin good over 10. DC Zelaya, likely would need condom cath. Agitation management.
-
Total Time Spent with Patient (in minutes): 5
Subjective Data
-
Date of Service: September 30, 2023
Seen and examined. Patient daughters are at the bedside. Patient with agitation continuing through to today. Received Haldol which has helped. Sleeping more comfortably now but periodically arouses and agitated.
Note, informed by nursing patient again with self removal of dressing. Nurses reapplied a couple times today already.
Objective Data
-
Vital Signs
Temp Pulse Resp BP Pulse Ox
98.2 F 128 29 119/77 95
09/30/23 11:00 09/30/23 14:00 09/30/23 14:00 09/30/23 14:00 09/30/23 12:00
Intake and Output
09/29/23 09/30/23 10/01/23
06:59 06:59 06:59
Intake Total 402.6 / 402.6 1160 / 1160
Output Total 1120 / 1120 850 / 850
Balance -717.4 / -717.4 310 / 310
Intake:
Oral fluids 660 / 660
IV fluids (Total) 400 / 400
IV piggybacks 2.6 / 2.6
Blood Product Amount Infused ( 500 / 500
mL)
Packed Rbc Leukoreduced Unit 250 / 250
[id number]
Packed Rbc Leukoreduced Unit 250 / 250
[id number]
Output:
Urine, Zelaya 920 / 920 850 / 850
Urine, Voided 200 / 200
Lab Results
09/30/23 03:53
04/11/24 03:53
Calcium 8.9 mg/dl (8.4-10.2) 09/30/23 03:53
Magnesium 2.0 mg/dl (1.6-2.3) 09/29/23 02:31
Total Bilirubin 0.8 mg/dl (0.2-1.3) 09/30/23 03:53
AST 45 U/L (17-59) 09/30/23 03:53
ALT 29 U/L (0-50) 09/30/23 03:53
Alkaline Phosphatase 54 U/L (38-126) 09/30/23 03:53
Total Protein 6.0 g/dl (6.3-8.2) L 09/30/23 03:53
Albumin 3.1 g/dl (3.5-5.0) L 09/30/23 03:53
Physical Exam
-
Afebrile.
Awake and alert.
Right above-knee amputation stump staple line clean dry and intact. No hematoma. Looks good.
Labs reviewed. Hemoglobin good.
--- NOTE | 2023-09-30 15:55 | CM ---
met with patient and daughter at bedside.patient was confused and restless.patient is in bl wrist and left ankle soft restriants.he is post op day 2 aka,his hgb is okay,raza remains.patient refused to have therapy evaluate him,.daughter is hoping
for [facility] when stable for discharge.Plan:dc to snf vs acute rehab.
--- NOTE | 2023-09-30 18:02 | PTCARENOTE ---
Addendum entered by Juanita Casanova RN 09/30/23 19:14:
When Dr Andrade was in to see patient earlier today, patient had pulled off L stump dressing. Per Dr Andrade, site able to remain RESEARCH CLERK for now and can replace if patient less agitated. ASSEMBLY MACHINE SET UP MECHANIC came to wrap late afternoon, but patient continued to be
restless/agitated, so remains WILLIAM.
Original Note:
Patient restless most of the day but did sleep after first dose of prn haldol. Zelaya catheter due to come out today; reviewed that patient is very confused/restless/agitated/uncooperative with Dr Andrade who instructed to d/c as per order. Zelaya d/c'd
at 15:02. Patient given 2nd dose of haldol but was not as effective; complete bed bath given to help calm. HR remained elevated even when patient appeared calm; prn dose of lopressor IV given as ordered. Family remains in room.
[2023-09-30] MEDS: COREG 6.25 MG PO (20:27)
[2023-09-30] MEDS: SEROQUEL 12.5 MG PO (20:30)
[2023-09-30] MEDS: TRICOR 145 MG PO (20:31)
[2023-09-30] MEDS: CRESTOR 40 MG PO (20:31)
[2023-10-01] VITALS (13 sets, daily range): BP systolic 106–140; BP diastolic 75–97; PULSE 101; BMI 23.8
[2023-10-01] MEDS: HALDOL 2 MG IV ×3 (00:35→14:03)
--- NOTE | 2023-10-01 03:46 | PTCARENOTE ---
Addendum entered by Erica Jaimes 10/01/23 06:28:
PO offered again and refused
Original Note:
Pt restless, agitated, pulling at cardiac leads. PO medications taken whole in applesauce without complications. PRN haldol given per AUG for agitation. PO xanax attempted crushed in applesauce, pt refused to take it. HR remains elevated >110 with
pt at rest. PRN loperssor given per AUG. R AKA dry and mohit intact.
[2023-10-01 06:18] LABS: Hematocrit 29.8 % (39.0-52.0); Hemoglobin 9.8 g/dL (13.0-18.0); Mean Corp Hgb Conc. 32.9 g/dL (33.0-37.0); Mean Corpuscular Hgb 32.8 pg (27.0-31.0); Mean Corpuscular Volume 99.7 fL (80.0-94.0); Platelet Count 113 10^3/uL (130-400); Red Blood Cell Count 2.99 10^6/uL (4.70-6.10); Red Cell Dist. Width 18.9 % (11.5-14.5); White Blood Cell Count 3.9 10^3/uL (4.8-10.8)
[2023-10-01 06:43] LABS: ALT (SGPT) 60 U/L (0-50); AST (SGOT) 130 U/L (17-59); Albumin 3.3 g/dl (3.5-5.0); Alkaline Phosphatase 99 U/L (38-126); Blood Urea Nitrogen 26 mg/dl (9-20); Carbon Dioxide 23 mmol/L (22-30); Chloride 103 mmol/L (98-107); Estimated Creatinine Clearance 98 ml/min; Glucose 97 mg/dl (70-99); Potassium 4.2 mmol/L (3.5-5.1); Sodium 140 mmol/L (135-145); Total Bilirubin 1.5 mg/dl (0.2-1.3); Total Protein 6.2 g/dl (6.3-8.2); eGFR > 60.00
[2023-10-01] MEDS: DELTASONE PO ×2 (07:25→07:35)
[2023-10-01] MEDS: COREG PO ×2 (07:26→07:34)
--- NOTE | 2023-10-01 09:08 | W.PN.ID1 ---
Date of Service
Date of Service: October 01, 2023
Today's Communication
ID service will no longer actively follow this patient please recall for further questions
Assessment / Plan
S/p R AKA for Limb threatening Ischemia
MDS - Immunosuppression
PMR
ID service will no longer actively follow this patient please recall for further questions
Chief Complaint
-: Other (cellulitis, wound infection)
Subjective / Review of Systems
afebrile
bp stable
chronic leukopenia ongoing
cr stable
blood cultures no growth to date
Vital Signs / Physical Exam
Vital Signs
Vital Signs
Temp Pulse Resp BP Pulse Ox
98.0 F 117 13 122/90 100
10/01/23 03:30 10/01/23 08:00 10/01/23 08:00 10/01/23 08:00 09/30/23 22:00
Physical Exam
Constitutional: No Acute Distress
Cardiovascular: Regular Rate and S1/S2; Negative Murmur or Rub
Pulmonary: Clear and Symmetric; Negative Wheezes or Rales
Gastrointestinal: Soft, Non Tender, Non Distended and Normal Bowel Sounds
Skin: Warm and Dry; Negative Rash or Jaundice
Wound: Other (staple line no erythema, warmth, tenderness or drainage)
Objective Data
Lab Data
Lab Results
10/01/23 06:02
10/01/23 06:02
PT 19.3 Sec (11.4-14.6) H 09/29/23 02:31
INR 1.62 09/29/23 02:31
APTT 30.0 Sec (23.4-35.0) 09/29/23 02:31
Estimated Creat Clear 98 ml/min 10/01/23 06:02
Lactic Acid Cancelled 09/27/23 13:30
Total Bilirubin 1.5 mg/dl (0.2-1.3) H 10/01/23 06:02
AST 130 U/L (17-59) H 10/01/23 06:02
ALT 60 U/L (0-50) H 10/01/23 06:02
Alkaline Phosphatase 99 U/L (38-126) 10/01/23 06:02
Most recent labs reviewed.
Micro Results:
09/27/23 10:48 Blood Culture - Preliminary
Blood/Venous No Growth in 72 hours- Final report to follow
09/27/23 10:21 Blood Culture - Preliminary
Blood/Venous No Growth in 72 hours- Final report to follow
09/27/23 18:14 MRSA Screen - Final
Nose No Methicillin Resistant Staphylococcus aureus isolated.
09/27/23 15:26 Influenza Types A & B (SUZANNA) - Final
Nasal Swab Negative for Influenza A & B, NAAT
Negative results must be combined with clinical observations
and patient history.
Nucleic Acid Amplification test (NAAT)performed on the
[employer] platform.
--- NOTE | 2023-10-01 09:21 | W.PN.VS ---
Addendum entered and electronically signed by Adam Zelaya III, MD 10/01/23 12:01:
This patient was seen and examined with ROXY Barajas. I agree with the history and physical exam as well as the assessment and plan.
Signed:
Adam Zelaya III, MD
[facility]
[phone] (cell)
Original Note:
Today's Communication / Plan
-
Seen and assessed with Dr. Zelaya
Assessment/Plan
-
POD# 3 right AKA
Plan:
-Agitation management
-DC planning
Subjective Data
-
Date of Service: October 01, 2023
Patient seen at bedside this a.m. with Dr. Zelaya. No events overnight, patient continues with confusion. Patient is aware of who he is and where he is, but needs reorienting on situation.
Objective Data
-
Vital Signs
Temp Pulse Resp BP Pulse Ox
98.0 F 117 13 122/90 100
10/01/23 03:30 10/01/23 08:00 10/01/23 08:00 10/01/23 08:00 09/30/23 22:00
Intake and Output
09/30/23 10/01/23 10/02/23
06:59 06:59 06:59
Intake Total 1160 / 1160
Output Total 850 / 850
Balance 310 / 310
Intake:
Oral fluids 660 / 660
Blood Product Amount Infused ( 500 / 500
mL)
Packed Rbc Leukoreduced Unit 250 / 250
[id number]
Packed Rbc Leukoreduced Unit 250 / 250
[id number]
Output:
Garcia Alarcon 850 / 850
Other:
How many times incontinent 1
SMALL amount urine
How many times incontinent 1
SATURATED amount urine
Lab Results
10/01/23 06:02
10/01/23 06:02
Calcium 9.0 mg/dl (8.4-10.2) 10/01/23 06:02
Magnesium 2.0 mg/dl (1.6-2.3) 09/29/23 02:31
Total Bilirubin 1.5 mg/dl (0.2-1.3) H 10/01/23 06:02
AST 130 U/L (17-59) H 10/01/23 06:02
ALT 60 U/L (0-50) H 10/01/23 06:02
Alkaline Phosphatase 99 U/L (38-126) 10/01/23 06:02
Total Protein 6.2 g/dl (6.3-8.2) L 10/01/23 06:02
Albumin 3.3 g/dl (3.5-5.0) L 10/01/23 06:02
Physical Exam
-
Afebrile.
Awake and alert.
Right above-knee amputation stump staple line clean dry and intact. No hematoma. Open to air
Labs reviewed. Hemoglobin stable
--- NOTE | 2023-10-01 12:18 | PTCARENOTE ---
Addendum entered by Juanita Casanova RN 10/01/23 12:25:
Patient's daughter asked for a psych consult; Dr Farias made aware via tiger text.
Original Note:
Assumed care of patient at beginning of this shift from previous RN with 3 point restraints and 4 siderails up continued. On initial rounds patient was yelling out, restless/agitated/confused; prn dose of haldol given. Attempted to give morning po
meds (coreg and prednisone) crushed in applesauce, but patient spit it out; attempted again after patient was calm (just applesauce, no med) and patient spit it out. Dr Farias made aware; Kenzie Tavarez, cardiology PA made aware patient did not get
morning coreg. Family at bedside; patient currently drowsy and calm, with occasional restlessness.
[2023-10-01] MEDS: COREG 6.25 MG PO ×2 (12:51→20:50)
[2023-10-01] MEDS: DELTASONE 15 MG PO (12:52)
--- NOTE | 2023-10-01 13:16 | W.PN.CARDCBS ---
Addendum entered and electronically signed by Caleb Urrutia MD 10/01/23 13:42:
patient seen and examined
agree with ALEIDA Tavarez's notes and assesment
agree with ALEIDA Tavarez's plan
exam:
heent ncat
jvp 6
right leg amputation site c/d/i
cor irreg irreg
tele reviewed with tachy rates
abd soft nt nd
mental status changes noted
Assessment:
Presentation with confusion, chills
Sepsis
Elevated troponin, suspected nonischemic myocardial injury
Nonhealing RLE wounds
admissions 06/2023, 07/2023
2 ER visits 08/2023
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
CAD
-History of abnormal stress test
-CABG 2008 [facility] (ORTA to LAD, radial graft to RPDA, SVG from LCx-OM2 to OM3)
-NSTEMI 11/2022, managed conservatively as was confused and without cardiac symptoms
Chronic HFrEF
Ischemic cardiomyopathy, EF 35-40% by echo 07/2023
Permanent A-fib on chronic Eliquis
Hypertension
Hypercholesterolemia
stage III renal insufficiency
MDS/Chronic Anemia s/p Procrit shots
ECHO 11/30/22: EF 25%, global hypokinesis with anterior, anteroseptal, apical akinesis, MAC, at least mild to moderate MR, underestimated due to MAC, AAC, peak/mean gradients 23/30 mmHg, at least mild , moderate to severe TR, PAP 44 mmHg
Echo Aug 13 2023: EF 35 to 40%, global hypokinesis, mild to moderate MR, mild aortic stenosis, peak/mean gradients 21/13 mmHg respectively, aortic valve area 1.3 cm2, moderate severe tricuspid regurgitation, pulmonary artery systolic pressure 45
mmHg. IVC is dilated and does not collapse. No evidence of vegetation. Compared to prior echo EF is improved.
ECHO 09/29/23: EF 30 to 35%, moderate global hypokinesis, mildly dilated right ventricle with mild RV hypokinesis, moderate MR, mild , moderate to severe TR, PAP 40 to 45 mmHg
Plan:
-Patient presented back to [facility] 09/27/2023 due to confusion, chills, and continued right lower extremity pain.
-He is being treated for sepsis per primary service and infectious disease
-He underwent right AKA on 09/28/2023 by vascular. continue post op care
-largest issue at present is he remains confused and agitated at times. appears more alert today during my exam. with soft wrist restraints in place
-HRs intermittently elevated in permanent afib at times on review of tele, likely secondary to agitation. he spit out his AM pills. will continue coreg at 6.25mg BID (increased post op). IV lopressor PRN
-Resume anticoagulation when okay per vascular in postoperative setting. Was on Eliquis 5 mg twice daily prior to admission
-trop peaked at 0.787. [place] to be nonischemic myocardial injury. echo 09/28 with stable EF 30-35%, no significant change compared to prior noted. will manage conservatively
-resume OP Jardiance, Entresto as BP allows
-d/w patient's daughter at bedside
-d/w nursing
Original Note:
Today's Communication / Plan
-
continue coreg 6.25mg BID with IV lopressor PRN
resume eliquis when ok from surgical standpoint
treatment of TME per primary service
post op care
Impression / Plan
-
Primary Consumer Affairs Specialist: Dr. Preston
Assessment:
Presentation with confusion, chills
Sepsis
Elevated troponin, suspected nonischemic myocardial injury
Nonhealing RLE wounds
admissions 06/2023, 07/2023
2 ER visits 08/2023
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
CAD
-History of abnormal stress test
-CABG 2008 [facility] (ORTA to LAD, radial graft to RPDA, SVG from LCx-OM2 to OM3)
-NSTEMI 11/2022, managed conservatively as was confused and without cardiac symptoms
Chronic HFrEF
Ischemic cardiomyopathy, EF 35-40% by echo 07/2023
Permanent A-fib on chronic Eliquis
Hypertension
Hypercholesterolemia
stage III renal insufficiency
MDS/Chronic Anemia s/p Procrit shots
ECHO 11/30/22: EF 25%, global hypokinesis with anterior, anteroseptal, apical akinesis, MAC, at least mild to moderate MR, underestimated due to MAC, AAC, peak/mean gradients 23/30 mmHg, at least mild , moderate to severe TR, PAP 44 mmHg
Echo Aug 13 2023: EF 35 to 40%, global hypokinesis, mild to moderate MR, mild aortic stenosis, peak/mean gradients 21/13 mmHg respectively, aortic valve area 1.3 cm2, moderate severe tricuspid regurgitation, pulmonary artery systolic pressure 45
mmHg. IVC is dilated and does not collapse. No evidence of vegetation. Compared to prior echo EF is improved.
ECHO 09/29/23: EF 30 to 35%, moderate global hypokinesis, mildly dilated right ventricle with mild RV hypokinesis, moderate MR, mild , moderate to severe TR, PAP 40 to 45 mmHg
Plan:
-Patient presented back to [facility] 09/27/2023 due to confusion, chills, and continued right lower extremity pain.
-He is being treated for sepsis per primary service and infectious disease
-He underwent right AKA on 09/28/2023 by vascular. continue post op care
-largest issue at present is he remains confused and agitated at times. appears more alert today during my exam. with soft wrist restraints in place
-HRs intermittently elevated in permanent afib at times on review of tele, likely secondary to agitation. he spit out his AM pills. will continue coreg at 6.25mg BID (increased post op). IV lopressor PRN
-Resume anticoagulation when okay per vascular in postoperative setting. Was on Eliquis 5 mg twice daily prior to admission
-trop peaked at 0.787. [place] to be nonischemic myocardial injury. echo 09/28 with stable EF 30-35%, no significant change compared to prior noted. will manage conservatively
-resume OP Jardiance, Entresto as BP allows
-d/w patient's daughter at bedside
-d/w nursing
Progress Note - Consumer Affairs Specialist
Subjective
Date of Service: October 01, 2023
remains with confusion, agitation
Objective
Labs:
10/01/23 06:02
10/01/23 06:02
Labs
Hgb 9.8 g/dL (13.0-18.0) L 10/01/23 06:02
Hct 29.8 % (39.0-52.0) L 10/01/23 06:02
Plt Count 113 10^3/uL (130-400) L 10/01/23 06:02
PT 19.3 Sec (11.4-14.6) H 09/29/23 02:31
INR 1.62 09/29/23 02:31
APTT 30.0 Sec (23.4-35.0) 09/29/23 02:31
Sodium 140 mmol/L (135-145) 10/01/23 06:02
Potassium 4.2 mmol/L (3.5-5.1) 10/01/23 06:02
BUN 26 mg/dl (9-20) H 10/01/23 06:02
Creatinine 0.6 mg/dL (0.7-1.3) L 10/01/23 06:02
Glucose 97 mg/dl (70-99) 10/01/23 06:02
Troponins
09/28/23
17:34
Troponin I 0.522 H*
Vital Signs and I&O:
Vital Signs
Temp Pulse Resp BP Pulse Ox
98.0 F 115 25 124/81 96
10/01/23 11:00 10/01/23 12:51 10/01/23 12:00 10/01/23 12:51 10/01/23 08:14
Vital Signs
Temp Pulse Resp BP Pulse Ox
98.0 F 115 25 124/81 96
10/01/23 11:00 10/01/23 12:51 10/01/23 12:00 10/01/23 12:51 10/01/23 08:14
Intake & Output
09/29/23 09/30/23 10/01/23 10/02/23
07:59 07:59 07:59 07:59
Intake Total 402.6 / 402.6 1160 / 1160
Output Total 1120 / 1120 850 / 850
Balance -717.4 / -717.4 310 / 310
Physical Exam
Physical Exam
GEN: No distress, awake, alert, oriented to self. soft wrist restraints in place
HEENT: supple, anicteric, mmm, eomi
LUNGS: CTA B/L, no wheezes/rales
CV: Irreg, S1/S2, 1/6 syst LSB
ABD: soft, BS+, NT/ND
EXT: No cyanosis, clubbing, edema. R AKA
NEURO: Gross non-focal
SKIN: Warm, pink, dry. No rash
--- NOTE | 2023-10-01 14:43 | W.PN.HOSP.TC ---
Today's Communication/Plan
-
resume lasix
monitor and adjust meds for delirium/encephalopathy
resume eliquis once OK by vascular
Assessment / Plan
Assessment / Plan
Constitutional: No Acute Distress
Cardiovascular: Regular Rate and S1/S2; Negative Murmur or Rub
Pulmonary: Clear and Symmetric; Negative Wheezes or Rales
Gastrointestinal: Soft, Non Tender, Non Distended and Normal Bowel Sounds
Skin: Warm and Dry; Negative Rash or Jaundice
Wound: Other (partial surgical site visible where dressing slipped down - clean no erythema, warmth tenderness or draingae)
#Acute toxic metabolic encephalopathy
� Worsening with delirium
� Avoid benzodiazepines, opiates
� Haldol as needed
� initiate Seroquel
Sepsis possibly secondary to Non-Healing RLE Wound
-Consult Vascular Surgery and Wound Care
-Consult Infectious Disease
-s/p amputation - can dc abx
-blood cultures neg
#PAD, Severe
-AKA 09/27
-holding anticoag due to acute blood loss�hopeful to resume in 24 to 48 hours
#acute blood loss anemia
-2/2 to intervention
-s/p 2u prbc on 02/28
-ctm
-hold anticoag�hopeful to resume in 24 to 48 hours
Atrial Fibrillation with Rapid Ventricular Response in setting of Sepsis
-Stop Cardizem drip
-Hold Eliquis for surgery - restart once OK by vascular
�Increase Coreg to 6.2 mg twice daily
#Elevated Troponin
-most likely due to sepsis
-ctm
-cards consulted as has had sig CAD hx
-ECHO f/u
-resume coreg
-add asa
Chronic HFrEF
- hold Jardiance and Entresto
-Monitor Is&Os and Daily Weights
-resume lasix
#Transaminitis
-possibly 2/2 to acute events
-monitor closely for improvement
Hyperlipidemia
-Continue fenofibrate
Myelodysplastic Syndrome
-Monitor counts closely
Polymyalgia Rheumatica
-Continue Prednisone
Coronary Artery Disease s/p CABG - see plan above
Peripheral Artery Disease s/p RLE Stents - see plan above
DVT proph: SCDs
Code Status: Full Code
Total time spent on today's encounter was 55 minutes which included time spent in counseling the patient/family regarding diagnosis and treatment plan as listed above, goals of care, and symptom management. Case was discussed with nursing staff,
specialists, and care coordinators/case management. All labs and imaging personally reviewed by me. Remainder the time spent in detailed review of previous records, lab data, imaging, and other medical provider documentation.
Anticipated Discharge: > 48 hours
Subjective/Interval History
-
Date of Service: October 01, 2023
still altered although improved
Objective Data
-
Labs:
Laboratory Results
10/01/23
06:02
WBC 3.9 L
Hgb 9.8 L
Hct 29.8 L
Plt Count 113 L
Sodium 140
Potassium 4.2
Chloride 103
Carbon Dioxide 23
BUN 26 H
Creatinine 0.6 L
Glucose 97
Calcium 9.0
Total Bilirubin 1.5 H
AST 130 H
ALT 60 H
Alkaline Phosphatase 99
Vital Signs:
Vital Signs
Temp Pulse Resp BP Pulse Ox
98.0 F 108 25 106/86 96
10/01/23 11:00 10/01/23 14:00 10/01/23 14:00 10/01/23 14:00 10/01/23 08:14
I&O
09/30/23 10/01/23 10/02/23
06:59 06:59 06:59
Intake Total 1160 / 1160
Output Total 850 / 850
Balance 310 / 310
Review of Systems
-
History Source: Patient
All other systems: Not reviewed unless documented
Data Reviewed
-
Total Time Spent with Patient (in minutes): 45
CT Scan: Image personally visualized and interpreted and Report Reviewed by me
Labs: Labs Reviewed by me
--- NOTE | 2023-10-01 16:14 | PN.CDI ---
CDI
- -
CDI:
Physician Documentation Request
Admit Date: 09/27/23 13:19
Dear Doctor Jarrett,
Progress notes 09/27- states 'Acute metabolic encephalopathy'
09/29- states 'Acute toxic metabolic encephalopathy'
In an attempt to clarify potential conflicting documentation, please clarify the type of encephalopathy:
acute metabolic encephalopathy
acute toxic metabolic encephalopathy
Other
Use of terms such as suspected, likely, concern for, or probable (associated with a specific diagnosis that is being evaluated, monitored, or treated as if it exists) are acceptable and can be coded in the inpatient setting, when documented at the
time of discharge.
Thank you,
Caitlyn Esquivel RN, BSN
CDI Specialist
tiger text
Please use your independent medical judgment in providing your response.
--- NOTE | 2023-10-01 16:19 | PN.CDI ---
CDI
- -
CDI:
Physician Documentation Request
Admit Date: 09/27/23 13:19
Dear Doctor Jarrett,
Patient admitted with sepsis poss secondary to Non-healing RLE wound.
Recent labs:
Laboratory Tests
09/29/23 09/30/23 10/01/23
02:59 03:53 06:02
WBC 4.1 L 4.4 L 3.9 L
RBC 2.06 L 2.98 L 2.99 L
Plt Count 82 L 124 L D 113 L
Could you please provide a diagnosis, if significant, that supports the above lab abnormalities and additional evaluation/monitoring:
Pancytopenia
Abnormal lab value clinically insignificant
Other
Use of terms such as suspected, likely, concern for, or probable (associated with a specific diagnosis that is being evaluated, monitored, or treated as if it exists) are acceptable and can be coded in the inpatient setting, when documented at the
time of discharge.
Thank you,
Caitlyn Esquivel RN, BSN
CDI Specialist
tiger txt
Please use your independent medical judgment in providing your response.
[2023-10-01] MEDS: LASIX 20 MG PO (16:33)
[2023-10-01] MEDS: TORADOL 15 MG IV (17:03)
--- NOTE | 2023-10-01 17:47 | PTCARENOTE ---
Patient continues to have frequent periods of restlessness and confusion, but is yelling out in pain now when turned. Dr Farias notified via tiger text; toradol ordered and given. Family remains at bedside.
[2023-10-01] MEDS: SEROQUEL 12.5 MG PO (20:49)
[2023-10-01] MEDS: CRESTOR 40 MG PO ×2 (20:50)
[2023-10-01] MEDS: XANAX 0.25 MG PO (20:50)
[2023-10-01] MEDS: TRICOR 145 MG PO (20:51)
[2023-10-02] VITALS (12 sets, daily range): BP systolic 107–139; BP diastolic 61–110; BMI 23.9
--- NOTE | 2023-10-02 00:32 | PTCARENOTE ---
Pt remains oriented to self only. Denies pain at this time. Continues to make attempts to slide out of bed and puts L leg over side rail. Continues to remove telemetry stickers periodically, but ultimately maintains calm demeanor and although
restless at times, pt does not appear agitated at this time. Pt was agreeable to taking HS oral medications with applesauce.
[2023-10-02] MEDS: TORADOL 15 MG IV ×2 (02:19→08:32)
[2023-10-02] MEDS: HALDOL 2 MG IV (04:51)
[2023-10-02 05:52] LABS: ALT (SGPT) 49 U/L (0-50); AST (SGOT) 59 U/L (17-59); Alkaline Phosphatase 99 U/L (38-126); Blood Urea Nitrogen 32 mg/dl (9-20); Calcium 8.7 mg/dl (8.4-10.2); Carbon Dioxide 25 mmol/L (22-30); Chloride 106 mmol/L (98-107); Estimated Creatinine Clearance 98 ml/min; Glucose 98 mg/dl (70-99); Potassium 4.2 mmol/L (3.5-5.1); Sodium 138 mmol/L (135-145); Total Bilirubin 1.2 mg/dl (0.2-1.3); Total Protein 5.8 g/dl (6.3-8.2); eGFR > 60.00
--- NOTE | 2023-10-02 06:08 | PTCARENOTE ---
Pt experienced episode of increasing agitation, yelling that he has to stand up. This RN reoriented pt to place and situation, gave PRN haldol per MAR. Toileting needs assessed, linens changed, hygiene care provided. Safe environment maintained.
--- NOTE | 2023-10-02 07:49 | CM ---
patient sp aka,dc abx,bc negative.patient continues with delirium-adjusting meds,still in soft restrants.daughter janes returned my call about snf choices.daughter wants her father to have the opportunity to go to acute rehab at [facility] after delirium
resolves..other choices are [facility] where [facility] was before and [facility]no referrals made since patient still in restaints and cannot participate in therapy.Plan snf vs acute rehab when delirium resolves.
[2023-10-02] MEDS: COREG 6.25 MG PO ×2 (08:31→20:05)
[2023-10-02] MEDS: FLUSH (NSS) 1 FLUSH IV (08:35)
[2023-10-02] MEDS: DELTASONE 15 MG PO (08:36)
[2023-10-02] MEDS: LASIX 20 MG PO (08:37)
--- NOTE | 2023-10-02 08:49 | W.PN.CARDCBS ---
Today's Communication / Plan
-
rates a little better continue AV joaquin agents
resume NOAC when ok by vascular eliquis 5mg bid
Impression / Plan
-
Primary Bacteriologist Medical: Dr. Preston
Assessment:
Presentation with confusion, chills
Sepsis
Elevated troponin, suspected nonischemic myocardial injury
Nonhealing RLE wounds
admissions 06/2023, 07/2023
2 ER visits 08/2023
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
CAD
-History of abnormal stress test
-CABG 2008 [facility] (ORTA to LAD, radial graft to RPDA, SVG from LCx-OM2 to OM3)
-NSTEMI 11/2022, managed conservatively as was confused and without cardiac symptoms
Chronic HFrEF
Ischemic cardiomyopathy, EF 35-40% by echo 07/2023
Permanent A-fib on chronic Eliquis
Hypertension
Hypercholesterolemia
stage III renal insufficiency
MDS/Chronic Anemia s/p Procrit shots
ECHO 11/30/22: EF 25%, global hypokinesis with anterior, anteroseptal, apical akinesis, MAC, at least mild to moderate MR, underestimated due to MAC, AAC, peak/mean gradients 23/30 mmHg, at least mild , moderate to severe TR, PAP 44 mmHg
Echo Aug 13 2023: EF 35 to 40%, global hypokinesis, mild to moderate MR, mild aortic stenosis, peak/mean gradients 21/13 mmHg respectively, aortic valve area 1.3 cm2, moderate severe tricuspid regurgitation, pulmonary artery systolic pressure 45
mmHg. IVC is dilated and does not collapse. No evidence of vegetation. Compared to prior echo EF is improved.
ECHO 09/29/23: EF 30 to 35%, moderate global hypokinesis, mildly dilated right ventricle with mild RV hypokinesis, moderate MR, mild , moderate to severe TR, PAP 40 to 45 mmHg
Plan:
-Patient presented back to [facility] 09/27/2023 due to confusion, chills, and continued right lower extremity pain.
-He is being treated for sepsis per primary service and infectious disease
-He underwent right AKA on 09/28/2023 by vascular. continue post op care
-largest issue at present is he remains confused and agitated at times. appears more alert today during my exam. with soft wrist restraints in place
-HRs intermittently elevated in permanent afib at times on review of tele, likely secondary to agitation. he spit out his AM pills. will continue coreg at 6.25mg BID (increased post op). IV lopressor PRN
-Resume anticoagulation when okay per vascular in postoperative setting. Was on Eliquis 5 mg twice daily prior to admission
-trop peaked at 0.787. [place] to be nonischemic myocardial injury. echo 09/28 with stable EF 30-35%, no significant change compared to prior noted. will manage conservatively
-resume OP Jardiance, Entresto as BP allows
-rates a little better today. no changes from a rate control perspective
-d/w nursing
Progress Note - Bacteriologist Medical
Subjective
Date of Service: October 02, 2023
mental status about the same
rates about the same
Objective
Labs:
10/01/23 06:02
10/02/23 05:12
Labs
Hgb 9.8 g/dL (13.0-18.0) L 10/01/23 06:02
Hct 29.8 % (39.0-52.0) L 10/01/23 06:02
Plt Count 113 10^3/uL (130-400) L 10/01/23 06:02
PT 19.3 Sec (11.4-14.6) H 09/29/23 02:31
INR 1.62 09/29/23 02:31
APTT 30.0 Sec (23.4-35.0) 09/29/23 02:31
Sodium 138 mmol/L (135-145) 10/02/23 05:12
Potassium 4.2 mmol/L (3.5-5.1) 10/02/23 05:12
BUN 32 mg/dl (9-20) H 10/02/23 05:12
Creatinine 0.6 mg/dL (0.7-1.3) L 10/02/23 05:12
Glucose 98 mg/dl (70-99) 10/02/23 05:12
Vital Signs and I&O:
Vital Signs
Temp Pulse Resp BP Pulse Ox
97.8 F 113 19 118/84 94
10/02/23 07:53 10/02/23 08:00 10/02/23 08:00 10/02/23 08:00 10/02/23 08:31
Vital Signs
Temp Pulse Resp BP Pulse Ox
97.8 F 113 19 118/84 94
10/02/23 07:53 10/02/23 08:00 10/02/23 08:00 10/02/23 08:00 10/02/23 08:31
Intake & Output
09/30/23 10/01/23 10/02/23 10/03/23
06:59 06:59 06:59 06:59
Intake Total 1160 / 1160
Output Total 850 / 850
Balance 310 / 310
Physical Exam
Physical Exam
mental status changes noted
jvp 6
amp site cdi
cor irreg irreg
lungs ctab
abd soft nt nd
no ext edema
--- NOTE | 2023-10-02 10:00 | PTCARENOTE ---
Patient family in room with patient. While family in room but is more calm. Family will be staying all day and part of the night. Restraints will need to be back on and reordered when family goes home.
[2023-10-02] MEDS: TYLENOL 650 MG PO (13:21)
--- NOTE | 2023-10-02 15:57 | W.PN.HOSP.TC ---
Today's Communication/Plan
-
increase seroquel
await vascular recs on restarting anticoag
Assessment / Plan
Assessment / Plan
Constitutional: No Acute Distress
Cardiovascular: Regular Rate and S1/S2; Negative Murmur or Rub
Pulmonary: Clear and Symmetric; Negative Wheezes or Rales
Gastrointestinal: Soft, Non Tender, Non Distended and Normal Bowel Sounds
Skin: Warm and Dry; Negative Rash or Jaundice
Wound: Other (surgical site visible - clean no erythema, warmth tenderness or draingae)
#Acute toxic metabolic encephalopathy
� Worsening with delirium
� Avoid benzodiazepines, opiates
� Haldol as needed
� initiate Seroquel - increase today
-CT head
Sepsis possibly secondary to Non-Healing RLE Wound
-Consult Vascular Surgery and Wound Care
-Consult Infectious Disease
-s/p amputation - can dc abx
-blood cultures neg
#PAD, Severe
-AKA 09/27
-holding anticoag due to acute blood loss�hopeful to resume in 24 to 48 hours: defer to vascular on re-initiation
#acute blood loss anemia
-2/2 to intervention
-s/p 2u prbc on 02/28
-ctm
-hold anticoag�hopeful to resume in 24 to 48 hours - await vascular surg clearance
Atrial Fibrillation with Rapid Ventricular Response in setting of Sepsis
-Stop Cardizem drip
-Hold Eliquis for surgery - restart once OK by vascular
�Increase Coreg to 6.25 mg twice daily
#Elevated Troponin
-most likely due to sepsis
-ctm
-cards consulted as has had sig CAD hx
-ECHO f/u - EF 35%
-resume coreg
-add asa
Chronic HFrEF
- hold Jardiance and Entresto
-Monitor Is&Os and Daily Weights
-resume lasix
#Transaminitis
-possibly 2/2 to acute events
-monitor closely for improvement
Hyperlipidemia
-Continue fenofibrate
Myelodysplastic Syndrome
-Monitor counts closely
Polymyalgia Rheumatica
-Continue Prednisone
Coronary Artery Disease s/p CABG - see plan above
Peripheral Artery Disease s/p RLE Stents - see plan above
DVT proph: SCDs
Code Status: Full Code
Anticipated Discharge: > 48 hours
Subjective/Interval History
-
Date of Service: October 02, 2023
Mental status slightly improved although still altered
Objective Data
-
Labs:
Laboratory Results
10/02/23
05:12
Sodium 138
Potassium 4.2
Chloride 106
Carbon Dioxide 25
BUN 32 H
Creatinine 0.6 L
Glucose 98
Calcium 8.7
Total Bilirubin 1.2
AST 59
ALT 49
Alkaline Phosphatase 99
Vital Signs:
Vital Signs
Temp Pulse Resp BP Pulse Ox
97.6 F 108 20 110/76 94
10/02/23 11:06 10/02/23 12:00 10/02/23 12:00 10/02/23 10:43 10/02/23 08:31
Review of Systems
-
Unable to obtain full review of systems at this time due to: Acuity
History Source: Patient
All other systems: Not reviewed unless documented
Physical Exam
-
General: Well Developed
HEENT: Normocephalic
Respiratory: Clear to Auscultation
Cardiac: Regular Rhythm
GI: Soft and Other (Left groin site with some sutures)
Musculoskeletal: Edema, Right Lower Extrem (Wounds dressed swollen)
Psych: Calm
Data Reviewed
-
Total Time Spent with Patient (in minutes): 45
CT Scan: Image personally visualized and interpreted and Report Reviewed by me
Labs: Labs Reviewed by me
[2023-10-02] MEDS: CRESTOR 40 MG PO (20:04)
[2023-10-02] MEDS: TRICOR 145 MG PO (20:04)
[2023-10-02] MEDS: XANAX 0.25 MG PO (20:05)
[2023-10-02] MEDS: SEROQUEL 25 MG PO (20:05)
[2023-10-03] VITALS (13 sets, daily range): BP systolic 109–147; BP diastolic 58–108; BMI 23.5
--- NOTE | 2023-10-03 01:14 | PTCARENOTE ---
Pt agreeable to take oral medications with some encouragement from family. Restraints in place for pt safety once family left for the night d/t increased agitation. Pt voided in urinal with encouragement. Q2T schedule in place. Pt sleeping
comfortably, but does wake with brief periods of restlessness that resolve without additional intervention. Hourly rounding performed per protocol
[2023-10-03 05:12] LABS: Hematocrit 29.1 % (39.0-52.0); Hemoglobin 9.7 g/dL (13.0-18.0); Mean Corp Hgb Conc. 33.3 g/dL (33.0-37.0); Mean Corpuscular Hgb 33.7 pg (27.0-31.0); Platelet Count 108 10^3/uL (130-400); Red Blood Cell Count 2.88 10^6/uL (4.70-6.10); Red Cell Dist. Width 17.4 % (11.5-14.5); White Blood Cell Count 4.2 10^3/uL (4.8-10.8)
[2023-10-03 05:29] LABS: ALT (SGPT) 50 U/L (0-50); AST (SGOT) 48 U/L (17-59); Albumin 3.3 g/dl (3.5-5.0); Alkaline Phosphatase 99 U/L (38-126); Blood Urea Nitrogen 33 mg/dl (9-20); Calcium 8.8 mg/dl (8.4-10.2); Carbon Dioxide 22 mmol/L (22-30); Chloride 108 mmol/L (98-107); Estimated Creatinine Clearance 98 ml/min; Glucose 73 mg/dl (70-99); Potassium 4.5 mmol/L (3.5-5.1); Sodium 138 mmol/L (135-145); Total Bilirubin 1.3 mg/dl (0.2-1.3); Total Protein 6.4 g/dl (6.3-8.2); eGFR > 60.00
--- NOTE | 2023-10-03 10:00 | W.PN.CARDCBS ---
Today's Communication / Plan
-
Await oral anticoagulation
On rate control medications
Please coordinate with vascular surgery team when they would like to resume oral anticoagulation
Impression / Plan
-
Primary Creative Services Producer: Dr. Preston
Assessment:
Presentation with confusion, chills
Sepsis
Elevated troponin, suspected nonischemic myocardial injury
Nonhealing RLE wounds
admissions 06/2023, 07/2023
2 ER visits 08/2023
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
CAD
-History of abnormal stress test
-CABG 2008 [facility] (ORTA to LAD, radial graft to RPDA, SVG from LCx-OM2 to OM3)
-NSTEMI 11/2022, managed conservatively as was confused and without cardiac symptoms
Chronic HFrEF
Ischemic cardiomyopathy, EF 35-40% by echo 07/2023
Permanent A-fib on chronic Eliquis
Hypertension
Hypercholesterolemia
stage III renal insufficiency
MDS/Chronic Anemia s/p Procrit shots
ECHO 11/30/22: EF 25%, global hypokinesis with anterior, anteroseptal, apical akinesis, MAC, at least mild to moderate MR, underestimated due to MAC, AAC, peak/mean gradients 23/30 mmHg, at least mild , moderate to severe TR, PAP 44 mmHg
Echo Aug 13 2023: EF 35 to 40%, global hypokinesis, mild to moderate MR, mild aortic stenosis, peak/mean gradients 21/13 mmHg respectively, aortic valve area 1.3 cm2, moderate severe tricuspid regurgitation, pulmonary artery systolic pressure 45
mmHg. IVC is dilated and does not collapse. No evidence of vegetation. Compared to prior echo EF is improved.
ECHO 09/29/23: EF 30 to 35%, moderate global hypokinesis, mildly dilated right ventricle with mild RV hypokinesis, moderate MR, mild , moderate to severe TR, PAP 40 to 45 mmHg
Plan:
-Patient presented back to [facility] 09/27/2023 due to confusion, chills, and continued right lower extremity pain.
-He is being treated for sepsis per primary service and infectious disease
-He underwent right AKA on 09/28/2023 by vascular. continue post op care
-largest issue at present is he remains confused and agitated at times. appears more alert today during my exam. with soft wrist restraints in place
-HRs intermittently elevated in permanent afib at times on review of tele, likely secondary to agitation. he spit out his AM pills. will continue coreg at 6.25mg BID (increased post op). IV lopressor PRN
-Resume anticoagulation when okay per vascular in postoperative setting. Was on Eliquis 5 mg twice daily prior to admission
-trop peaked at 0.787. [place] to be nonischemic myocardial injury. echo 09/28 with stable EF 30-35%, no significant change compared to prior noted. will manage conservatively
-resume OP Jardiance, Entresto as BP allows
-rates a little better today. no changes from a rate control perspective
-d/w nursing
Progress Note - Creative Services Producer
Subjective
Date of Service: October 03, 2023
About the same clinically
Objective
Labs:
10/03/23 04:39
10/03/23 04:39
Labs
Hgb 9.7 g/dL (13.0-18.0) L 10/03/23 04:39
Hct 29.1 % (39.0-52.0) L 10/03/23 04:39
Plt Count 108 10^3/uL (130-400) L 10/03/23 04:39
PT 19.3 Sec (11.4-14.6) H 09/29/23 02:31
INR 1.62 09/29/23 02:31
APTT 30.0 Sec (23.4-35.0) 09/29/23 02:31
Sodium 138 mmol/L (135-145) 10/03/23 04:39
Potassium 4.5 mmol/L (3.5-5.1) 10/03/23 04:39
BUN 33 mg/dl (9-20) H 10/03/23 04:39
Creatinine 0.5 mg/dL (0.7-1.3) L 10/03/23 04:39
Glucose 73 mg/dl (70-99) 10/03/23 04:39
Vital Signs and I&O:
Vital Signs
Temp Pulse Resp BP Pulse Ox
98.5 F 107 19 132/89 95
10/03/23 07:20 10/03/23 06:00 10/03/23 06:00 10/03/23 06:00 10/03/23 01:43
Vital Signs
Temp Pulse Resp BP Pulse Ox
98.5 F 107 19 132/89 95
10/03/23 07:20 10/03/23 06:00 10/03/23 06:00 10/03/23 06:00 10/03/23 01:43
Intake & Output
10/01/23 10/02/23 10/03/23 10/04/23
06:59 06:59 06:59 06:59
Intake Total 525 / 525
Output Total 350 / 350
Balance 175 / 175
Physical Exam
Physical Exam
No change in mental status compared to yesterday
Amputation site is clean dry and intact
Appears in no acute distress
JVP 6
Cor irregular regular
Remainder of exam deferred
[2023-10-03] MEDS: DELTASONE 15 MG PO (12:56)
[2023-10-03] MEDS: COREG 6.25 MG PO ×2 (12:58→20:29)
[2023-10-03] MEDS: LASIX 20 MG PO (12:58)
[2023-10-03 13:04] LABS: Urine Albumin Negative (Neg - Trace); Urine Bilirubin Negative (Negative); Urine Character Slightly Cloudy (Clear); Urine Color Yellow; Urine Glucose Negative (Negative); Urine Ketone Trace (Negative); Urine Leukocyte Negative (Negative); Urine Nitrite Negative (Negative); Urine Occult Blood Negative (Negative); Urine Specific Gravity 1.015 (<1.030); Urine Urobilinogen 2+ (Neg - 1+)
--- NOTE | 2023-10-03 14:39 | W.PN.HOSP.TC ---
Addendum entered and electronically signed by Dash Farias MD 10/03/23 15:50:
Pancytopenia
Confirming Acute Toxic Metabolic Encephalopathy
Original Note:
Today's Communication/Plan
-
resume eliquis
monitor rash, no obvious inciting factors at this time
monitor mental status on Seroquel
Assessment / Plan
Assessment / Plan
Constitutional: No Acute Distress
Cardiovascular: Regular Rate and S1/S2; Negative Murmur or Rub
Pulmonary: Clear and Symmetric; Negative Wheezes or Rales
Gastrointestinal: Soft, Non Tender, Non Distended and Normal Bowel Sounds
Skin: Warm and Dry; Negative Rash or Jaundice
Wound: Other (surgical site visible - clean no erythema, warmth tenderness or draingae)
#Acute toxic metabolic encephalopathy
� Worsening with delirium
� Avoid benzodiazepines, opiates
� Haldol as needed
� initiate Seroquel - increased 10/01 - wean as tolerated
-CT head and UA unremarkable
-ctm
-hopeful to improve in next 24 hours; has not needed retraints >24 hours
Sepsis possibly secondary to Non-Healing RLE Wound
-Consult Vascular Surgery and Wound Care
-Consult Infectious Disease
-s/p amputation - can dc abx
-blood cultures neg
#PAD, Severe
-AKA 09/27
-spoke to vascular - OK to resume anticoag
#acute blood loss anemia
-2/2 to intervention
-s/p 2u prbc on 02/28
-ctm
-okay to resume anticoag as per vascular
#Rash
-across chest and back
-no new meds except seroquel/haldol
-ctm for progression
Atrial Fibrillation with Rapid Ventricular Response in setting of Sepsis
-Stop Cardizem drip
-restart eliquis
�Increase Coreg to 6.25 mg twice daily
#Elevated Troponin
-most likely due to sepsis
-ctm
-cards consulted as has had sig CAD hx; no need for asa as per cards
-ECHO f/u - EF 35%
-resume coreg
Chronic HFrEF
- hold Jardiance and Entresto
-Monitor Is&Os and Daily Weights
-resume lasix
-coreg
#Transaminitis
-possibly 2/2 to acute events
-monitor closely for improvement
-resolved
Hyperlipidemia
-Continue fenofibrate
Myelodysplastic Syndrome
-Monitor counts closely
Polymyalgia Rheumatica
-Continue Prednisone
Coronary Artery Disease s/p CABG - see plan above
Peripheral Artery Disease s/p RLE Stents - see plan above
DVT proph: Eliquis
Code Status: Full Code
Anticipated Discharge: 24 - 48 hours
Subjective/Interval History
-
Date of Service: October 03, 2023
has not required restraints 24 hours although not back to baseline yet
Objective Data
-
Labs:
Laboratory Results
10/03/23
04:39
WBC 4.2 L
Hgb 9.7 L
Hct 29.1 L
Plt Count 108 L
Sodium 138
Potassium 4.5
Chloride 108 H
Carbon Dioxide 22
BUN 33 H
Creatinine 0.5 L
Glucose 73
Calcium 8.8
Total Bilirubin 1.3
AST 48
ALT 50
Alkaline Phosphatase 99
Vital Signs:
Vital Signs
Temp Pulse Resp BP Pulse Ox
99.5 F 106 32 137/84 98
10/03/23 12:13 10/03/23 12:58 10/03/23 12:00 10/03/23 12:58 10/03/23 12:00
I&O
10/02/23 10/03/23 10/04/23
06:59 06:59 06:59
Intake Total 525 / 525 0 / 0
Output Total 350 / 350 200 / 200
Balance 175 / 175 -200 / -200
Review of Systems
-
Unable to obtain full review of systems at this time due to: Acuity
History Source: Patient
All other systems: Not reviewed unless documented
Physical Exam
-
General: Well Developed
HEENT: Normocephalic
Respiratory: Clear to Auscultation
Cardiac: Regular Rhythm
GI: Soft and Other (Left groin site with some sutures)
Musculoskeletal: Edema, Right Lower Extrem (Wounds dressed swollen)
Psych: Calm
Data Reviewed
-
Total Time Spent with Patient (in minutes): 45
CT Scan: Image personally visualized and interpreted and Report Reviewed by me
Labs: Labs Reviewed by me
--- NOTE | 2023-10-03 14:57 | PTCARENOTE ---
Patient was verbally abusive towards staff this morning and was pulling of EKG monitoring and pulse ox equipment. After patient was washed and turned he calmed down and has been cooperative since. No chemical or physical restraints have been used
this shift. Patient is confused and drowsy. CT scan completed. UA sent to lab. Patient was able to take meds crushed in ice cream. Unable to eat solid food, only accepting ice chips and ice cream in spoonfuls. [place] rash is on patients chest
extending to his back and right groin area. MD aware.
--- NOTE | 2023-10-03 18:34 | PTCARENOTE ---
Discussed wound care with vascular surgeon Erendira Reyez MD. Instructed to place gauze with abhijit wrap for compression.
[2023-10-03] MEDS: ELIQUIS 5 MG PO (20:29)
[2023-10-03] MEDS: SEROQUEL 25 MG PO (20:29)
[2023-10-03] MEDS: CRESTOR 40 MG PO (20:29)
[2023-10-03] MEDS: TRICOR 145 MG PO (20:29)
[2023-10-03] MEDS: DULCOLAX 10 MG RECTAL (20:31)
[2023-10-03] MEDS: XANAX 0.25 MG PO (22:20)
[2023-10-04] VITALS (11 sets, daily range): BP systolic 104–122; BP diastolic 54–104; PULSE 108; BMI 22.8
[2023-10-04 04:13] LABS: ALT (SGPT) 47 U/L (0-50); AST (SGOT) 45 U/L (17-59); Albumin 3.2 g/dl (3.5-5.0); Alkaline Phosphatase 93 U/L (38-126); Blood Urea Nitrogen 20 mg/dl (9-20); Calcium 8.6 mg/dl (8.4-10.2); Carbon Dioxide 25 mmol/L (22-30); Chloride 108 mmol/L (98-107); Estimated Creatinine Clearance 98 ml/min; Glucose 90 mg/dl (70-99); Magnesium 1.9 mg/dl (1.6-2.3); Potassium 4.3 mmol/L (3.5-5.1); Sodium 138 mmol/L (135-145); Total Bilirubin 1.4 mg/dl (0.2-1.3); Total Protein 6.4 g/dl (6.3-8.2); eGFR > 60.00
--- NOTE | 2023-10-04 06:11 | PTCARENOTE ---
no acute events overnight, pt mentation getting better but still very forgetful. occasionally pulling off heart monitor, pulse ox, dressing to right stump, reapplied. abhijit wrap over stump. pt and family requesting a suppository. PRN ducolax given
with positive result. pt with no agitation overnight. inc of urine and stool although at times tries to use bedpan or urinal. pink rash noted to chest, back and right groin unchanged from previous shift. bed alarm on, care ongoing.
[2023-10-04] MEDS: ELIQUIS 5 MG PO ×2 (09:07→20:11)
[2023-10-04] MEDS: DELTASONE 15 MG PO (09:08)
[2023-10-04] MEDS: COREG 6.25 MG PO (09:09)
[2023-10-04] MEDS: LASIX 20 MG PO (09:10)
[2023-10-04 09:46] LABS: COVID-19 Antigen Negative (Negative)
--- NOTE | 2023-10-04 10:36 | W.PN.CARDCBS ---
Addendum entered and electronically signed by Ping Strong MD 10/04/23 11:14:
I saw and examined the patient.
The Public Relations Officer's note was reviewed and I agree with the note.
Comment: Patient is confused. Heart rate is irregular and mildly tacky. Coarse anterior breath sounds. No edema. Status post amputation. Nursing at bedside.
COVID tested and is negative. Defer workup of mental status to primary service.
Status post amputation.
A-fib with increased rates. Will increase carvedilol to 12.5 mg twice daily.
Continue to follow and eventually resume Entresto/Jardiance if able to tolerate. If not may be resumed as an outpatient.
Check proBNP given that volume status is very difficult to assess and weight has changed after amputation. As an outpatient was on low-dose oral Lasix.
Original Note:
Today's Communication / Plan
-
Increase Coreg to 12.5 mg BID for better rate control
Now back on Eliquis started 10/03/23 in pm
Follow Hgb
Check proBNP in am as difficult to assess volume status
Impression / Plan
-
Primary Buffing Turner And Counter: Dr. Preston
Assessment:
Presentation with confusion, chills
Sepsis
Elevated troponin, suspected nonischemic myocardial injury
Nonhealing RLE wounds
admissions 06/2023, 07/2023
2 ER visits 08/2023
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
CAD
-History of abnormal stress test
-CABG 2008 [facility] (ORTA to LAD, radial graft to RPDA, SVG from LCx-OM2 to OM3)
-NSTEMI 11/2022, managed conservatively as was confused and without cardiac symptoms
Chronic HFrEF
Ischemic cardiomyopathy, EF 35-40% by echo 07/2023
Permanent A-fib on chronic Eliquis
Hypertension
Hypercholesterolemia
stage III renal insufficiency
MDS/Chronic Anemia s/p Procrit shots
ECHO 11/30/22: EF 25%, global hypokinesis with anterior, anteroseptal, apical akinesis, MAC, at least mild to moderate MR, underestimated due to MAC, AAC, peak/mean gradients 23/30 mmHg, at least mild , moderate to severe TR, PAP 44 mmHg
Echo Aug 13 2023: EF 35 to 40%, global hypokinesis, mild to moderate MR, mild aortic stenosis, peak/mean gradients 21/13 mmHg respectively, aortic valve area 1.3 cm2, moderate severe tricuspid regurgitation, pulmonary artery systolic pressure 45
mmHg. IVC is dilated and does not collapse. No evidence of vegetation. Compared to prior echo EF is improved.
ECHO 09/29/23: EF 30 to 35%, moderate global hypokinesis, mildly dilated right ventricle with mild RV hypokinesis, moderate MR, mild , moderate to severe TR, PAP 40 to 45 mmHg
Plan:
-Patient presented back to [facility] 09/27/2023 due to confusion, chills, and continued right lower extremity pain. Found to have acute limb ischemia
-He underwent right AKA on 09/28/2023 by vascular. continue post op care. Did have post op anemia and got 2 upRBCs post op. Hgb improved from 7.2 to 9.7 on 10/03/23
-He is being treated for sepsis/TME per primary service and infectious disease.
-Continues to be confused and agitated at times with soft wrist restraints in place as trying to pull out tubes. Likely TME. COVID-19 negative 10/04/23. HCT unremarkable 09/27/23 and again 10/03/23
-HRs intermittently elevated in permanent afib at times on review of tele, possibly due to agitation. Will attempt to increase Coreg to 12.5 mg BID
-Resumed Eliquis 5 mg BID on 10/03/2023
-trop peaked at 0.787. [place] to be nonischemic myocardial injury. echo 09/28 with stable EF 30-35%, no significant change compared to prior noted. will manage conservatively
-Weight is down significantly ~16 lbs but weights via bed scale may not be accurate. Unclear volume status. Will check proBNP in am. Prior BNPs during previous admissions [id number], [id number].
-Was on Lasix, Jardiance and Entresto as outpt. These have been held since admission. If BP allows consider adding back one at a time
-Known CAD w/ ICM. Continue Coreg, Crestor, Fenofibrate
Progress Note - Buffing Turner And Counter
Subjective
Date of Service: October 04, 2023
Objective
Labs:
10/03/23 04:39
10/04/23 03:39
Labs
Hgb 9.7 g/dL (13.0-18.0) L 10/03/23 04:39
Hct 29.1 % (39.0-52.0) L 10/03/23 04:39
Plt Count 108 10^3/uL (130-400) L 10/03/23 04:39
PT 19.3 Sec (11.4-14.6) H 09/29/23 02:31
INR 1.62 09/29/23 02:31
APTT 30.0 Sec (23.4-35.0) 09/29/23 02:31
Sodium 138 mmol/L (135-145) 10/04/23 03:39
Potassium 4.3 mmol/L (3.5-5.1) 10/04/23 03:39
BUN 20 mg/dl (9-20) 10/04/23 03:39
Creatinine 0.5 mg/dL (0.7-1.3) L 10/04/23 03:39
Glucose 90 mg/dl (70-99) 10/04/23 03:39
Vital Signs and I&O:
Vital Signs
Temp Pulse Resp BP Pulse Ox
99.3 F 106 18 109/54 94
10/04/23 07:16 10/04/23 10:00 10/04/23 10:00 10/04/23 10:00 10/04/23 10:11
Vital Signs
Temp Pulse Resp BP Pulse Ox
99.3 F 106 18 109/54 94
10/04/23 07:16 10/04/23 10:00 10/04/23 10:00 10/04/23 10:00 10/04/23 10:11
Intake & Output
10/02/23 10/03/23 10/04/23 10/05/23
06:59 06:59 06:59 06:59
Intake Total 525 / 525 290 / 290
Output Total 350 / 350 375 / 375
Balance 175 / 175 -85 / -85
[2023-10-04] MEDS: TYLENOL/FEVERALL 650 MG RECTAL ×2 (12:13→22:55)
--- NOTE | 2023-10-04 13:52 | PTCARENOTE ---
Pt for transfer to tele. Family at bedside and updated on plan of care. Belongings collected from room. Transferred to [facility] [place] via stretcher.
--- NOTE | 2023-10-04 15:34 | CM ---
Patient with Dx Right lower extremity above knee amputation 09/27, Acute TME, delirium, Sepsis, anemia. PT & OT recommend skilled rehab. Per nurse assessment; confused, forgetful. Restraints/mitts.
Spoke with daughter Ana (cell [phone]); she is hoping patient's mentation will continue to improve. Ana would like her father to go to [facility] at discharge. Explained referral process including that [facility] will need to eval &
approve.
Message to Dr Sanford requesting Physiatry Eval.
Spoke with [facility] Liaison; provided clinical update. She will review the referral.
Plan follow up after Physiatry Eval.
--- NOTE | 2023-10-04 16:35 | W.PN.HOSP.TC ---
Today's Communication/Plan
-
Continue monitoring for mentation improvement
Decrease nighttime Seroquel dose
limit sedative medication as possible
continue supportive measures
Assessment / Plan
Assessment / Plan
#Acute toxic metabolic encephalopathy - Improving
- Avoid benzodiazepines, opiates
- Lowering nighttime Seroquel dose to 12-1/2 mg
- on PRN haldol
- off of restraints,
- continue supportive measures.
# Sepsis possibly secondary to Non-Healing RLE Wound
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
-vasc surgery signed off
-finished course of abx.
-resumed back on anticoagulation at this point.
#Acute blood loss anemia
-2/2 to surigcal blood loss
-s/p 2u prbc on 02/28
#Rash
-across chest and back
-no new meds except seroquel/haldol
-slowly improving
#Atrial Fibrillation with Rapid Ventricular Response in setting of Sepsis
-Stop Cardizem drip
-restart eliquis
-Coreg increased to 12 and half milligram twice daily.
# Chronic systolic congestive heart failure
Coronary Artery Disease s/p CABG
-No signs of volume overload.
-Cardiology trying to get patient on GDMT
-continue small dose lasix
# Nonischemic troponin elevation
-most likely due to sepsis
-cards consulted as has had sig CAD hx; no need for asa as per cards
-ECHO f/u - EF 35%
#Transaminitis
-resolved
#Hyperlipidemia
-Continue fenofibrate
#Myelodysplastic Syndrome
-Monitor counts closely
#Polymyalgia Rheumatica
-Continue Prednisone
DVT proph: Eliquis
Code Status: Full Code
Anticipated Discharge: 24 - 48 hours
Subjective/Interval History
-
Date of Service: October 04, 2023
Patient waking up later in afternoon
Mentation seems with clear
No acute issues reported overnight
Objective Data
-
Vital Signs:
Vital Signs
Temp Pulse Resp BP Pulse Ox
99.3 F 122 23 119/80 94
10/04/23 07:16 10/04/23 12:00 10/04/23 12:00 10/04/23 12:00 10/04/23 10:11
I&O
10/03/23 10/04/23 10/05/23
06:59 06:59 06:59
Intake Total 525 / 525 290 / 290
Output Total 350 / 350 375 / 375
Balance 175 / 175 -85 / -85
Review of Systems
-
Unable to obtain full review of systems at this time due to: Acuity
Physical Exam
-
General: Cachectic
HEENT: Negative Oxygen
Respiratory: Clear to Auscultation
Cardiac: Regular Rhythm and S1/S2; Negative Murmur
GI: Soft, Nontender, Nondistended and Other (Left groin site with some sutures)
Musculoskeletal: Other (RLE AKA)
Neuro: Awake and No Motor Deficits
Psych: Calm
[2023-10-04] MEDS: TYLENOL 650 MG PO (17:48)
--- NOTE | 2023-10-04 18:55 | PTCARENOTE ---
Upon walking rounds, restraints not present. One mitt placed on patient right hand.
--- NOTE | 2023-10-04 19:00 | PTCARENOTE ---
Pt displaying rigors, pt family at bedside informed this RN that this is new. CRAB PICKER made aware, no new orders provided.
[2023-10-04] MEDS: COREG 12.5 MG PO (20:11)
[2023-10-04] MEDS: TRICOR 145 MG PO (20:11)
[2023-10-04] MEDS: XANAX 0.25 MG PO (20:11)
[2023-10-04] MEDS: CRESTOR 40 MG PO (20:11)
[2023-10-04] MEDS: SEROQUEL 12.5 MG PO (20:11)
[2023-10-05] VITALS (7 sets, daily range): BP systolic 96–108; BP diastolic 50–76; BMI 22.8
[2023-10-05] MEDS: LOPRESSOR 5 MG IV ×2 (02:17→18:13)
[2023-10-05] MEDS: TORADOL 15 MG IV ×2 (02:18→15:44)
[2023-10-05] MEDS: TYLENOL PO (03:33)
[2023-10-05] MEDS: TYLENOL/FEVERALL 650 MG RECTAL ×2 (03:44→15:49)
[2023-10-05 05:44] LABS: Hematocrit 28.2 % (39.0-52.0); Hemoglobin 9.4 g/dL (13.0-18.0); Mean Corp Hgb Conc. 33.3 g/dL (33.0-37.0); Mean Corpuscular Hgb 33.8 pg (27.0-31.0); Mean Corpuscular Volume 101.4 fL (80.0-94.0); Mean Platelet Volume 9.8 fL (7.4-10.4); Platelet Count 131 10^3/uL (130-400); Red Blood Cell Count 2.78 10^6/uL (4.70-6.10); Red Cell Dist. Width 18.4 % (11.5-14.5)
[2023-10-05 06:50] LABS: ALT (SGPT) 46 U/L (0-50); AST (SGOT) 48 U/L (17-59); Albumin 2.9 g/dl (3.5-5.0); Alkaline Phosphatase 87 U/L (38-126); Blood Urea Nitrogen 23 mg/dl (9-20); Calcium 9.1 mg/dl (8.4-10.2); Carbon Dioxide 22 mmol/L (22-30); Chloride 104 mmol/L (98-107); Estimated Creatinine Clearance 84 ml/min; Glucose 86 mg/dl (70-99); Potassium 3.8 mmol/L (3.5-5.1); Sodium 135 mmol/L (135-145); Total Bilirubin 1.7 mg/dl (0.2-1.3); Total Protein 5.9 g/dl (6.3-8.2); eGFR > 60.00
[2023-10-05] MEDS: ELIQUIS PO ×2 (09:34→13:44)
[2023-10-05] MEDS: DELTASONE PO ×2 (09:38→13:45)
[2023-10-05] MEDS: LASIX PO ×2 (09:42→13:45)
--- NOTE | 2023-10-05 09:42 | W.PN.CARDCBS ---
Today's Communication / Plan
-
Continue current dose of carvedilol
Clinically euvolemic
Consider reintroducing heart failure medications as an outpatient at first outpatient visit which we will arrange.
We will sign off. Please reconsult us if new issues develop.
Impression / Plan
-
Primary Residential Sales Consultant: Dr. Preston
Assessment:
Presentation with confusion, chills
Sepsis
Elevated troponin, suspected nonischemic myocardial injury
Nonhealing RLE wounds
admissions 06/2023, 07/2023
2 ER visits 08/2023
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
CAD
-History of abnormal stress test
-CABG 2008 [facility] (ORTA to LAD, radial graft to RPDA, SVG from LCx-OM2 to OM3)
-NSTEMI 11/2022, managed conservatively as was confused and without cardiac symptoms
Chronic HFrEF
Ischemic cardiomyopathy, EF 35-40% by echo 07/2023
Permanent A-fib on chronic Eliquis
Hypertension
Hypercholesterolemia
stage III renal insufficiency
MDS/Chronic Anemia s/p Procrit shots
ECHO 11/30/22: EF 25%, global hypokinesis with anterior, anteroseptal, apical akinesis, MAC, at least mild to moderate MR, underestimated due to MAC, AAC, peak/mean gradients 23/30 mmHg, at least mild , moderate to severe TR, PAP 44 mmHg
Echo Aug 13 2023: EF 35 to 40%, global hypokinesis, mild to moderate MR, mild aortic stenosis, peak/mean gradients 21/13 mmHg respectively, aortic valve area 1.3 cm2, moderate severe tricuspid regurgitation, pulmonary artery systolic pressure 45
mmHg. IVC is dilated and does not collapse. No evidence of vegetation. Compared to prior echo EF is improved.
ECHO 09/29/23: EF 30 to 35%, moderate global hypokinesis, mildly dilated right ventricle with mild RV hypokinesis, moderate MR, mild , moderate to severe TR, PAP 40 to 45 mmHg
Plan:
-Still very sleepy. Has been confused and agitated.
-Initially patient presented back to [facility] 09/27/2023 due to confusion, chills, and continued right lower extremity pain. Found to have acute limb ischemia
-He underwent right AKA on 09/28/2023 by vascular.
-He is being treated for sepsis/TME per primary service and infectious disease.
-COVID-19 negative 10/04/23. HCT unremarkable 09/27/23 and again 10/03/23
-Permanent atrial fibrillation with acceptable heart rates. Increased at times due to agitation. Stable on increased dose carvedilol increased on 10/04/2023.
-Resumed Eliquis 5 mg BID on 10/03/2023
-trop peaked at 0.787. [place] to be nonischemic myocardial injury. echo 09/28 with stable EF 30-35%, no significant change compared to prior noted. will manage conservatively
-Volume status is difficult to ascertain but laying flat in the bed and appears euvolemic.
-Previously was on Lasix, Jardiance and Entresto as outpt. These have been held since admission. If BP allows consider adding back one at a time. Can reassess as an outpatient.
-Known CAD w/ ICM. Continue Coreg, Crestor, Fenofibrate
At this time no further cardiac recommendations. We will sign off. Please reconsult us if needed.
Progress Note - Residential Sales Consultant
Subjective
Date of Service: October 05, 2023
Sleepy unable to answer questions.
Objective
Labs:
10/05/23 05:37
10/05/23 05:37
Labs
Hgb 9.4 g/dL (13.0-18.0) L 10/05/23 05:37
Hct 28.2 % (39.0-52.0) L 10/05/23 05:37
Plt Count 131 10^3/uL (130-400) D 10/05/23 05:37
PT 19.3 Sec (11.4-14.6) H 09/29/23 02:31
INR 1.62 09/29/23 02:31
APTT 30.0 Sec (23.4-35.0) 09/29/23 02:31
Sodium 135 mmol/L (135-145) 10/05/23 05:37
Potassium 3.8 mmol/L (3.5-5.1) 10/05/23 05:37
BUN 23 mg/dl (9-20) H 10/05/23 05:37
Creatinine 0.7 mg/dL (0.7-1.3) 10/05/23 05:37
Glucose 86 mg/dl (70-99) 10/05/23 05:37
Vital Signs and I&O:
Vital Signs
Temp Pulse Resp BP Pulse Ox
98.0 F 99 16 102/58 99
10/05/23 07:30 10/05/23 07:30 10/05/23 07:30 10/05/23 07:30 10/05/23 07:30
Vital Signs
Temp Pulse Resp BP Pulse Ox
98.0 F 99 16 102/58 99
10/05/23 07:30 10/05/23 07:30 10/05/23 07:30 10/05/23 07:30 10/05/23 07:30
Intake & Output
10/03/23 10/04/23 10/05/23 10/06/23
06:59 06:59 06:59 06:59
Intake Total 525 / 525 290 / 290 50 / 50
Output Total 350 / 350 375 / 375 200 / 200
Balance 175 / 175 -85 / -85 -200 / -200 50 / 50
Physical Exam
Physical Exam
General: Well developed, well nourished in NAD.
Heart: Distant heart sounds irregular
Lungs: Coarse anterior breath sounds
Extremities: Status post amputation
[2023-10-05] MEDS: COREG PO (09:44)
--- NOTE | 2023-10-05 14:23 | W.PN.HOSP.TC ---
Today's Communication/Plan
-
Continue supportive care
Discontinue scheduled nighttime Seroquel
Encourage oral intake while awake
eventual rehab
Assessment / Plan
Assessment / Plan
#Acute toxic metabolic encephalopathy - Improving
- Avoid benzodiazepines, opiates
- off of restraints,
- continue supportive measures.
-Again extremely sedated during daytime. Discontinuing Seroquel 12.5 milligram as well. Was on 25 mg day before
# Sepsis possibly secondary to Non-Healing RLE Wound
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
-vasc surgery signed off
-finished course of abx.
-resumed back on anticoagulation at this point.
#Acute blood loss anemia
-2/2 to surgical blood loss
-s/p 2u prbc on 02/28
#Rash
-across chest and back
-no new meds except seroquel/haldol
-slowly improving
#Atrial Fibrillation with Rapid Ventricular Response in setting of Sepsis
-Stop Cardizem drip
-restart eliquis
-Coreg increased to 12 and half milligram twice daily.
# Chronic systolic congestive heart failure
Coronary Artery Disease s/p CABG
-No signs of volume overload.
-Cardiology trying to get patient on GDMT
-continue small dose lasix
# Nonischemic troponin elevation
-most likely due to sepsis
-cards consulted as has had sig CAD hx; no need for asa as per cards
-ECHO f/u - EF 35%
#Transaminitis
-resolved
#Hyperlipidemia
-Continue fenofibrate
#Myelodysplastic Syndrome
-Monitor counts closely
#Polymyalgia Rheumatica
-Continue Prednisone
DVT proph: Eliquis
Code Status: Full Code
Anticipated Discharge: 24 - 48 hours
Subjective/Interval History
-
Date of Service: October 05, 2023
Remains somnolent, waking up on physical stimuli
Not on restraints
Objective Data
-
Labs:
Laboratory Results
10/05/23
05:37
WBC 7.0
Hgb 9.4 L
Hct 28.2 L
Plt Count 131 D
Sodium 135
Potassium 3.8
Chloride 104
Carbon Dioxide 22
BUN 23 H
Creatinine 0.7
Glucose 86
Calcium 9.1
Total Bilirubin 1.7 H
AST 48
ALT 46
Alkaline Phosphatase 87
Vital Signs:
Vital Signs
Temp Pulse Resp BP Pulse Ox
98.0 F 99 20 96/57 97
10/05/23 11:55 10/05/23 11:55 10/05/23 11:55 10/05/23 11:55 10/05/23 11:55
I&O
10/04/23 10/05/23 10/06/23
06:59 06:59 06:59
Intake Total 290 / 290 50 / 50
Output Total 375 / 375 200 / 200
Balance -85 / -85 -200 / -200 50 / 50
Review of Systems
-
Unable to obtain full review of systems at this time due to: Acuity
Physical Exam
-
General: Cachectic
HEENT: Negative Oxygen
Respiratory: Clear to Auscultation
Cardiac: Regular Rhythm and S1/S2; Negative Murmur
GI: Soft, Nontender, Nondistended and Other (Left groin site with some sutures)
Musculoskeletal: Other (RLE AKA)
Neuro: Awake and No Motor Deficits
Psych: Calm
[2023-10-05 16:10] LABS: Urine Albumin 1+ (Neg - Trace); Urine Bilirubin 2+ (Negative); Urine Character Clear (Clear); Urine Color Amber; Urine Glucose Negative (Negative); Urine Ketone 1+ (Negative); Urine Leukocyte Trace (Negative); Urine Nitrite Positive (Negative); Urine Occult Blood 2+ (Negative); Urine Specific Gravity 1.025 (<1.030); Urine Urobilinogen 3+ (Neg - 1+)
[2023-10-05] MEDS: ZOSYN 50 IV ×2 (16:16→21:55)
[2023-10-05 16:22] LABS: Urine Squamous Cell 0-2 /LPF (Few)
[2023-10-05 16:23] LABS: Urine White Cell 0-2 /HPF (0-5)
[2023-10-05] MEDS: DECADRON 3 MG IV (16:23)
--- NOTE | 2023-10-05 16:24 | W.PN.UPDATE ---
Update Note
Progress Note Update
Patient febrile and tachycardic - of note rectal temp 103.5 F . oral 98.5F
In side of safety assuming patient may have mild sepsis
ua/urine cs/blood cs/procal check ordered
starting zosyn
also in afib /rvr - not able to get oral coreg with sedation
SBP in 100-110 range, asked cardio to eval
[2023-10-05] MEDS: LOPRESSOR 2.5 MG IV (16:57)
[2023-10-05 17:11] LABS: Procalcitonin 1.44 ng/ml (0.0-0.25)
[2023-10-05] MEDS: TRICOR 145 MG PO (21:54)
[2023-10-05] MEDS: ELIQUIS 5 MG PO (21:54)
[2023-10-05] MEDS: CRESTOR 40 MG PO (21:54)
[2023-10-05] MEDS: XANAX 0.25 MG PO (22:09)
[2023-10-06] VITALS (7 sets, daily range): BP systolic 84–119; BP diastolic 56–91; PULSE 72; O2SAT 95; BMI 22.4
[2023-10-06] MEDS: LOPRESSOR 5 MG IV ×2 (00:35→06:16)
--- NOTE | 2023-10-06 01:00 | PTCARENOTE ---
Pt increasing restless, constantly pulling tele monitor off. BLOCK BREAKER OPERATOR made aware. Verbal order taken for non-violent restraints. Mitts to L&R hands applied and documented. Pt tolerating. Will continue ongoing plan of care.
[2023-10-06] MEDS: ZOSYN 50 IV ×4 (04:25→21:03)
--- NOTE | 2023-10-06 04:56 | DOWNTIME ---
There was a [employer] Operation Manager Downtime on 10/06/2023 from 0100 to 10/06/2023 at 0439. Downtime documentation of patient's care, including medication administrations, has been reconciled in the electronic record per guidelines. Refer to the
patient's paper chart under the miscellaneous tab to see printed paper medication records and downtime forms.
[2023-10-06 07:09] LABS: ALT (SGPT) 41 U/L (0-50); AST (SGOT) 36 U/L (17-59); Albumin 2.9 g/dl (3.5-5.0); Alkaline Phosphatase 86 U/L (38-126); Blood Urea Nitrogen 37 mg/dl (9-20); Calcium 8.8 mg/dl (8.4-10.2); Carbon Dioxide 23 mmol/L (22-30); Chloride 107 mmol/L (98-107); Estimated Creatinine Clearance 72 ml/min; Glucose 120 mg/dl (70-99); Potassium 4.2 mmol/L (3.5-5.1); Sodium 137 mmol/L (135-145); Total Bilirubin 1.1 mg/dl (0.2-1.3); eGFR > 60.00
[2023-10-06] MEDS: DECADRON 3 MG IV (09:35)
[2023-10-06] MEDS: LASIX 20 MG PO (09:35)
[2023-10-06] MEDS: ELIQUIS 5 MG PO ×2 (09:35→21:03)
--- NOTE | 2023-10-06 11:40 | W.PN.CARDCBS ---
Today's Communication / Plan
-
IV metoprolol while not taking p.o.'s and would switch to p.o. Coreg once taking p.o.'s
Acceptable rate control on telemetry although will be difficult to rate control given his high fevers and drug rash
Impression / Plan
-
Primary Obiee Consultant: Dr. Preston
Assessment:
Presentation with confusion, chills
Sepsis
Elevated troponin, suspected nonischemic myocardial injury
Nonhealing RLE wounds
admissions 06/2023, 07/2023
2 ER visits 08/2023
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
CAD
-History of abnormal stress test
-CABG 2008 [facility] (ORTA to LAD, radial graft to RPDA, SVG from LCx-OM2 to OM3)
-NSTEMI 11/2022, managed conservatively as was confused and without cardiac symptoms
Chronic HFrEF
Ischemic cardiomyopathy, EF 35-40% by echo 07/2023
Permanent A-fib on chronic Eliquis
Hypertension
Hypercholesterolemia
stage III renal insufficiency
MDS/Chronic Anemia s/p Procrit shots
ECHO 11/30/22: EF 25%, global hypokinesis with anterior, anteroseptal, apical akinesis, MAC, at least mild to moderate MR, underestimated due to MAC, AAC, peak/mean gradients 23/30 mmHg, at least mild , moderate to severe TR, PAP 44 mmHg
Echo Aug 13 2023: EF 35 to 40%, global hypokinesis, mild to moderate MR, mild aortic stenosis, peak/mean gradients 21/13 mmHg respectively, aortic valve area 1.3 cm2, moderate severe tricuspid regurgitation, pulmonary artery systolic pressure 45
mmHg. IVC is dilated and does not collapse. No evidence of vegetation. Compared to prior echo EF is improved.
ECHO 09/29/23: EF 30 to 35%, moderate global hypokinesis, mildly dilated right ventricle with mild RV hypokinesis, moderate MR, mild , moderate to severe TR, PAP 40 to 45 mmHg
Plan:
-Fevers noted, diffuse truncal rash noted, I suspect these are contributing to his elevation rates although today on telemetry's he is in the 90s to 100s on IV metoprolol every 6 as ordered. Will continue IV metoprolol as long as he is not taking
p.o.'s and can switch back to Coreg and tolerate heart rates in the 100-120 range as he has medical illness and will be difficult to rate control adequately.
-Initially patient presented back to [facility] 09/27/2023 due to confusion, chills, and continued right lower extremity pain. Found to have acute limb ischemia
-He underwent right AKA on 09/28/2023 by vascular.
-He is being treated for sepsis/TME per primary service and infectious disease.
-COVID-19 negative 10/04/23. HCT unremarkable 09/27/23 and again 10/03/23
-Permanent atrial fibrillation with acceptable heart rates. Increased at times due to agitation. Stable on increased dose carvedilol increased on 10/04/2023.
-Resumed Eliquis 5 mg BID on 10/03/2023
-trop peaked at 0.787. Mar Lin to be nonischemic myocardial injury. echo 09/28 with stable EF 30-35%, no significant change compared to prior noted. will manage conservatively
-Volume status is difficult to ascertain but laying flat in the bed and appears euvolemic.
-Previously was on Lasix, Jardiance and Entresto as outpt. These have been held since admission. If BP allows consider adding back one at a time. Can reassess as an outpatient.
-Known CAD w/ ICM. Continue Coreg, Crestor, Fenofibrate
-We can follow telemetry with you although would tolerate heart rates in the 90-120 range on average.
Progress Note - Obiee Consultant
Subjective
Date of Service: October 06, 2023
Fevers noted
Rash noted
Mental status the same
Objective
Labs:
10/05/23 05:37
10/06/23 05:59
Labs
Hgb 9.4 g/dL (13.0-18.0) L 10/05/23 05:37
Hct 28.2 % (39.0-52.0) L 10/05/23 05:37
Plt Count 131 10^3/uL (130-400) D 10/05/23 05:37
PT 19.3 Sec (11.4-14.6) H 09/29/23 02:31
INR 1.62 09/29/23 02:31
APTT 30.0 Sec (23.4-35.0) 09/29/23 02:31
Sodium 137 mmol/L (135-145) 10/06/23 05:59
Potassium 4.2 mmol/L (3.5-5.1) 10/06/23 05:59
BUN 37 mg/dl (9-20) H 10/06/23 05:59
Creatinine 0.8 mg/dL (0.7-1.3) 10/06/23 05:59
Glucose 120 mg/dl (70-99) H 10/06/23 05:59
Vital Signs and I&O:
Vital Signs
Temp Pulse Resp BP Pulse Ox
97.0 F 106 17 103/61 100
10/06/23 07:00 10/06/23 07:00 10/06/23 07:00 10/06/23 09:35 10/06/23 07:00
Vital Signs
Temp Pulse Resp BP Pulse Ox
97.0 F 106 17 103/61 100
10/06/23 07:00 10/06/23 07:00 10/06/23 07:00 10/06/23 09:35 10/06/23 07:00
Intake & Output
10/04/23 10/05/23 10/06/23 10/07/23
06:59 06:59 06:59 06:59
Intake Total 290 / 290 650 / 650
Output Total 375 / 375 200 / 200 225 / 225
Balance -85 / -85 -200 / -200 425 / 425
Physical Exam
Physical Exam
General: no apparent distress, not acutely ill
Neck: supple. no meningeal signs.
Heart: s1/s2 irregularly irregular and rhythm, No S3 or S4, Gr 1/6 BSEM, no rubs, nl PMI equal radial pulses.
Lungs: no acute respiratory distress. clear bilaterally
Abdomen: normal bowel sounds. not tender. no CVAT
Neuro: alert and oriented. no focal neurological deficits
Skin: no rash
Psychiatric: well kept. interactive and cooperative
Extremities: no edema. no calf tenderness. negative homans. good distal pulses
[2023-10-06] MEDS: LOPRESSOR IV ×2 (12:44→17:56)
--- NOTE | 2023-10-06 14:24 | W.PN.HOSP.TC ---
Today's Communication/Plan
-
see note
Assessment / Plan
Assessment / Plan
#Acute toxic metabolic encephalopathy - Improving
- Avoid benzodiazepines, opiates
- off of restraints,
- continue supportive measures.
-Maintain completely off of antipsychotics. Mentation somewhat better today.
# Sepsis possibly secondary to Non-Healing RLE Wound
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
-vasc surgery signed off
-resumed back on anticoagulation at this point.
-Suspecting recurring of sepsis. Patient was tachycardic/febrile on 10/04 evening
-Patient finished course of antibiotic, resumed back on Zosyn
-Left ankle wound present, x-ray did not show any osteomyelitis on my review of images. Official read pending
-Blood culture/UA collected. Procal elevated to 1.44
# Acute blood loss anemia
-2/2 to surgical blood loss
-s/p 2u prbc on 02/28
# Rash
-across chest and back
-no new meds except seroquel/haldol
-Steroid cream ordered
#Atrial Fibrillation with Rapid Ventricular Response in setting of Sepsis
-Stop Cardizem drip
-restart eliquis
-Patient back into RVR on 10/04 evening likely due to recurrence of fever versus sepsis
-As blood pressure was soft patient was given IV metoprolol as needed
# Chronic systolic congestive heart failure
Coronary Artery Disease s/p CABG
-No signs of volume overload.
-Cardiology trying to get patient on GDMT
-continue small dose lasix
# Nonischemic troponin elevation
-most likely due to sepsis
-cards consulted as has had sig CAD hx; no need for asa as per cards
-ECHO f/u - EF 35%
#Transaminitis
-resolved
#Hyperlipidemia
-Continue fenofibrate
#Myelodysplastic Syndrome
-Monitor counts closely
#Polymyalgia Rheumatica
-Continue Prednisone
DVT proph: Eliquis
Code Status: Full Code
Discussed care with vascular surgery. Requested for patient to be evaluated per family request.
Total time spent 53 minutes
Anticipated Discharge: > 48 hours
Subjective/Interval History
-
Date of Service: October 06, 2023
Resting comfortably in bed
Waking up on verbal cue although not completely coherent
Remains tachycardic although heart rate better controlled
Continues to have mild fever overnight
Objective Data
-
Labs:
Laboratory Results
10/06/23
05:59
Sodium 137
Potassium 4.2
Chloride 107
Carbon Dioxide 23
BUN 37 H
Creatinine 0.8
Glucose 120 H
Calcium 8.8
Total Bilirubin 1.1
AST 36
ALT 41
Alkaline Phosphatase 86
Vital Signs:
Vital Signs
Temp Pulse Resp BP Pulse Ox
97.0 F 106 17 103/61 100
10/06/23 07:00 10/06/23 07:00 10/06/23 07:00 10/06/23 09:35 10/06/23 07:00
I&O
10/05/23 10/06/23 10/07/23
06:59 06:59 06:59
Intake Total 650 / 650
Output Total 200 / 200 225 / 225
Balance -200 / -200 425 / 425
Review of Systems
-
Unable to obtain full review of systems at this time due to: Dementia and Acuity
Physical Exam
-
General: Cachectic
HEENT: Negative Oxygen
Respiratory: Clear to Auscultation
Cardiac: Regular Rhythm and S1/S2; Negative Murmur
GI: Soft, Nontender, Nondistended and Other (Left groin site with some sutures)
Musculoskeletal: Other (RLE AKA)
Neuro: Awake and No Motor Deficits; Negative Oriented
Psych: Calm
--- NOTE | 2023-10-06 15:39 | CM ---
Case management following for d/c planning
PT/OT recommending SNF
Family requesting PM&R consult - waiting on recommendation
MS improving, remains on antibiotics
Cariology following
Plan - tbd based on PM&R consult - snf vs acute rehab
--- NOTE | 2023-10-06 17:02 | W.PN.UPDATE ---
Update Note
Progress Note Update
Seen and evaluated. Asked to reevaluate patient known to us status post right AKA earlier this month. Concern for fever and left leg pain. Small chronic left ankle wound. Asked to evaluate. Patient still slightly confused. Difficult to know
whether he is having significant pain in the left calf but does not seem to be indicating that he is having constant pain. Per his daughter who I spoke to at the bedside she notes that he had expressed earlier left calf pain. On exam he is awake
and alert. Remains confused somewhat. Right above-knee amputation site skin edges well-approximated. Staple line clean dry and intact. No signs of infection. No hematoma. Looks good. Left lower extremity palpable femoral pulse high in the
groin 1+/2+. Nonpalpable distally. His foot is warm. It is pink with reasonable capillary refill. Small dorsal ankle wound appears stable, no gross signs of infection. Mild calf tenderness. Not severe. Not every time I press as well. No
discoloration of the calf.
X-ray with no evidence of osteomyelitis.
Plan/does not appear to be an ischemic problem currently. Will obtain noninvasive arterial imaging as we have not imaged the left side in a few months. Will also obtain a venous duplex to rule out a DVT (as a potential cause of left calf pain and
fever).
[2023-10-06] MEDS: ProAmatine 10 MG PO (17:54)
[2023-10-06] MEDS: CRESTOR 40 MG PO (21:03)
[2023-10-06] MEDS: KENALOG/TRIAMCINOLONE 0.1% LOTION 1 APPLIC TOPICAL (21:03)
[2023-10-06] MEDS: TRICOR 145 MG PO (21:03)
[2023-10-07] MEDS: LOPRESSOR IV (00:50)
[2023-10-07 03:34] VITALS: BP 110/66
[2023-10-07] MEDS: ZOSYN 50 IV ×4 (05:07→23:12)
[2023-10-07] MEDS: LOPRESSOR 5 MG IV (05:08)
[2023-10-07 06:00] VITALS: BMI 22.7
[2023-10-07 06:28] LABS: Hematocrit 27.6 % (39.0-52.0); Hemoglobin 8.9 g/dL (13.0-18.0); Mean Corp Hgb Conc. 32.2 g/dL (33.0-37.0); Mean Corpuscular Hgb 33.2 pg (27.0-31.0); Mean Platelet Volume 10.3 fL (7.4-10.4); Platelet Count 174 10^3/uL (130-400); Red Blood Cell Count 2.68 10^6/uL (4.70-6.10); Red Cell Dist. Width 17.9 % (11.5-14.5); White Blood Cell Count 5.8 10^3/uL (4.8-10.8)
[2023-10-07 06:52] LABS: Blood Urea Nitrogen 33 mg/dl (9-20); Calcium 8.8 mg/dl (8.4-10.2); Carbon Dioxide 24 mmol/L (22-30); Chloride 108 mmol/L (98-107); Estimated Creatinine Clearance 83 ml/min; Glucose 114 mg/dl (70-99); Sodium 137 mmol/L (135-145); eGFR > 60.00
[2023-10-07 07:00] VITALS: BP 108/57
[2023-10-07] MEDS: KENALOG/TRIAMCINOLONE 0.1% LOTION 1 APPLIC TOPICAL ×2 (09:17→23:19)
[2023-10-07] MEDS: LASIX 20 MG PO (09:18)
[2023-10-07] MEDS: ProAmatine PO ×4 (09:19→17:04)
[2023-10-07] MEDS: DECADRON 3 MG IV (09:20)
[2023-10-07] MEDS: ELIQUIS 5 MG PO ×2 (09:21→19:44)
--- NOTE | 2023-10-07 09:43 | CM ---
Received call from Personnel Interviewer, Elizabeth [phone], from [facility]
Reports available for assist with d/c planning, DME, Rehab assist if needed
--- NOTE | 2023-10-07 09:44 | W.PN.CARDCBS ---
Today's Communication / Plan
-
He is taking POs again.
Transition from IV Metoprolol back to Coreg which was increased on October 04 2023. Would accept a HR up to 120 given medical issues.
Cont HR control. HR may be affected by infection and fever.
Pt has hx of permanent atrial fibrillation with acceptable heart rates, increased at times due to agitation.
Cont Eliquis 5 mg BID
Cont medical therapy of nonMI trop peak trop 0.7.
Please recall if needed.
Impression / Plan
-
Primary Business Law Teacher: Dr. Preston
Assessment:
Presentation with confusion, chills
Sepsis
Elevated troponin, suspected nonischemic myocardial injury
Nonhealing RLE wounds
admissions 06/2023, 07/2023
2 ER visits 08/2023
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
CAD
-History of abnormal stress test
-CABG 2008 [facility] (ORTA to LAD, radial graft to RPDA, SVG from LCx-OM2 to OM3)
-NSTEMI 11/2022, managed conservatively as was confused and without cardiac symptoms
Chronic HFrEF
Ischemic cardiomyopathy, EF 35-40% by echo 07/2023
Permanent A-fib on chronic Eliquis
Hypertension
Hypercholesterolemia
stage III renal insufficiency
MDS/Chronic Anemia s/p Procrit shots
ECHO 11/30/22: EF 25%, global hypokinesis with anterior, anteroseptal, apical akinesis, MAC, at least mild to moderate MR, underestimated due to MAC, AAC, peak/mean gradients 23/30 mmHg, at least mild , moderate to severe TR, PAP 44 mmHg
Echo Aug 13 2023: EF 35 to 40%, global hypokinesis, mild to moderate MR, mild aortic stenosis, peak/mean gradients 21/13 mmHg respectively, aortic valve area 1.3 cm2, moderate severe tricuspid regurgitation, pulmonary artery systolic pressure 45
mmHg. IVC is dilated and does not collapse. No evidence of vegetation. Compared to prior echo EF is improved.
ECHO 09/29/23: EF 30 to 35%, moderate global hypokinesis, mildly dilated right ventricle with mild RV hypokinesis, moderate MR, mild , moderate to severe TR, PAP 40 to 45 mmHg
Plan:
He is taking POs again.
Transition from IV Metoprolol back to Coreg which was increased on October 04 2023. Would accept a HR up to 120 given medical issues.
Cont HR control. HR may be affected by infection and fever.
Pt has hx of permanent atrial fibrillation with acceptable heart rates, increased at times due to agitation.
Cont Eliquis 5 mg BID
Cont medical therapy of nonMI trop peak trop 0.7.
Please recall if needed.
Progress Note - Business Law Teacher
Subjective
Date of Service: October 07, 2023
Pt seen and examined. No complaints. No chest pain or shortness of breath.
Objective
Labs:
10/07/23 05:51
10/07/23 05:51
Labs
Hgb 8.9 g/dL (13.0-18.0) L 10/07/23 05:51
Hct 27.6 % (39.0-52.0) L 10/07/23 05:51
Plt Count 174 10^3/uL (130-400) D 10/07/23 05:51
PT 19.3 Sec (11.4-14.6) H 09/29/23 02:31
INR 1.62 09/29/23 02:31
APTT 30.0 Sec (23.4-35.0) 09/29/23 02:31
Sodium 137 mmol/L (135-145) 10/07/23 05:51
Potassium 4.0 mmol/L (3.5-5.1) 10/07/23 05:51
BUN 33 mg/dl (9-20) H 10/07/23 05:51
Creatinine 0.7 mg/dL (0.7-1.3) 10/07/23 05:51
Glucose 114 mg/dl (70-99) H 10/07/23 05:51
Vital Signs and I&O:
Vital Signs
Temp Pulse Resp BP Pulse Ox
97.7 F 91 18 108/57 94
10/07/23 07:00 10/07/23 09:34 10/07/23 07:00 10/07/23 09:34 10/07/23 07:00
Vital Signs
Temp Pulse Resp BP Pulse Ox
97.7 F 91 18 108/57 94
10/07/23 07:00 10/07/23 09:34 10/07/23 07:00 10/07/23 09:34 10/07/23 07:00
Intake & Output
10/05/23 10/06/23 10/07/23 10/08/23
06:59 06:59 06:59 06:59
Intake Total 650 / 650 600 / 600
Output Total 200 / 200 225 / 225 240 / 240
Balance -200 / -200 425 / 425 360 / 360
Physical Exam
Physical Exam
General: No acute distress
Neck: Negative JVD
Heart: Regular, Negative S3 positive S1/S2, Negative S4, No murmur
Lungs: CTA b/l, negative wheezes/rales/rhonchi
Abd: Positive BS, NT/ND, neg rebound/rigidity/guarding
Ext: Negative cyanosis/clubbing/edema. Right AKA
Neuro: nonfocal
[2023-10-07 11:00] VITALS: BP 114/72
--- NOTE | 2023-10-07 14:00 | WOUNDNOTE ---
LEFT LOWER LEG
--- NOTE | 2023-10-07 14:24 | WOUNDNOTE ---
[facility] RN note: Patient admitted with right LE pain, swelling recent admission for right AKA
See H&P for complete history.
PMH: CAD, PAD, A-fib, HTN, MDS, RLE stents right AKA,
Wound Location and type/assessment: Patient admitted with: Left LE full thickness wound. Patient demonstrated confusion during assessment and was poor historian. Patient has hx of PVD. Left GENE .12, negative for DVT. Wound has serosanguineous,
yellow slough and some ecchymosis. Patient reports pain on palpation. Per chart review and RNHakan, patient was admitted with stage 1 of buttocks. Left heel is intact and off-loaded on pillow. Right AKA site clean and approximated. No erythema
or open areas.
Appetite: Per son, appetite has been fair.
Pressure redistribution devices in place: Bed tech called for air bed. RN Hakan aware.
Plan: Local wound care provided to left lower leg. Protective foam applied to heel, left lateral ankle and left lateral foot. Left heel off-loaded with pillows under calves. Plan reviewed with son, who was in room during assessment. Will continue
to follow as needed. Will confirm orders with hospitalist and update nurse. Updated care plan and will follow as needed.
Note to case management of equipment requested for discharge:
Recommend follow up at wound care center upon discharge.
[2023-10-07 15:00] VITALS: BP 116/66
[2023-10-07] MEDS: TYLENOL 650 MG PO (15:00)
--- NOTE | 2023-10-07 15:02 | W.PN.HOSP.TC ---
Today's Communication/Plan
-
continue supportive care
await vasc input
Assessment / Plan
Assessment / Plan
Left leg: GENE severely reduced measuring 0.12. Absent digital signal. Monophasic continuous flow within the common femoral artery compatible with inflow disease. Long segment SFA occlusion with reconstitution of severely dampened monophasic
continuous flow within the popliteal artery. Posterior tibial artery is occluded. Monophasic continuous flow within the dorsalis pedis artery.

#Acute toxic metabolic encephalopathy - Improving
- Avoid benzodiazepines, opiates
- off of restraints,
- continue supportive measures.
-Patient waking up and communicative although remains pleasantly disoriented
# Sepsis possibly secondary to Non-Healing RLE Wound
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
-vasc surgery signed off
-resumed back on anticoagulation at this point.
-Suspecting recurring of sepsis. Patient was tachycardic/febrile on 10/04 evening
-Patient finished course of antibiotic, resumed back on Zosyn
-Left ankle wound present, x-ray did not show osteomyelitis.
-Blood culture/UA collected. Procal elevated to 1.44
#PAD
-having some pain in left leg
-vasc surgery consulted, GENE showing diffuse atherosclerotic changes as mentioned above. Await further recommendation.
# Acute blood loss anemia
-2/2 to surgical blood loss
-s/p 2u prbc on 02/28
# Rash
-across chest and back
-no new meds except seroquel/haldol
-Steroid cream ordered
#Atrial Fibrillation with Rapid Ventricular Response in setting of Sepsis
-Stop Cardizem drip
-restart eliquis
-Patient back into RVR on 10/04 evening likely due to recurrence of fever versus sepsis
-As blood pressure was soft patient was given IV metoprolol as needed
# Chronic systolic congestive heart failure
Coronary Artery Disease s/p CABG
-No signs of volume overload.
-Cardiology trying to get patient on GDMT
-continue small dose lasix
# Nonischemic troponin elevation
-most likely due to sepsis
-cards consulted as has had sig CAD hx; no need for asa as per cards
-ECHO f/u - EF 35%
#Transaminitis
-resolved
#Hyperlipidemia
-Continue fenofibrate
#Myelodysplastic Syndrome
-Monitor counts closely
#Polymyalgia Rheumatica
-Continue Prednisone
DVT proph: Eliquis
Code Status: Full Code
Anticipated Discharge: 24 - 48 hours
Subjective/Interval History
-
Date of Service: October 07, 2023
Patient waking up today, communicative remains disoriented at times nonetheless
Afebrile overnight
No other reported problems
Objective Data
-
Labs:
Laboratory Results
10/07/23
05:51
WBC 5.8
Hgb 8.9 L
Hct 27.6 L
Plt Count 174 D
Sodium 137
Potassium 4.0
Chloride 108 H
Carbon Dioxide 24
BUN 33 H
Creatinine 0.7
Glucose 114 H
Calcium 8.8
Vital Signs:
Vital Signs
Temp Pulse Resp BP Pulse Ox
98.0 F 110 18 114/72 97
10/07/23 11:00 10/07/23 12:41 10/07/23 11:00 10/07/23 12:41 10/07/23 11:00
I&O
10/06/23 10/07/23 10/08/23
06:59 06:59 06:59
Intake Total 650 / 650 600 / 600
Output Total 225 / 225 240 / 240
Balance 425 / 425 360 / 360
Review of Systems
-
Unable to obtain full review of systems at this time due to: Acuity
Physical Exam
-
General: Cachectic
HEENT: Negative Oxygen
Respiratory: Clear to Auscultation
Cardiac: Regular Rhythm and S1/S2; Negative Murmur
GI: Soft, Nontender, Nondistended and Other (Left groin site with some sutures)
Musculoskeletal: Other (RLE AKA)
Neuro: Awake and No Motor Deficits; Negative Oriented
Psych: Calm
--- NOTE | 2023-10-07 15:27 | W.PN.UPDATE ---
Update Note
Progress Note Update
I reviewed his noninvasive imaging. No evidence of DVT noted. Arterial imaging demonstrates severe arterial insufficiency with GENE 0.12 suggestive of severe arterial insufficiency. However in review of prior imaging he has had a long segment SFA
occlusion which is unchanged even on prior imaging (07/19/2023, though GENE was not completed). Therefore I suspect that this is all chronic. Not definitively worsened. Given all that he is going through, would favor holding off on any intervention
currently. If continued left calf pain and no other source could pursue angiography with attempt at endovascular therapy. However no guarantee this would be successful with long segment SFA occlusion.
[2023-10-07] MEDS: XANAX 0.25 MG PO (19:44)
[2023-10-07] MEDS: CRESTOR 40 MG PO (23:11)
[2023-10-07] MEDS: TRICOR 145 MG PO (23:11)
[2023-10-08] VITALS (7 sets, daily range): BP systolic 103–145; BP diastolic 59–72; BMI 22.8
[2023-10-08] MEDS: ZOSYN 50 IV ×2 (05:31→09:10)
[2023-10-08 06:05] LABS: Hematocrit 25.7 % (39.0-52.0); Hemoglobin 8.5 g/dL (13.0-18.0); Mean Corp Hgb Conc. 33.1 g/dL (33.0-37.0); Mean Corpuscular Hgb 33.9 pg (27.0-31.0); Mean Corpuscular Volume 102.4 fL (80.0-94.0); Mean Platelet Volume 10.1 fL (7.4-10.4); Platelet Count 175 10^3/uL (130-400); Red Blood Cell Count 2.51 10^6/uL (4.70-6.10); Red Cell Dist. Width 17.5 % (11.5-14.5); White Blood Cell Count 5.7 10^3/uL (4.8-10.8)
[2023-10-08 06:32] LABS: Blood Urea Nitrogen 30 mg/dl (9-20); Calcium 9.2 mg/dl (8.4-10.2); Carbon Dioxide 23 mmol/L (22-30); Chloride 111 mmol/L (98-107); Estimated Creatinine Clearance 83 ml/min; Glucose 109 mg/dl (70-99); Potassium 4.4 mmol/L (3.5-5.1); Sodium 141 mmol/L (135-145); eGFR > 60.00
[2023-10-08] MEDS: LASIX 20 MG PO (07:58)
[2023-10-08] MEDS: ELIQUIS 5 MG PO ×2 (07:59→19:07)
[2023-10-08] MEDS: DECADRON 3 MG IV (08:00)
[2023-10-08] MEDS: KENALOG/TRIAMCINOLONE 0.1% LOTION 1 APPLIC TOPICAL ×2 (08:02→22:23)
[2023-10-08] MEDS: ProAmatine PO ×3 (08:56→16:02)
--- NOTE | 2023-10-08 11:12 | WOUNDNOTE ---
WOC RN NOTE: Plan is for patient to be moved to air mattress today. [employer] on floor and RN aware.
[2023-10-08] MEDS: TYLENOL 650 MG PO ×2 (14:46→22:22)
--- NOTE | 2023-10-08 15:52 | W.PN.HOSP.TC ---
Today's Communication/Plan
-
see note
Assessment / Plan
Assessment / Plan
Left leg: GENE severely reduced measuring 0.12. Absent digital signal. Monophasic continuous flow within the common femoral artery compatible with inflow disease. Long segment SFA occlusion with reconstitution of severely dampened monophasic
continuous flow within the popliteal artery. Posterior tibial artery is occluded. Monophasic continuous flow within the dorsalis pedis artery.

#Acute toxic metabolic encephalopathy - Improving
-Avoid benzodiazepines, opiates
-off of restraints,
-continue supportive measures.
-Patient confused again today. ordering night time zyprexa
-check b12/folate level
-empiric thiamine
# Sepsis possibly secondary to Non-Healing RLE Wound
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
-vasc surgery signed off
-resumed back on anticoagulation at this point.
-Suspecting recurring of sepsis as patient was tachycardic/febrile on 10/04 evening
-Patient finished course of antibiotic, resumed back on Zosyn
-Left ankle wound present, x-ray did not show osteomyelitis.
-Blood culture/UA collected. Procal elevated to 1.44
-for last 48hrs remains afebrile. discontinue further zosyn.
#PAD
-having some pain in left leg
-vasc surgery consulted, GENE showing diffuse atherosclerotic changes as mentioned above. Await further recommendation.
# Acute blood loss anemia
-2/2 to surgical blood loss
-s/p 2u prbc on 02/28
# Rash
-across chest and back
-no new meds except seroquel/haldol
-Steroid cream ordered
#Atrial Fibrillation with Rapid Ventricular Response in setting of Sepsis
-Stop Cardizem drip
-restart eliquis
-Patient back into RVR on 10/04 evening likely due to recurrence of fever versus sepsis
-As blood pressure was soft patient was given IV metoprolol as needed
# Chronic systolic congestive heart failure
Coronary Artery Disease s/p CABG
-No signs of volume overload.
-Cardiology trying to get patient on GDMT
-continue small dose lasix
# Nonischemic troponin elevation
-most likely due to sepsis
-cards consulted as has had sig CAD hx; no need for asa as per cards
-ECHO f/u - EF 35%
#Transaminitis
-resolved
#Hyperlipidemia
-Continue fenofibrate
#Myelodysplastic Syndrome
-Monitor counts closely
#Polymyalgia Rheumatica
-Continue Prednisone
DVT proph: Eliquis
Code Status: Full Code
Anticipated Discharge: Within 24 hours
Subjective/Interval History
-
Date of Service: October 08, 2023
patient confused again
afebrile overnight
Objective Data
-
Labs:
Laboratory Results
10/08/23
05:34
WBC 5.7
Hgb 8.5 L
Hct 25.7 L
Plt Count 175
Sodium 141
Potassium 4.4
Chloride 111 H
Carbon Dioxide 23
BUN 30 H
Creatinine 0.7
Glucose 109 H
Calcium 9.2
Vital Signs:
Vital Signs
Temp Pulse Resp BP Pulse Ox
97.8 F 93 20 110/68 98
10/08/23 15:29 10/08/23 15:29 10/08/23 15:29 10/08/23 15:29 10/08/23 15:29
I&O
10/07/23 10/08/23 10/09/23
06:59 06:59 06:59
Intake Total 600 / 600 480 / 480
Output Total 240 / 240 275 / 275
Balance 360 / 360 205 / 205
Review of Systems
-
Unable to obtain full review of systems at this time due to: Acuity
Physical Exam
-
General: Cachectic
HEENT: Negative Oxygen
Respiratory: Clear to Auscultation
Cardiac: Regular Rhythm and S1/S2; Negative Murmur
GI: Soft, Nontender, Nondistended and Other (Left groin site with some sutures)
Musculoskeletal: Other (RLE AKA)
Neuro: Awake and No Motor Deficits; Negative Oriented
Psych: Calm
[2023-10-08 18:04] LABS: Folate 9.5 ng/ml (2.76-20); Vitamin B12 772 pg/ml (239-931)
[2023-10-08] MEDS: XANAX 0.25 MG PO (19:46)
[2023-10-08] MEDS: TRICOR 145 MG PO (22:22)
[2023-10-08] MEDS: CRESTOR 40 MG PO (22:22)
[2023-10-08] MEDS: THIAMINE INJECTION 200 MG IV (22:23)
[2023-10-08] MEDS: ZYPREXA 2.5 MG PO (22:23)
[2023-10-09 03:39] VITALS: BP 111/77
[2023-10-09 06:00] VITALS: BMI 22.8
[2023-10-09 06:36] LABS: Hematocrit 25.8 % (39.0-52.0); Hemoglobin 8.7 g/dL (13.0-18.0); Mean Corp Hgb Conc. 33.7 g/dL (33.0-37.0); Mean Corpuscular Hgb 33.2 pg (27.0-31.0); Mean Corpuscular Volume 98.5 fL (80.0-94.0); Mean Platelet Volume 9.8 fL (7.4-10.4); Platelet Count 177 10^3/uL (130-400); Red Blood Cell Count 2.62 10^6/uL (4.70-6.10); Red Cell Dist. Width 17.7 % (11.5-14.5); White Blood Cell Count 5.1 10^3/uL (4.8-10.8)
[2023-10-09 06:59] LABS: Blood Urea Nitrogen 27 mg/dl (9-20); Calcium 8.9 mg/dl (8.4-10.2); Carbon Dioxide 24 mmol/L (22-30); Chloride 107 mmol/L (98-107); Estimated Creatinine Clearance 98 ml/min; Glucose 90 mg/dl (70-99); Potassium 4.1 mmol/L (3.5-5.1); Sodium 137 mmol/L (135-145); eGFR > 60.00
[2023-10-09 07:46] VITALS: BP 122/71
[2023-10-09] MEDS: ProAmatine PO ×4 (09:10→16:06)
[2023-10-09] MEDS: LASIX 20 MG PO (09:23)
[2023-10-09] MEDS: ELIQUIS 5 MG PO ×2 (09:24→21:56)
[2023-10-09] MEDS: THIAMINE INJECTION 200 MG IV ×2 (09:24→21:56)
[2023-10-09] MEDS: KENALOG/TRIAMCINOLONE 0.1% LOTION 1 APPLIC TOPICAL ×2 (09:25→21:56)
[2023-10-09] MEDS: DELTASONE 15 MG PO (09:27)
[2023-10-09 11:27] VITALS: BP 120/75
--- NOTE | 2023-10-09 13:09 | W.PN.UPDATE ---
Update Note
Progress Note Update
Psychiatric evaluation dictated.
Patient seen with family. Currently is calm but family reports he was quite agitated this AM. They report he has been lucid without any noticeable cognitive deficit prior to coming to the hospital.
The picture is that of delirium but it is rather prolonged. He has been on the predisone even prior to his admission so steroid induced psychosis is unlikely.
For now would continue the Zyprexa.
Will follow.
--- NOTE | 2023-10-09 13:18 | W.PN.HOSP.TC ---
Today's Communication/Plan
-
psych consult
increasing HS zyprexa
Assessment / Plan
Assessment / Plan
Left leg: GENE severely reduced measuring 0.12. Absent digital signal. Monophasic continuous flow within the common femoral artery compatible with inflow disease. Long segment SFA occlusion with reconstitution of severely dampened monophasic
continuous flow within the popliteal artery. Posterior tibial artery is occluded. Monophasic continuous flow within the dorsalis pedis artery.

#Acute toxic metabolic encephalopathy - Improving
-Avoid benzodiazepines, opiates
-off of restraints,
-continue supportive measures.
-B12/folate normal. giving empiric thiamine.
-started back on HS zyprexa , psychiatry evaluation requested
# Sepsis possibly secondary to Non-Healing RLE Wound
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
-vasc surgery signed off
-resumed back on anticoagulation at this point.
-Suspecting recurring of sepsis as patient was tachycardic/febrile on 10/04 evening
-Patient finished course of antibiotic, resumed back on Zosyn
-Left ankle wound present, x-ray did not show osteomyelitis.
-Blood culture/UA collected. Procal elevated to 1.44
-remains fever free. abx discontinued again.
#PAD
-having some pain in left leg
-vasc surgery consulted, GENE showing diffuse atherosclerotic changes as mentioned above. Await further recommendation.
# Acute blood loss anemia
-2/2 to surgical blood loss
-s/p 2u prbc on 02/28
# Rash
-across chest and back
-no new meds except seroquel/haldol
-Steroid cream ordered
#Atrial Fibrillation with Rapid Ventricular Response in setting of Sepsis
-Stop Cardizem drip
-restart eliquis
-Patient back into RVR on 10/04 evening likely due to recurrence of fever versus sepsis
-As blood pressure was soft patient was given IV metoprolol as needed
# Chronic systolic congestive heart failure
Coronary Artery Disease s/p CABG
-No signs of volume overload.
-Cardiology trying to get patient on GDMT
-continue small dose lasix
# Nonischemic troponin elevation
-most likely due to sepsis
-cards consulted as has had sig CAD hx; no need for asa as per cards
-ECHO f/u - EF 35%
#Transaminitis
-resolved
#Hyperlipidemia
-Continue fenofibrate
#Myelodysplastic Syndrome
-Monitor counts closely
#Polymyalgia Rheumatica
-Continue Prednisone
DVT proph: Eliquis
Code Status: Full Code
10/08 patient remains pleasantly disoriented. Remains somewhat restless and requires redirection. Difficult situation as despite resolution of underlying medical issues patient still have lingering encephalopathy changes. This likely to persist
for some time and patient will require higher level of support. I have discussed this with patient daughter at bedside who has requested to talk to [employer] for possible arrangement of home support with nursing staff.
Anticipated Discharge: > 48 hours
Subjective/Interval History
-
Date of Service: October 09, 2023
Remains confused and disoriented
no other acute issues overnight
Objective Data
-
Labs:
Laboratory Results
10/09/23
06:08
WBC 5.1
Hgb 8.7 L
Hct 25.8 L
Plt Count 177
Sodium 137
Potassium 4.1
Chloride 107
Carbon Dioxide 24
BUN 27 H
Creatinine 0.6 L
Glucose 90
Calcium 8.9
Vital Signs:
Vital Signs
Temp Pulse Resp BP Pulse Ox
97.6 F 93 18 122/71 100
10/09/23 07:46 10/09/23 07:46 10/09/23 07:46 10/09/23 07:46 10/09/23 07:46
I&O
10/08/23 10/09/23 10/10/23
06:59 06:59 06:59
Intake Total 480 / 480
Output Total 275 / 275
Balance 205 / 205
Review of Systems
-
Unable to obtain full review of systems at this time due to: Acuity
Physical Exam
-
General: Cachectic
HEENT: Negative Oxygen
Musculoskeletal: Other (RLE AKA)
Neuro: Awake and No Motor Deficits; Negative Oriented
Psych: Calm
--- NOTE | 2023-10-09 14:43 | CM ---
Case management following for d/c planning
Pt for SNF
Increased confusion today
Spoke with pts family at bedside - unsure of dispo
Given List of SNF's from [employer] and list of Private Pay [employer] to review
Plan - tbd home with [employer]/family assist vs SNF-
[2023-10-09 15:25] VITALS: BP 123/83
[2023-10-09] MEDS: XANAX 0.25 MG PO ×2 (15:54→21:56)
[2023-10-09] MEDS: TYLENOL 650 MG PO (21:55)
[2023-10-09] MEDS: TRICOR 145 MG PO (21:56)
[2023-10-09] MEDS: CRESTOR 40 MG PO (21:56)
[2023-10-09] MEDS: ZYPREXA 5 MG PO (21:59)
[2023-10-09 23:00] VITALS: BP 134/76
[2023-10-10 06:00] VITALS: BMI 21.6
[2023-10-10 08:14] VITALS: BP 137/78
[2023-10-10] MEDS: LASIX 20 MG PO (09:40)
[2023-10-10] MEDS: DELTASONE 15 MG PO (09:41)
[2023-10-10] MEDS: ELIQUIS 5 MG PO ×2 (09:41→20:22)
[2023-10-10] MEDS: ProAmatine PO ×3 (09:41→17:13)
[2023-10-10] MEDS: THIAMINE INJECTION 200 MG IV (09:41)
[2023-10-10] MEDS: KENALOG/TRIAMCINOLONE 0.1% LOTION 1 APPLIC TOPICAL ×2 (10:06→20:22)
--- NOTE | 2023-10-10 12:25 | W.PN.UPDATE ---
Update Note
Progress Note Update
Patient is sleeping with family by his bedside. Patient care note reports he was agitated at about 1AM. I did not try to wake him, family stes he mombles but makes litrtle sense.
It is concerning the delirium is lasting so long although it is not unheard of.
Will continue F/U.
--- NOTE | 2023-10-10 12:57 | W.PN.HOSP.TC ---
Today's Communication/Plan
-
OOB to chair
fluconazole
Assessment / Plan
Assessment / Plan
Left leg: GENE severely reduced measuring 0.12. Absent digital signal. Monophasic continuous flow within the common femoral artery compatible with inflow disease. Long segment SFA occlusion with reconstitution of severely dampened monophasic
continuous flow within the popliteal artery. Posterior tibial artery is occluded. Monophasic continuous flow within the dorsalis pedis artery.

#Acute toxic metabolic encephalopathy - Improving�suspect delirium although ?yeast uti
-Avoid opiates
-off of restraints,
-continue supportive measures.
-B12/folate normal. giving empiric thiamine.
-started back on HS zyprexa , psychiatry evaluation requested
� Out of bed to chair today, to combat delirium with early ambulation
# Sepsis possibly secondary to Non-Healing RLE Wound
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
-vasc surgery signed off
-Patient finished course of antibiotic, Zosyn
-Left ankle wound present, x-ray did not show osteomyelitis.
-Blood culture/UA collected.
-remains fever free. abx discontinued again.
#?UTI, Yeast
-f/u further speciation
-start fluconazole as patient has had prolong delirium
#PAD
-having some pain in left leg
-vasc surgery consulted, GENE showing diffuse atherosclerotic changes as mentioned above. Await further recommendation.
# Acute blood loss anemia
-2/2 to surgical blood loss
-s/p 2u prbc on 02/28
# Rash
-across chest and back
-no new meds except seroquel/haldol
-Steroid cream ordered
#Atrial Fibrillation with Rapid Ventricular Response in setting of Sepsis
-Stop Cardizem drip
-restart eliquis
-Patient back into RVR on 10/04 evening likely due to recurrence of fever versus sepsis
-As blood pressure was soft patient was given IV metoprolol as needed
# Chronic systolic congestive heart failure
Coronary Artery Disease s/p CABG
-No signs of volume overload.
-Cardiology trying to get patient on GDMT
-continue small dose lasix
# Nonischemic troponin elevation
-most likely due to sepsis
-cards consulted as has had sig CAD hx; no need for asa as per cards
-ECHO f/u - EF 35%
#Transaminitis
-resolved
#Hyperlipidemia
-Continue fenofibrate
#Myelodysplastic Syndrome
-Monitor counts closely
#Polymyalgia Rheumatica
-Continue Prednisone
DVT proph: Eliquis
Code Status: Full Code
Anticipated Discharge: > 48 hours
Subjective/Interval History
-
Date of Service: October 10, 2023
Agitated last night, sleepy this morning
Objective Data
-
Vital Signs:
Vital Signs
Temp Pulse Resp BP Pulse Ox
98.1 F 82 18 128/75 96
10/10/23 08:14 10/10/23 09:40 10/10/23 08:14 10/10/23 09:40 10/10/23 12:35
I&O
10/09/23 10/10/23 10/11/23
06:59 06:59 06:59
Intake Total 640 / 640 0 / 0
Balance 640 / 640 0 / 0
Review of Systems
-
Unable to obtain full review of systems at this time due to: Acuity
Physical Exam
-
General: Cachectic
HEENT: Negative Oxygen
Musculoskeletal: Other (RLE AKA)
Neuro: Awake and No Motor Deficits; Negative Oriented
Psych: Calm
Data Reviewed
-
Total Time Spent with Patient (in minutes): 45
CT Scan: Image personally visualized and interpreted and Report Reviewed by me
Labs: Labs Reviewed by me
[2023-10-10] MEDS: DIFLUCAN 200 MG PO (15:12)
[2023-10-10 15:23] VITALS: BP 167/71
[2023-10-10 16:07] VITALS: BP 145/85
[2023-10-10] MEDS: TYLENOL 650 MG PO (16:42)
[2023-10-10] MEDS: TRICOR 145 MG PO (21:07)
[2023-10-10] MEDS: ZYPREXA 5 MG PO (21:07)
[2023-10-10] MEDS: CRESTOR 40 MG PO (21:07)
[2023-10-10 23:10] VITALS: BP 115/85
[2023-10-11 05:11] VITALS: BMI 22.7
[2023-10-11 06:53] LABS: ALT (SGPT) 50 U/L (0-50); AST (SGOT) 36 U/L (17-59); Albumin 3.4 g/dl (3.5-5.0); Alkaline Phosphatase 90 U/L (38-126); Blood Urea Nitrogen 18 mg/dl (9-20); Carbon Dioxide 24 mmol/L (22-30); Chloride 106 mmol/L (98-107); Estimated Creatinine Clearance 83 ml/min; Glucose 77 mg/dl (70-99); Potassium 4.4 mmol/L (3.5-5.1); Sodium 138 mmol/L (135-145); Total Bilirubin 1.6 mg/dl (0.2-1.3); Total Protein 7.2 g/dl (6.3-8.2); eGFR > 60.00
[2023-10-11] MEDS: ELIQUIS 5 MG PO ×2 (07:39→22:09)
[2023-10-11] MEDS: DIFLUCAN 200 MG PO (07:39)
[2023-10-11] MEDS: LASIX 20 MG PO (07:39)
[2023-10-11] MEDS: ProAmatine PO ×3 (07:40→17:06)
[2023-10-11] MEDS: KENALOG/TRIAMCINOLONE 0.1% LOTION 1 APPLIC TOPICAL ×2 (07:40→22:09)
[2023-10-11] MEDS: DELTASONE 15 MG PO (07:40)
[2023-10-11 07:42] VITALS: BP 134/81
[2023-10-11 09:15] LABS: Hematocrit 33.6 % (39.0-52.0); Hemoglobin 11.3 g/dL (13.0-18.0); Mean Corp Hgb Conc. 33.6 g/dL (33.0-37.0); Mean Corpuscular Volume 98.2 fL (80.0-94.0); Mean Platelet Volume 9.3 fL (7.4-10.4); Platelet Count 237 10^3/uL (130-400); Red Blood Cell Count 3.42 10^6/uL (4.70-6.10); Red Cell Dist. Width 18.5 % (11.5-14.5); White Blood Cell Count 8.2 10^3/uL (4.8-10.8)
--- NOTE | 2023-10-11 11:34 | CM ---
Case management following for d/c planning
Spoke with pts daughter at bedside
Reports family had a meeting and agree on hospice
TT sent to hospice nurse Peg Baker
Plan - anticipate home with hospice
--- NOTE | 2023-10-11 13:46 | HOSPNOTE ---
Addendum entered by Sylvia Baker RN 10/12/23 11:05:
transport is scheduled for 12noon.
Addendum entered by Sylvia Baker RN 10/11/23 15:08:
Met with family and they are in agreement with hospice care. The plan is for home hospice, equipment ordered and attending and case management aware of plan. Transport will be needed for discharge and OOH DNR will be needed on chart.
Original Note:
Family meeting at 2pm today. More information to follow.
--- NOTE | 2023-10-11 14:07 | W.PN.HOSP.TC ---
Today's Communication/Plan
-
hospice consultation
Assessment / Plan
Assessment / Plan
Left leg: GENE severely reduced measuring 0.12. Absent digital signal. Monophasic continuous flow within the common femoral artery compatible with inflow disease. Long segment SFA occlusion with reconstitution of severely dampened monophasic
continuous flow within the popliteal artery. Posterior tibial artery is occluded. Monophasic continuous flow within the dorsalis pedis artery.

#Acute toxic metabolic encephalopathy - Improving�suspect delirium although ?yeast uti
-Avoid opiates
-off of restraints,
-continue supportive measures.
-B12/folate normal. giving empiric thiamine.
-started back on HS zyprexa , psychiatry evaluation requested
� Out of bed to chair today, to combat delirium with early ambulation
# Sepsis possibly secondary to Non-Healing RLE Wound
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
-vasc surgery signed off
-Patient finished course of antibiotic, Zosyn
-Left ankle wound present, x-ray did not show osteomyelitis.
-Blood culture/UA collected.
-remains fever free. abx discontinued again.
#?UTI, Yeast
-f/u further speciation
-start fluconazole as patient has had prolong delirium
#PAD
-having some pain in left leg
-vasc surgery consulted, GENE showing diffuse atherosclerotic changes as mentioned above. Await further recommendation.
# Acute blood loss anemia
-2/2 to surgical blood loss
-s/p 2u prbc on 02/28
# Rash
-across chest and back
-no new meds except seroquel/haldol
-Steroid cream ordered
#Atrial Fibrillation with Rapid Ventricular Response in setting of Sepsis
-Stop Cardizem drip
-restart eliquis
-Patient back into RVR on 10/04 evening likely due to recurrence of fever versus sepsis
-As blood pressure was soft patient was given IV metoprolol as needed
# Chronic systolic congestive heart failure
Coronary Artery Disease s/p CABG
-No signs of volume overload.
-Cardiology trying to get patient on GDMT
-continue small dose lasix
# Nonischemic troponin elevation
-most likely due to sepsis
-cards consulted as has had sig CAD hx; no need for asa as per cards
-ECHO f/u - EF 35%
#Transaminitis
-resolved
#Hyperlipidemia
-Continue fenofibrate
#Myelodysplastic Syndrome
-Monitor counts closely
#Polymyalgia Rheumatica
-Continue Prednisone
DVT proph: Eliquis
Total time spent on today's encounter was 50 minutes which included time spent in counseling the patient/family regarding diagnosis and treatment plan as listed above, goals of care, and symptom management. Case was discussed with nursing staff,
specialists, and care coordinators/case management. All labs and imaging personally reviewed by me. Remainder the time spent in detailed review of previous records, lab data, imaging, and other medical provider documentation.
Update 10/10- after discussion with fam - opting for hospice;
Anticipated Discharge: Within 24 hours
Subjective/Interval History
-
Date of Service: October 11, 2023
agitated
Objective Data
-
Labs:
Laboratory Results
10/11/23 10/11/23
05:54 08:50
WBC Cancelled 8.2
Hgb Cancelled 11.3 L D
Hct Cancelled 33.6 L
Plt Count Cancelled 237 D
Sodium 138
Potassium 4.4
Chloride 106
Carbon Dioxide 24
BUN 18
Creatinine 0.7
Glucose 77
Calcium 9.0
Total Bilirubin 1.6 H
AST 36
ALT 50
Alkaline Phosphatase 90
Vital Signs:
Vital Signs
Temp Pulse Resp BP Pulse Ox
99.8 F 125 15 146/66 97
10/11/23 07:42 10/11/23 07:42 10/11/23 07:42 10/11/23 13:13 10/11/23 11:02
I&O
10/10/23 10/11/23 10/12/23
06:59 06:59 06:59
Intake Total 640 / 640 0 / 0
Output Total 400 / 400
Balance 640 / 640 -400 / -400
Review of Systems
-
Unable to obtain full review of systems at this time due to: Acuity
Physical Exam
-
General: Cachectic
HEENT: Negative Oxygen
Musculoskeletal: Other (RLE AKA)
Neuro: Awake and No Motor Deficits; Negative Oriented
Psych: Calm
Data Reviewed
-
Total Time Spent with Patient (in minutes): 45
CT Scan: Image personally visualized and interpreted and Report Reviewed by me
Labs: Labs Reviewed by me
[2023-10-11 15:27] VITALS: BP 128/62
[2023-10-11] MEDS: CRESTOR 40 MG PO (22:09)
[2023-10-11] MEDS: ZYPREXA 5 MG PO (22:09)
[2023-10-11] MEDS: TRICOR 145 MG PO (22:09)
[2023-10-11 23:38] VITALS: BP 136/77
[2023-10-12] MEDS: ELIQUIS 5 MG PO (07:23)
[2023-10-12] MEDS: DELTASONE 15 MG PO (07:23)
[2023-10-12] MEDS: DIFLUCAN 200 MG PO (07:23)
[2023-10-12] MEDS: KENALOG/TRIAMCINOLONE 0.1% LOTION 1 APPLIC TOPICAL (07:24)
[2023-10-12] MEDS: LASIX 20 MG PO (07:24)
[2023-10-12] MEDS: ProAmatine PO ×2 (07:25→12:01)
[2023-10-12 07:35] VITALS: BP 111/73
--- NOTE | 2023-10-12 11:11 | W.PN.UPDATE ---
Update Note
Progress Note Update
Patient at bedside with family, discussed with RN, chart reviewed. Patient will be placed on hospice today.
Psych to sign off.
--- NOTE | 2023-10-12 11:43 | W.PN.HOSP.TC ---
Addendum entered and electronically signed by Dash Farias MD 10/12/23 16:10:
spoke to family regarding C. Glabrata and options of IV antifungals. after discussion ofprognosis and quality of life, family opting to continue hospice care and avoid iv meds/aggressive treatment including amphotericin, etc.
Addendum entered and electronically signed by Dash Farias MD 10/12/23 16:01:
[id number]
Original Note:
Today's Communication/Plan
-
dc on fluconazole x 14 days total
DC on hospice; f/u with vascular/cardiology/pcp outpatient if desired
Assessment / Plan
Assessment / Plan
Left leg: GENE severely reduced measuring 0.12. Absent digital signal. Monophasic continuous flow within the common femoral artery compatible with inflow disease. Long segment SFA occlusion with reconstitution of severely dampened monophasic
continuous flow within the popliteal artery. Posterior tibial artery is occluded. Monophasic continuous flow within the dorsalis pedis artery.

#Acute toxic metabolic encephalopathy - Improving�suspect delirium although ?yeast uti
-Avoid opiates
-off of restraints,
-continue supportive measures.
-B12/folate normal. giving empiric thiamine.
-started back on HS zyprexa , psychiatry evaluation requested
� Out of bed to chair today, to combat delirium with early ambulation
# Sepsis possibly secondary to Non-Healing RLE Wound
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
-vasc surgery signed off
-Patient finished course of antibiotic, Zosyn
-Left ankle wound present, x-ray did not show osteomyelitis.
-Blood culture/UA collected.
-remains fever free. abx discontinued again.
#?UTI, Yeast
-f/u further speciation
-start fluconazole as patient has had prolong delirium
� Improving today, I suspect this may have component of altered mental status�continue for 14-day course
#PAD
-having some pain in left leg
-vasc surgery consulted, GENE showing diffuse atherosclerotic changes as mentioned above. Await further recommendation.
# Acute blood loss anemia
-2/2 to surgical blood loss
-s/p 2u prbc on 02/28
# Rash
-across chest and back
-no new meds except seroquel/haldol
-Steroid cream ordered
#Atrial Fibrillation with Rapid Ventricular Response in setting of Sepsis
-Stop Cardizem drip
-restart eliquis
-Patient back into RVR on 10/04 evening likely due to recurrence of fever versus sepsis
-switch to Toprol
# Chronic systolic congestive heart failure
Coronary Artery Disease s/p CABG
-No signs of volume overload.
-Cardiology trying to get patient on GDMT
-continue small dose lasix
# Nonischemic troponin elevation
-most likely due to sepsis
-cards consulted as has had sig CAD hx; no need for asa as per cards
-ECHO f/u - EF 35%
#Transaminitis
-resolved
#Hyperlipidemia
-Continue fenofibrate
#Myelodysplastic Syndrome
-Monitor counts closely
#Polymyalgia Rheumatica
-Continue Prednisone
DVT proph: Eliquis
More than 30 minutes spent in discharge including
Final examination of the patient
Summarizing hospital stay
Instructions for continuing care to all relevant caregivers
Preparation of discharge records, prescriptions, and referral forms
Total time spent (35 in minutes):
Anticipated Discharge: Today
Subjective/Interval History
-
Date of Service: October 12, 2023
Patient's mental status improved today, delirium seems to be improving
Objective Data
-
Vital Signs:
Vital Signs
Temp Pulse Resp BP Pulse Ox
97.7 F 133 19 111/73 94
10/12/23 07:35 10/12/23 07:35 10/12/23 07:35 10/12/23 07:35 10/12/23 10:35
I&O
10/11/23 10/12/23 10/13/23
06:59 06:59 06:59
Intake Total 0 / 0
Output Total 400 / 400 725 / 725
Balance -400 / -400 -725 / -725
Review of Systems
-
Unable to obtain full review of systems at this time due to: Acuity
Physical Exam
-
General: Cachectic
HEENT: Negative Oxygen
Musculoskeletal: Other (RLE AKA)
Neuro: Awake and No Motor Deficits; Negative Oriented
Psych: Calm
Data Reviewed
-
Total Time Spent with Patient (in minutes): 45
CT Scan: Image personally visualized and interpreted and Report Reviewed by me
Labs: Labs Reviewed by me
--- NOTE | 2023-10-12 11:45 | W.DS.TRANS ---
DC Summary - [employer]
-
Discharge Instructions:
Sleep Apnea Risk High
Discharge Diagnosis/Procedures Acute toxic metabolic encephalopathy
Sepsis possibly secondary to Non-Healing RLE
Wound
UTI, Yeast
Diet Low Cholesterol,Low Fat
Activity As tolerated
Instructions:
Stand-Alone Forms: DC Instr - Vascular OR
Changes to Home Medications: Yes
Discharge Medications:
DC Medications w/original date entered in [employer]
apixaban 5 mg tablet (Eliquis) 5 mg PO BID Blood Clot Prevention/Tx 11/28/22
fenofibrate 160 mg tablet 160 mg PO HS High Cholesterol 11/28/22
rosuvastatin 40 mg tablet 40 mg PO HS High Cholesterol 11/28/22
empagliflozin 10 mg tablet (Jardiance) 10 mg PO DAILY Heart Failure #0 tabs 07/20/23
alprazolam 0.25 mg tablet 0.25 mg PO DAILYPRN PRN anxiety 09/21/23
furosemide 20 mg tablet 20 mg PO DAILY Fluid Retention/Swelling 09/21/23
prednisone 10 mg tablet 15 mg PO DAILY INFLAMMATION 09/21/23
sodium hypochlorite 0.125 % solution (Dakin's Solution) 1 applic topical DAILY apply to right foot 09/21/23
acetaminophen 650 mg tablet,extended release 1,300 mg PO [id number] PRN mild pain 09/27/23
docusate sodium 100 mg capsule (Colace) 100 mg PO DAILYPRN PRN constipation 09/27/23
acetaminophen 325 mg tablet 650 mg (2 x 325 mg) PO Q4HPRN PRN mild pain/ fever>100.5F 30 days #60 tabs 10/12/23
bisacodyl 10 mg rectal suppository 10 mg PA DAILYPRN PRN constipation #50 ea 10/12/23
fluconazole 200 mg tablet 200 mg PO DAILY 13 days #13 tabs 10/12/23
metoprolol succinate 25 mg tablet,extended release 24 hr (Toprol XL) 12.5 mg (1/2 x 25 mg) PO DAILY #30 tabs 10/12/23
midodrine 5 mg tablet 10 mg (2 x 5 mg) PO TID@0800,1300,1800 30 days #90 tabs 10/12/23
olanzapine 5 mg tablet 5 mg PO HS 30 days #30 tabs 10/12/23
Home Medication Changes
acetaminophen 325 mg tablet 650 mg (2 x 325 mg) PO Q4HPRN PRN mild pain/ fever>100.5F 30 days #60 tabs 10/12/23
bisacodyl 10 mg rectal suppository 10 mg PA DAILYPRN PRN constipation #50 ea 10/12/23
fluconazole 200 mg tablet 200 mg PO DAILY 13 days #13 tabs 10/12/23
metoprolol succinate 25 mg tablet,extended release 24 hr (Toprol XL) 12.5 mg (1/2 x 25 mg) PO DAILY #30 tabs 10/12/23
midodrine 5 mg tablet 10 mg (2 x 5 mg) PO TID@0800,1300,1800 30 days #90 tabs 10/12/23
olanzapine 5 mg tablet 5 mg PO HS 30 days #30 tabs 10/12/23
Pending Results: No
[2023-10-12 12:27] VITALS: BP 114/66
--- NOTE | 2023-10-12 15:28 | PN.CDI ---
CDI
- -
CDI:
Physician Documentation Request
Admit Date: 09/27/23 13:19
Dear Doctor Jarrett,
Patient's urine culture 10/04 + for Shira glabrata
10/11 progress note states 'dc on fluconazole x 14 days total.... Improving today, I suspect this may have component of altered mental status...'
Based on the above, could you provide a diagnosis for the abnormal lab and indication for the medication listed above:
Candiduria
Other
Use of terms such as suspected, likely, concern for, or probable (associated with a specific diagnosis that is being evaluated, monitored, or treated as if it exists) are acceptable and can be coded in the inpatient setting, when documented at the
time of discharge.
Thank you,
Caitlyn Esquivel RN, BSN
CDI Specialist
tiger text
Please use your independent medical judgment in providing your response.
== END 2023-10-12 12:25 | disposition home or self-care (01) | DRG 853 ==
LOC: 3 WEST ACU 13:19
PROVIDERS: Hospitalist; Nurse Practitioner; Nurse Practitioner Acute Care; Physician Assistant; Physician Assistant Medical; Surgery Vascular Surgery; ADMITTING PHYSICIAN Internal Medicine; CONSULT PHYSICIAN Nuclear Medicine Nuclear Cardiology; CONSULT PHYSICIAN Student in an Organized Health Care Education/Training Program; EMERGENCY PHYSICIAN Emergency Medicine; FAMILY PHYSICIAN Family Medicine; OTHER PHYSICIAN Psychiatry & Neurology Psychiatry
PROC: 0Y6C0Z3 Detachment at Right Upper Leg, Low, Open Approach (ICD-10-PCS; 2023-09-28)
PROC: 30233N1 Transfusion of Nonautologous Red Blood Cells into Peripheral Vein, Percutaneous Approach (ICD-10-PCS; 2023-09-29)
DX: A41.9 Sepsis, unspecified organism (principal); G92.8 Other toxic encephalopathy; N39.0 Urinary tract infection, site not specified; D84.821 Immunodeficiency due to drugs; I50.22 Chronic systolic (congestive) heart failure; I48.21 Permanent atrial fibrillation; L03.115 Cellulitis of right lower limb; L97.319 Non-pressure chronic ulcer of right ankle with unspecified severity; B37.49 Other urogenital candidiasis; D62 Acute posthemorrhagic anemia; I5A Non-ischemic myocardial injury (non-traumatic); D61.818 Other pancytopenia; D46.9 Myelodysplastic syndrome, unspecified; I11.0 Hypertensive heart disease with heart failure; M35.3 Polymyalgia rheumatica; I70.233 Atherosclerosis of native arteries of right leg with ulceration of ankle; I25.10 Atherosclerotic heart disease of native coronary artery without angina pectoris; E78.00 Pure hypercholesterolemia, unspecified; Z95.1 Presence of aortocoronary bypass graft
CPT/HCPCS: 88307; 88311; 93308; 27590; 70450; 71045; 73600; 80048; 80053; 81003; 81015; 82607; 82728; 82746; 82962; 83605; 83735; 84145; 84443; 84484; 85025; 85027; 85045; 85610; 85730; 86850; 86900; 86901; 86920; 87040; 87070; 87086; 87106; 87502; 87811; 93005; 93321; 93325; 93922; 93925; 93971; 96361; 96365; 96375; 97163; 97167; 97530; 97535; 99291; P9016